=== PATIENT | female | born 1935 | race Hispanic/Latino ===

== ENCOUNTER 2017-02-12 13:43 | Inpatient (IN) | payer MEDICARE, BC ==
--- NOTE | 2017-02-12 14:12 | ED PDOC ---
HPI: SOB/CHF/COPD Time Seen by Provider: 02/12/17 13:49 Chief Complaint (Nursing): Shortness Of Breath Chief Complaint (Provider): Shortness Of Breath History Per: Patient History/Exam Limitations: no limitations Onset/Duration Of Symptoms: Days (x5 days) Current Symptoms Are (Timing): Still Present Additional Complaint(s): 81 y/o female with a past medical history of hypertension, atrial fibrillation, and congestive heart failure who presents to the emergency department with a complaint of worsening shortness of breath, palpitations, chest heaviness, and a non-productive cough x5 days. Denies fever. PMD: Dr. Marco A Gillespie MD Past Medical History Reviewed: Historical Data, Nursing Documentation, Vital Signs Vital Signs: Last Vital Signs Temp 98.6 F 02/12/17 13:46 Pulse 132 H 02/12/17 13:46 Resp 20 02/12/17 13:46 BP 140/97 H 02/12/17 13:46 Pulse Ox 100 02/12/17 14:15 - Medical History PMH: Atrial Fibrillation, CAD (with stent), Cardia Arrhythmia, CHF, COPD, Gastritis, HTN, Hypercholesterolemia, Pneumonia Denies: HIV, Chronic Kidney Disease - Surgical History Surgical History: Appendectomy, Cholecystectomy, Pacemaker, Tonsillectomy - Family History Family History: States: Unknown Family Hx - Home Medications Home Medications: Ambulatory Orders Medication Instructions Recorded Clopidogrel [Plavix] 75 mg PO DAILY 11/03/14 Simvastatin 20 mg PO HS 11/03/14 Amiodarone [Cordarone] 200 mg PO DAILY #0 tab 08/05/15 Digoxin [Lanoxin] 0.25 mg PO DAILY #0 tab 08/05/15 Furosemide [Lasix] 20 mg PO DAILY #30 tab 08/05/15 Metoprolol Tartrate [Lopressor] 50 mg PO Q12 #0 tab 08/05/15 Aspirin [Ecotrin] 81 mg PO DAILY #0 tabec 08/07/15 Nitroglycerin [Nitrostat SL Tab] 0.3 mg SL PRN PRN #1 tab.subl 08/07/15 - Allergies Allergies/Adverse Reactions: Allergies Allergy/AdvReac Type Severity Reaction Status Date / Time Penicillins Allergy RASH Verified 02/12/17 13:46 Review of Systems ROS Statement: Except As Marked, All Systems Reviewed And Found Negative Constitutional: Negative for: Fever Cardiovascular: Positive for: Palpitations, Other (Chest heaviness) Respiratory: Positive for: Cough (Non-productive), Shortness of Breath Physical Exam - Reviewed Nursing Documentation Reviewed: Yes Vital Signs Reviewed: Yes - Physical Exam Appears: Positive for: Non-toxic, No Acute Distress Head Exam: Positive for: ATRAUMATIC, NORMAL INSPECTION, NORMOCEPHALIC Skin: Positive for: Normal Color, Warm, Dry Cardiovascular/Chest: Positive for: Tachycardia, Irregularly Irregular. Negative for: Regular Rate, Rhythm, Murmur Respiratory: Positive for: Rales (1/3 up), Respiratory Distress (Mild). Negative for: Normal Breath Sounds, Accessory Muscle Use Gastrointestinal/Abdominal: Positive for: Normal Exam, Soft. Negative for: Tenderness Extremity: Positive for: Normal ROM. Negative for: Calf Tenderness, Swelling Neurologic/Psych: Positive for: Alert, Oriented (x3) - Laboratory Results Result Diagrams: 02/12/17 14:24 - ECG O2 Sat by Pulse Oximetry: 100 (RA) Pulse Ox Interpretation: Normal - Critical Care Total Time (In Min): 30 Medical Decision Making Medical Decision Making: Time:14:05 Initial impression: Shortness of breath Initial plan: --EKG --B-Type Natriuretic --CMP --Troponin I --Urine DIP --CBC w/ diff --Chest x-ray --Sodium Chloride --Cardizem 25 mg IVP --Lasix 60 mg IVP --Reevaluation Scribe Attestation: Documented by Winnie Farrell, acting as a scribe for Lukas Velasquez MD. Provider Scribe Attestation: All medical record entries made by the Scribe were at my direction and personally dictated by me. I have reviewed the chart and agree that the record accurately reflects my personal performance of the history, physical exam, medical decision making, and the department course for this patient. I have also personally directed, reviewed, and agree with the discharge instructions and disposition. Disposition - Clinical Impression Clinical Impression: Atrial fibrillation with rapid ventricular response - Patient ED Disposition Is Patient to be Admitted: Yes - Disposition Disposition Time: 14:34 Condition: FAIR Forms: [facility] (Romansh) - Pt Status Changed To: Hospital Disposition Of: Inpatient - Admit Certification Admit to Inpatient:: After my assessment, the patient will require hospitalization for at least two midnights. This is because of the severity of symptoms shown, intensity of services needed, and/or the medical risk in this patient being treated as an outpatient. - POA Present On Arrival: None
[2017-02-12 14:28] LABS: BASO % 0.2 % (0.0-2.0); EOS % 0.2 % (0.0-4.0); HEMOGLOBIN 14.8 g/dL (12.0-16.0); LYMPH # 0.3 K/uL (1.0-4.3); LYMPH % 3.1 % (20.0-40.0); MEAN CELL VOLUME 91.6 fl (81.0-99.0); MEAN CORPUSCULAR HEMOGLOBIN 29.6 pg (27.0-31.0); MEAN CORPUSCULAR HGB CONC 32.3 g/dL (33.0-37.0); MEAN PLATELET VOLUME 10.9 fl (7.2-11.7); MONO # 0.7 K/uL (0.0-0.8); MONO % 7.4 % (0.0-10.0); NEUT # 8.6 K/uL (1.8-7.0); NEUT % 89.1 % (50.0-75.0); NRBC % 0.2 % (0.0-0.0); PLATELET COUNT 146 K/uL (130-400); RBC 4.99 Mil/uL (3.80-5.20); RED CELL DISTRIBUTION WIDTH 15.9 % (11.5-14.5); WHITE BLOOD COUNT 9.7 K/uL (4.8-10.8)
[2017-02-12 14:38] LABS: ALB/GLOB RATIO 1.2 (1.0-2.1); ALBUMIN 3.9 g/dL (3.5-5.0); CALCIUM 9.8 mg/dL (8.4-10.2)
[2017-02-12] MEDS ORDERED: Digoxin 500 mcg/2ml (0.5 mg/2ml) Inj IVP STA (14:46)
[2017-02-12 14:50] LABS: TROPONIN I 0.021 ng/mL (0.00-0.120)
[2017-02-12] MEDS ORDERED: Levalbuterol 0.63 MG/3 ML Inhal Soln UD INH ONE (14:51)
[2017-02-12 15:10] LABS: ANISOCYTOSIS SLIGHT; LYMPHOCYTE 6 % (20-50); MONOCYTE 9 % (0-10); NEUTROPHIL 85 % (42-75); PLATELET ESTIMATE NORMAL (NORMAL); TOTAL CELLS COUNTED 100
[2017-02-12] MEDS ORDERED: Digoxin 500 mcg/2ml (0.5 mg/2ml) Inj ONE (15:20)
[2017-02-12] MEDS ORDERED: Levalbuterol 0.63 MG/3 ML Inhal Soln UD ONE (15:21)
--- NOTE | 2017-02-12 15:52 | CP.PCM.HP ---
History of Present Illness - History of Present Illness History of Present Illness: CC: shortness of breath HPI This is a 81 year old female PMH CAD with 1 PCI, AFIB, CHF, Asthma, Sick Sinus Syndrome with pacemaker placement, presented to ER with a 5 day history of URI symptoms, cough with thick yellow phlegm, with worsening moderate shortness of breath both at rest and on exertion, with wheeze. In ER patient had rales, wheezes, and had accessory muscle use, speaking in full sentences. Pt started on Cardizem drip and Digoxin in ER. Rate controlled at present, AFIB on EKG. CXR with vascular congestion, possible pneumonia. HD stable now, no acute distress. ROS: per HPI, 12 systems reviewed and negative PMD: Dr. Gillespie [employer]: Dr. Kapadia PMH: CAD with 1 PCI, AFIB, CHF, Asthma, Sick Sinus Syndrome with pacemaker placement PSH: stent placement, remote knee FH: CAD, mother of massive NH SH: denies tobacco, ETOH, IVDU Meds: as below Allergies: NKDA Vitals: reviewed and currently stable Exam: GEN: WDWN, alert, cooperative HEENT: NCAT, PERRL, EOMI NECK: supple, no JVD, no lymphadenopathy CARDIAC: +S1S2 RRR LUNG: RALES, WHEEZES, MILD RESPIRATORY DISTRESS, ACCESSORY MUSCLE USE ABD: SOFT NT ND BSX4 NO MASSES NO HSM EXT: +pedal pulses, equal strength.no appreciable edema. NEURO: AAOx3 SKIN warm, dry PSYCH normal mood, normal affect Labs: 02/12/17 14:24 02/12/17 14:24 Rads: CXR with vascular congestion, possible pneumonia. Active Medications: Allergies Penicillins Allergy (Verified 02/12/17 13:46) RASH Height & Weight Height 5 ft 2 in Weight 170 lb Start Date/Time Active Medications 02/12/17 14:09 Sodium Chloride 0.9% 100 ml diltiaZEM [Cardizem] 125 mg IV 5 mg/hr 02/12/17 18:31 Azithromycin [Zithromax] 500 mg Sodium Chloride 0.9% [Sodium Chloride 0.9% ADDVANTAGE] 250 ml IVPB DAILY 02/12/17 20:00 Levalbuterol [Xopenex] 1.25 mg INH RQ4 02/12/17 21:00 Furosemide [Lasix] 40 mg IVP Q12 Metoprolol Tartrate [Lopressor] 50 mg PO Q12 02/13/17 09:00 Aspirin [Ecotrin] 81 mg PO DAILY Clopidogrel [Plavix] 75 mg PO DAILY Digoxin [Lanoxin] 0.125 mg PO DAILY Enoxaparin [Lovenox] 30 mg SC DAILY cefTRIAXone [Rocephin] 1,000 mg Ped IV Syringe 1 syr IVPB DAILY Assessment and Plan: This is a 81 year old female PMH CAD with 1 PCI, AFIB, CHF, Asthma, Sick Sinus Syndrome with pacemaker placement, presented to ER with a 5 day history of URI symptoms, cough with thick yellow phlegm, with worsening moderate shortness of breath both at rest and on exertion, with wheeze. In ER patient had rales, wheezes, and had accessory muscle use, speaking in full sentences. Pt started on Cardizem drip and Digoxin in ER. Rate controlled at present, AFIB on EKG. CXR with vascular congestion, possible pneumonia. HD stable now, no acute distress. Acute on Chronic CHF, likely diastolic failure Worsening dypsnea at rest and on exertion, likely secondary exacerbation due to URI/Pneumonia and AFIB Repeat ECHO elevated BMP Lasix 40 mg IVP q12 monito BMP AFIB, uncontrolled on admission AFIB on EKG rate 90-120 On Cardizem drip, titrate to PO tomorrow Restart Dig, was on Amio and Dig in past, but was d/c because pt did not tolerate per past records Possible Pneumonia URI symptoms for 5 days afebrile, no WBC empirically treat with Azithromycin and Ceftriaxone Xopenex around the clock DAR BUN/Cr 67/1.5, last time pt base was 1.3 will monitor with diuresis CAD stable first troponin neg cont asa, plavix, bb Present on Admission - Present on Admission Any Indicators Present on Admission: No Past Patient History - Infectious Disease Hx of Infectious Diseases: None - Past Medical History & Family History Past Medical History?: Yes - Past Social History Smoking Status: Never Smoked - CARDIAC Hx Atrial Fibrillation: Yes Hx Cardia Arrhythmia: Yes Hx Congestive Heart Failure: Yes Hx Hypercholesterolemia: Yes Hx Hypertension: Yes Hx Pacemaker: Yes - PULMONARY Hx Chronic Obstructive Pulmonary Disease (COPD): Yes Hx Pneumonia: Yes - NEUROLOGICAL Hx Neurological Disorder: No - HEENT Hx HEENT Problems: Yes Other/Comment: wears glasses - RENAL Hx Chronic Kidney Disease: No - ENDOCRINE/METABOLIC Hx Endocrine Disorders: No - HEMATOLOGICAL/ONCOLOGICAL Hx Human Immunodeficiency Virus (HIV): No - INTEGUMENTARY Hx Dermatological Problems: No - MUSCULOSKELETAL/RHEUMATOLOGICAL Hx Back Pain: Yes Hx Falls: No Hx Spinal Stenosis: Yes - GASTROINTESTINAL Hx Gastritis: Yes - GENITOURINARY/GYNECOLOGICAL Hx Genitourinary Disorders: No - PSYCHIATRIC Hx Psychophysiologic Disorder: No Hx Substance Use: No - SURGICAL HISTORY Hx Appendectomy: Yes Hx Cholecystectomy: Yes Hx Tonsillectomy: Yes - ANESTHESIA Hx Anesthesia: Yes Hx Anesthesia Reactions: No Hx Malignant Hyperthermia: No Meds Allergies/Adverse Reactions: Allergies Allergy/AdvReac Type Severity Reaction Status Date / Time Penicillins Allergy RASH Verified 02/12/17 13:46 Results - Vital Signs Recent Vital Signs: Last Vital Signs Temp 98.6 F 02/12/17 13:46 Pulse 132 H 02/12/17 13:46 Resp 20 02/12/17 13:46 BP 104/74 02/12/17 14:41 Pulse Ox 100 02/12/17 14:34 - Labs Result Diagrams: 02/12/17 14:24 02/12/17 14:24
[2017-02-12 18:30] LABS: ABG ALLEN TEST YES; ARTERIAL BLOOD GAS O2 CAPACITY 20.7 mL/dL (16-24); ARTERIAL BLOOD GAS O2 CONTENT 20.5 ML/dL (15-23); ARTERIAL BLOOD GAS O2 SAT 99.2 % (95-98); ARTERIAL BLOOD GAS PCO2 70 mm/Hg (35-45); ARTERIAL BLOOD GAS PH 7.33 (7.35-7.45); ARTERIAL BLOOD GAS PO2 153 mm/Hg (80-100)
[2017-02-12] MEDS: methylPREDNISolone 30 MG in Sodium Chloride 0.9% 50 ML IVPB SCH (21:09)
[2017-02-12] MEDS: Azithromycin 500 MG in Sodium Chloride 0.9% 250 ML IVPB SCH (21:10)
[2017-02-13] MEDS: Levalbuterol 1.25 MG/3 ML Inhal Soln UD INH SCH ×5 (00:02→19:41)
[2017-02-13] MEDS ORDERED: Levalbuterol 1.25 MG/3 ML Inhal Soln UD INH STA (02:01)
--- NOTE | 2017-02-13 02:05 | CP.PCM.PCO ---
Physician Communication Note - Physician Communication Note Physician Communication Note: Called to evaluate patient with SOB.
[2017-02-13] MEDS ORDERED: methylPREDNISolone 60 MG in Sodium Chloride 0.9% 50 ML IVPB SCH (02:15)
[2017-02-13 03:54] LABS: BASO % 0.2 % (0.0-2.0); EOS % 0.1 % (0.0-4.0); HEMOGLOBIN 14.2 g/dL (12.0-16.0); LYMPH # 0.3 K/uL (1.0-4.3); LYMPH % 2.9 % (20.0-40.0); MEAN CELL VOLUME 91.6 fl (81.0-99.0); MEAN CORPUSCULAR HEMOGLOBIN 29.4 pg (27.0-31.0); MEAN CORPUSCULAR HGB CONC 32.1 g/dL (33.0-37.0); MEAN PLATELET VOLUME 10.3 fl (7.2-11.7); MONO # 0.3 K/uL (0.0-0.8); MONO % 3.7 % (0.0-10.0); NEUT # 8.7 K/uL (1.8-7.0); NEUT % 93.1 % (50.0-75.0); NRBC % 0.1 % (0.0-0.0); PLATELET COUNT 140 K/uL (130-400); RBC 4.81 Mil/uL (3.80-5.20); RED CELL DISTRIBUTION WIDTH 15.9 % (11.5-14.5); WHITE BLOOD COUNT 9.3 K/uL (4.8-10.8)
[2017-02-13 04:56] LABS: TROPONIN I 0.034 ng/mL (0.00-0.120)
[2017-02-13 07:14] LABS: BANDS 5 % (0-2); LYMPHOCYTE 6 % (20-50); MONOCYTE 5 % (0-10); NEUTROPHIL 82 % (42-75); PLATELET ESTIMATE NORMAL (NORMAL); REACTIVE LYMPHOCYTES 2 % (0-0); TOTAL CELLS COUNTED 100
[2017-02-13 07:15] LABS: LARGE PLATELETS PRESENT
[2017-02-13 07:17] LABS: ANISOCYTOSIS SLIGHT
--- NOTE | 2017-02-13 07:22 | RAD ---
HISTORY: cough COMPARISON: No prior. FINDINGS: LUNGS: No active pulmonary disease. PLEURA: No significant pleural effusion identified, no pneumothorax apparent. CARDIOVASCULAR: Normal. Pacemaker leads are in place. Mild cardiomegaly. Atherosclerotic aorta. OSSEOUS STRUCTURES: No significant abnormalities. VISUALIZED UPPER ABDOMEN: Normal. OTHER FINDINGS: None. IMPRESSION: No active disease.
[2017-02-13] MEDS: methylPREDNISolone 30 MG in Sodium Chloride 0.9% 50 ML IVPB SCH ×3 (07:33→16:24)
[2017-02-13] MEDS: Enoxaparin 30 mg Syringe SC SCH (08:30)
[2017-02-13] MEDS: Digoxin 125 mcg (0.125 mg) Tab PO SCH (08:31)
[2017-02-13] MEDS: Azithromycin 500 MG in Sodium Chloride 0.9% 250 ML IVPB SCH (09:26)
[2017-02-13 09:52] LABS: CALCIUM 9.6 mg/dL (8.4-10.2)
[2017-02-13] MEDS ORDERED: Levalbuterol 1.25 MG/3 ML Inhal Soln UD INH PRN (09:54)
--- NOTE | 2017-02-13 09:59 | CP.PCM.PN ---
Subjective - Date & Time of Evaluation Date of Evaluation: 02/13/17 Time of Evaluation: 09:00 - Subjective Subjective: Pt seen sitted at the edge of her bed states she feels very much better still with some SOB , cough and wheezing but states this is very much improved + cough with yellowish phlegm denies CP no abd pain minimal edema Objective - Vital Signs/Intake and Output Vital Signs (last 24 hours): Temp Pulse Resp BP Pulse Ox 97.1 F L 98 H 20 103/66 96 02/13/17 08:19 02/13/17 08:19 02/13/17 08:19 02/13/17 08:32 02/13/17 08:19 - Medications Medications: Current Medications Allopurinol (Zyloprim) 100 mg PO DAILY [facility] Aspirin (Ecotrin) 81 mg PO DAILY [facility] Last Admin: 02/13/17 08:32 Dose: 81 mg Clopidogrel Bisulfate (Plavix) 75 mg PO DAILY [facility] Last Admin: 02/13/17 08:32 Dose: 75 mg Digoxin (Lanoxin) 0.125 mg PO DAILY [facility] Last Admin: 02/13/17 08:31 Dose: 0.125 mg Enoxaparin Sodium (Lovenox) 30 mg SC DAILY RAMIREZ PRN Reason: Protocol Last Admin: 02/13/17 08:30 Dose: 30 mg Furosemide (Lasix) 40 mg IVP Q12 [facility] Last Admin: 02/13/17 08:32 Dose: 40 mg Diltiazem HCl 125 mg/ Sodium (Chloride) 125 mls @ 5 mls/hr IV .Q24H ONE; 5 MG/ HR PRN Reason: Protocol Stop: 02/13/17 14:08 Last Admin: 02/12/17 14:58 Dose: 5 mls/hr Azithromycin 500 mg/ Sodium (Chloride) 250 mls @ 250 mls/hr IVPB DAILY [facility] Last Admin: 02/13/17 09:26 Dose: 250 mls/hr Ceftriaxone Sodium 1 gm/ (Sodium Chloride) 100 mls @ 100 mls/hr IVPB DAILY [facility] Last Admin: 02/13/17 08:25 Dose: 100 mls/hr Methylprednisolone 60 mg/ (Sodium Chloride) 50 mls @ 100 mls/hr IVPB Stat [facility] Last Admin: 02/13/17 02:22 Dose: 100 mls/hr Methylprednisolone 30 mg/ (Sodium Chloride) 50 mls @ 100 mls/hr IVPB Q8 [facility] Levalbuterol HCl (Xopenex) 1.25 mg INH Q6H [facility] Levalbuterol HCl (Xopenex) 1.25 mg INH RQ4 PRN PRN Reason: Wheezing Metoprolol Tartrate (Lopressor) 50 mg PO Q12 [facility] Last Admin: 02/12/17 21:08 Dose: 50 mg Pantoprazole Sodium (Protonix Ec Tab) 40 mg PO DAILY [facility] - Labs Labs: 02/13/17 03:46 02/13/17 08:45 - Constitutional Appears: No Acute Distress - Head Exam Head Exam: NORMAL INSPECTION, NORMOCEPHALIC - Eye Exam Eye Exam: EOMI, Normal appearance Pupil Exam: NORMAL ACCOMODATION - ENT Exam ENT Exam: Mucous Membranes Moist, Normal External Ear Exam - Neck Exam Neck Exam: Full ROM. absent: Meningismus - Respiratory Exam Respiratory Exam: Rales, Rhonchi, Wheezes - Cardiovascular Exam Cardiovascular Exam: Irregular Rhythm, +S1, +S2. absent: JVD - GI/Abdominal Exam GI & Abdominal Exam: Soft, Normal Bowel Sounds. absent: Tenderness - Extremities Exam Extremities Exam: Full ROM, Normal Capillary Refill. absent: Calf Tenderness, Pedal Edema - Back Exam Back Exam: Full ROM. absent: CVA tenderness (L), CVA tenderness (R) - Neurological Exam Neurological Exam: Alert, Awake, CN II-XII Intact, Normal Gait, Oriented x3 Neuro motor strength exam: Left Upper Extremity: 5, Right Upper Extremity: 5, Left Lower Extremity: 5, Right Lower Extremity: 5 - Psychiatric Exam Psychiatric exam: Normal Affect, Normal Mood - Skin Skin Exam: Dry, Normal Color, Warm Assessment and Plan (1) Pneumonia Status: Suspected (2) Asthma with acute exacerbation Status: Acute (3) Atrial fibrillation with rapid ventricular response Status: Acute (4) Acute on chronic combined systolic and diastolic CHF (congestive heart failure) Status: Acute (5) CAD (coronary artery disease) Status: Chronic (6) HTN (hypertension) Status: Chronic (7) H/O sick sinus syndrome Status: Chronic - Assessment and Plan (Free Text) Assessment: 81 y/o lady with hx of Asthma, HTN, CAD s/p Stent, SSS s/p Pacemeaker, hx of A Fib, came in because of cough , SOB. (1) Pneumonia Status: Suspected CXR : read as negative pt has cough, SOB, rales and rhonchi , wheezing on exam empirically started on IV Ceftriaxone and Azithro Sputum c/s rpt CXR (2) Asthma with acute exacerbation Status: Acute Pt has wheezing, SOB cont IV Solumedrol, Albuteol Neb treatments Pulmonary : Dr Gillespie consulted (3) Atrial fibrillation with rapid ventricular response Status: Acute Pt came with RVR not on anticoag at home - refused to be on anticoag cont ASA, Plavix on Cardizem drip Cardio consult - Dr Kapadia (4) Acute on chronic combined systolic and diastolic CHF (congestive heart failure) Status: Acute ProBNP elevated Lasix given no BB for now bec of Asthma exacerb ECHO Cardio consult hold off on ARB/ONEIDA for now as BP low (5) CAD (coronary artery disease) Status: Chronic kx of Stent placement cont Plavix (6) HTN (hypertension) Status: Chronic BP low normal Pt is on Cardizem drip (7) H/O sick sinus syndrome s/p Pacemaker. Status: Chronic DVT proph - Lovenox
[2017-02-13 10:03] LABS: TROPONIN I 0.029 ng/mL (0.00-0.120)
--- NOTE | 2017-02-13 10:09 | CP.PCM.CON ---
History of Present Illness - History of Present Illness History of Present Illness: This 81 year old female with a prior history of Asthma, cardiac arrhythmia with PPM, melanoma of the lip, hypertension and hyperlipidemia was in her usual state of health until the last few days [employer] when she began having productive cough, 'feeling hot' and worsening shortness of breath. She had returned from a trip to [place] and began to develop these symptoms a few days afterwards. She stayed home hoping these symptoms would subside, but came to the ER after a few days of feeling worse. She denied chest pain and hemoptysis as well as worsening pedal edema. In the ER she was afebrile, in a fib with a rapid ventricular response, tachypneic with audible wheezing. A chest x-ray showed poor inspiratory effort, cardiomegaly, hazy densities in the lower lobes with possible right CP angle blunting. She had allegedly been compliant with her prescribed medication schedule. Review of Systems - Review of Systems All systems: reviewed and no additional remarkable complaints except - Cardiovascular Cardiovascular: Dyspnea, Palpitations, Rapid Heart Rate - Respiratory Respiratory: Cough, Wheezing, Chest Congestion Past Patient History - Infectious Disease Hx of Infectious Diseases: None - Past Medical History & Family History Past Medical History?: Yes Past Family History: Reviewed and not pertinent - Past Social History Smoking Status: Never Smoked Chewing Tobacco Use: No Cigar Use: No Alcohol: Social Drugs: Denies Home Situation {Lives}: With Family Domestic Violence: Negative - CARDIAC Hx Atrial Fibrillation: Yes Hx Cardia Arrhythmia: Yes Hx Congestive Heart Failure: Yes Hx Heart Attack: Yes Hx Hypercholesterolemia: Yes Hx Hypertension: Yes Hx Pacemaker: Yes - PULMONARY Hx Chronic Obstructive Pulmonary Disease (COPD): Yes Hx Pneumonia: Yes - NEUROLOGICAL Hx Neurological Disorder: No - HEENT Hx HEENT Problems: Yes Other/Comment: wears glasses - RENAL Hx Chronic Kidney Disease: No - ENDOCRINE/METABOLIC Hx Endocrine Disorders: No - HEMATOLOGICAL/ONCOLOGICAL Hx Human Immunodeficiency Virus (HIV): No 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 - INTEGUMENTARY Hx Melanoma: Yes - MUSCULOSKELETAL/RHEUMATOLOGICAL Hx Back Pain: Yes Hx Falls: No Hx Spinal Stenosis: Yes - GASTROINTESTINAL Hx Gastritis: Yes - GENITOURINARY/GYNECOLOGICAL Hx Genitourinary Disorders: No - PSYCHIATRIC Hx Psychophysiologic Disorder: No Hx Substance Use: No - SURGICAL HISTORY Hx Appendectomy: Yes Hx Cholecystectomy: Yes Hx Tonsillectomy: Yes - ANESTHESIA Hx Anesthesia: Yes Hx Anesthesia Reactions: No Hx Malignant Hyperthermia: No Meds Allergies/Adverse Reactions: Allergies Allergy/AdvReac Type Severity Reaction Status Date / Time Penicillins Allergy RASH Verified 02/12/17 13:46 - Medications Medications: Current Medications Allopurinol (Zyloprim) 100 mg PO [facility]ILY [facility] Aspirin (Ecotrin) 81 mg PO DAILY [facility] Last Admin: 02/13/17 08:32 Dose: 81 mg Clopidogrel Bisulfate (Plavix) 75 mg PO DAILY [facility] Last Admin: 02/13/17 08:32 Dose: 75 mg Digoxin (Lanoxin) 0.125 mg PO DAILY [facility] Last Admin: 02/13/17 08:31 Dose: 0.125 mg Enoxaparin Sodium (Lovenox) 30 mg SC DAILY [facility] PRN Reason: Protocol Last Admin: 02/13/17 08:30 Dose: 30 mg Furosemide (Lasix) 40 mg IVP Q12 [facility] Last Admin: 02/13/17 08:32 Dose: 40 mg Diltiazem HCl 125 mg/ Sodium (Chloride) 125 mls @ 5 mls/hr IV .Q24H ONE; 5 MG/ HR PRN Reason: Protocol Stop: 02/13/17 14:08 Last Admin: 02/12/17 14:58 Dose: 5 mls/hr Azithromycin 500 mg/ Sodium (Chloride) 250 mls @ 250 mls/hr IVPB DAILY [facility] Last Admin: 02/13/17 09:26 Dose: 250 mls/hr Ceftriaxone Sodium 1 gm/ (Sodium Chloride) 100 mls @ 100 mls/hr IVPB DAILY [facility] Last Admin: 02/13/17 08:25 Dose: 100 mls/hr Methylprednisolone 60 mg/ (Sodium Chloride) 50 mls @ 100 mls/hr IVPB Stat [facility] Last Admin: 02/13/17 02:22 Dose: 100 mls/hr Methylprednisolone 30 mg/ (Sodium Chloride) 50 mls @ 100 mls/hr IVPB Q8 [facility] Insulin Human Regular (Humulin R) 0 units SC ACCU-CHECK RAMIREZ PRN Reason: Protocol Levalbuterol HCl (Xopenex) 1.25 mg INH Q6H [facility] Levalbuterol HCl (Xopenex) 1.25 mg INH RQ4 PRN PRN Reason: Wheezing Metoprolol Tartrate (Lopressor) 50 mg PO Q12 [facility] Last Admin: 02/12/17 21:08 Dose: 50 mg Pantoprazole Sodium (Protonix Ec Tab) 40 mg PO DAILY [facility] Physical Exam - Additional Findings Additional findings: Overweight female seated on the edge of the bed. Trace dependant edema of both ankles. No cyanosis. No calf tenderness or palpable venous cords. No palpable lymphadenopathy. Pharynx pink and moist. Neck supple and trachea midline. No visible JVD, no carotid bruit. No dullness on chest percussion. AP diameter increased. Breath sounds are slightly diminished bilaterally. Few basal medium rales posteriorly, no bronchial breath sounds. Few scattered faint E wheezes bilaterally. E phase prolonged. Heart sounds are slightly distant, rhythm irregular. Faint systolic ejection murmur at the base. Abdomen is fleshy and non-tender with good bowel sounds. Results - Vital Signs Recent Vital Signs: Last Vital Signs Temp 97.1 F L 02/13/17 08:19 Pulse 98 H 02/13/17 08:19 Resp 20 02/13/17 08:19 BP 103/66 02/13/17 08:32 Pulse Ox 96 02/13/17 08:19 - Labs Result Diagrams: 02/13/17 03:46 02/13/17 08:45 Labs: Laboratory Results - last 24 hr 02/12/17 02/12/17 02/13/17 18:27 18:47 03:46 WBC 9.3 RBC 4.81 Hgb 14.2 Hct 44.1 MCV 91.6 MCH 29.4 MCHC 32.1 L RDW 15.9 H Plt Count 140 MPV 10.3 Neut % (Auto) 93.1 H Lymph % (Auto) 2.9 L [place] % (Auto) 3.7 Eos % (Auto) 0.1 Baso % (Auto) 0.2 Neut # 8.7 H Lymph # 0.3 L [place] # 0.3 Eos # 0.0 Baso # 0.0 Neutrophils % (Manual) 82 H Band Neutrophils % 5 H Lymphocytes % (Manual) 6 L Reactive Lymphs % 2 H Monocytes % (Manual) 5 Platelet Estimate Normal Large Platelets Present Anisocytosis (manual) Slight Macrocytosis (manual) Slight pCO2 70 H pO2 153 H HCO3 31.0 H ABG pH 7.33 L ABG Total CO2 39.0 H ABG O2 Saturation 99.2 H ABG O2 Content 20.5 ABG Base Excess 7.9 H ABG Hemoglobin 15.0 ABG Carboxyhemoglobin 1.9 H POC ABG HHb (Measured) 0.8 ABG Methemoglobin 1.4 ABG O2 Capacity 20.7 [place] Test Yes A-a O2 Difference 473.0 Hgb O2 Saturation 95.9 Vent Mode Nrm FiO2 100.0 Sodium Potassium Chloride Carbon Dioxide Anion Gap BUN Creatinine Est GFR ( Amer) Est GFR (Non-Af Amer) Random Glucose Calcium Troponin I 0.0380 TSH 3rd Generation 02/13/17 02/13/17 03:46 08:45 WBC RBC Hgb Hct MCV MCH MCHC RDW Plt Count MPV Neut % (Auto) Lymph % (Auto) [place] % (Auto) Eos % (Auto) Baso % (Auto) Neut # Lymph # [place] # Eos # Baso # Neutrophils % (Manual) Band Neutrophils % Lymphocytes % (Manual) Reactive Lymphs % Monocytes % (Manual) Platelet Estimate Large Platelets Anisocytosis (manual) Macrocytosis (manual) pCO2 pO2 HCO3 ABG pH ABG Total CO2 ABG O2 Saturation ABG O2 Content ABG Base Excess ABG Hemoglobin ABG Carboxyhemoglobin POC ABG HHb (Measured) ABG Methemoglobin ABG O2 Capacity [place] Test A-a O2 Difference Hgb O2 Saturation Vent Mode FiO2 Sodium 142 Potassium 3.7 Chloride 95 L Carbon Dioxide 35 H Anion Gap 16 BUN 67 H Creatinine 1.5 H Est GFR ( Amer) 41 Est GFR (Non-Af Amer) 33 Random Glucose 280 H Calcium 9.6 Troponin I 0.0340 TSH 3rd Generation 0.67 Assessment & Plan (1) CHF (congestive heart failure) Status: Acute Priority: High Comment: Decompensated, likely secondary to acute respiratory illness. (2) Acute bronchitis Status: Acute Priority: High Comment: Repeat CXR in AM to evaluate for increasing infiltrate. (3) Atrial fibrillation with rapid ventricular response Status: Acute Priority: High (4) CAD (coronary artery disease) Status: Chronic Priority: High (5) Asthma with acute exacerbation Status: Acute Comment: Likely secondary to infectious process. - Date & Time Date: 02/13/17 Time: 10:07
[2017-02-13] MEDS: Pantoprazole 40 mg EC Tab PO SCH (11:19)
--- NOTE | 2017-02-13 11:38 | CP.PCM.CON ---
History of Present Illness - History of Present Illness History of Present Illness: THE PATIENT IS A 81 YEAR OLD FEMALE WITH A HISTORY OF COPD, CAD WITH HISTORY OF ANGINA PECTORIS AND CORONARY STENTS, SSS WITH A PERMANENT PACEMAKER, CHRONIC ATRIAL FIBRILLATION, HYPERTENSION, HYPERLIPIDEMIA AND SHE IS OVERWEIGHT. SHE STATES THAT SHE WAS DOING WELL AND WENT TO [place] LAST TUESDAY. ON TUESDAY SHE STARTED GETTING SOB WITH COUGHING WITH PRODUCTIVE YELLOW PHLEGM. SHE STAYED HOME THINKING THAT IT WOULD GO AWAY BUT SHE WAS GETTING WORSE EVERY DAY SO SHE DECIDED TO GO TO THE ER. SHE WAS FOUND TO BE IN RESPIRATORY DISTRESS AND WHEEZING AND ALSO BELIEVED TO BE IN CHF AND WAS TREATED AND ADMITTED. CARDIOLOGY AND PULMONARY WERE CALLED TO SEE HER. SHE DENIES CHEST PAIN BUT FELT HER HEART BEATING RAPIDLY. SHE DENIES FEVERS AND CHILLS BUT FELT VERY WARM AND WOULD SIT IN FRONT OF THE AIR CONDITIONER TO COOL OFF BUT ALSO TO TRY TO BREATHE BETTER. SHE FEELS MUCH BETTER TODAY FOLLOWING TREATMENT WITH O2 , ANTIBIOTICS, IV CARDIZEM AND DIURETICS. Past Patient History - Infectious Disease Hx of Infectious Diseases: None - Past Medical History & Family History Past Medical History?: Yes - Past Social History Smoking Status: Never Smoked - CARDIAC Hx Atrial Fibrillation: Yes Hx Cardia Arrhythmia: Yes Hx Congestive Heart Failure: Yes Hx Hypercholesterolemia: Yes Hx Hypertension: Yes Hx Pacemaker: Yes - PULMONARY Hx Chronic Obstructive Pulmonary Disease (COPD): Yes Hx Pneumonia: Yes - NEUROLOGICAL Hx Neurological Disorder: No - HEENT Hx HEENT Problems: Yes Other/Comment: wears glasses - RENAL Hx Chronic Kidney Disease: No - ENDOCRINE/METABOLIC Hx Endocrine Disorders: No - HEMATOLOGICAL/ONCOLOGICAL Hx Human Immunodeficiency Virus (HIV): No - INTEGUMENTARY Hx Dermatological Problems: No - MUSCULOSKELETAL/RHEUMATOLOGICAL Hx Back Pain: Yes Hx Falls: No Hx Spinal Stenosis: Yes - GASTROINTESTINAL Hx Gastritis: Yes - GENITOURINARY/GYNECOLOGICAL Hx Genitourinary Disorders: No - PSYCHIATRIC Hx Psychophysiologic Disorder: No Hx Substance Use: No - SURGICAL HISTORY Hx Appendectomy: Yes Hx Cholecystectomy: Yes Hx Tonsillectomy: Yes - ANESTHESIA Hx Anesthesia: Yes Hx Anesthesia Reactions: No Hx Malignant Hyperthermia: No Meds Allergies/Adverse Reactions: Allergies Allergy/AdvReac Type Severity Reaction Status Date / Time Penicillins Allergy RASH Verified 02/12/17 13:46 - Medications Medications: Current Medications Allopurinol (Zyloprim) 100 mg PO DAILY [facility] Last Admin: 02/13/17 11:19 Dose: 100 mg Aspirin (Ecotrin) 81 mg PO DAILY [facility] Last Admin: 02/13/17 08:32 Dose: 81 mg Clopidogrel Bisulfate (Plavix) 75 mg PO DAILY [facility] Last Admin: 02/13/17 08:32 Dose: 75 mg Digoxin (Lanoxin) 0.125 mg PO DAILY [facility] Last Admin: 02/13/17 08:31 Dose: 0.125 mg Enoxaparin Sodium (Lovenox) 30 mg SC DAILY [facility] PRN Reason: Protocol Last Admin: 02/13/17 08:30 Dose: 30 mg Furosemide (Lasix) 40 mg IVP Q12 [facility] Last Admin: 02/13/17 08:32 Dose: 40 mg Diltiazem HCl 125 mg/ Sodium (Chloride) 125 mls @ 5 mls/hr IV .Q24H ONE; 5 MG/ HR PRN Reason: Protocol Stop: 02/13/17 14:08 Last Admin: 02/12/17 14:58 Dose: 5 mls/hr Azithromycin 500 mg/ Sodium (Chloride) 250 mls @ 250 mls/hr IVPB DAILY [facility] Last Admin: 02/13/17 09:26 Dose: 250 mls/hr Ceftriaxone Sodium 1 gm/ (Sodium Chloride) 100 mls @ 100 mls/hr IVPB DAILY [facility] Last Admin: 02/13/17 08:25 Dose: 100 mls/hr Methylprednisolone 60 mg/ (Sodium Chloride) 50 mls @ 100 mls/hr IVPB Stat [facility] Last Admin: 02/13/17 02:22 Dose: 100 mls/hr Methylprednisolone 30 mg/ (Sodium Chloride) 50 mls @ 100 mls/hr IVPB Q8 [facility] Insulin Human Regular (Humulin R) 0 units SC ACCU-CHECK [facility] PRN Reason: Protocol Levalbuterol HCl (Xopenex) 1.25 mg INH Q6H [facility] Levalbuterol HCl (Xopenex) 1.25 mg INH RQ4 PRN PRN Reason: Wheezing Metoprolol Tartrate (Lopressor) 50 mg PO Q12 [facility] Last Admin: 02/13/17 11:10 Dose: Not Given Pantoprazole Sodium (Protonix Ec Tab) 40 mg PO DAILY [facility] Last Admin: 02/13/17 11:19 Dose: 40 mg Physical Exam - Respiratory Exam Respiratory Exam: Prolonged Expiratory Phase, Rales, Rhonchi, Wheezes - Cardiovascular Exam Cardiovascular Exam: Irregular Rhythm, +S1, +S2 - Extremities Exam Additional comments: NO SIGNIFICANT EDEMA - Additional Findings Additional findings: EKG IN ER SHOW RAPID ATRIAL FIBRILLATION, R 147 C S S REPRESENTATIVE THIS AM SHOWED ATRIAL FIBRILLATION WITH RATE OF 95 BPM CXR WITHOUT INFILTRATES, PACEMAKER IN PLACE TROPONIN NEGATIVE X 2 PBNP ELEVATED BUN/CR 67/1.5 BUN JUL 2015 WAS 31 PULMONARY NOTE REVIEWED AND PATIENT DISCUSSED WITH DR JOYCE RECENT OUT PATIENT ECHO, CONCENTRIC LVH, LVEF ~ 50%, DIASTOLIC DYSFUNCTION Results - Vital Signs Recent Vital Signs: Last Vital Signs Temp 97.1 F L 02/13/17 08:19 Pulse 100 H 02/13/17 11:10 Resp 20 02/13/17 08:19 BP 103/60 02/13/17 11:10 Pulse Ox 96 02/13/17 08:19 - Labs Result Diagrams: 02/13/17 03:46 02/13/17 08:45 Labs: Laboratory Results - last 24 hr 02/12/17 02/12/17 02/13/17 18:27 18:47 03:46 WBC 9.3 RBC 4.81 Hgb 14.2 Hct 44.1 MCV 91.6 MCH 29.4 MCHC 32.1 L RDW 15.9 H Plt Count 140 MPV 10.3 Neut % (Auto) 93.1 H Lymph % (Auto) 2.9 L Harding % (Auto) 3.7 Eos % (Auto) 0.1 Baso % (Auto) 0.2 Neut # 8.7 H Lymph # 0.3 L Harding # 0.3 Eos # 0.0 Baso # 0.0 Neutrophils % (Manual) 82 H Band Neutrophils % 5 H Lymphocytes % (Manual) 6 L Reactive Lymphs % 2 H Monocytes % (Manual) 5 Platelet Estimate Normal Large Platelets Present Anisocytosis (manual) Slight Macrocytosis (manual) Slight pCO2 70 H pO2 153 H HCO3 31.0 H ABG pH 7.33 L ABG Total CO2 39.0 H ABG O2 Saturation 99.2 H ABG O2 Content 20.5 ABG Base Excess 7.9 H ABG Hemoglobin 15.0 ABG Carboxyhemoglobin 1.9 H POC ABG HHb (Measured) 0.8 ABG Methemoglobin 1.4 ABG O2 Capacity 20.7 Clayton Test Yes A-a O2 Difference 473.0 Hgb O2 Saturation 95.9 Vent Mode Nrm FiO2 100.0 Sodium Potassium Chloride Carbon Dioxide Anion Gap BUN Creatinine Est GFR ( Amer) Est GFR (Non-Af Amer) Random Glucose Calcium Troponin I 0.0380 TSH 3rd Generation 02/13/17 02/13/17 03:46 08:45 WBC RBC Hgb Hct MCV MCH MCHC RDW Plt Count MPV Neut % (Auto) Lymph % (Auto) Harding % (Auto) Eos % (Auto) Baso % (Auto) Neut # Lymph # Harding # Eos # Baso # Neutrophils % (Manual) Band Neutrophils % Lymphocytes % (Manual) Reactive Lymphs % Monocytes % (Manual) Platelet Estimate Large Platelets Anisocytosis (manual) Macrocytosis (manual) pCO2 pO2 HCO3 ABG pH ABG Total CO2 ABG O2 Saturation ABG O2 Content ABG Base Excess ABG Hemoglobin ABG Carboxyhemoglobin POC ABG HHb (Measured) ABG Methemoglobin ABG O2 Capacity Clayton Test A-a O2 Difference Hgb O2 Saturation Vent Mode FiO2 Sodium 142 Potassium 3.7 Chloride 95 L Carbon Dioxide 35 H Anion Gap 16 BUN 67 H Creatinine 1.5 H Est GFR ( Amer) 41 Est GFR (Non-Af Amer) 33 Random Glucose 280 H Calcium 9.6 Troponin I 0.0340 0.0290 TSH 3rd Generation 0.67 Assessment & Plan - Assessment and Plan (Free Text) Assessment: ACUTE EXACERBATION OF COPD WITH BRONCHITIS-IMPROVING WITH TREATMENT CAD-STABLE CHRONIC ATRIAL FIBRILLATION, RAPID RATE YESTERDAY THAT IS BETTER TODAY MILD ACUTE DIASTOLIC CHF FROM LV DIASTOLIC DYSFUNCTION WELL RAPID ATRIAL FIBRILLATION- IMPROVING CLINICALLY WITH HEART RATE CONTROL SSS WITH PACEMAKER HYPERTENSION HYPERLIPIDEMIA Plan: THE PATIENT WAS ADMITTED TO 4N ON TELEMETRY O2, ANTIBIOTICS, STEROIDS, BRONCHODILATORS, IV CARDIZEM, ASPIRIN, PLAVIX, NITROPASTE, DIGOXIN WILL HOLD METOPROLOL AT THE PRESENT TIME DUE TO THE WHEEZING IV FUROSEMIDE WAS GIVEN BUT WILL BE HELD THE PATIENT IS PRERENAL AND IS NOT IN PULMONARY EDEMA-THE SLOWING OF HER HEART RATE WITH IV CARDIZEM SHOULD IMPROVE HER CLINICALLY. HER HEART RATE WILL BE MONITORED. SERIAL EKGS AND TROPONINS WERE ALREADY ORDERED PATIENT ALREADY HAD RECENT OUT PATIENT ECHOCARDIOGRAM
[2017-02-13] MEDS: Insulin Regular 100 units/ml SC SCH ×3 (11:44→23:53)
[2017-02-13] MEDS: Nitroglycerin 2% Ointment Foilpak UD TOP SCH ×3 (12:31→22:03)
--- NOTE | 2017-02-13 12:50 | CARD ---
APPROVED REPORT EKG Measurement Heart [id number] <Conclusion> Atrial fibrillation with one paced beat and one premature ventricular or aberrantly conducted complex Left axis deviation Pulmonary disease pattern ST & T wave abnormality, consider lateral ischemia Abnormal ECG
--- NOTE | 2017-02-13 13:01 | CARD ---
APPROVED REPORT EKG Measurement Heart [id number] <Conclusion> Undetermined rhythm Right axis deviation Pulmonary disease pattern Abnormal ECG
[2017-02-13 14:59] VITALS: BMI 31.1
[2017-02-14] MEDS: methylPREDNISolone 30 MG in Sodium Chloride 0.9% 50 ML IVPB SCH ×4 (00:04→16:50)
[2017-02-14] MEDS: Levalbuterol 1.25 MG/3 ML Inhal Soln UD INH SCH ×4 (01:03→19:23)
[2017-02-14] MEDS: Nitroglycerin 2% Ointment Foilpak UD TOP SCH ×4 (05:18→21:06)
[2017-02-14 06:27] LABS: CALCIUM 9.9 mg/dL (8.4-10.2)
[2017-02-14 06:31] LABS: BASO % 0.4 % (0.0-2.0); HEMOGLOBIN 12.7 g/dL (12.0-16.0); LYMPH # 0.3 K/uL (1.0-4.3); LYMPH % 2.6 % (20.0-40.0); MEAN CELL VOLUME 92.7 fl (81.0-99.0); MEAN CORPUSCULAR HEMOGLOBIN 29.1 pg (27.0-31.0); MEAN CORPUSCULAR HGB CONC 31.4 g/dL (33.0-37.0); MEAN PLATELET VOLUME 10.1 fl (7.2-11.7); MONO # 0.3 K/uL (0.0-0.8); MONO % 2.8 % (0.0-10.0); NEUT # 9.7 K/uL (1.8-7.0); NEUT % 94.2 % (50.0-75.0); NRBC % 0.2 % (0.0-0.0); PLATELET COUNT 153 K/uL (130-400); RBC 4.37 Mil/uL (3.80-5.20); RED CELL DISTRIBUTION WIDTH 15.8 % (11.5-14.5); WHITE BLOOD COUNT 10.3 K/uL (4.8-10.8)
[2017-02-14 08:40] LABS: BANDS 8 % (0-2); LYMPHOCYTE 5 % (20-50); MONOCYTE 3 % (0-10); NEUTROPHIL 84 % (42-75); TOTAL CELLS COUNTED 100
[2017-02-14 08:42] LABS: ANISOCYTOSIS SLIGHT; LARGE PLATELETS PRESENT; PLATELET ESTIMATE NORMAL (NORMAL)
[2017-02-14 08:43] LABS: OVALOCYTES SLIGHT; POIKILOCYTOSIS SLIGHT
[2017-02-14] MEDS: Enoxaparin 30 mg Syringe SC SCH (09:07)
[2017-02-14] MEDS: Pantoprazole 40 mg EC Tab PO SCH (09:07)
[2017-02-14] MEDS: Insulin Regular 100 units/ml SC SCH ×4 (09:08→22:43)
[2017-02-14] MEDS: Digoxin 125 mcg (0.125 mg) Tab PO SCH (09:08)
[2017-02-14] MEDS: Azithromycin 500 MG in Sodium Chloride 0.9% 250 ML IVPB SCH (09:11)
--- NOTE | 2017-02-14 10:02 | CP.PCM.PN ---
Subjective - Date & Time of Evaluation Date of Evaluation: 02/14/17 Time of Evaluation: 10:00 - Subjective Subjective: CXR done this morning PA/Lateral: patchy RLL density seen as well as a small density in the LLL. Will continue to treat with Dx of CAP added. Legionella U Ag, mycoplasma Ab and Strep U Ag requested. Cough suppressant/mucolytic added to regimen. Objective - Vital Signs/Intake and Output Vital Signs (last 24 hours): Temp Pulse Resp BP Pulse Ox 97.9 F 90 18 116/60 98 02/14/17 08:00 02/14/17 08:00 02/14/17 08:00 02/14/17 08:00 02/14/17 08:00 - Medications Medications: Current Medications Allopurinol (Zyloprim) 100 mg PO DAILY [facility] Last Admin: 02/14/17 09:07 Dose: 100 mg Aspirin (Ecotrin) 81 mg PO DAILY [facility] Last Admin: 02/14/17 09:08 Dose: 81 mg Clopidogrel Bisulfate (Plavix) 75 mg PO DAILY [facility] Last Admin: 02/14/17 09:07 Dose: 75 mg Digoxin (Lanoxin) 0.125 mg PO DAILY [facility] Last Admin: 02/14/17 09:08 Dose: 0.125 mg Enoxaparin Sodium (Lovenox) 30 mg SC DAILY [facility] PRN Reason: Protocol Last Admin: 02/14/17 09:07 Dose: 30 mg Azithromycin 500 mg/ Sodium (Chloride) 250 mls @ 250 mls/hr IVPB DAILY [facility] Last Admin: 02/14/17 09:11 Dose: 250 mls/hr Ceftriaxone Sodium 1 gm/ (Sodium Chloride) 100 mls @ 100 mls/hr IVPB DAILY [facility] Last Admin: 02/14/17 09:10 Dose: 100 mls/hr Methylprednisolone 30 mg/ (Sodium Chloride) 50 mls @ 100 mls/hr IVPB Q8 [facility] Last Admin: 02/14/17 09:11 Dose: 100 mls/hr Diltiazem HCl 125 mg/ Sodium (Chloride) 125 mls @ 5 mls/hr IV .Q24H ONE; 5 MG/ HR PRN Reason: Protocol Stop: 02/14/17 14:04 Last Admin: 02/13/17 14:21 Dose: 5 mg/hr, 5 mls/hr Insulin Human Regular (Humulin R) 0 units SC ACCU-CHECK [facility] PRN Reason: Protocol Last Admin: 02/14/17 09:08 Dose: 2 u Levalbuterol HCl (Xopenex) 1.25 mg INH RQ4 PRN PRN Reason: Wheezing Last Admin: 02/14/17 00:42 Dose: 1.25 mg Levalbuterol HCl (Xopenex) 1.25 mg INH RQ6 [facility] Last Admin: 02/14/17 07:51 Dose: 1.25 mg Nitroglycerin (Nitro-Bid 2% Oint) 0.5 ea TOP Q6 [facility] Last Admin: 02/14/17 05:18 Dose: 0.5 ea Pantoprazole Sodium (Protonix Ec Tab) 40 mg PO DAILY [facility] Last Admin: 02/14/17 09:07 Dose: 40 mg - Labs Labs: 02/14/17 06:03 02/14/17 06:03 Assessment and Plan (1) CHF (congestive heart failure) Status: Acute (2) Acute bronchitis Status: Acute (3) Atrial fibrillation with rapid ventricular response Status: Acute (4) CAD (coronary artery disease) Status: Chronic (5) Asthma with acute exacerbation Status: Acute
--- NOTE | 2017-02-14 11:53 | RAD ---
HISTORY: Cough. COMPARISON: 02/12/2017 TECHNIQUE: Chest PA and lateral FINDINGS: LUNGS: No active pulmonary disease. PLEURA: No significant pleural effusion identified. No pneumothorax apparent. CARDIOVASCULAR: Cardiomegaly, pulmonary vascular plethora. Position/ configuration of pacemaker OSSEOUS STRUCTURES: No significant abnormalities. VISUALIZED UPPER ABDOMEN: Normal. OTHER FINDINGS: None. IMPRESSION: No active disease. No significant interval change compared to the prior examination(s).
--- NOTE | 2017-02-14 12:10 | CP.PCM.PN ---
Subjective - Date & Time of Evaluation Date of Evaluation: 02/14/17 Time of Evaluation: 08:30 - Subjective Subjective: STILL SOB, ONLY MINOR IMPROVEMENT NO CHEST PAIN Objective - Vital Signs/Intake and Output Vital Signs (last 24 hours): Temp Pulse Resp BP Pulse Ox 97.9 F 90 18 116/60 98 02/14/17 08:00 02/14/17 08:00 02/14/17 08:00 02/14/17 08:00 02/14/17 08:00 - Medications Medications: Current Medications Allopurinol (Zyloprim) 100 mg PO DAILY [facility] Last Admin: 02/14/17 09:07 Dose: 100 mg Aspirin (Ecotrin) 81 mg PO DAILY [facility] Last Admin: 02/14/17 09:08 Dose: 81 mg Clopidogrel Bisulfate (Plavix) 75 mg PO DAILY [facility] Last Admin: 02/14/17 09:07 Dose: 75 mg Digoxin (Lanoxin) 0.125 mg PO DAILY [facility] Last Admin: 02/14/17 09:08 Dose: 0.125 mg Enoxaparin Sodium (Lovenox) 30 mg SC DAILY [facility] PRN Reason: Protocol Last Admin: 02/14/17 09:07 Dose: 30 mg Guaifenesin/Dextromethorphan (Mucinex-Dm 600-30 Mg) 2 tab PO Q12 [facility] Azithromycin 500 mg/ Sodium (Chloride) 250 mls @ 250 mls/hr IVPB DAILY [facility] Last Admin: 02/14/17 09:11 Dose: 250 mls/hr Ceftriaxone Sodium 1 gm/ (Sodium Chloride) 100 mls @ 100 mls/hr IVPB DAILY [facility] Last Admin: 02/14/17 09:10 Dose: 100 mls/hr Methylprednisolone 30 mg/ (Sodium Chloride) 50 mls @ 100 mls/hr IVPB Q8 [facility] Last Admin: 02/14/17 09:11 Dose: 100 mls/hr Diltiazem HCl 125 mg/ Sodium (Chloride) 125 mls @ 5 mls/hr IV .Q24H ONE; 5 MG/ HR PRN Reason: Protocol Stop: 02/14/17 14:04 Last Admin: 02/13/17 14:21 Dose: 5 mg/hr, 5 mls/hr Insulin Human Regular (Humulin R) 0 units SC ACCU-CHECK [facility] PRN Reason: Protocol Last Admin: 02/14/17 09:08 Dose: 2 u Levalbuterol HCl (Xopenex) 1.25 mg INH RQ4 PRN PRN Reason: Wheezing Last Admin: 02/14/17 00:42 Dose: 1.25 mg Levalbuterol HCl (Xopenex) 1.25 mg INH RQ6 [facility] Last Admin: 02/14/17 07:51 Dose: 1.25 mg Nitroglycerin (Nitro-Bid 2% Oint) 0.5 ea TOP Q6 [facility] Last Admin: 02/14/17 05:18 Dose: 0.5 ea Pantoprazole Sodium (Protonix Ec Tab) 40 mg PO DAILY [facility] Last Admin: 02/14/17 09:07 Dose: 40 mg - Labs Labs: 02/14/17 06:03 02/14/17 06:03 - Respiratory Exam Respiratory Exam: Rales, Rhonchi, Wheezes - Cardiovascular Exam Cardiovascular Exam: Irregular Rhythm, +S1, +S2 - Extremities Exam Extremities Exam: Normal Inspection - Additional Findings Additional findings: 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
[2017-02-14] MEDS: guaiFENesin-DM 600-30 mg ER Tab PO SCH ×2 (12:20→21:09)
--- NOTE | 2017-02-14 18:26 | CP.PCM.PN ---
Subjective - Date & Time of Evaluation Date of Evaluation: 02/14/17 Time of Evaluation: 09:00 - Subjective Subjective: Patient is seen and examined bedside. Still with chest congestion, coughing , wheezing and dyspnea. Unable to expectorate today. HR better controlled on cardizem drip saturating 92 % on 3 L O2 via NC , afebrile CXR showed increased interstitial markings to RLL and LLL Objective - Vital Signs/Intake and Output Vital Signs (last 24 hours): Temp Pulse Resp BP Pulse Ox 97.5 F L 98 H 20 110/64 96 02/14/17 15:35 02/14/17 16:51 02/14/17 15:35 02/14/17 16:51 02/14/17 15:35 - Medications Medications: Current Medications Allopurinol (Zyloprim) 100 mg PO DAILY [facility] Last Admin: 02/14/17 09:07 Dose: 100 mg Aspirin (Ecotrin) 81 mg PO DAILY [facility] Last Admin: 02/14/17 09:08 Dose: 81 mg Clopidogrel Bisulfate (Plavix) 75 mg PO DAILY [facility] Last Admin: 02/14/17 09:07 Dose: 75 mg Digoxin (Lanoxin) 0.125 mg PO DAILY [facility] Last Admin: 02/14/17 09:08 Dose: 0.125 mg Enoxaparin Sodium (Lovenox) 30 mg SC DAILY [facility] PRN Reason: Protocol Last Admin: 02/14/17 09:07 Dose: 30 mg Guaifenesin/Dextromethorphan (Mucinex-Dm 600-30 Mg) 2 tab PO Q12 [facility] Last Admin: 02/14/17 12:20 Dose: 2 tab Azithromycin 500 mg/ Sodium (Chloride) 250 mls @ 250 mls/hr IVPB DAILY [facility] Last Admin: 02/14/17 09:11 Dose: 250 mls/hr Ceftriaxone Sodium 1 gm/ (Sodium Chloride) 100 mls @ 100 mls/hr IVPB DAILY [facility] Last Admin: 02/14/17 09:10 Dose: 100 mls/hr Methylprednisolone 30 mg/ (Sodium Chloride) 50 mls @ 100 mls/hr IVPB Q8 [facility] Last Admin: 02/14/17 16:50 Dose: 100 mls/hr Insulin Human Regular (Humulin R) 0 units SC ACCU-CHECK [facility] PRN Reason: Protocol Last Admin: 02/14/17 16:49 Dose: 2 u Levalbuterol HCl (Xopenex) 1.25 mg INH RQ4 PRN PRN Reason: Wheezing Last Admin: 02/14/17 00:42 Dose: 1.25 mg Levalbuterol HCl (Xopenex) 1.25 mg INH RQ6 [facility] Last Admin: 02/14/17 13:34 Dose: 1.25 mg Nitroglycerin (Nitro-Bid 2% Oint) 0.5 ea TOP Q6 [facility] Last Admin: 02/14/17 16:51 Dose: 0.5 ea Pantoprazole Sodium (Protonix Ec Tab) 40 mg PO DAILY [facility] Last Admin: 02/14/17 09:07 Dose: 40 mg - Labs Labs: 02/14/17 06:03 02/14/17 06:03 - Constitutional Appears: Non-toxic, In Acute Distress (in respiratoruy doistress ) - Head Exam Head Exam: ATRAUMATIC, NORMAL INSPECTION, NORMOCEPHALIC - Eye Exam Eye Exam: EOMI, Normal appearance, PERRL Pupil Exam: NORMAL ACCOMODATION - ENT Exam ENT Exam: Mucous Membranes Moist, Normal Exam - Neck Exam Neck Exam: Full ROM, Normal Inspection - Respiratory Exam Respiratory Exam: Accessory Muscle Use, Prolonged Expiratory Phase, Rhonchi, Wheezes (diffuse bilaterally), Respiratory Distress - Cardiovascular Exam Cardiovascular Exam: Irregular Rhythm. absent: JVD - GI/Abdominal Exam GI & Abdominal Exam: Soft, Normal Bowel Sounds. absent: Distended, Guarding, Tenderness, Rebound - Rectal Exam Rectal Exam: Deferred - Extremities Exam Extremities Exam: Normal Capillary Refill, Normal Inspection. absent: Calf Tenderness, Pedal Edema - Back Exam Back Exam: NORMAL INSPECTION - Neurological Exam Neurological Exam: Alert, Awake, CN II-XII Intact, Oriented x3 - Psychiatric Exam Psychiatric exam: Normal Affect, Normal Mood - Skin Skin Exam: Dry, Intact, Normal Color, Warm Assessment and Plan - Assessment and Plan (Free Text) Assessment: This 81 year old female with PMH of Asthma, cardiac arrhythmia with PPM, melanoma of the lip, hypertension, hyperlipidemia, afib CAD s/p stent presented woth chest congestion , dyspnea, productive cough with yellowish sputum for few days She just returned from a trip to [place] She stayed home hoping these symptoms would subside, but came to the ER after a few days of feeling worse. She denied chest pain and hemoptysis as well as worsening pedal edema. In the ER she was afebrile, in a fib with a rapid ventricular response, tachypneic with audible wheezing. CXR showed showed poor inspiratory effort, with increased haziness to lower lobes . She is admitted and acute asthma exacerbation, pneumo ni a and Afib with RVR. At present HR better controlled on cardizem drip , but still with chest congestion , dyspnea and wheezing 1.Atrial fibrillation with rapid ventricular response Acute better controlled on cardizem drip todayu. Will d/c cardizemn drip and continue digoxin PO [facility] cosnult appreciated She is not on anticoagulation at home because she refused continue ASA, Plavix 2. Asthma with acute exacerbation Acute Pt has wheezing, SOB cont IV Solumedrol, Albuteol Neb treatments Pulmonary : Dr Gillespie consulted Started mucinex on 3 L O2 via NC 3. Pneumonia Suspected CXR : read as negative but lower lobes show increased interstitial markings pt has cough, SOB, rales and rhonchi , wheezing on exam Continue IV Ceftriaxone and Azithro follow up Sputum c/s 4 Acute on chronic combined systolic and diastolic CHF (congestive heart failure ) Acute ProBNP elevated Lasix given no BB for now because of Asthma exacerbation Cardio consult appreciated hold off on ARB/ONEIDA for now as BP low 5. CAD (coronary artery disease) Chronic kx of Stent placement cont Plavix 6. HTN (hypertension) Chronic BP low normal hold off BP meds 7. H/O sick sinus syndrome s/p Pacemaker. Chronic 8. CKD stage III stable 9. Hyperglycemia Most likely steroid induced Continue Accucjhecks and insulin coverage 10.DVT proph Lovenox
[2017-02-15] MEDS: Levalbuterol 1.25 MG/3 ML Inhal Soln UD INH SCH ×4 (00:48→19:05)
[2017-02-15] MEDS: methylPREDNISolone 30 MG in Sodium Chloride 0.9% 50 ML IVPB SCH ×3 (02:05→21:14)
[2017-02-15 06:02] LABS: HEMOGLOBIN 13.5 g/dL (12.0-16.0); MEAN CELL VOLUME 94.4 fl (81.0-99.0); MEAN CORPUSCULAR HEMOGLOBIN 29.5 pg (27.0-31.0); MEAN CORPUSCULAR HGB CONC 31.2 g/dL (33.0-37.0); RBC 4.57 Mil/uL (3.80-5.20); RED CELL DISTRIBUTION WIDTH 15.9 % (11.5-14.5); WHITE BLOOD COUNT 10.2 K/uL (4.8-10.8)
[2017-02-15 06:17] LABS: CALCIUM 9.9 mg/dL (8.4-10.2)
[2017-02-15] MEDS: Nitroglycerin 2% Ointment Foilpak UD TOP SCH ×4 (06:29→21:18)
[2017-02-15] MEDS: Azithromycin 500 MG in Sodium Chloride 0.9% 250 ML IVPB SCH (08:24)
[2017-02-15] MEDS: Pantoprazole 40 mg EC Tab PO SCH (08:25)
[2017-02-15] MEDS: Digoxin 125 mcg (0.125 mg) Tab PO SCH (08:25)
[2017-02-15] MEDS: Enoxaparin 30 mg Syringe SC SCH (08:26)
[2017-02-15] MEDS: guaiFENesin-DM 600-30 mg ER Tab PO SCH (08:26)
[2017-02-15] MEDS: Insulin Regular 100 units/ml SC SCH ×4 (08:27→22:05)
--- NOTE | 2017-02-15 10:52 | CP.PCM.PN ---
Subjective - Date & Time of Evaluation Date of Evaluation: 02/15/17 Time of Evaluation: 10:50 - Subjective Subjective: Coughing, unable to expectorate. Reports visual hallucinations last night (?dextromethorphan?). CXR official report states 'vascular plethora', no infiltrates. Has remained afebrile, adequate SpO2 on nasal canula. Initial ABG with PaO2 153 on 100% oxygen; a-A gradient >470. On admission patient had signs of significant hypoxia and hypercapnea. Coughing during exam today, congested but non-productive. Scattered rhonchi and medium rales in lower lobes, R>L. Few scattered expiratory wheezes as well. Sputum shows many polys with gm positive cocci on gram stain. Will stop Mucinex and begin benzonatate. CT chest w/o contrast requested. Steroid dosage reduced to 30MG Q12H. Continue current antibiotic regimen. Objective - Vital Signs/Intake and Output Vital Signs (last 24 hours): Temp Pulse Resp BP Pulse Ox 97.9 F 91 H 20 116/75 99 02/15/17 08:00 02/15/17 08:00 02/15/17 08:00 02/15/17 08:00 02/15/17 08:00 Intake and Output: 02/14/17 02/15/17 23:59 11:59 Intake Total 630 Balance 630 - Medications Medications: Current Medications Allopurinol (Zyloprim) 100 mg PO DAILY [facility] Last Admin: 02/15/17 08:25 Dose: 100 mg Aspirin (Ecotrin) 81 mg PO DAILY [facility] Last Admin: 02/15/17 08:25 Dose: 81 mg Benzonatate (Tessalon Perles) 200 mg PO TID PRN PRN Reason: Cough Clopidogrel Bisulfate (Plavix) 75 mg PO DAILY [facility] Last Admin: 02/15/17 08:25 Dose: 75 mg Digoxin (Lanoxin) 0.125 mg PO DAILY [facility] Last Admin: 02/15/17 08:25 Dose: 0.125 mg Enoxaparin Sodium (Lovenox) 30 mg SC DAILY [facility] PRN Reason: Protocol Last Admin: 02/15/17 08:26 Dose: 30 mg Azithromycin 500 mg/ Sodium (Chloride) 250 mls @ 250 mls/hr IVPB DAILY [facility] Last Admin: 02/15/17 08:24 Dose: 250 mls/hr Ceftriaxone Sodium 1 gm/ (Sodium Chloride) 100 mls @ 100 mls/hr IVPB DAILY [facility] Last Admin: 02/15/17 08:24 Dose: 100 mls/hr Methylprednisolone 30 mg/ (Sodium Chloride) 50 mls @ 100 mls/hr IVPB Q12 [facility] Insulin Human Regular (Humulin R) 0 units SC ACCU-CHECK [facility] PRN Reason: Protocol Last Admin: 02/15/17 08:27 Dose: 2 u Levalbuterol HCl (Xopenex) 1.25 mg INH RQ4 PRN PRN Reason: Wheezing Last Admin: 02/14/17 00:42 Dose: 1.25 mg Levalbuterol HCl (Xopenex) 1.25 mg INH RQ6 [facility] Last Admin: 02/15/17 07:43 Dose: 1.25 mg Nitroglycerin (Nitro-Bid 2% Oint) 0.5 ea TOP Q6 [facility] Last Admin: 02/15/17 06:29 Dose: Not Given Pantoprazole Sodium (Protonix Ec Tab) 40 mg PO DAILY [facility] Last Admin: 02/15/17 08:25 Dose: 40 mg - Labs Labs: 02/15/17 05:20 02/15/17 05:20 Assessment and Plan (1) CHF (congestive heart failure) Status: Acute (2) Acute bronchitis Status: Acute (3) Atrial fibrillation with rapid ventricular response Status: Acute (4) CAD (coronary artery disease) Status: Chronic (5) Asthma with acute exacerbation Status: Acute
--- NOTE | 2017-02-15 11:23 | CP.PCM.PN ---
Subjective - Date & Time of Evaluation Date of Evaluation: 02/15/17 Time of Evaluation: 10:30 - Subjective Subjective: STILL VERY SOB, COUGHING AND CAN'T EXPECTORATE NO CHEST PAIN HAD SOME VISUAL HALLUCINATIONS LAST NIGHT Objective - Vital Signs/Intake and Output Vital Signs (last 24 hours): Temp Pulse Resp BP Pulse Ox 97.9 F 91 H 20 116/75 99 02/15/17 08:00 02/15/17 08:00 02/15/17 08:00 02/15/17 08:00 02/15/17 08:00 Intake and Output: 02/15/17 02/15/17 06:59 18:59 Intake Total 630 Balance 630 - Medications Medications: Current Medications Allopurinol (Zyloprim) 100 mg PO DAILY [facility] Last Admin: 02/15/17 08:25 Dose: 100 mg Aspirin (Ecotrin) 81 mg PO DAILY [facility] Last Admin: 02/15/17 08:25 Dose: 81 mg Benzonatate (Tessalon Perles) 200 mg PO TID PRN PRN Reason: Cough Clopidogrel Bisulfate (Plavix) 75 mg PO DAILY [facility] Last Admin: 02/15/17 08:25 Dose: 75 mg Digoxin (Lanoxin) 0.125 mg PO DAILY [facility] Last Admin: 02/15/17 08:25 Dose: 0.125 mg Enoxaparin Sodium (Lovenox) 30 mg SC DAILY [facility] PRN Reason: Protocol Last Admin: 02/15/17 08:26 Dose: 30 mg Azithromycin 500 mg/ Sodium (Chloride) 250 mls @ 250 mls/hr IVPB DAILY [facility] Last Admin: 02/15/17 08:24 Dose: 250 mls/hr Ceftriaxone Sodium 1 gm/ (Sodium Chloride) 100 mls @ 100 mls/hr IVPB DAILY [facility] Last Admin: 02/15/17 08:24 Dose: 100 mls/hr Methylprednisolone 30 mg/ (Sodium Chloride) 50 mls @ 100 mls/hr IVPB Q12 [facility] Insulin Human Regular (Humulin R) 0 units SC ACCU-CHECK [facility] PRN Reason: Protocol Last Admin: 02/15/17 08:27 Dose: 2 u Levalbuterol HCl (Xopenex) 1.25 mg INH RQ4 PRN PRN Reason: Wheezing Last Admin: 02/14/17 00:42 Dose: 1.25 mg Levalbuterol HCl (Xopenex) 1.25 mg INH RQ6 [facility] Last Admin: 02/15/17 07:43 Dose: 1.25 mg Nitroglycerin (Nitro-Bid 2% Oint) 0.5 ea TOP Q6 [facility] Last Admin: 02/15/17 06:29 Dose: Not Given Pantoprazole Sodium (Protonix Ec Tab) 40 mg PO DAILY [facility] Last Admin: 02/15/17 08:25 Dose: 40 mg - Labs Labs: 02/15/17 05:20 02/15/17 05:20 - Respiratory Exam Respiratory Exam: Rales, Rhonchi, Wheezes - Cardiovascular Exam Cardiovascular Exam: Irregular Rhythm, +S1, +S2 - Extremities Exam Additional comments: NO SIGNIFICANT LE EDEMA - Additional Findings Additional findings: EKG ATRIAL FIBRILLATION WITH MVR CXR NOTED Assessment and Plan - Assessment and Plan (Free Text) Assessment: COPD WITH ACUTE BRONCHITIS/PNEUMONIA ATRIAL FIBRILLATION CAD-STABLE HYPERTENSION Plan: CONTINUE O2, ANTIBIOTICS, BRONCHODILATORS, STEROIDS DOSE DECREASED, ASPIRIN, NITROPASTE WILL STILL HOLD BETA BLOCKERS DUE TO RESPIRATORY DISTRESS CT SCAN TO BETTER ASSESS FOR PNEUMONIA MUCINEX DISCONTINUED PATIENT DISCUSSED WITH DR JOYCE AND HOSPITALIST
--- NOTE | 2017-02-15 13:09 | CT ---
PROCEDURE: CT Chest without contrast HISTORY: cough COMPARISON: Chest radiograph 02/14/2017. TECHNIQUE: Contiguous axial images were obtained through the chest without intravenous contrast enhancement. Sagittal and coronal reconstructions were performed. Radiation dose (DLP): 703 mGy-cm. This CT exam was performed using one or more of the following dose reduction techniques: Automated exposure control, adjustment of the mA and/or kV according to patient size, and/or use of iterative reconstruction technique. FINDINGS: LUNGS: There are infrequent 3-4 mm calcified granuloma identified in the right pulmonary apex. Scattered ground-glass opacities identified in all lobes bilaterally with a borderline basilar predominance. Reticulonodular changes are associated. Consider infectious or inflammatory interstitial process. No definite alveolar component identified. A neoplastic process is not favored was not completely excluded. Bilateral basilar linear atelectasis over or fibrosis identified at the left greater than right. MEDIASTINUM: There is cardiomegaly with pericardial thickening or trace pericardial effusion identified. Pulmonary artery appears prominent, greater in caliber than the ascending aorta measuring 3.5 cm raising question pulmonary artery hypertension. Clinically correlate further. The thoracic aorta is atherosclerotic but not aneurysmal. Mild mediastinal lymphadenopathies and identified including a 1.8 x 1.0 inferior pretracheal lymph node and a subcarinal lymph node measuring 1.8 x 1.2 cm. Lack images contrast limits advised for evaluation of the hilar regions. No gross hilar mass or adenopathy is appreciated. An apparent bipolar permanent cardiac pacemaker device identified is placed with leads terminating in the right atrium and right lateral ventricle via left subclavian approach with the generator overlying the left pectoralis major muscle. PLEURA: Trace pericardial thickening or fluid. No pleural effusion bilaterally. BONES: No fracture. No destructive lesion. Multilevel thoracic spondylosis identified. UPPER ABDOMEN: Prior cholecystectomy. Thickened left adrenal gland may indicate adrenal hyperplasia, borderline at the right. OTHER FINDINGS: None. IMPRESSION: 1. A reticulonodular interstitial pulmonary pattern identified diffusely, bilaterally a mild in overall severity. Consider possible infectious or inflammatory causes. Neoplasm not excluded but is not favored. No alveolar component apparent. 2. Mild lymphadenopathy in the mediastinum. 3. A few right apical calcified granulomata are identified. 4. Cardiomegaly with minimal pericardial thickening or trace effusion. 5. Prior cholecystectomy. Incidental thickening of the left adrenal gland may indicate adrenal hyperplasia, borderline at the right.
--- NOTE | 2017-02-15 17:11 | CP.PCM.PN ---
Subjective - Date & Time of Evaluation Date of Evaluation: 02/15/17 Time of Evaluation: 09:30 - Subjective Subjective: Patient was seen and examined bedside.Still with significant chest congestion , dyspnea at rest while on 3 L O2 via NC, coughing spells, unable to expectorate. Saturating 92-96 % on 3 L O2 via NC, afib on monitor with HR ranging 91-110 With some visual hallucinations last night (colorful cloths, blankets ) BP 116/65 Objective - Vital Signs/Intake and Output Vital Signs (last 24 hours): Temp Pulse Resp BP Pulse Ox 98.3 F 110 H 22 132/88 98 02/15/17 16:13 02/15/17 16:38 02/15/17 16:13 02/15/17 16:38 02/15/17 16:13 Intake and Output: 02/15/17 02/15/17 06:59 18:59 Intake Total 630 Balance 630 - Medications Medications: Current Medications Allopurinol (Zyloprim) 100 mg PO DAILY [facility] Last Admin: 02/15/17 08:25 Dose: 100 mg Aspirin (Ecotrin) 81 mg PO DAILY [facility] Last Admin: 02/15/17 08:25 Dose: 81 mg Benzonatate (Tessalon Perles) 200 mg PO TID PRN PRN Reason: Cough Last Admin: 02/15/17 16:38 Dose: 200 mg Clopidogrel Bisulfate (Plavix) 75 mg PO DAILY [facility] Last Admin: 02/15/17 08:25 Dose: 75 mg Digoxin (Lanoxin) 0.125 mg PO DAILY [facility] Last Admin: 02/15/17 08:25 Dose: 0.125 mg Enoxaparin Sodium (Lovenox) 30 mg SC DAILY [facility] PRN Reason: Protocol Last Admin: 02/15/17 08:26 Dose: 30 mg Azithromycin 500 mg/ Sodium (Chloride) 250 mls @ 250 mls/hr IVPB DAILY [facility] Last Admin: 02/15/17 08:24 Dose: 250 mls/hr Ceftriaxone Sodium 1 gm/ (Sodium Chloride) 100 mls @ 100 mls/hr IVPB DAILY [facility] Last Admin: 02/15/17 08:24 Dose: 100 mls/hr Methylprednisolone 30 mg/ (Sodium Chloride) 50 mls @ 100 mls/hr IVPB Q12 [facility] Insulin Human Regular (Humulin R) 0 units SC ACCU-CHECK [facility] PRN Reason: Protocol Last Admin: 02/15/17 16:38 Dose: 2 u Levalbuterol HCl (Xopenex) 1.25 mg INH RQ4 PRN PRN Reason: Wheezing Last Admin: 02/14/17 00:42 Dose: 1.25 mg Levalbuterol HCl (Xopenex) 1.25 mg INH RQ6 [facility] Last Admin: 02/15/17 13:07 Dose: 1.25 mg Nitroglycerin (Nitro-Bid 2% Oint) 0.5 ea TOP Q6 [facility] Last Admin: 02/15/17 16:38 Dose: 0.5 ea Pantoprazole Sodium (Protonix Ec Tab) 40 mg PO DAILY [facility] Last Admin: 02/15/17 08:25 Dose: 40 mg - Labs Labs: 02/15/17 05:20 02/15/17 05:20 - Constitutional Appears: Other (in moderate distresss with dyspnea , chest congestion , coughing spells unable to expectorate) - Head Exam Head Exam: ATRAUMATIC, NORMAL INSPECTION, NORMOCEPHALIC - Eye Exam Eye Exam: EOMI, Normal appearance, PERRL Pupil Exam: NORMAL ACCOMODATION - ENT Exam ENT Exam: Mucous Membranes Moist, Normal Exam - Neck Exam Neck Exam: Normal Inspection - Respiratory Exam Respiratory Exam: Accessory Muscle Use, Prolonged Expiratory Phase, Rhonchi ( diffuse bilaterally ), Wheezes (scattered bilaterally ), Respiratory Distress - Cardiovascular Exam Cardiovascular Exam: Irregular Rhythm. absent: JVD - GI/Abdominal Exam GI & Abdominal Exam: Soft, Normal Bowel Sounds. absent: Distended, Guarding, Tenderness, Rebound - Rectal Exam Rectal Exam: Deferred - Extremities Exam Extremities Exam: Full ROM, Normal Capillary Refill, Normal Inspection. absent : Calf Tenderness, Pedal Edema - Back Exam Back Exam: NORMAL INSPECTION - Neurological Exam Neurological Exam: Alert, Awake, CN II-XII Intact, Oriented x3 - Psychiatric Exam Psychiatric exam: Normal Affect - Skin Skin Exam: Dry, Warm Assessment and Plan - Assessment and Plan (Free Text) Assessment: This 81 year old female with PMH of Asthma, cardiac arrhythmia with PPM, melanoma of the lip, hypertension, hyperlipidemia, afib CAD s/p stent presented with chest congestion , dyspnea, productive cough with yellowish sputum for few days She just returned from a trip to [place] She stayed home hoping these symptoms would subside, but came to the ER after a few days , feeling worse. She denied chest pain and hemoptysis as well as worsening pedal edema. In the ER she was afebrile, in a fib with a rapid ventricular response, tachypneic with audible wheezing. CXR showed showed poor inspiratory effort, with increased haziness to lower lobes . She is admitted and acute asthma exacerbation, pneumonia and Afib with RVR. At present HR better controlled off cardizem drip , but still with significant with chest congestion , dyspnea , wheezing unable to expectorate with accessory muscle use 1.Atrial fibrillation with rapid ventricular response Acute better controlled off cardizem drip and continue digoxin PO cardiology consult appreciated She is not on anticoagulation at home because she refused continue ASA, Plavix 2. Asthma with acute exacerbation Acute Pt has wheezing, SOB, accessory muscle use cont IV Solumedrol, Albuteol Neb treatments Pulmonary : Dr Gillespie consulted d/c dextrometorphan since patient had visual hallucinations overnight chelo Solumedrol to 30 mg IV q12 on 3 L O2 via NC 3. Pneumonia Suspected CXR : read as negative but lower lobes show increased interstitial markings pt has cough, SOB, rales and rhonchi , wheezing on exam Continue IV Ceftriaxone and Azithro follow up Sputum c/s CT chest today showed A reticulonodular mild interstitial pulmonary pattern diffusely, bilaterally Continue IV antibiotics, Duonebs, O2 via NC \ Started Tessalon pearls 4 Acute on chronic combined systolic and diastolic CHF (congestive heart failure ) Acute ProBNP was elevated Lasix given no BB for now because of Asthma exacerbation Cardio consult appreciated hold off on ARB/ONEIDA for now as BP low 5. CAD (coronary artery disease) Chronic hx of Stent placement cont Plavix 6. HTN (hypertension) Chronic BP low normal hold off BP meds 7. H/O sick sinus syndrome s/p Pacemaker. Chronic 8. CKD stage III stable 9. Hyperglycemia Most likely steroid induced Continue Accuchecks and insulin coverage 10.DVT proph Lovenox
[2017-02-16] MEDS: Levalbuterol 1.25 MG/3 ML Inhal Soln UD INH SCH ×4 (01:03→19:36)
[2017-02-16] MEDS: Nitroglycerin 2% Ointment Foilpak UD TOP SCH ×4 (05:20→21:30)
[2017-02-16 05:28] LABS: HEMOGLOBIN 13.5 g/dL (12.0-16.0); MEAN CELL VOLUME 94.2 fl (81.0-99.0); MEAN CORPUSCULAR HEMOGLOBIN 29.6 pg (27.0-31.0); MEAN CORPUSCULAR HGB CONC 31.5 g/dL (33.0-37.0); RBC 4.56 Mil/uL (3.80-5.20); RED CELL DISTRIBUTION WIDTH 15.9 % (11.5-14.5); WHITE BLOOD COUNT 9.9 K/uL (4.8-10.8)
[2017-02-16 05:32] LABS: CALCIUM 10.1 mg/dL (8.4-10.2)
[2017-02-16] MEDS: methylPREDNISolone 30 MG in Sodium Chloride 0.9% 50 ML IVPB SCH (08:35)
[2017-02-16] MEDS: Insulin Regular 100 units/ml SC SCH ×4 (08:36→22:16)
[2017-02-16] MEDS ORDERED: Sod Polystyrene Sulf 15 gm/60 ml Oral Susp PO ONE (08:40)
[2017-02-16] MEDS: Enoxaparin 30 mg Syringe SC SCH (08:55)
[2017-02-16] MEDS: Digoxin 125 mcg (0.125 mg) Tab PO SCH (08:55)
[2017-02-16] MEDS: Pantoprazole 40 mg EC Tab PO SCH ×2 (08:56→09:02)
[2017-02-16] MEDS: Azithromycin 500 MG in Sodium Chloride 0.9% 250 ML IVPB SCH (08:56)
--- NOTE | 2017-02-16 09:36 | CARD ---
APPROVED REPORT EKG Measurement Heart [id number] <Conclusion> Atrial fibrillation with rapid ventricular response Low voltage QRS Nonspecific ST and T wave abnormality Abnormal ECG
--- NOTE | 2017-02-16 09:49 | CP.PCM.PN ---
Subjective - Date & Time of Evaluation Date of Evaluation: 02/16/17 Time of Evaluation: 09:46 - Subjective Subjective: Seen on morning rounds. Coughing, congested, able to expectorate a small amount of greenish, purulent sputum. SpO2 99% while on nasal canula, still in a fib with RVR. CT chest shower areas of subsegmental atelectasis, some degree of ILD infiltrates and mosaicism suggesting air trapping. Labs remain stable, she continues to be afebrile, normotensive and mildly tachycardic. Dependant edema (trace), no cyanosis. Neck is supple and trachea midline. No dullness on chest percussion, no subcut emphysema. Vigorous, strong coughing during exam. Breath sounds are present bilaterally, mildly diminished. No audible wheezing this morning, scattered dry rales in upper lobes. Heart sounds are distant and rhythm is irregular. Atypical pneumonia, scattered areas of subsegmental atelectasis (probably mucous plugging) and air trapping. D/C ceftriaxone, switch to PO azithromycin. Reduce solumedrol to 20MG Q12H, but continue as IVPB for one more day. Continue present cough suppressant and aerosol therapy. Improving respiratory status on current regimen. Objective - Vital Signs/Intake and Output Vital Signs (last 24 hours): Temp Pulse Resp BP Pulse Ox 98.1 F 78 20 134/83 97 02/16/17 08:00 02/16/17 09:01 02/16/17 08:00 02/16/17 09:01 02/16/17 08:00 Intake and Output: 02/15/17 02/16/17 23:59 11:59 Intake Total 310 Balance 310 - Medications Medications: Current Medications Allopurinol (Zyloprim) 100 mg PO DAILY [facility] Last Admin: 02/16/17 08:56 Dose: 100 mg Aspirin (Ecotrin) 81 mg PO DAILY [facility] Last Admin: 02/16/17 08:54 Dose: 81 mg Azithromycin (Zithromax) 500 mg PO DAILY [facility] Benzonatate (Tessalon Perles) 200 mg PO TID PRN PRN Reason: Cough Last Admin: 02/16/17 09:16 Dose: 200 mg Clopidogrel Bisulfate (Plavix) 75 mg PO DAILY [facility] Last Admin: 02/16/17 08:56 Dose: 75 mg Digoxin (Lanoxin) 0.125 mg PO DAILY [facility] Last Admin: 02/16/17 08:55 Dose: 0.125 mg Enoxaparin Sodium (Lovenox) 30 mg SC DAILY [facility] PRN Reason: Protocol Last Admin: 02/16/17 08:55 Dose: 30 mg Methylprednisolone 20 mg/ (Sodium Chloride) 50 mls @ 100 mls/hr IVPB Q12 [facility] Insulin Human Regular (Humulin R) 0 units SC ACCU-CHECK [facility] PRN Reason: Protocol Last Admin: 02/16/17 08:36 Dose: Not Given Levalbuterol HCl (Xopenex) 1.25 mg INH RQ4 PRN PRN Reason: Wheezing Last Admin: 02/14/17 00:42 Dose: 1.25 mg Levalbuterol HCl (Xopenex) 1.25 mg INH RQ6 [facility] Last Admin: 02/16/17 07:41 Dose: 1.25 mg Nitroglycerin (Nitro-Bid 2% Oint) 0.5 ea TOP Q6 [facility] Last Admin: 02/16/17 09:01 Dose: 0.5 ea Pantoprazole Sodium (Protonix Ec Tab) 40 mg PO DAILY [facility] Last Admin: 02/16/17 09:02 Dose: Not Given - Labs Labs: 02/16/17 04:45 02/16/17 04:45 Assessment and Plan (1) CHF (congestive heart failure) Status: Acute (2) Acute bronchitis Status: Acute (3) Atrial fibrillation with rapid ventricular response Status: Acute (4) CAD (coronary artery disease) Status: Chronic (5) Asthma with acute exacerbation Status: Acute
--- NOTE | 2017-02-16 10:24 | CP.PCM.PN ---
Subjective - Date & Time of Evaluation Date of Evaluation: 02/16/17 Time of Evaluation: 10:00 - Subjective Subjective: Pt states she feels better still with cough no fever no CP + wheezing Noted that HR on Tele monitor is in the 100-120s K=5.8, EKG done - no change Objective - Vital Signs/Intake and Output Vital Signs (last 24 hours): Temp Pulse Resp BP Pulse Ox 98.1 F 78 20 134/83 97 02/16/17 08:00 02/16/17 09:01 02/16/17 08:00 02/16/17 09:01 02/16/17 08:00 - Medications Medications: Current Medications Allopurinol (Zyloprim) 100 mg PO DAILY [facility] Last Admin: 02/16/17 08:56 Dose: 100 mg Aspirin (Ecotrin) 81 mg PO DAILY [facility] Last Admin: 02/16/17 08:54 Dose: 81 mg Azithromycin (Zithromax) 500 mg PO DAILY [facility] Benzonatate (Tessalon Perles) 200 mg PO TID PRN PRN Reason: Cough Last Admin: 02/16/17 09:16 Dose: 200 mg Clopidogrel Bisulfate (Plavix) 75 mg PO DAILY [facility] Last Admin: 02/16/17 08:56 Dose: 75 mg Digoxin (Lanoxin) 0.125 mg PO DAILY [facility] Last Admin: 02/16/17 08:55 Dose: 0.125 mg Diltiazem HCl (Cardizem) 30 mg PO TID [facility] Enoxaparin Sodium (Lovenox) 30 mg SC DAILY [facility] PRN Reason: Protocol Last Admin: 02/16/17 08:55 Dose: 30 mg Methylprednisolone 20 mg/ (Sodium Chloride) 50 mls @ 100 mls/hr IVPB Q12 [facility] Insulin Human Regular (Humulin R) 0 units SC ACCU-CHECK [facility] PRN Reason: Protocol Last Admin: 02/16/17 08:36 Dose: Not Given Levalbuterol HCl (Xopenex) 1.25 mg INH RQ4 PRN PRN Reason: Wheezing Last Admin: 02/14/17 00:42 Dose: 1.25 mg Levalbuterol HCl (Xopenex) 1.25 mg INH RQ6 [facility] Last Admin: 02/16/17 07:41 Dose: 1.25 mg Nitroglycerin (Nitro-Bid 2% Oint) 0.5 ea TOP Q6 [facility] Last Admin: 02/16/17 09:01 Dose: 0.5 ea Pantoprazole Sodium (Protonix Ec Tab) 40 mg PO DAILY [facility] Last Admin: 02/16/17 09:02 Dose: Not Given - Labs Labs: 02/16/17 04:45 02/16/17 04:45 - Constitutional Appears: No Acute Distress - Head Exam Head Exam: NORMAL INSPECTION, NORMOCEPHALIC - Eye Exam Eye Exam: EOMI, Normal appearance Pupil Exam: NORMAL ACCOMODATION - ENT Exam ENT Exam: Mucous Membranes Moist, Normal External Ear Exam - Neck Exam Neck Exam: Full ROM. absent: Meningismus - Respiratory Exam Respiratory Exam: Rales, Rhonchi, Wheezes - Cardiovascular Exam Cardiovascular Exam: Irregular Rhythm, +S1, +S2. absent: JVD - GI/Abdominal Exam GI & Abdominal Exam: Soft, Normal Bowel Sounds. absent: Tenderness - Extremities Exam Extremities Exam: Full ROM, Normal Capillary Refill. absent: Calf Tenderness, Pedal Edema - Back Exam Back Exam: Full ROM. absent: CVA tenderness (L), CVA tenderness (R) - Neurological Exam Neurological Exam: Alert, Awake, CN II-XII Intact, Normal Gait, Oriented x3 Neuro motor strength exam: Left Upper Extremity: 5, Right Upper Extremity: 5, Left Lower Extremity: 5, Right Lower Extremity: 5 - Psychiatric Exam Psychiatric exam: Normal Affect, Normal Mood - Skin Skin Exam: Dry, Normal Color, Warm Assessment and Plan (1) Pneumonia Status: Suspected (2) Asthma with acute exacerbation Status: Acute (3) Atrial fibrillation with rapid ventricular response Status: Acute (4) Acute on chronic combined systolic and diastolic CHF (congestive heart failure) Status: Acute (5) CAD (coronary artery disease) Status: Chronic (6) HTN (hypertension) Status: Chronic (7) H/O sick sinus syndrome Status: Chronic (8) Interstitial lung disease Status: Chronic - Assessment and Plan (Free Text) Assessment: This 81 year old female with PMH of Asthma, cardiac arrhythmia with PPM, melanoma of the lip, hypertension, hyperlipidemia, afib CAD s/p stent presented with chest congestion , dyspnea, productive cough with yellowish sputum for few days. . She denied chest pain and hemoptysis as well as worsening pedal edema. In the ER she was afebrile, in A fib with a rapid ventricular response, tachypneic with audible wheezing. CXR showed showed poor inspiratory effort, with increased haziness to lower lobes . She is admitted and acute asthma exacerbation, pneumonia and Afib with RVR. At present HR better controlled off cardizem drip , but still with significant with chest congestion , dyspnea , wheezing unable to expectorate with accessory muscle use 1.Atrial fibrillation with rapid ventricular response Acute HR on Tele monitor 110-120 off cardizem drip and continue digoxin PO start PO Cardizem cardiology consulted- discussed case with Dr Kapadia She is not on anticoagulation at home because she refused continue ASA, Plavix 2. Asthma with acute exacerbation Acute Pt has wheezing, SOB, accessory muscle use cont IV Solumedrol, Albuteol Neb treatments Pulmonary : Dr Gillespie consulted d/c dextrometorphan since patient had visual hallucinations overnight taper Solumedrol to 20 mg IV q12 on 3 L O2 via NC 3. Pneumonia CXR : read as negative but lower lobes show increased interstitial markings pt has cough, SOB, rales and rhonchi , wheezing on exam On IV Ceftriaxone and Azithro- Dr Gillespie d/c the IV ceftriaxone follow up Sputum c/s CT chest showed reticulonodular mild interstitial pulmonary pattern diffusely , bilaterally Continue antibiotics, Duonebs, O2 via NC \ Started Tessalon pearls 4 Acute on chronic combined systolic and diastolic CHF (congestive heart failure ) Acute ProBNP was elevated Lasix given no BB for now because of Asthma exacerbation Cardio consult appreciated hold off on ARB/ONEIDA for now bec of hyperkalemia 5. CAD (coronary artery disease) Chronic hx of Stent placement cont Plavix 6. HTN (hypertension) Chronic BP low normal hold off BP meds 7. H/O sick sinus syndrome s/p Pacemaker. Chronic 8. CKD stage III stable 9. Hyperglycemia Most likely steroid induced Continue Accuchecks and insulin coverage 10. Interstitial Lung Disease 11.DVT proph Lovenox
--- NOTE | 2017-02-16 12:20 | CP.PCM.PN ---
Subjective - Date & Time of Evaluation Date of Evaluation: 02/16/17 Time of Evaluation: 10:30 - Subjective Subjective: BREATHING A LITTLE BETTER TODAY NO CHEST PAIN Objective - Vital Signs/Intake and Output Vital Signs (last 24 hours): Temp Pulse Resp BP Pulse Ox 98.1 F 91 H 18 134/83 98 02/16/17 08:00 02/16/17 12:13 02/16/17 12:13 02/16/17 12:13 02/16/17 12:13 - Medications Medications: Current Medications Allopurinol (Zyloprim) 100 mg PO DAILY [facility] Last Admin: 02/16/17 08:56 Dose: 100 mg Aspirin (Ecotrin) 81 mg PO DAILY [facility] Last Admin: 02/16/17 08:54 Dose: 81 mg Azithromycin (Zithromax) 500 mg PO DAILY [facility] Benzonatate (Tessalon Perles) 200 mg PO TID PRN PRN Reason: Cough Last Admin: 02/16/17 09:16 Dose: 200 mg Clopidogrel Bisulfate (Plavix) 75 mg PO DAILY [facility] Last Admin: 02/16/17 08:56 Dose: 75 mg Digoxin (Lanoxin) 0.125 mg PO DAILY [facility] Last Admin: 02/16/17 08:55 Dose: 0.125 mg Diltiazem HCl (Cardizem) 30 mg PO TID [facility] Last Admin: 02/16/17 12:13 Dose: Not Given Enoxaparin Sodium (Lovenox) 30 mg SC DAILY [facility] PRN Reason: Protocol Last Admin: 02/16/17 08:55 Dose: 30 mg Methylprednisolone 20 mg/ (Sodium Chloride) 50 mls @ 100 mls/hr IVPB Q12 [facility] Insulin Human Regular (Humulin R) 0 units SC ACCU-CHECK [facility] PRN Reason: Protocol Last Admin: 02/16/17 08:36 Dose: Not Given Levalbuterol HCl (Xopenex) 1.25 mg INH RQ4 PRN PRN Reason: Wheezing Last Admin: 02/14/17 00:42 Dose: 1.25 mg Levalbuterol HCl (Xopenex) 1.25 mg INH RQ6 [facility] Last Admin: 02/16/17 07:41 Dose: 1.25 mg Nitroglycerin (Nitro-Bid 2% Oint) 0.5 ea TOP Q6 [facility] Last Admin: 02/16/17 09:01 Dose: 0.5 ea Pantoprazole Sodium (Protonix Ec Tab) 40 mg PO DAILY [facility] Last Admin: 02/16/17 09:02 Dose: Not Given - Labs Labs: 02/16/17 04:45 02/16/17 04:45 - Respiratory Exam Respiratory Exam: Rales, Rhonchi, Wheezes - Cardiovascular Exam Cardiovascular Exam: Tachycardia, Irregular Rhythm, +S1, +S2 - Extremities Exam Additional comments: NO SIGNIFICANT LE EDEMA - Additional Findings 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
[2017-02-16 19:20] LABS: CALCIUM 9.7 mg/dL (8.4-10.2)
[2017-02-16] MEDS: methylPREDNISolone 20 MG in Sodium Chloride 0.9% 50 ML IVPB SCH (20:27)
[2017-02-17] MEDS: Levalbuterol 1.25 MG/3 ML Inhal Soln UD INH SCH ×2 (01:02→07:50)
[2017-02-17] MEDS: Nitroglycerin 2% Ointment Foilpak UD TOP SCH ×4 (05:49→21:55)
[2017-02-17 06:43] LABS: BLOOD UREA NITROGEN 46 mg/dl (7-17); CALCIUM 9.6 mg/dL (8.4-10.2); GFR AFRICAN-AMERICAN > 60; GFR NON-AFRICAN AMERICAN 53
[2017-02-17] MEDS: Insulin Regular 100 units/ml SC SCH ×4 (06:46→23:11)
[2017-02-17] MEDS: Enoxaparin 30 mg Syringe SC SCH (08:52)
[2017-02-17] MEDS: Digoxin 125 mcg (0.125 mg) Tab PO SCH (08:52)
[2017-02-17] MEDS: Pantoprazole 40 mg EC Tab PO SCH (08:52)
[2017-02-17] MEDS: methylPREDNISolone 20 MG in Sodium Chloride 0.9% 50 ML IVPB SCH ×2 (08:53→20:28)
[2017-02-17] MEDS ORDERED: Albuterol 0.083% Inhal Sol (2.5 mg/3 mL) UD INH PRN (09:39)
--- NOTE | 2017-02-17 09:41 | CP.PCM.PN ---
Subjective - Date & Time of Evaluation Date of Evaluation: 02/17/17 Time of Evaluation: 09:41 - Subjective Subjective: Feeling slight improvement. Still congested coughing with small quantities of sputum expectorated. Labs are negative for Mycoplasma and Legionella. Serum potassium remains elevated. Scattered sibilant rhonchi with expiratory wheezes. Few scattered dry rales in upper lung zones. No bronchial breath sounds or egophony. Trace dependant edema w/o cyanosis or calf tenderness. Azithromycin changed to oral. Continue parenteral solumedrol. Activity as tolerated. Cough suppression. Objective - Vital Signs/Intake and Output Vital Signs (last 24 hours): Temp Pulse Resp BP Pulse Ox 98.5 F 85 20 129/74 98 02/17/17 08:00 02/17/17 08:50 02/17/17 08:00 02/17/17 08:50 02/17/17 08:00 Intake and Output: 02/16/17 02/17/17 23:59 11:59 Intake Total 1230 Balance 1230 - Medications Medications: Current Medications Albuterol Sulfate (Albuterol 0.083% Inhal Mary (2.5 Mg/3 Ml) Ud) 2.5 mg INH RQ4 PRN PRN Reason: Shortness of Breath Albuterol/Ipratropium (Duoneb 3 Mg/0.5 Mg (3 Ml) Ud) 3 ml INH RQID [facility] Allopurinol (Zyloprim) 100 mg PO DAILY [facility] Last Admin: 02/16/17 08:56 Dose: 100 mg Aspirin (Ecotrin) 81 mg PO DAILY [facility] Last Admin: 02/17/17 08:56 Dose: 81 mg Azithromycin (Zithromax) 500 mg PO DAILY [facility] Last Admin: 02/17/17 08:53 Dose: 500 mg Benzonatate (Tessalon Perles) 200 mg PO TID PRN PRN Reason: Cough Last Admin: 02/17/17 08:57 Dose: 200 mg Clopidogrel Bisulfate (Plavix) 75 mg PO DAILY [facility] Last Admin: 02/17/17 08:52 Dose: 75 mg Digoxin (Lanoxin) 0.125 mg PO DAILY [facility] Last Admin: 02/17/17 08:52 Dose: 0.125 mg Diltiazem HCl (Cardizem) 30 mg PO TID [facility] Last Admin: 02/17/17 08:50 Dose: 30 mg Enoxaparin Sodium (Lovenox) 30 mg SC DAILY [facility] PRN Reason: Protocol Last Admin: 02/17/17 08:52 Dose: 30 mg Methylprednisolone 20 mg/ (Sodium Chloride) 50 mls @ 100 mls/hr IVPB Q12 [facility] Last Admin: 02/17/17 08:53 Dose: 100 mls/hr Insulin Human Regular (Humulin R) 0 units SC ACCU-CHECK [facility] PRN Reason: Protocol Last Admin: 02/17/17 06:46 Dose: Not Given Nitroglycerin (Nitro-Bid 2% Oint) 0.5 ea TOP Q6 [facility] Last Admin: 02/17/17 05:49 Dose: 0.5 ea Pantoprazole Sodium (Protonix Ec Tab) 40 mg PO DAILY [facility] Last Admin: 02/17/17 08:52 Dose: 40 mg - Labs Labs: 02/16/17 04:45 02/17/17 06:00 Assessment and Plan (1) CHF (congestive heart failure) Status: Acute (2) Acute bronchitis Status: Acute (3) Atrial fibrillation with rapid ventricular response Status: Acute (4) CAD (coronary artery disease) Status: Chronic (5) Asthma with acute exacerbation Status: Acute
--- NOTE | 2017-02-17 11:09 | CP.PCM.PN ---
Subjective - Date & Time of Evaluation Date of Evaluation: 02/17/17 Time of Evaluation: 10:30 - Subjective Subjective: No fever still with cough but better still with some wheezing HR on Tele monitor better , still tachy low 100s no CP no abd pain Objective - Vital Signs/Intake and Output Vital Signs (last 24 hours): Temp Pulse Resp BP Pulse Ox 98.5 F 85 20 129/74 98 02/17/17 08:00 02/17/17 08:50 02/17/17 08:00 02/17/17 08:50 02/17/17 08:00 - Medications Medications: Current Medications Albuterol Sulfate (Albuterol 0.083% Inhal Mary (2.5 Mg/3 Ml) Ud) 2.5 mg INH RQ4 PRN PRN Reason: Shortness of Breath Albuterol/Ipratropium (Duoneb 3 Mg/0.5 Mg (3 Ml) Ud) 3 ml INH RQID [facility] Allopurinol (Zyloprim) 100 mg PO DAILY [facility] Last Admin: 02/16/17 08:56 Dose: 100 mg Aspirin (Ecotrin) 81 mg PO DAILY [facility] Last Admin: 02/17/17 08:56 Dose: 81 mg Azithromycin (Zithromax) 500 mg PO DAILY [facility] Last Admin: 02/17/17 08:53 Dose: 500 mg Benzonatate (Tessalon Perles) 200 mg PO TID PRN PRN Reason: Cough Last Admin: 02/17/17 08:57 Dose: 200 mg Clopidogrel Bisulfate (Plavix) 75 mg PO DAILY [facility] Last Admin: 02/17/17 08:52 Dose: 75 mg Digoxin (Lanoxin) 0.125 mg PO DAILY [facility] Last Admin: 02/17/17 08:52 Dose: 0.125 mg Diltiazem HCl (Cardizem) 30 mg PO TID [facility] Last Admin: 02/17/17 08:50 Dose: 30 mg Enoxaparin Sodium (Lovenox) 30 mg SC DAILY [facility] PRN Reason: Protocol Last Admin: 02/17/17 08:52 Dose: 30 mg Methylprednisolone 20 mg/ (Sodium Chloride) 50 mls @ 100 mls/hr IVPB Q12 [facility] Last Admin: 02/17/17 08:53 Dose: 100 mls/hr Insulin Human Regular (Humulin R) 0 units SC ACCU-CHECK [facility] PRN Reason: Protocol Last Admin: 02/17/17 06:46 Dose: Not Given Nitroglycerin (Nitro-Bid 2% Oint) 0.5 ea TOP Q6 [facility] Last Admin: 02/17/17 05:49 Dose: 0.5 ea Pantoprazole Sodium (Protonix Ec Tab) 40 mg PO DAILY [facility] Last Admin: 02/17/17 08:52 Dose: 40 mg - Labs Labs: 02/16/17 04:45 02/17/17 06:00 - Constitutional Appears: No Acute Distress - Head Exam Head Exam: NORMAL INSPECTION, NORMOCEPHALIC - Eye Exam Eye Exam: EOMI, Normal appearance Pupil Exam: NORMAL ACCOMODATION - ENT Exam ENT Exam: Mucous Membranes Moist, Normal External Ear Exam - Neck Exam Neck Exam: Full ROM. absent: Meningismus - Respiratory Exam Respiratory Exam: Rales, Rhonchi, Wheezes - Cardiovascular Exam Cardiovascular Exam: Irregular Rhythm, +S1, +S2. absent: JVD - GI/Abdominal Exam GI & Abdominal Exam: Soft, Normal Bowel Sounds. absent: Tenderness - Extremities Exam Extremities Exam: Full ROM, Normal Capillary Refill. absent: Calf Tenderness, Pedal Edema - Back Exam Back Exam: Full ROM. absent: CVA tenderness (L), CVA tenderness (R) - Neurological Exam Neurological Exam: Alert, Awake, CN II-XII Intact, Normal Gait, Oriented x3 Neuro motor strength exam: Left Upper Extremity: 5, Right Upper Extremity: 5, Left Lower Extremity: 5, Right Lower Extremity: 5 - Psychiatric Exam Psychiatric exam: Normal Affect, Normal Mood - Skin Skin Exam: Dry, Normal Color, Warm Assessment and Plan (1) Pneumonia Status: Suspected (2) Asthma with acute exacerbation Status: Acute (3) Atrial fibrillation with rapid ventricular response Status: Acute (4) Acute on chronic combined systolic and diastolic CHF (congestive heart failure) Status: Acute (5) CAD (coronary artery disease) Status: Chronic (6) HTN (hypertension) Status: Chronic (7) H/O sick sinus syndrome Status: Chronic (8) Interstitial lung disease Status: Chronic (9) Hyperkalemia Status: Acute (10) Hyperglycemia, drug-induced Status: Acute - Assessment and Plan (Free Text) Assessment: This 81 year old female with PMH of Asthma, cardiac arrhythmia with PPM, melanoma of the lip, hypertension, hyperlipidemia, afib CAD s/p stent presented with chest congestion , dyspnea, productive cough with yellowish sputum for few days. . She denied chest pain and hemoptysis as well as worsening pedal edema. In the ER she was afebrile, in A fib with a rapid ventricular response, tachypneic with audible wheezing. CXR showed showed poor inspiratory effort, with increased haziness to lower lobes . She is admitted and acute asthma exacerbation, pneumonia and Afib with RVR. At present HR better controlled off cardizem drip , but still with significant with chest congestion , dyspnea , wheezing . 1.Atrial fibrillation with rapid ventricular response Acute HR on Tele monitor 100s off cardizem drip continue digoxin PO start PO Cardizem- will increase to 30mg q 6 cardiology consulted- discussed case with Dr Kapadia She is not on anticoagulation at home because she refused continue ASA, Plavix 2. Asthma with acute exacerbation Acute Pt has wheezing, SOB, accessory muscle use cont IV Solumedrol, Albuterol Neb treatments Pulmonary : Dr Gillespie consulted d/c dextrometorphan since patient had visual hallucinations overnight tapered Solumedrol to 20 mg IV q12 on 3 L O2 via NC 3. Pneumonia CXR : read as negative but lower lobes show increased interstitial markings pt has cough, SOB, rales and rhonchi , wheezing on exam Received IV Ceftriaxone and Azithro- Dr Gillespie d/c the IV ceftriaxone and changed Azithro to PO Sputum c/s: few Gram + cocci in chains and clusters CT chest showed reticulonodular mild interstitial pulmonary pattern diffusely , bilaterally Continue antibiotics, Duonebs, O2 via NC Tessalon perles 4 Acute on chronic combined systolic and diastolic CHF (congestive heart failure ) Acute ProBNP was elevated Lasix given no BB for now because of Asthma exacerbation Cardio consult appreciated hold off on ARB/ONEIDA for now bec of hyperkalemia 5. CAD (coronary artery disease) Chronic hx of Stent placement cont Plavix 6. HTN (hypertension) Chronic BP low normal hold off BP meds 7. H/O sick sinus syndrome s/p Pacemaker. Chronic 8. CKD stage III stable 9. Hyperglycemia Most likely steroid induced Continue Accuchecks and insulin coverage 10. Hx Interstitial Lung Disease cont Duonebs, steroids 11.DVT proph Lovenox
--- NOTE | 2017-02-17 11:52 | CP.PCM.PN ---
Subjective - Date & Time of Evaluation Date of Evaluation: 02/17/17 Time of Evaluation: 09:30 - Subjective Subjective: SLIGHTLY BETTER BREATHING TODAY NO CHEST PAIN Objective - Vital Signs/Intake and Output Vital Signs (last 24 hours): Temp Pulse Resp BP Pulse Ox 98.5 F 118 H 20 129/74 98 02/17/17 08:00 02/17/17 11:26 02/17/17 08:00 02/17/17 11:26 02/17/17 08:00 - Medications Medications: Current Medications Albuterol Sulfate (Albuterol 0.083% Inhal Mary (2.5 Mg/3 Ml) Ud) 2.5 mg INH RQ4 PRN PRN Reason: Shortness of Breath Albuterol/Ipratropium (Duoneb 3 Mg/0.5 Mg (3 Ml) Ud) 3 ml INH RQID [facility] Allopurinol (Zyloprim) 100 mg PO DAILY [facility] Last Admin: 02/17/17 11:23 Dose: 100 mg Aspirin (Ecotrin) 81 mg PO DAILY [facility] Last Admin: 02/17/17 08:56 Dose: 81 mg Azithromycin (Zithromax) 500 mg PO DAILY [facility] Last Admin: 02/17/17 08:53 Dose: 500 mg Benzonatate (Tessalon Perles) 200 mg PO TID PRN PRN Reason: Cough Last Admin: 02/17/17 08:57 Dose: 200 mg Clopidogrel Bisulfate (Plavix) 75 mg PO DAILY [facility] Last Admin: 02/17/17 08:52 Dose: 75 mg Digoxin (Lanoxin) 0.125 mg PO DAILY [facility] Last Admin: 02/17/17 08:52 Dose: 0.125 mg Diltiazem HCl (Cardizem) 30 mg PO Q6 [facility] Enoxaparin Sodium (Lovenox) 30 mg SC DAILY [facility] PRN Reason: Protocol Last Admin: 02/17/17 08:52 Dose: 30 mg Methylprednisolone 20 mg/ (Sodium Chloride) 50 mls @ 100 mls/hr IVPB Q12 [facility] Last Admin: 02/17/17 08:53 Dose: 100 mls/hr Insulin Human Regular (Humulin R) 0 units SC ACCU-CHECK [facility] PRN Reason: Protocol Last Admin: 02/17/17 06:46 Dose: Not Given Nitroglycerin (Nitro-Bid 2% Oint) 0.5 ea TOP Q6 [facility] Last Admin: 02/17/17 11:26 Dose: 0.5 ea Pantoprazole Sodium (Protonix Ec Tab) 40 mg PO DAILY [facility] Last Admin: 02/17/17 08:52 Dose: 40 mg - Labs Labs: 02/16/17 04:45 02/17/17 06:00 - Respiratory Exam Respiratory Exam: Rales, Rhonchi, Wheezes - Cardiovascular Exam Cardiovascular Exam: Irregular Rhythm, +S1, +S2 - Additional Findings 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
[2017-02-17] MEDS: Albuterol-Ipratrop 3 mg / 0.5 (3 ml) UD INH SCH ×2 (15:43→19:37)
[2017-02-18] MEDS: Nitroglycerin 2% Ointment Foilpak UD TOP SCH ×3 (04:45→17:28)
[2017-02-18 06:36] LABS: BLOOD UREA NITROGEN 38 mg/dl (7-17); CALCIUM 9.8 mg/dL (8.4-10.2); GFR AFRICAN-AMERICAN > 60; GFR NON-AFRICAN AMERICAN > 60
[2017-02-18] MEDS ORDERED: Dextrose 50% SYRINGE Inj (50 ml) IVP ONE ×2 (07:28→14:04)
[2017-02-18] MEDS ORDERED: Insulin Lispro (humaLOG) 100 Units/ml Inj SC STA (07:28)
[2017-02-18] MEDS ORDERED: Calcium Chloride 1000 mg/10 ml Syringe IV STA (07:30)
[2017-02-18] MEDS: Albuterol-Ipratrop 3 mg / 0.5 (3 ml) UD INH SCH ×4 (07:38→19:04)
[2017-02-18] MEDS: Insulin Regular 100 units/ml SC SCH ×3 (09:01→17:29)
[2017-02-18] MEDS: Sod Polystyrene Sulf 15 gm/60 ml Oral Susp PO STA ×2 (09:01→13:27)
[2017-02-18] MEDS: Pantoprazole 40 mg EC Tab PO SCH (09:02)
[2017-02-18] MEDS: Digoxin 125 mcg (0.125 mg) Tab PO SCH (09:04)
[2017-02-18] MEDS: Enoxaparin 30 mg Syringe SC SCH (09:04)
[2017-02-18] MEDS: methylPREDNISolone 20 MG in Sodium Chloride 0.9% 50 ML IVPB SCH (09:05)
[2017-02-18 09:06] VITALS: PULSE 88
--- NOTE | 2017-02-18 09:20 | CP.PCM.PN ---
Objective - Vital Signs/Intake and Output Vital Signs (last 24 hours): Temp Pulse Resp BP Pulse Ox 97.5 F L 88 20 129/73 100 02/18/17 08:41 02/18/17 09:03 02/18/17 08:41 02/18/17 09:03 02/18/17 08:41 - Medications Medications: Current Medications Albuterol Sulfate (Albuterol 0.083% Inhal Mary (2.5 Mg/3 Ml) Ud) 2.5 mg INH RQ4 PRN PRN Reason: Shortness of Breath Albuterol/Ipratropium (Duoneb 3 Mg/0.5 Mg (3 Ml) Ud) 3 ml INH RQID [facility] Last Admin: 02/18/17 07:38 Dose: 3 ml Allopurinol (Zyloprim) 100 mg PO DAILY [facility] Last Admin: 02/18/17 09:04 Dose: 100 mg Aspirin (Ecotrin) 81 mg PO DAILY [facility] Last Admin: 02/18/17 09:04 Dose: 81 mg Azithromycin (Zithromax) 500 mg PO DAILY [facility] Last Admin: 02/18/17 09:04 Dose: 500 mg Benzonatate (Tessalon Perles) 200 mg PO TID PRN PRN Reason: Cough Last Admin: 02/18/17 09:15 Dose: 200 mg Clopidogrel Bisulfate (Plavix) 75 mg PO DAILY [facility] Last Admin: 02/18/17 09:04 Dose: 75 mg Digoxin (Lanoxin) 0.125 mg PO DAILY [facility] Last Admin: 02/18/17 09:04 Dose: 0.125 mg Diltiazem HCl (Cardizem) 30 mg PO Q6 [facility] Last Admin: 02/18/17 09:02 Dose: 30 mg Enoxaparin Sodium (Lovenox) 30 mg SC DAILY [facility] PRN Reason: Protocol Last Admin: 02/18/17 09:04 Dose: 30 mg Methylprednisolone 20 mg/ (Sodium Chloride) 50 mls @ 100 mls/hr IVPB Q12 [facility] Last Admin: 02/18/17 09:05 Dose: 100 mls/hr Insulin Human Regular (Humulin R) 0 units SC ACCU-CHECK [facility] PRN Reason: Protocol Last Admin: 02/18/17 09:01 Dose: Not Given Nitroglycerin (Nitro-Bid 2% Oint) 0.5 ea TOP Q6 [facility] Last Admin: 02/18/17 09:03 Dose: 0.5 ea Pantoprazole Sodium (Protonix Ec Tab) 40 mg PO DAILY [facility] Last Admin: 02/18/17 09:02 Dose: 40 mg - Labs Labs: 02/16/17 04:45 02/18/17 06:10 Assessment and Plan (1) Pneumonia Status: Suspected (2) Asthma with acute exacerbation Status: Acute (3) Atrial fibrillation with rapid ventricular response Status: Acute (4) Acute on chronic combined systolic and diastolic CHF (congestive heart failure) Status: Acute (5) CAD (coronary artery disease) Status: Chronic (6) HTN (hypertension) Status: Chronic (7) H/O sick sinus syndrome Status: Chronic (8) Interstitial lung disease Status: Chronic (9) Hyperkalemia Status: Acute (10) Hyperglycemia, drug-induced Status: Acute
--- NOTE | 2017-02-18 11:25 | CP.PCM.PN ---
Subjective - Date & Time of Evaluation Date of Evaluation: 02/18/17 Time of Evaluation: 10:00 - Subjective Subjective: NO CHEST PAIN OR PALPITATIONS BREATHING A LITTLE BETTER TODAY Objective - Vital Signs/Intake and Output Vital Signs (last 24 hours): Temp Pulse Resp BP Pulse Ox 97.5 F L 88 20 129/73 100 02/18/17 08:41 02/18/17 09:03 02/18/17 08:41 02/18/17 09:03 02/18/17 08:41 - Medications Medications: Current Medications Albuterol Sulfate (Albuterol 0.083% Inhal Mary (2.5 Mg/3 Ml) Ud) 2.5 mg INH RQ4 PRN PRN Reason: Shortness of Breath Albuterol/Ipratropium (Duoneb 3 Mg/0.5 Mg (3 Ml) Ud) 3 ml INH RQID [facility] Last Admin: 02/18/17 07:38 Dose: 3 ml Allopurinol (Zyloprim) 100 mg PO DAILY [facility] Last Admin: 02/18/17 09:04 Dose: 100 mg Aspirin (Ecotrin) 81 mg PO DAILY [facility] Last Admin: 02/18/17 09:04 Dose: 81 mg Azithromycin (Zithromax) 500 mg PO DAILY [facility] Last Admin: 02/18/17 09:04 Dose: 500 mg Benzonatate (Tessalon Perles) 200 mg PO TID PRN PRN Reason: Cough Last Admin: 02/18/17 09:15 Dose: 200 mg Clopidogrel Bisulfate (Plavix) 75 mg PO DAILY [facility] Last Admin: 02/18/17 09:04 Dose: 75 mg Digoxin (Lanoxin) 0.125 mg PO DAILY [facility] Last Admin: 02/18/17 09:04 Dose: 0.125 mg Diltiazem HCl (Cardizem) 30 mg PO Q6 [facility] Last Admin: 02/18/17 09:02 Dose: 30 mg Enoxaparin Sodium (Lovenox) 30 mg SC DAILY [facility] PRN Reason: Protocol Last Admin: 02/18/17 09:04 Dose: 30 mg Methylprednisolone 20 mg/ (Sodium Chloride) 50 mls @ 100 mls/hr IVPB Q12 [facility] Last Admin: 02/18/17 09:05 Dose: 100 mls/hr Insulin Human Regular (Humulin R) 0 units SC ACCU-CHECK [facility] PRN Reason: Protocol Last Admin: 02/18/17 09:01 Dose: Not Given Nitroglycerin (Nitro-Bid 2% Oint) 0.5 ea TOP Q6 [facility] Last Admin: 02/18/17 09:03 Dose: 0.5 ea Pantoprazole Sodium (Protonix Ec Tab) 40 mg PO DAILY [facility] Last Admin: 02/18/17 09:02 Dose: 40 mg - Labs Labs: 02/16/17 04:45 02/18/17 08:15 - Respiratory Exam Respiratory Exam: Rales, Wheezes - Cardiovascular Exam Cardiovascular Exam: Irregular Rhythm, +S1, +S2 - Extremities Exam Additional comments: MILD LE EDEMA - Additional Findings 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
--- NOTE | 2017-02-18 12:18 | CP.PCM.CON ---
History of Present Illness - History of Present Illness History of Present Illness: 81 yo F w/ pmh of CAD s/p stent, afib, CHF w/ mild systolic dysfunction, sick sinus syndrome s/p pacemaker placement and COPD, presented to ED 6 days ago with cough and shortness of breath, admitted for acute bronchitis/asthma exacerbation w/ possible pneumonia and afib w/ RVR; nephrology service now being consulted for hyperkalemia; Patient reports feeling much better since initial admission; cough and shortness of breath are improved; able to ambulate to bathroom; however, she reports decreased frequency of urination lately; denies any difficulty passing urine or feeling of incomplete bladder evacuation; attributes decreased urination to not being on her home dose of lasix (40 mg daily); also reports increased leg swelling lately which she says was well controlled with the lasix; Patient has been on high doses of IV steroids during current admission, lately being tapered down; was on ceftriaxone (discontinued 2 days ago) and remains on azithromycin; For Afib, patient was on cardizem drip, currently on PO form; patient was started on digoxin 0.25 mg loading dose followed by 0.125 mg daily which she remains on currently; previously was only on digoxin as outpatient for a brief period but was discontinued due to reported nausea; Review of Systems - Constitutional Additional comments: Appetite ok; - EENT Eyes: absent: Change in Vision Nose/Mouth/Throat: absent: Dysphagia - Cardiovascular Cardiovascular: As Per HPI - Respiratory Respiratory: As Per HPI - Gastrointestinal Gastrointestinal: absent: Change in Bowel Habits, Nausea, Vomiting - Genitourinary Genitourinary: As Per HPI - Musculoskeletal Additional comments: R knee pain; - Integumentary Additional comments: Easily bruises due to plavix; - Neurological Neurological: absent: Dizziness, Sensory Deficit - Psychiatric Psychiatric: absent: Depression Past Patient History - Infectious Disease Hx of Infectious Diseases: None - Past Medical History & Family History Past Medical History?: Yes Past Family History: Reviewed and not pertinent - Past Social History Smoking Status: Never Smoked Chewing Tobacco Use: No Cigar Use: No Alcohol: Social Drugs: Denies Home Situation {Lives}: With Family Domestic Violence: Negative - CARDIAC Hx Cardiac Disorders: Yes Hx Hypercholesterolemia: Yes Hx Hypertension: Yes - PULMONARY Hx Chronic Obstructive Pulmonary Disease (COPD): Yes Hx Pneumonia: Yes - NEUROLOGICAL Hx Neurological Disorder: No - HEENT Hx HEENT Problems: Yes Other/Comment: wears glasses - RENAL Hx Chronic Kidney Disease: No - ENDOCRINE/METABOLIC Hx Endocrine Disorders: No - HEMATOLOGICAL/ONCOLOGICAL Hx Human Immunodeficiency Virus (HIV): No 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 - INTEGUMENTARY Hx Melanoma: Yes - MUSCULOSKELETAL/RHEUMATOLOGICAL Hx Back Pain: Yes Hx Falls: No Hx Spinal Stenosis: Yes - GASTROINTESTINAL Hx Gastritis: Yes - GENITOURINARY/GYNECOLOGICAL Hx Genitourinary Disorders: No - PSYCHIATRIC Hx Psychophysiologic Disorder: No Hx Substance Use: No - SURGICAL HISTORY Hx Appendectomy: Yes Hx Cholecystectomy: Yes Hx Tonsillectomy: Yes - ANESTHESIA Hx Anesthesia: Yes Hx Anesthesia Reactions: No Hx Malignant Hyperthermia: No Meds Allergies/Adverse Reactions: Allergies Allergy/AdvReac Type Severity Reaction Status Date / Time Penicillins Allergy RASH Verified 02/12/17 13:46 - Medications Medications: Current Medications Albuterol Sulfate (Albuterol 0.083% Inhal Mary (2.5 Mg/3 Ml) Ud) 2.5 mg INH RQ4 PRN PRN Reason: Shortness of Breath Albuterol/Ipratropium (Duoneb 3 Mg/0.5 Mg (3 Ml) Ud) 3 ml INH RQID [facility] Last Admin: 02/18/17 11:22 Dose: 3 ml Allopurinol (Zyloprim) 100 mg PO DAILY [facility] Last Admin: 02/18/17 09:04 Dose: 100 mg Aspirin (Ecotrin) 81 mg PO DAILY [facility] Last Admin: 02/18/17 09:04 Dose: 81 mg Azithromycin (Zithromax) 500 mg PO DAILY [facility] Last Admin: 02/18/17 09:04 Dose: 500 mg Benzonatate (Tessalon Perles) 200 mg PO TID PRN PRN Reason: Cough Last Admin: 02/18/17 09:15 Dose: 200 mg Clopidogrel Bisulfate (Plavix) 75 mg PO DAILY [facility] Last Admin: 02/18/17 09:04 Dose: 75 mg Digoxin (Lanoxin) 0.125 mg PO DAILY [facility] Last Admin: 02/18/17 09:04 Dose: 0.125 mg Diltiazem HCl (Cardizem) 30 mg PO Q6 [facility] Last Admin: 02/18/17 09:02 Dose: 30 mg Enoxaparin Sodium (Lovenox) 30 mg SC DAILY [facility] PRN Reason: Protocol Last Admin: 02/18/17 09:04 Dose: 30 mg Methylprednisolone 20 mg/ (Sodium Chloride) 50 mls @ 100 mls/hr IVPB Q12 [facility] Last Admin: 02/18/17 09:05 Dose: 100 mls/hr Insulin Human Regular (Humulin R) 0 units SC ACCU-CHECK RAMIREZ PRN Reason: Protocol Last Admin: 02/18/17 09:01 Dose: Not Given Nitroglycerin (Nitro-Bid 2% Oint) 0.5 ea TOP Q6 [facility] Last Admin: 02/18/17 09:03 Dose: 0.5 ea Pantoprazole Sodium (Protonix Ec Tab) 40 mg PO DAILY [facility] Last Admin: 02/18/17 09:02 Dose: 40 mg Physical Exam - Constitutional Appears: Non-toxic, No Acute Distress - Head Exam Head Exam: NORMAL INSPECTION - Eye Exam Eye Exam: Normal appearance. absent: Scleral icterus - ENT Exam ENT Exam: Mucous Membranes Moist - Neck Exam Neck exam: Negative for: Lymphadenopathy - Respiratory Exam Respiratory Exam: Prolonged Expiratory Phase Additional comments: Mild exp wheezes; - Cardiovascular Exam Cardiovascular Exam: Irregular Rhythm. absent: Gallop - GI/Abdominal Exam GI & Abdominal Exam: Soft. absent: Distended, Tenderness - Exam Exam: absent: Bladder Distension - Extremities Exam Additional comments: 2+ DP pulse on L, decreased but palpable on R; Mild b/l lower leg edema; - Neurological Exam Neurological exam: Alert - Psychiatric Exam Psychiatric exam: Normal Affect, Normal Mood - Skin Skin Exam: Normal Color, Warm Results - Vital Signs Recent Vital Signs: Last Vital Signs Temp 97.5 F L 02/18/17 08:41 Pulse 88 02/18/17 09:03 Resp 20 02/18/17 08:41 BP 129/73 02/18/17 09:03 Pulse Ox 100 02/18/17 08:41 - Labs Result Diagrams: 02/16/17 04:45 02/18/17 08:15 Labs: Laboratory Results - last 24 hr 02/17/17 02/17/17 02/17/17 11:26 17:11 21:34 Sodium Potassium Chloride Carbon Dioxide Anion Gap BUN Creatinine Est GFR ( Amer) Est GFR (Non-Af Amer) POC Glucose (mg/dL) 192 H 185 H 204 H Random Glucose Calcium 02/18/17 02/18/17 02/18/17 05:55 06:10 08:15 Sodium 142 Potassium 6.0 H 5.6 H Chloride 100 Carbon Dioxide 38 H Anion Gap 10 BUN 38 H Creatinine 0.9 Est GFR ( Amer) > 60 Est GFR (Non-Af Amer) > 60 POC Glucose (mg/dL) 184 H Random Glucose 172 H Calcium 9.8 02/18/17 02/18/17 10:10 11:25 Sodium Potassium Chloride Carbon Dioxide Anion Gap BUN Creatinine Est GFR ( Amer) Est GFR (Non-Af Amer) POC Glucose (mg/dL) 207 H 211 H Random Glucose Calcium Assessment & Plan (1) Hyperkalemia Assessment and Plan: New compared with previous labs results; digoxin toxicity unlikely as levels from add-on labs today are normal; appears euvolemic by exam and renal function actually improving thus making pre-renal etiology unlikely; Patient may have distal tubular dysfunction which is not allowing for adequate K excretion; -checking urine lytes, osm -will start lasix 20 mg daily Status: Acute (2) Metabolic alkalosis Assessment and Plan: Serum bicarb further increased from admission; initial ABG showing respiratory acidosis and hence metabolic alkalosis is compensatory; will repeat blood gas to see if respiratory acidosis is worsening; otherwise, increased metabolic alkalosis may represent superimposed contraction alkalosis; Status: Acute (3) Acute bronchitis Assessment and Plan: On IV steroids and azithromycin; f/u with pulm; Status: Acute Priority: High (4) Atrial fibrillation with rapid ventricular response Assessment and Plan: Rate currently controlled on cardizem and digoxin; continue to monitor digoxin levels periodically; Status: Acute Priority: High (5) CHF (congestive heart failure) Assessment and Plan: Mild systolic dysfunction per previous echo; has mild edema on exam; otherwise relatively euvolemic; will start small dose of lasix which will help with hyperkalemia also; Status: Acute Priority: High
--- NOTE | 2017-02-18 12:42 | CP.PCM.PN ---
Subjective - Date & Time of Evaluation Date of Evaluation: 02/18/17 Time of Evaluation: 12:37 - Subjective Subjective: Claims to continue feeling better. Still occasional coughing noted. Scant sputum being expectorated. Vital signs remain stable. Switched to PO azithromycin w/o incident. Potassium remains elevated, Renal has been consulted. Trace dependant edema w/o cyanosis still see. Neck is supple and trachea is midline. No visible JVD. No dullness on chest percussion. Breath sounds are diminished bilaterally with scattered dry rales. Occasional Expiratory wheezes are still present. No bronchial breath sounds, no egophony. Will consider also changing steroids to PO as well. Continue aerosol therapy. Patient is stable for DC to [facility]. Objective - Vital Signs/Intake and Output Vital Signs (last 24 hours): Temp Pulse Resp BP Pulse Ox 98.2 F 74 18 109/70 98 02/18/17 12:30 02/18/17 12:30 02/18/17 12:30 02/18/17 12:30 02/18/17 12:30 - Medications Medications: Current Medications Albuterol Sulfate (Albuterol 0.083% Inhal Mary (2.5 Mg/3 Ml) Ud) 2.5 mg INH RQ4 PRN PRN Reason: Shortness of Breath Albuterol/Ipratropium (Duoneb 3 Mg/0.5 Mg (3 Ml) Ud) 3 ml INH RQID [facility] Last Admin: 02/18/17 11:22 Dose: 3 ml Allopurinol (Zyloprim) 100 mg PO DAILY [facility] Last Admin: 02/18/17 09:04 Dose: 100 mg Aspirin (Ecotrin) 81 mg PO DAILY [facility] Last Admin: 02/18/17 09:04 Dose: 81 mg Azithromycin (Zithromax) 500 mg PO DAILY [facility] Last Admin: 02/18/17 09:04 Dose: 500 mg Benzonatate (Tessalon Perles) 200 mg PO TID PRN PRN Reason: Cough Last Admin: 02/18/17 09:15 Dose: 200 mg Clopidogrel Bisulfate (Plavix) 75 mg PO DAILY [facility] Last Admin: 02/18/17 09:04 Dose: 75 mg Digoxin (Lanoxin) 0.125 mg PO DAILY [facility] Last Admin: 02/18/17 09:04 Dose: 0.125 mg Diltiazem HCl (Cardizem) 30 mg PO Q6 [facility] Last Admin: 02/18/17 09:02 Dose: 30 mg Enoxaparin Sodium (Lovenox) 30 mg SC DAILY [facility] PRN Reason: Protocol Last Admin: 02/18/17 09:04 Dose: 30 mg Methylprednisolone 20 mg/ (Sodium Chloride) 50 mls @ 100 mls/hr IVPB Q12 [facility] Last Admin: 02/18/17 09:05 Dose: 100 mls/hr Insulin Human Regular (Humulin R) 0 units SC ACCU-CHECK RAMIREZ PRN Reason: Protocol Last Admin: 02/18/17 09:01 Dose: Not Given Nitroglycerin (Nitro-Bid 2% Oint) 0.5 ea TOP Q6 [facility] Last Admin: 02/18/17 09:03 Dose: 0.5 ea Pantoprazole Sodium (Protonix Ec Tab) 40 mg PO DAILY [facility] Last Admin: 02/18/17 09:02 Dose: 40 mg - Labs Labs: 02/16/17 04:45 02/18/17 08:15 Assessment and Plan (1) CHF (congestive heart failure) Status: Acute (2) Acute bronchitis Status: Acute (3) Atrial fibrillation with rapid ventricular response Status: Acute (4) CAD (coronary artery disease) Status: Chronic (5) Asthma with acute exacerbation Status: Acute
--- NOTE | 2017-02-18 13:20 | CARD ---
APPROVED REPORT EKG Measurement Heart [id number] <Conclusion> Atrial fibrillation with occasional ventricular-paced complexes Low voltage QRS Abnormal ECG
[2017-02-18] MEDS ORDERED: Insulin Regular 100 units/ml IV STA (14:02)
--- NOTE | 2017-02-18 15:38 | CP.PCM.DIS ---
Provider - Provider Date of Admission: 02/12/17 14:32 Attending physician: Tosha Davalos DO Primary care physician: Marco A Gillespie MD Consults: Pulm : Dr Gillespie Cardio : Dr Kapadia Nephrology: Dr Singh Time Spent in preparation of Discharge (in minutes): 35 Diagnosis - Discharge Diagnosis (1) Pneumonia Status: Suspected (2) Asthma with acute exacerbation Status: Acute (3) Atrial fibrillation with rapid ventricular response Status: Acute Priority: High (4) Acute on chronic combined systolic and diastolic CHF (congestive heart failure) Status: Acute (5) CAD (coronary artery disease) Status: Chronic Priority: High (6) HTN (hypertension) Status: Chronic Priority: Medium (7) H/O sick sinus syndrome Status: Chronic (8) Interstitial lung disease Status: Chronic (9) Hyperkalemia Status: Acute (10) Hyperglycemia, drug-induced Status: Acute Hospital Course - Lab Results Lab Results: Micro Results 02/13/17 18:00 Sputum Gram Stain - Final 02/13/17 18:00 Sputum Sputum Culture - Final NORMAL ORAL CIARRA Most Recent Lab Values WBC 9.9 K/uL (4.8-10.8) 02/16/17 04:45 RBC 4.56 Mil/uL (3.80-5.20) 02/16/17 04:45 Hgb 13.5 g/dL (12.0-16.0) 02/16/17 04:45 Hct 43.0 % (34.0-47.0) 02/16/17 04:45 MCV 94.2 fl (81.0-99.0) 02/16/17 04:45 MCH 29.6 pg (27.0-31.0) 02/16/17 04:45 MCHC 31.5 g/dL (33.0-37.0) L 02/16/17 04:45 RDW 15.9 % (11.5-14.5) H 02/16/17 04:45 Plt Count 158 K/uL (130-400) 02/16/17 04:45 MPV 10.1 fl (7.2-11.7) 02/14/17 06:03 Neut % (Auto) 94.2 % (50.0-75.0) H 02/14/17 06:03 Lymph % (Auto) 2.6 % (20.0-40.0) L 02/14/17 06:03 [place] % (Auto) 2.8 % (0.0-10.0) 02/14/17 06:03 Eos % (Auto) 0.0 % (0.0-4.0) 02/14/17 06:03 Baso % (Auto) 0.4 % (0.0-2.0) 02/14/17 06:03 Neut # 9.7 K/uL (1.8-7.0) H 02/14/17 06:03 Lymph # 0.3 K/uL (1.0-4.3) L 02/14/17 06:03 [place] # 0.3 K/uL (0.0-0.8) 02/14/17 06:03 Eos # 0.0 K/uL (0.0-0.7) 02/14/17 06:03 Baso # 0.0 K/uL (0.0-0.2) 02/14/17 06:03 Neutrophils % (Manual) 84 % (42-75) H 02/14/17 06:03 Band Neutrophils % 8 % (0-2) H 02/14/17 06:03 Lymphocytes % (Manual) 5 % (20-50) L 02/14/17 06:03 Reactive Lymphs % 2 % (0-0) H 02/13/17 03:46 Monocytes % (Manual) 3 % (0-10) 02/14/17 06:03 Platelet Estimate Normal (NORMAL) 02/14/17 06:03 Large Platelets Present 02/14/17 06:03 Poikilocytosis (manual Slight 02/14/17 06:03 Anisocytosis (manual) Slight 02/14/17 06:03 Macrocytosis (manual) Slight 02/13/17 03:46 Ovalocytes Slight 02/14/17 06:03 pCO2 70 mm/Hg (35-45) H 02/12/17 18:27 pO2 153 mm/Hg (80-100) H 02/12/17 18:27 HCO3 31.0 mmol/L (21-28) H 02/12/17 18:27 ABG pH 7.33 (7.35-7.45) L 02/12/17 18:27 ABG Total CO2 39.0 mmol/L (22-28) H 02/12/17 18:27 ABG O2 Saturation 99.2 % (95-98) H 02/12/17 18:27 ABG O2 Content 20.5 ML/dL (15-23) 02/12/17 18:27 ABG Base Excess 7.9 mmol/L (-2.0-3.0) H 02/12/17 18:27 ABG Hemoglobin 15.0 g/dL (11.7-17.4) 02/12/17 18:27 ABG Carboxyhemoglobin 1.9 % (0.5-1.5) H 02/12/17 18:27 POC ABG HHb (Measured) 0.8 % (0.0-5.0) 02/12/17 18: ABG Methemoglobin 1.4 % (0.0-3.0) 02/12/17 18:27 ABG O2 Capacity 20.7 mL/dL (16-24) 02/12/17 18:27 [place] Test Yes 02/12/17 18:27 A-a O2 Difference 473.0 mm/Hg 02/12/17 18:27 Hgb O2 Saturation 95.9 % (95.0-98.0) 02/12/17 18:27 Vent Mode Nrm 02/12/17 18:27 FiO2 100.0 % 02/12/17 18:27 Sodium 142 mmol/l (132-148) 02/18/17 06:10 Potassium 5.6 MMOL/L (3.6-5.0) H 02/18/17 08:15 Chloride 100 mmol/L (98-107) 02/18/17 06:10 Carbon Dioxide 38 mmol/L (22-30) H 02/18/17 06:10 Anion Gap 10 (10-20) 02/18/17 06:10 BUN 38 mg/dl (7-17) H 02/18/17 06:10 Creatinine 0.9 mg/dL (0.7-1.2) 02/18/17 06:10 Est GFR ( Amer) > 60 02/18/17 06:10 Est GFR (Non-Af Amer) > 60 02/18/17 06:10 POC Glucose (mg/dL) 211 mg/dL (65-110) H 02/18/17 11:25 Random Glucose 172 mg/dL (65-105) H 02/18/17 06:10 Uric Acid 12.0 mg/Dl (2.2-7.5) H 02/14/17 06:03 Calcium 9.8 mg/dL (8.4-10.2) 02/18/17 06:10 Total Bilirubin 1.0 mg/dl (0.2-1.3) 02/12/17 14:24 AST 35 U/L (14-36) 02/12/17 14:24 ALT 48 U/L (9-52) 02/12/17 14:24 Alkaline Phosphatase 125 U/L (38-126) 02/12/17 14:24 Troponin I 0.0290 ng/mL (0.00-0.120) 02/13/17 08:45 NT-Pro-B Natriuret Pep 90145 pg/ml (0-900) H 02/12/17 14:24 Total Protein 7.3 G/DL (6.3-8.2) 02/12/17 14:24 Albumin 3.9 g/dL (3.5-5.0) 02/12/17 14:24 Globulin 3.4 gm/dL (2.2-3.9) 02/12/17 14:24 Albumin/Globulin Ratio 1.2 (1.0-2.1) 02/12/17 14:24 TSH 3rd Generation 0.67 mIU/ML (0.46-4.68) 02/13/17 03:46 Urine Osmolality 467 mosm/kg (300-1000) 02/18/17 14:06 Ur Random Sodium 8 meq/L 02/18/17 14:06 Ur Random Potassium 11.4 mmol/L 02/18/17 14:06 Digoxin 1.0 ng/mL (0.8-2.0) 02/18/17 08:15 Urine Legionella Ag Not detected (Not Detected) 02/14/17 16:58 Mycoplasma pneumon IgG <=0.90 (<=0.90) 02/14/17 06:00 Mycoplasma pneumon IgM 52 U/mL (<770) 02/14/17 06:00 - Hospital Course Hospital Course: This 81 year old female with PMH of Asthma, cardiac arrhythmia with PPM, melanoma of the lip, hypertension, hyperlipidemia, afib CAD s/p stent presented with chest congestion , dyspnea, productive cough with yellowish sputum for few days. . She denied chest pain and hemoptysis as well as worsening pedal edema. In the ER she was afebrile, in A fib with a rapid ventricular response, tachypneic with audible wheezing. CXR showed showed poor inspiratory effort, with increased haziness to lower lobes . She was admitted acute asthma exacerbation, pneumonia and Afib with RVR. At present HR better controlled off cardizem drip , SOB , wheezing and cough improved. Noted to be hyper kalemic - Nephrology consulted. 1.Atrial fibrillation with rapid ventricular response Acute HR on Tele now better controlled off cardizem drip continue digoxin PO cont PO Cardizem 30mg q 6 Cardiology consulted- Dr Kapadia She is not on anticoagulation because she refused continue ASA, Plavix 2. Asthma with acute exacerbation, improving Acute Pt came with wheezing, SOB, w/ accessory muscle use cont IV Solumedrol, Albuterol Neb treatments Pulmonary : Dr Gillespie consulted d/c dextrometorphan since patient had visual hallucinations overnight tapered Solumedrol to 20 mg IV q12 on 3 L O2 via NC 3. Pneumonia CXR : read as negative but lower lobes show increased interstitial markings pt had cough, SOB, rales and rhonchi , wheezing on exam Received IV Ceftriaxone and Azithro- d/c the IV ceftriaxone and changed Azithro to PO Sputum c/s: few Gram + cocci in chains and clusters CT chest showed reticulonodular mild interstitial pulmonary pattern diffusely , bilaterally Continue antibiotics, Duonebs, O2 via NC Tessalon perles 4 Acute on chronic combined systolic and diastolic CHF (congestive heart failure ) Acute ProBNP was elevated Lasix given no BB for now because of Asthma exacerbation Cardio consult appreciated hold off on ARB/ONEIDA for now bec of hyperkalemia 5. CAD (coronary artery disease) Chronic hx of Stent placement cont Plavix 6. HTN (hypertension) Chronic BP low normal hold off BP meds 7. H/O sick sinus syndrome s/p Pacemaker. Chronic 8. CKD stage III stable 9. Hyperglycemia Most likely steroid induced Continue Accuchecks and insulin coverage 10. Hx Interstitial Lung Disease cont Duonebs, steroids 11. Hyperkalemia - noted that K has been elevated for the past few days despite daily use of Kayexalate - Received IV Insulin and D50 - Nephrology consulted - rec daily Lasix 12. Deconditioning - PT consulted- rec TCU for Physical therapy 13..DVT proph Lovenox Discharge Exam - Head Exam Head Exam: NORMAL INSPECTION, NORMOCEPHALIC - Eye Exam Eye Exam: EOMI, Normal appearance Pupil Exam: NORMAL ACCOMODATION - ENT Exam ENT Exam: Mucous Membranes Moist, Normal External Ear Exam - Neck Exam Neck exam: Full Rom - Respiratory Exam Respiratory Exam: Rales, Rhonchi, NORMAL BREATHING PATTERN. absent: Respiratory Distress - Cardiovascular Exam Cardiovascular Exam: Irregular Rhythm, +S1, +S2 - GI/Abdominal Exam GI & Abdominal Exam: Normal Bowel Sounds, Soft. absent: Tenderness - Extremities Exam Extremities exam: full ROM, normal capillary refill, pedal pulses present - Back Exam Back exam: FULL ROM. absent: CVA tenderness (L), CVA tenderness (R) - Neurological Exam Neurological exam: Alert, CN II-XII Intact, Oriented x3, Reflexes Normal - Psychiatric Exam Psychiatric exam: Normal Affect, Normal Mood - Skin Skin Exam: Dry, Normal Color Discharge Plan - Discharge Medications Prescriptions: Montelukast Sodium [Singulair] 10 mg PO DAILY #1 tablet Prednisone [Deltasone] 40 mg PO DAILY #1 tablet - Follow Up Plan Condition: GOOD Disposition: TRANSF TO SNF Additional Instructions: d/c pt to TCU Referrals: Marco A Gillespie MD [Primary Care Provider] -
[2017-02-18 15:55] VITALS: RESP 20; O2SAT 96
[2017-02-18 19:37] VITALS: BP 125/59; PULSE 98; TEMP 98.4
[2017-02-18 20:46] LABS: SQUAMOUS EPITHIAL 1 /hpf (0-5); URINE BILIRUBIN NEGATIVE (NEGATIVE); URINE BLOOD NEGATIVE (NEGATIVE); URINE CLARITY CLEAR (Clear); URINE COLOR YELLOW (YELLOW); URINE GLUCOSE (UA) 50 mg/dL (Normal); URINE LEUKOCYTE ESTERASE NEG Leu/uL (Negative); URINE NITRATE NEGATIVE (NEGATIVE); URINE PROTEIN NEGATIVE (NEGATIVE); URINE UROBILINOGEN 0.2-1.0 mg/dL (0.2-1.0)
== END 2017-02-18 20:50 | DRG 291 ==
LOC: H.ER 13:43 → H.ERHOLD 14:32 → H.TEL 16:24
PROVIDERS: ADMIT Student in an Organized Health Care Education/Training Program; ATTEND Student in an Organized Health Care Education/Training Program
DX: I13.0 Hypertensive heart and chronic kidney disease with heart failure and stage 1 through stage 4 chronic kidney disease, or unspecified chronic kidney disease (principal); I50.43 Acute on chronic combined systolic (congestive) and diastolic (congestive) heart failure; J18.9 Pneumonia, unspecified organism; N17.9 Acute kidney failure, unspecified; E87.4 Mixed disorder of acid-base balance; I49.5 Sick sinus syndrome; J44.0 Chronic obstructive pulmonary disease with (acute) lower respiratory infection; J45.901 Unspecified asthma with (acute) exacerbation; E87.5 Hyperkalemia; N18.3 Chronic kidney disease, stage 3 (moderate); J44.1 Chronic obstructive pulmonary disease with (acute) exacerbation; I48.2 Chronic atrial fibrillation; J20.9 Acute bronchitis, unspecified; I25.10 Atherosclerotic heart disease of native coronary artery without angina pectoris; T50.905A Adverse effect of unspecified drugs, medicaments and biological substances, initial encounter; R73.9 Hyperglycemia, unspecified; E78.5 Hyperlipidemia, unspecified; I49.9 Cardiac arrhythmia, unspecified; E66.3 Overweight; R44.1 Visual hallucinations; Z95.0 Presence of cardiac pacemaker; Z85.820 Personal history of malignant melanoma of skin

== ENCOUNTER 2017-02-18 17:07 | Inpatient (IN) | payer OTHER, BC ==
[2017-02-18 21:13] VITALS: BMI 35.3
[2017-02-18] MEDS: Nitroglycerin 2% Ointment Foilpak UD TOP SCH (21:59)
[2017-02-18 22:04] VITALS: RESP 20
[2017-02-18] MEDS: Insulin Regular 100 units/ml SC SCH (22:05)
[2017-02-18] MEDS: Albuterol 0.083% Inhal Sol (2.5 mg/3 mL) UD INH SCH (23:18)
[2017-02-19] MEDS: Nitroglycerin 2% Ointment Foilpak UD TOP SCH (04:00)
[2017-02-19] MEDS: Albuterol 0.083% Inhal Sol (2.5 mg/3 mL) UD INH SCH ×6 (04:45→23:40)
[2017-02-19] MEDS ORDERED: MethylPREDNISolone 40 mg Vial IV SCH (09:00)
[2017-02-19] MEDS: Enoxaparin 30 mg Syringe SC SCH (09:12)
[2017-02-19] MEDS: Pantoprazole 40 mg EC Tab PO SCH (09:13)
[2017-02-19] MEDS: Digoxin 125 mcg (0.125 mg) Tab PO SCH (09:16)
[2017-02-19] MEDS: Insulin Regular 100 units/ml SC SCH ×4 (09:17→22:12)
[2017-02-19] MEDS: methylPREDNISolone 20 MG in Sodium Chloride 0.9% 50 ML IVPB SCH ×2 (09:19→20:22)
--- NOTE | 2017-02-19 10:30 | CP.PCM.HP ---
History of Present Illness - History of Present Illness History of Present Illness: Chief Complaint : transferred to TCU for Physical therapy for Deconditioning and to continue IV sterod treatment for Asthma exacerbation HPI: This 81 year old female with PMH of Asthma, SSS s/p PPM, melanoma of the lip, hypertension, hyperlipidemia, Chronic A Fib, CAD s/p stent initially presented to the ED on 02/12 with cough, SOB, wheezing. She was admitted to Telemetry for Asthma exacerbation, Pneumonia and A fib with RVR. She received IV antibiotics , IV Solumedrol and Nebulizer treatments - Pulmonary was consulted. She was also placed on Cardizem drip then changed to PO. Her condition improved and she was transferred to TCU to continue her treatment and for physical therapy due to physical deconditioning. . Present on Admission - Present on Admission Any Indicators Present on Admission: No Review of Systems - Review of Systems All systems: reviewed and no additional remarkable complaints except - Constitutional Constitutional: Fatigue, Weakness. absent: Chills, Fever - EENT Eyes: absent: Blurred Vision, Change in Vision Ears: absent: Ear Discharge, Ear Pain Nose/Mouth/Throat: absent: Nasal Congestion, Sore Throat - Cardiovascular Cardiovascular: Dyspnea on Exertion. absent: Chest Pain, Chest Pain at Rest, Edema - Respiratory Respiratory: Cough, Dyspnea on Exertion. absent: Dyspnea, Hemoptysis - Gastrointestinal Gastrointestinal: absent: Abdominal Pain, Melena, Nausea, Vomiting - Genitourinary Genitourinary: absent: Dysuria - Neurological Neurological: absent: Confusion, Focal Weakness - Psychiatric Psychiatric: absent: Anxiety, Confusion, Depression - Endocrine Endocrine: absent: Polydipsia, Polyphagia, Polyuria - Hematologic/Lymphatic Hematologic: absent: Easy Bleeding, Easy Bruising Past Patient History - Infectious Disease Hx of Infectious Diseases: None - Tetanus Immunizations Tetanus Immunization: Unknown - Past Medical History & Family History Past Medical History?: Yes Past Family History: Reviewed and not pertinent - Past Social History Smoking Status: Never Smoked Chewing Tobacco Use: No Cigar Use: No Alcohol: None Drugs: Denies Home Situation {Lives}: With Family - CARDIAC Hx Cardiac Disorders: Yes Hx Hypercholesterolemia: Yes Hx Hypertension: Yes - PULMONARY Hx Chronic Obstructive Pulmonary Disease (COPD): Yes Hx Pneumonia: Yes - NEUROLOGICAL Hx Neurological Disorder: No - HEENT Hx HEENT Problems: Yes Other/Comment: wears glasses - RENAL Hx Chronic Kidney Disease: No - ENDOCRINE/METABOLIC Hx Endocrine Disorders: No - HEMATOLOGICAL/ONCOLOGICAL Hx Human Immunodeficiency Virus (HIV): No 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 - INTEGUMENTARY Hx Melanoma: Yes - MUSCULOSKELETAL/RHEUMATOLOGICAL Hx Falls: No - GASTROINTESTINAL Hx Gastritis: Yes - GENITOURINARY/GYNECOLOGICAL Hx Genitourinary Disorders: No - PSYCHIATRIC Hx Substance Use: No - SURGICAL HISTORY Hx Appendectomy: Yes Hx Cholecystectomy: Yes Hx Tonsillectomy: Yes - ANESTHESIA Hx Anesthesia: Yes Hx Anesthesia Reactions: No Hx Malignant Hyperthermia: No Meds Allergies/Adverse Reactions: Allergies Allergy/AdvReac Type Severity Reaction Status Date / Time Penicillins Allergy RASH Verified 02/12/17 13:46 Physical Exam - Constitutional Appears: No Acute Distress, Chronically Ill - Head Exam Head Exam: NORMAL INSPECTION, NORMOCEPHALIC - Eye Exam Eye Exam: EOMI, Normal appearance Pupil Exam: NORMAL ACCOMODATION - ENT Exam ENT Exam: Mucous Membranes Moist, Normal External Ear Exam - Neck Exam Neck exam: Positive for: Full Rom. Negative for: Meningismus - Respiratory Exam Respiratory Exam: Decreased Breath Sounds, Rales, Rhonchi, Wheezes - Cardiovascular Exam Cardiovascular Exam: Irregular Rhythm, +S1, +S2 - GI/Abdominal Exam GI & Abdominal Exam: Normal Bowel Sounds, Soft. absent: Tenderness - Extremities Exam Extremities exam: Positive for: full ROM, normal capillary refill, pedal pulses present. Negative for: calf tenderness, pedal edema - Back Exam Back exam: FULL ROM, NORMAL INSPECTION. absent: CVA tenderness (L), CVA tenderness (R) - Neurological Exam Neurological exam: Alert, CN II-XII Intact, Oriented x3, Reflexes Normal - Psychiatric Exam Psychiatric exam: Flat Affect, Normal Mood - Skin Skin Exam: Dry, Normal Color Results - Vital Signs Recent Vital Signs: Last Vital Signs Temp 98.1 F 02/19/17 08:09 Pulse 68 02/19/17 09:13 Resp 20 02/19/17 08:09 BP 125/61 02/19/17 09:16 Pulse Ox 98 02/19/17 08:09 - Labs Result Diagrams: 02/19/17 09:00 Labs: Laboratory Results - last 24 hr 02/18/17 02/19/17 22:05 06:14 POC Glucose (mg/dL) 247 H 155 H Assessment & Plan - Assessment and Plan (Free Text) Assessment: This 81 year old female with PMH of Asthma, cardiac arrhythmia with PPM, melanoma of the lip, hypertension, hyperlipidemia, afib CAD s/p stent presented with cough, SOB, wheezing. She was admitted to Telemetry for Asthma exacerbation, Pneumonia and A fib with RVR. She received IV antibiotics , IV Solumedrol and Nebulizer treatments - Pulmonary was consulted. She was also placed on Cardizem drip then changed to PO. Her condition improved and she was transferred to TCU to continue her treatment and for physical therapy. 1.Atrial fibrillation , now rate controlled continue digoxin PO cont PO Cardizem 30mg q 6 Cardiology consult- Dr Kapadia continue ASA, Plavix Pt refused therapeutic anticoagulation 2. Asthma with acute exacerbation, improving cont IV Solumedrol, Albuterol Neb treatments Pulmonary Consult : Dr Gillespie tapered Solumedrol to 20 mg IV q12 on 3 L O2 via NC 3. Pneumonia Received IV Ceftriaxone and Azithro- d/c the IV ceftriaxone and changed Azithro to PO Sputum c/s: few Gram + cocci in chains and clusters Tessalon perles 4. chronic systolic and diastolic CHF (congestive heart failure) no BB for now because of Asthma exacerbation Cardio consult hold off on ARB/ONEIDA for now bec of hyperkalemia cont Lasix 5. CAD (coronary artery disease) Chronic hx of Stent placement cont Plavix 6. HTN (hypertension) Chronic cont cardizem and Lasix 7. H/O sick sinus syndrome s/p Pacemaker. Chronic 8. CKD stage III stable 9. Hyperglycemia Most likely steroid induced Continue Accuchecks and insulin coverage 10. Hx Interstitial Lung Disease cont Duonebs, steroids 11. Hyperkalemia - K has been elevated for the past few days despite daily use of Kayexalate - Nephrology consult - cont daily Lasix as rec by Nephro, - Lovenox may alos contribute to the hyperK 12. Deconditioning - Physical therapy 13..DVT proph Lovenox Decision To Admit - Pt Status Changed To: Hospital Disposition Of: Inpatient - Admit Certification Admit to Inpatient:: After my assessment, the patient will require hospitalization for at least two midnights. This is because of the severity of symptoms shown, intensity of services needed, and/or the medical risk in this patient being treated as an outpatient. - . Bed Request Type: Transitional Care Unit Admitting Physician: Corina Orr
[2017-02-19 10:39] LABS: BLOOD UREA NITROGEN 35 mg/dl (7-17); CALCIUM 9.4 mg/dL (8.4-10.2); GFR AFRICAN-AMERICAN > 60; GFR NON-AFRICAN AMERICAN 53
[2017-02-19] MEDS ORDERED: Nitroglycerin 2% Ointment Foilpak UD TOP SCH (12:00)
--- NOTE | 2017-02-19 12:40 | CP.PCM.CON ---
History of Present Illness - History of Present Illness History of Present Illness: THE PATIENT IS A 81 YEAR OLD FEMALE WHO WAS DISCHARGED TO TCU YESTERDAY FOLLOWING A 7 DAY [facility] ADMISSION FOR COPD EXACERBATION WITH BRONCHITIS/ PNEUMONIA TO COMPLETE STEROID REGIMEN AND FOR SUBACUTE REHAB. SHE ALSO HAS A HISTORY OF CAD WITH PRIOR CORONARY STENT INSERTIONS, SSS WITH CHRONIC ATRIAL FIBRILLATION AND A PERMANENT PACEMAKER, HYPERTENSION AND SHE IS OVERWEIGHT. SHE WAS EXTREMLY SOB AND HAD COUGHING AND WHEEZING LAST WEEK AND IS NOW BREATHING BETTER AND MORE COMFORTABLY. SHE NEVER HAD CHEST PAIN WITH THIS PULMONARY EPISODE. SHE ALSO HAD PRERENAL DAR WITH HYPERKALEMIA AND THE NEED FOR KAYEXALATE BUT THE RENAL FUNCTION HAS IMPROVED AND THE POTASSIUM IS NOW NORMAL OFF DIURETICS. Past Patient History - Infectious Disease Hx of Infectious Diseases: None - Past Medical History & Family History Past Medical History?: Yes - Past Social History Smoking Status: Never Smoked - CARDIAC Hx Cardiac Disorders: Yes Hx Hypercholesterolemia: Yes Hx Hypertension: Yes - PULMONARY Hx Chronic Obstructive Pulmonary Disease (COPD): Yes Hx Pneumonia: Yes - NEUROLOGICAL Hx Neurological Disorder: No - HEENT Hx HEENT Problems: Yes Other/Comment: wears glasses - RENAL Hx Chronic Kidney Disease: No - ENDOCRINE/METABOLIC Hx Endocrine Disorders: No - HEMATOLOGICAL/ONCOLOGICAL Hx Human Immunodeficiency Virus (HIV): No 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 - INTEGUMENTARY Hx Melanoma: Yes - MUSCULOSKELETAL/RHEUMATOLOGICAL Hx Falls: No - GASTROINTESTINAL Hx Gastritis: Yes - GENITOURINARY/GYNECOLOGICAL Hx Genitourinary Disorders: No - PSYCHIATRIC Hx Substance Use: No - SURGICAL HISTORY Hx Appendectomy: Yes Hx Cholecystectomy: Yes Hx Tonsillectomy: Yes - ANESTHESIA Hx Anesthesia: Yes Hx Anesthesia Reactions: No Hx Malignant Hyperthermia: No Meds Allergies/Adverse Reactions: Allergies Allergy/AdvReac Type Severity Reaction Status Date / Time Penicillins Allergy RASH Verified 02/12/17 13:46 - Medications Medications: Current Medications Albuterol Sulfate (Albuterol 0.083% Inhal Mary (2.5 Mg/3 Ml) Ud) 2.5 mg INH RQ4 [facility] Last Admin: 02/19/17 11:24 Dose: 2.5 mg Allopurinol (Zyloprim) 100 mg PO DAILY [facility] Last Admin: 02/19/17 09:14 Dose: 100 mg Aspirin (Ecotrin) 81 mg PO DAILY [facility] Last Admin: 02/19/17 09:14 Dose: 81 mg Azithromycin (Zithromax) 500 mg PO DAILY [facility] Last Admin: 02/19/17 09:14 Dose: 500 mg Benzonatate (Tessalon Perles) 200 mg PO TID PRN PRN Reason: Cough Last Admin: 02/19/17 09:14 Dose: 200 mg Clopidogrel Bisulfate (Plavix) 75 mg PO DAILY [facility] Last Admin: 02/19/17 09:14 Dose: 75 mg Digoxin (Lanoxin) 0.125 mg PO DAILY [facility] Last Admin: 02/19/17 09:16 Dose: 0.125 mg Diltiazem HCl (Cardizem) 30 mg PO Q6 [facility] Last Admin: 02/19/17 09:13 Dose: 30 mg Enoxaparin Sodium (Lovenox) 30 mg SC DAILY [facility] PRN Reason: Protocol Last Admin: 02/19/17 09:12 Dose: 30 mg Methylprednisolone 20 mg/ (Sodium Chloride) 50.32 mls @ 100.64 mls/hr IVPB Q12H [facility] Last Admin: 02/19/17 09:19 Dose: 100.64 mls/hr Insulin Human Regular (Humulin R) 0 units SC ACHS [facility] PRN Reason: Protocol Last Admin: 02/19/17 11:45 Dose: Not Given Montelukast Sodium (Singulair) 10 mg PO DAILY [facility] Last Admin: 02/19/17 09:15 Dose: 10 mg Pantoprazole Sodium (Protonix Ec Tab) 40 mg PO DAILY [facility] Last Admin: 02/19/17 09:13 Dose: 40 mg Physical Exam - Respiratory Exam Respiratory Exam: Rales - Cardiovascular Exam Cardiovascular Exam: Irregular Rhythm, +S1, +S2 - Extremities Exam Additional comments: MILD LE EDEMA - Additional Findings Additional findings: BUN/CR THIS AM 35/1.0 K+ 4.4 Results - Vital Signs Recent Vital Signs: Last Vital Signs Temp 98.1 F 02/19/17 08:09 Pulse 68 02/19/17 09:13 Resp 20 02/19/17 08:09 BP 118/61 02/19/17 12:29 Pulse Ox 98 02/19/17 08:09 - Labs Result Diagrams: 02/19/17 09:00 Labs: Laboratory Results - last 24 hr 02/18/17 02/19/17 02/19/17 22:05 06:14 09:00 Sodium 139 Potassium 4.4 Chloride 98 Carbon Dioxide 38 H Anion Gap 7 L BUN 35 H Creatinine 1.0 Est GFR ( Amer) > 60 Est GFR (Non-Af Amer) 53 POC Glucose (mg/dL) 247 H 155 H Random Glucose 143 H Calcium 9.4 02/19/17 10:50 Sodium Potassium Chloride Carbon Dioxide Anion Gap BUN Creatinine Est GFR ( Amer) Est GFR (Non-Af Amer) POC Glucose (mg/dL) 149 H Random Glucose Calcium Assessment & Plan - Assessment and Plan (Free Text) Assessment: COPD EXACERBATION WITH BRONCHITIS/PNEUMONIA CAD-STABLE HYPERTENSION HYPERLIPIDEMAI Plan: CONTINUE BRONCHODILATORS, STEROIDS, CARDIZEM, DIGOXIN, ASPIRIN, CLOPIDOGREL, LOVENOX CONTINUE SUBACUTE REHAB
--- NOTE | 2017-02-19 16:00 | CP.PCM.CON ---
History of Present Illness - History of Present Illness History of Present Illness: 81 yo F w/ pmh of CAD s/p stent, afib, CHF w/ mild systolic dysfunction, sick sinus syndrome s/p pacemaker placement and COPD, initially presented to ED with cough and shortness of breath, admitted for acute bronchitis/asthma exacerbation w/ possible pneumonia and afib w/ RVR; transferred to TCU yesterday ; nephrology service being consulted again for f/u regarding hyperkalemia; Patient reports feeling much better since initial admission; cough and shortness of breath are improved; able to ambulate to bathroom; however, she reports decreased frequency of urination lately; denies any difficulty passing urine or feeling of incomplete bladder evacuation; attributes decreased urination to not being on her home dose of lasix (40 mg daily); also reports increased leg swelling lately which she says was well controlled with the lasix; Patient has been on high doses of IV steroids during current admission, lately being tapered down; was on ceftriaxone (discontinued 2 days ago) and remains on azithromycin; For Afib, patient was on cardizem drip, currently on PO form; patient was started on digoxin 0.25 mg loading dose followed by 0.125 mg daily which she remains on currently; previously was only on digoxin as outpatient for a brief period but was discontinued due to reported nausea; Review of Systems - Constitutional Additional comments: Good appetite - EENT Eyes: Change in Vision Nose/Mouth/Throat: Dysphagia - Cardiovascular Cardiovascular: As Per HPI - Respiratory Respiratory: As Per HPI - Gastrointestinal Gastrointestinal: absent: Nausea, Vomiting - Genitourinary Genitourinary: As Per HPI - Musculoskeletal Additional comments: R knee pain (chronic, doesn't take any pain meds) - Integumentary Additional comments: Easliy bruises due to being on plavix - Neurological Neurological: absent: Dizziness, Numbness - Psychiatric Psychiatric: absent: Depression Past Patient History - Infectious Disease Hx of Infectious Diseases: None - Tetanus Immunizations Tetanus Immunization: Unknown - Past Medical History & Family History Past Medical History?: Yes Past Family History: Reviewed and not pertinent - Past Social History Smoking Status: Never Smoked Chewing Tobacco Use: No Cigar Use: No Alcohol: None Drugs: Denies Home Situation {Lives}: With Family - CARDIAC Hx Cardiac Disorders: Yes Hx Hypercholesterolemia: Yes Hx Hypertension: Yes - PULMONARY Hx Chronic Obstructive Pulmonary Disease (COPD): Yes Hx Pneumonia: Yes - NEUROLOGICAL Hx Neurological Disorder: No - HEENT Hx HEENT Problems: Yes Other/Comment: wears glasses - RENAL Hx Chronic Kidney Disease: No - ENDOCRINE/METABOLIC Hx Endocrine Disorders: No - HEMATOLOGICAL/ONCOLOGICAL Hx Human Immunodeficiency Virus (HIV): No 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 - INTEGUMENTARY Hx Melanoma: Yes - MUSCULOSKELETAL/RHEUMATOLOGICAL Hx Falls: No - GASTROINTESTINAL Hx Gastritis: Yes - GENITOURINARY/GYNECOLOGICAL Hx Genitourinary Disorders: No - PSYCHIATRIC Hx Substance Use: No - SURGICAL HISTORY Hx Appendectomy: Yes Hx Cholecystectomy: Yes Hx Tonsillectomy: Yes - ANESTHESIA Hx Anesthesia: Yes Hx Anesthesia Reactions: No Hx Malignant Hyperthermia: No Meds Allergies/Adverse Reactions: Allergies Allergy/AdvReac Type Severity Reaction Status Date / Time Penicillins Allergy RASH Verified 02/12/17 13:46 - Medications Medications: Current Medications Albuterol Sulfate (Albuterol 0.083% Inhal Mary (2.5 Mg/3 Ml) Ud) 2.5 mg INH RQ4 [facility] Last Admin: 02/19/17 15:29 Dose: 2.5 mg Allopurinol (Zyloprim) 100 mg PO DAILY [facility] Last Admin: 02/19/17 09:14 Dose: 100 mg Aspirin (Ecotrin) 81 mg PO DAILY [facility] Last Admin: 02/19/17 09:14 Dose: 81 mg Azithromycin (Zithromax) 500 mg PO DAILY [facility] Last Admin: 02/19/17 09:14 Dose: 500 mg Benzonatate (Tessalon Perles) 200 mg PO TID PRN PRN Reason: Cough Last Admin: 02/19/17 09:14 Dose: 200 mg Clopidogrel Bisulfate (Plavix) 75 mg PO DAILY [facility] Last Admin: 02/19/17 09:14 Dose: 75 mg Digoxin (Lanoxin) 0.125 mg PO DAILY [facility] Last Admin: 02/19/17 09:16 Dose: 0.125 mg Diltiazem HCl (Cardizem) 30 mg PO Q6 [facility] Last Admin: 02/19/17 09:13 Dose: 30 mg Enoxaparin Sodium (Lovenox) 30 mg SC DAILY [facility] PRN Reason: Protocol Last Admin: 02/19/17 09:12 Dose: 30 mg Methylprednisolone 20 mg/ (Sodium Chloride) 50.32 mls @ 100.64 mls/hr IVPB Q12H [facility] Last Admin: 02/19/17 09:19 Dose: 100.64 mls/hr Insulin Human Regular (Humulin R) 0 units SC ACHS [facility] PRN Reason: Protocol Last Admin: 02/19/17 11:45 Dose: Not Given Montelukast Sodium (Singulair) 10 mg PO DAILY [facility] Last Admin: 02/19/17 09:15 Dose: 10 mg Pantoprazole Sodium (Protonix Ec Tab) 40 mg PO DAILY [facility] Last Admin: 02/19/17 09:13 Dose: 40 mg Physical Exam - Constitutional Appears: Well, Non-toxic, No Acute Distress - Head Exam Head Exam: NORMAL INSPECTION - Eye Exam Eye Exam: Normal appearance. absent: Scleral icterus - ENT Exam ENT Exam: Mucous Membranes Moist - Neck Exam Neck exam: Positive for: Normal Inspection - Respiratory Exam Respiratory Exam: Prolonged Expiratory Phase, Wheezes - Cardiovascular Exam Cardiovascular Exam: Irregular Rhythm. absent: Tachycardia, Gallop - GI/Abdominal Exam GI & Abdominal Exam: Soft. absent: Distended, Tenderness - Extremities Exam Additional comments: Mild/moderate bilateral lower leg edema; - Neurological Exam Neurological exam: Alert, Oriented x3 - Psychiatric Exam Psychiatric exam: Normal Affect, Normal Mood - Skin Skin Exam: Normal Color, Warm Results - Vital Signs Recent Vital Signs: Last Vital Signs Temp 98.1 F 02/19/17 08:09 Pulse 67 02/19/17 14:18 Resp 20 02/19/17 08:09 BP 118/61 02/19/17 12:29 Pulse Ox 93 L 02/19/17 14:18 - Labs Result Diagrams: 02/19/17 09:00 Labs: Laboratory Results - last 24 hr 02/18/17 02/19/17 02/19/17 22:05 06:14 09:00 Sodium 139 Potassium 4.4 Chloride 98 Carbon Dioxide 38 H Anion Gap 7 L BUN 35 H Creatinine 1.0 Est GFR ( Amer) > 60 Est GFR (Non-Af Amer) 53 POC Glucose (mg/dL) 247 H 155 H Random Glucose 143 H Calcium 9.4 02/19/17 10:50 Sodium Potassium Chloride Carbon Dioxide Anion Gap BUN Creatinine Est GFR ( Amer) Est GFR (Non-Af Amer) POC Glucose (mg/dL) 149 H Random Glucose Calcium Assessment & Plan (1) Hyperkalemia Assessment and Plan: Resolved with medical management including dose of kayexalate; appears due to inadequate renal excretion despite relatively preserved GFR; some degree of volume contraction being sensed by kidneys is indicated by urine lytes despite appearing euvolemic (even with evidence of volume excess with increased b/l leg edema - reason small dose of lasix was given today); lovenox administration also likely contributory; -continue to monitor for now -low K diet -agree with stopping lasix Status: Resolved (2) Acute bronchitis Assessment and Plan: On azithromycin; hypercapnea seen on initial blood gas, should repeat to look for improvement; Status: Acute Priority: High (3) CHF (congestive heart failure) Assessment and Plan: Mild systolic dysfunction from previous echo; was previously on lasix 40 mg daily at home; leg edema currently increased, likely due to effect of steroids; -consider repeat echo to look for right sided dysfunction if edema continues to increase Status: Chronic Priority: High (4) Metabolic alkalosis Assessment and Plan: Mostly compensation from hypercapnea but urine lytes also indicating volume contraction; recommend repeat blood gas; Status: Acute (5) Atrial fibrillation Assessment and Plan: On PO cardizam and digoxin; monitor digoxin level periodically; Status: Chronic Priority: High
[2017-02-20] MEDS: Albuterol 0.083% Inhal Sol (2.5 mg/3 mL) UD INH SCH ×6 (05:00→23:30)
[2017-02-20] MEDS: Insulin Regular 100 units/ml SC SCH ×4 (07:01→21:57)
[2017-02-20] MEDS: methylPREDNISolone 20 MG in Sodium Chloride 0.9% 50 ML IVPB SCH ×2 (09:07→21:30)
[2017-02-20] MEDS: Pantoprazole 40 mg EC Tab PO SCH (09:08)
[2017-02-20] MEDS: Enoxaparin 30 mg Syringe SC SCH (09:08)
[2017-02-20] MEDS: Digoxin 125 mcg (0.125 mg) Tab PO SCH (09:14)
[2017-02-20 10:03] LABS: BLOOD UREA NITROGEN 35 mg/dl (7-17); CALCIUM 9.3 mg/dL (8.4-10.2); GFR AFRICAN-AMERICAN > 60; GFR NON-AFRICAN AMERICAN 53
--- NOTE | 2017-02-20 14:01 | CP.PCM.PN ---
Subjective - Date & Time of Evaluation Date of Evaluation: 02/20/17 Time of Evaluation: 13:00 - Subjective Subjective: Reports breathing improved; not using oxygen as much; Objective - Vital Signs/Intake and Output Vital Signs (last 24 hours): Temp Pulse Resp BP Pulse Ox 97.9 F 84 20 120/72 94 L 02/20/17 08:12 02/20/17 09:15 02/20/17 09:15 02/20/17 09:15 02/20/17 09:15 - Medications Medications: Current Medications Albuterol Sulfate (Albuterol 0.083% Inhal Mary (2.5 Mg/3 Ml) Ud) 2.5 mg INH RQ4 [facility] Last Admin: 02/20/17 11:32 Dose: 2.5 mg Allopurinol (Zyloprim) 100 mg PO DAILY [facility] Last Admin: 02/20/17 09:08 Dose: 100 mg Aspirin (Ecotrin) 81 mg PO DAILY [facility] Last Admin: 02/20/17 09:08 Dose: 81 mg Azithromycin (Zithromax) 500 mg PO DAILY [facility] Last Admin: 02/20/17 09:08 Dose: 500 mg Benzonatate (Tessalon Perles) 200 mg PO TID PRN PRN Reason: Cough Last Admin: 02/20/17 09:11 Dose: 200 mg Clopidogrel Bisulfate (Plavix) 75 mg PO DAILY [facility] Last Admin: 02/20/17 09:11 Dose: 75 mg Digoxin (Lanoxin) 0.125 mg PO DAILY [facility] Last Admin: 02/20/17 09:14 Dose: 0.125 mg Diltiazem HCl (Cardizem) 30 mg PO Q6 [facility] Last Admin: 02/20/17 09:15 Dose: 30 mg Enoxaparin Sodium (Lovenox) 30 mg SC DAILY [facility] PRN Reason: Protocol Last Admin: 02/20/17 09:08 Dose: 30 mg Methylprednisolone 20 mg/ (Sodium Chloride) 50.32 mls @ 100.64 mls/hr IVPB Q12H [facility] Last Admin: 02/20/17 09:07 Dose: 100.64 mls/hr Insulin Human Regular (Humulin R) 0 units SC ACHS [facility] PRN Reason: Protocol Last Admin: 02/20/17 12:22 Dose: 3 units Montelukast Sodium (Singulair) 10 mg PO DAILY [facility] Last Admin: 02/20/17 13:48 Dose: Not Given Pantoprazole Sodium (Protonix Ec Tab) 40 mg PO DAILY [facility] Last Admin: 02/20/17 09:08 Dose: 40 mg - Labs Labs: 02/20/17 08:30 - Constitutional Appears: Well, No Acute Distress - Eye Exam Eye Exam: Normal appearance - ENT Exam ENT Exam: Mucous Membranes Moist - Respiratory Exam Respiratory Exam: Wheezes. absent: Rales, Rhonchi, Respiratory Distress - Cardiovascular Exam Cardiovascular Exam: Irregular Rhythm, +S1, +S2. absent: Gallop - Extremities Exam Additional comments: Moderate b/l lower leg edema; - Neurological Exam Neurological Exam: Alert, Awake - Skin Skin Exam: Normal Color, Warm. absent: Cyanosis Assessment and Plan (1) Hyperkalemia Assessment & Plan: Resolved; some degree of volume contraction may have been contributory; monitor periodically; Status: Resolved (2) Acute bronchitis Assessment & Plan: On solumedrol and azithromycin; awaiting repeat blood gas to look for improvement in hypercapnea; Status: Acute (3) CHF (congestive heart failure) Assessment & Plan: Mild systolic dysfunction; currently off any diuretic; labs indicative of volume contraction despite increased edema; continue to hold lasix; Status: Chronic (4) Metabolic alkalosis Assessment & Plan: Awaiting repeat blood gas to see if this is all compensatory from hypercapnea or there is a component of primary metabolic alkalosis; Status: Acute (5) Atrial fibrillation Status: Chronic
[2017-02-20 21:21] LABS: VENOUS BLOOD GAS PCO2 57 mmHg (40-60); VENOUS BLOOD GAS PO2 42 mm/Hg (30-55); VENOUS BLOOD PH 7.46 (7.32-7.43)
[2017-02-21] MEDS: Albuterol 0.083% Inhal Sol (2.5 mg/3 mL) UD INH SCH ×6 (04:03→23:23)
[2017-02-21] MEDS: Insulin Regular 100 units/ml SC SCH ×4 (06:57→21:52)
[2017-02-21] MEDS: Enoxaparin 30 mg Syringe SC SCH (08:03)
[2017-02-21] MEDS: Digoxin 125 mcg (0.125 mg) Tab PO SCH (08:03)
[2017-02-21] MEDS: Pantoprazole 40 mg EC Tab PO SCH (08:04)
[2017-02-21] MEDS: methylPREDNISolone 20 MG in Sodium Chloride 0.9% 50 ML IVPB SCH ×2 (08:10→20:27)
--- NOTE | 2017-02-21 11:25 | CP.PCM.PN ---
Subjective - Date & Time of Evaluation Date of Evaluation: 02/21/17 Time of Evaluation: 09:00 - Subjective Subjective: FEELS MUCH BETTER BREATHING MUCH IMPROVED Objective - Vital Signs/Intake and Output Vital Signs (last 24 hours): Temp Pulse Resp BP Pulse Ox 97.7 F 73 20 134/71 96 02/21/17 08:18 02/21/17 10:53 02/21/17 08:18 02/21/17 10:52 02/21/17 10:53 - Medications Medications: Current Medications Albuterol Sulfate (Albuterol 0.083% Inhal Mary (2.5 Mg/3 Ml) Ud) 2.5 mg INH RQ4 [facility] Last Admin: 02/21/17 07:29 Dose: 2.5 mg Allopurinol (Zyloprim) 100 mg PO DAILY [facility] Last Admin: 02/21/17 08:04 Dose: 100 mg Aspirin (Ecotrin) 81 mg PO DAILY [facility] Last Admin: 02/21/17 08:03 Dose: 81 mg Azithromycin (Zithromax) 500 mg PO DAILY [facility] Last Admin: 02/21/17 08:03 Dose: 500 mg Benzonatate (Tessalon Perles) 200 mg PO TID PRN PRN Reason: Cough Last Admin: 02/21/17 08:03 Dose: 200 mg Clopidogrel Bisulfate (Plavix) 75 mg PO DAILY [facility] Last Admin: 02/21/17 08:04 Dose: 75 mg Digoxin (Lanoxin) 0.125 mg PO DAILY [facility] Last Admin: 02/21/17 08:03 Dose: 0.125 mg Diltiazem HCl (Cardizem) 30 mg PO Q6 [facility] Last Admin: 02/21/17 10:52 Dose: 30 mg Enoxaparin Sodium (Lovenox) 30 mg SC DAILY [facility] PRN Reason: Protocol Last Admin: 02/21/17 08:03 Dose: 30 mg Methylprednisolone 20 mg/ (Sodium Chloride) 50.32 mls @ 100.64 mls/hr IVPB Q12H [facility] Last Admin: 02/21/17 08:10 Dose: 100.64 mls/hr Insulin Human Regular (Humulin R) 0 units SC ACHS [facility] PRN Reason: Protocol Last Admin: 02/21/17 06:57 Dose: 2 units Montelukast Sodium (Singulair) 10 mg PO HS [facility] Last Admin: 02/20/17 21:59 Dose: 10 mg Pantoprazole Sodium (Protonix Ec Tab) 40 mg PO DAILY [facility] Last Admin: 02/21/17 08:04 Dose: 40 mg - Labs Labs: 02/20/17 08:30 - Respiratory Exam Respiratory Exam: Rales Additional comments: MUCH CLEARED MINIMAL RALES - Cardiovascular Exam Cardiovascular Exam: REGULAR RHYTHM, +S1, +S2 Assessment and Plan - Assessment and Plan (Free Text) Assessment: COPD WITH BRONCHITIS/PNEUMONIA CAD HYPERTENSION Plan: CONTINUE ANTIBIOTICS, DILTIAZEM, ASPIRIN, CLOPIDOGREL, LOVENOX, DIGOXIN CONTINUE SHARITA
--- NOTE | 2017-02-21 20:39 | CP.PCM.PN ---
Objective - Vital Signs/Intake and Output Vital Signs (last 24 hours): Temp Pulse Resp BP Pulse Ox 98.2 F 77 20 124/99 H 92 L 02/21/17 20:17 02/21/17 20:17 02/21/17 20:17 02/21/17 20:17 02/21/17 20:17 - Medications Medications: Current Medications Albuterol Sulfate (Albuterol 0.083% Inhal Mary (2.5 Mg/3 Ml) Ud) 2.5 mg INH RQ4 [facility] Last Admin: 02/21/17 19:46 Dose: 2.5 mg Allopurinol (Zyloprim) 100 mg PO DAILY [facility] Last Admin: 02/21/17 08:04 Dose: 100 mg Aspirin (Ecotrin) 81 mg PO DAILY [facility] Last Admin: 02/21/17 08:03 Dose: 81 mg Azithromycin (Zithromax) 500 mg PO DAILY [facility] Last Admin: 02/21/17 08:03 Dose: 500 mg Benzonatate (Tessalon Perles) 200 mg PO TID PRN PRN Reason: Cough Last Admin: 02/21/17 08:03 Dose: 200 mg Clopidogrel Bisulfate (Plavix) 75 mg PO DAILY [facility] Last Admin: 02/21/17 08:04 Dose: 75 mg Digoxin (Lanoxin) 0.125 mg PO DAILY [facility] Last Admin: 02/21/17 08:03 Dose: 0.125 mg Diltiazem HCl (Cardizem) 30 mg PO Q6 [facility] Last Admin: 02/21/17 16:55 Dose: 30 mg Enoxaparin Sodium (Lovenox) 30 mg SC DAILY [facility] PRN Reason: Protocol Last Admin: 02/21/17 08:03 Dose: 30 mg Furosemide (Lasix) 20 mg PO DAILY [facility] Last Admin: 02/21/17 16:55 Dose: 20 mg Methylprednisolone 20 mg/ (Sodium Chloride) 50.32 mls @ 100.64 mls/hr IVPB Q12H [facility] Last Admin: 02/21/17 20:27 Dose: 100.64 mls/hr Insulin Human Regular (Humulin R) 0 units SC ACHS [facility] PRN Reason: Protocol Last Admin: 02/21/17 16:56 Dose: 1 units Montelukast Sodium (Singulair) 10 mg PO HS [facility] Last Admin: 02/20/17 21:59 Dose: 10 mg Pantoprazole Sodium (Protonix Ec Tab) 40 mg PO DAILY [facility] Last Admin: 02/21/17 08:04 Dose: 40 mg - Labs Labs: 02/20/17 08:30 Assessment and Plan (1) Hyperkalemia Status: Resolved (2) Acute bronchitis Status: Acute (3) CHF (congestive heart failure) Status: Chronic (4) Metabolic alkalosis Status: Acute (5) Atrial fibrillation Status: Chronic
[2017-02-22] MEDS: Albuterol 0.083% Inhal Sol (2.5 mg/3 mL) UD INH SCH ×6 (05:00→23:49)
[2017-02-22] MEDS: Insulin Regular 100 units/ml SC SCH ×4 (07:00→21:30)
[2017-02-22] MEDS: methylPREDNISolone 20 MG in Sodium Chloride 0.9% 50 ML IVPB SCH (08:14)
[2017-02-22] MEDS: Enoxaparin 30 mg Syringe SC SCH (08:15)
[2017-02-22] MEDS: Digoxin 125 mcg (0.125 mg) Tab PO SCH (08:16)
[2017-02-22] MEDS: Pantoprazole 40 mg EC Tab PO SCH (08:16)
--- NOTE | 2017-02-22 10:56 | CP.PCM.PN ---
Subjective - Date & Time of Evaluation Date of Evaluation: 02/22/17 Time of Evaluation: 09:30 - Subjective Subjective: BREATHING BETTER STILL COUGHING NO CHEST PAIN LEGS BEGAN TO SWELL AGAIN AND SHE WAS GIVEN LASIX Objective - Vital Signs/Intake and Output Vital Signs (last 24 hours): Temp Pulse Resp BP Pulse Ox 97.9 F 88 20 142/76 95 02/22/17 08:09 02/22/17 10:21 02/22/17 08:09 02/22/17 10:21 02/22/17 10:21 - Medications Medications: Current Medications Albuterol Sulfate (Albuterol 0.083% Inhal Mary (2.5 Mg/3 Ml) Ud) 2.5 mg INH RQ4 [facility] Last Admin: 02/22/17 07:56 Dose: 2.5 mg Allopurinol (Zyloprim) 100 mg PO DAILY [facility] Last Admin: 02/22/17 08:15 Dose: 100 mg Aspirin (Ecotrin) 81 mg PO DAILY [facility] Last Admin: 02/22/17 08:15 Dose: 81 mg Azithromycin (Zithromax) 500 mg PO DAILY [facility] Last Admin: 02/22/17 08:15 Dose: 500 mg Benzonatate (Tessalon Perles) 200 mg PO TID PRN PRN Reason: Cough Last Admin: 02/22/17 06:29 Dose: 200 mg Clopidogrel Bisulfate (Plavix) 75 mg PO DAILY [facility] Last Admin: 02/22/17 08:15 Dose: 75 mg Digoxin (Lanoxin) 0.125 mg PO DAILY [facility] Last Admin: 02/22/17 08:16 Dose: 0.125 mg Diltiazem HCl (Cardizem) 30 mg PO Q6 [facility] Last Admin: 02/22/17 04:16 Dose: 30 mg Enoxaparin Sodium (Lovenox) 30 mg SC DAILY [facility] PRN Reason: Protocol Last Admin: 02/22/17 08:15 Dose: 30 mg Furosemide (Lasix) 20 mg PO DAILY [facility] Last Admin: 02/22/17 08:17 Dose: 20 mg Insulin Human Regular (Humulin R) 0 units SC ACHS [facility] PRN Reason: Protocol Last Admin: 02/22/17 07:00 Dose: 1 units Montelukast Sodium (Singulair) 10 mg PO HS [facility] Last Admin: 02/21/17 21:53 Dose: Not Given Pantoprazole Sodium (Protonix Ec Tab) 40 mg PO DAILY [facility] Last Admin: 02/22/17 08:16 Dose: 40 mg Prednisone (Prednisone Tab) 10 mg PO DAILY [facility] - Labs Labs: 02/20/17 08:30 - Respiratory Exam Respiratory Exam: Clear to Ausculation Bilateral - Cardiovascular Exam Cardiovascular Exam: REGULAR RHYTHM, +S1, +S2 Assessment and Plan - Assessment and Plan (Free Text) Assessment: BRONCHITIS/PNEUMONIA CAD ATRIAL FIBRILLATION HYPERTENSION Plan: CONTINUE ANTIBIOTICS, BRONCHODILATORS, CARDIZEM, ASPIRIN, CLOPIDOGREL, LOVENOX, DIGOXIN AND LOW DOSE FUROSEMIDE PULMONARY TO SEE
--- NOTE | 2017-02-22 11:16 | CP.PCM.CON ---
Past Patient History - Infectious Disease Hx of Infectious Diseases: None - Tetanus Immunizations Tetanus Immunization: Unknown - Past Medical History & Family History Past Medical History?: Yes Past Family History: Reviewed and not pertinent - Past Social History Smoking Status: Never Smoked Chewing Tobacco Use: No Cigar Use: No Alcohol: None Drugs: Denies Home Situation {Lives}: With Family - CARDIAC Hx Cardiac Disorders: Yes Hx Hypercholesterolemia: Yes Hx Hypertension: Yes - PULMONARY Hx Chronic Obstructive Pulmonary Disease (COPD): Yes Hx Pneumonia: Yes - NEUROLOGICAL Hx Neurological Disorder: No - HEENT Hx HEENT Problems: Yes Other/Comment: wears glasses - RENAL Hx Chronic Kidney Disease: No - ENDOCRINE/METABOLIC Hx Endocrine Disorders: No - HEMATOLOGICAL/ONCOLOGICAL Hx Human Immunodeficiency Virus (HIV): No 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 - INTEGUMENTARY Hx Melanoma: Yes - MUSCULOSKELETAL/RHEUMATOLOGICAL Hx Falls: No - GASTROINTESTINAL Hx Gastritis: Yes - GENITOURINARY/GYNECOLOGICAL Hx Genitourinary Disorders: No - PSYCHIATRIC Hx Substance Use: No - SURGICAL HISTORY Hx Appendectomy: Yes Hx Cholecystectomy: Yes Hx Tonsillectomy: Yes - ANESTHESIA Hx Anesthesia: Yes Hx Anesthesia Reactions: No Hx Malignant Hyperthermia: No Meds Allergies/Adverse Reactions: Allergies Allergy/AdvReac Type Severity Reaction Status Date / Time Penicillins Allergy RASH Verified 02/12/17 13:46 - Medications Medications: Current Medications Albuterol Sulfate (Albuterol 0.083% Inhal Mary (2.5 Mg/3 Ml) Ud) 2.5 mg INH RQ4 [facility] Last Admin: 02/22/17 07:56 Dose: 2.5 mg Allopurinol (Zyloprim) 100 mg PO DAILY [facility] Last Admin: 02/22/17 08:15 Dose: 100 mg Aspirin (Ecotrin) 81 mg PO DAILY [facility] Last Admin: 02/22/17 08:15 Dose: 81 mg Benzonatate (Tessalon Perles) 200 mg PO TID PRN PRN Reason: Cough Last Admin: 02/22/17 06:29 Dose: 200 mg Clopidogrel Bisulfate (Plavix) 75 mg PO DAILY [facility] Last Admin: 02/22/17 08:15 Dose: 75 mg Digoxin (Lanoxin) 0.125 mg PO DAILY [facility] Last Admin: 02/22/17 08:16 Dose: 0.125 mg Diltiazem HCl (Cardizem) 30 mg PO Q6 [facility] Last Admin: 02/22/17 04:16 Dose: 30 mg Enoxaparin Sodium (Lovenox) 30 mg SC DAILY [facility] PRN Reason: Protocol Last Admin: 02/22/17 08:15 Dose: 30 mg Furosemide (Lasix) 20 mg PO DAILY [facility] Last Admin: 02/22/17 08:17 Dose: 20 mg Insulin Human Regular (Humulin R) 0 units SC ACHS [facility] PRN Reason: Protocol Last Admin: 02/22/17 07:00 Dose: 1 units Pantoprazole Sodium (Protonix Ec Tab) 40 mg PO DAILY [facility] Last Admin: 02/22/17 08:16 Dose: 40 mg Prednisone (Prednisone Tab) 10 mg PO DAILY [facility] Results - Vital Signs Recent Vital Signs: Last Vital Signs Temp 97.9 F 02/22/17 08:09 Pulse 88 02/22/17 10:21 Resp 20 02/22/17 08:09 BP 142/76 02/22/17 10:21 Pulse Ox 95 02/22/17 10:21 - Labs Result Diagrams: 02/20/17 08:30 Labs: Laboratory Results - last 24 hr 02/21/17 02/21/17 02/22/17 15:59 20:44 05:35 POC Glucose (mg/dL) 178 H 159 H 190 H 02/22/17 10:38 POC Glucose (mg/dL) 232 H Assessment & Plan (1) Acute bronchitis Status: Acute Priority: High (2) Asthma with acute exacerbation Status: Chronic Priority: High - Assessment and Plan (Free Text) Plan: Can discharge to home when cleared by cardiology. Would change antibiotic to PO doxycycline (still has yellow sputum after using azithromycin). Solumedrol discontinued, prednisone 10MG daily X 5 followed by 5MG daily for 5 days more. Beta adrenergic rescue inhaler using Xopenex HFA 2 puffs as needed every 4 hours. Montelukast can be discontinued. Continue cardiac medications as per cardiology. Follow up with myself next week in office. - Date & Time Date: 02/22/17 Time: 11:16
[2017-02-22 13:03] LABS: CALCIUM 9.7 mg/dL (8.4-10.2)
--- NOTE | 2017-02-22 16:49 | CP.PCM.PN ---
Subjective - Date & Time of Evaluation Date of Evaluation: 02/22/17 Time of Evaluation: 16:30 - Subjective Subjective: Hospitalist Progress Note (Patient was seen and examined at 4:30 PM 02/22/17) Very pleasant 81 year old female (PMH of Asthma, Atrial Fibrillation with PPM, Melanoma of the lip, Hypertension, Hyperlipidemia, CAD s/p stent) presented with cough, SOB, and wheezing. She was admitted to Telemetry for Asthma Exacerbation, Pneumonia and A fib with RVR. She received IV antibiotics , IV Solumedrol and Nebulizer treatments. Pulmonary was consulted. She was also placed on Cardizem drip which was then changed to PO. Her condition improved and she was transferred to TCU to continue her treatment and for physical therapy. ROS: Cough that is still present Swelling of the feet and lower legs ("they had taken away my lasix") NO other complaints upon FULL ROS Exam: HEENT: EOMI, PERRLS, NCA, NO cervical/supraclavicular/submandibular lymphadenopathy, NO pharyngeal erythema/exudate, NO thyromegaly Cardio: NS1 and NS2, NO M/R/G Resp: Right Lower Lung Base inspiratory crackles GI: BSx4, Soft, ND, NO HSM, NT, NO guarding/rebound tenderness Ext: Pulses are strong and equal, Capillary Refill is 2 seconds, NO edema, Nonpitting edema of the feet to lower 1/2 of legs Neuro: CN II through XII are grossly intact 1.Atrial fibrillation , now rate controlled Digoxin 0.125 mg PO 1x/day Cardizem 30 mg PO Q6H was discontineud by Cardiology Dr. Kapadia on 02/22/17 Aspirin 81 mg PO 1x/day Patientt refused therapeutic anticoagulation 2. Asthma with acute exacerbation, improving Pulmonary Consult Dr Verna Gillespie discontinued Solumedrol on 02/22/17 Prednisone 10 mg PO 1x/day from 02/22/17 through 02/26/17 Prednisone 5 mg PO 1x/day from 02/27/17 through 03/03/17 Xopenox HFA 2 puffs PRN Q4H Singulair [address] Gillespie would like patient to follow up with him on 03/01/17 as an outpatient 3. Pneumonia Received IV Ceftriaxone and Azithro. The IV Ceftriaxone was discontinued and the Azithromycin 500 mg was changed to PO 1x/day which should be continued through 02/24/17 Sputum c/s: few Gram + cocci in chains and clusters Tessalon perles 4. Chronic Systolic and Diastolic CHF (congestive heart failure) No BB for now because of Asthma exacerbation Cardio consult Hold off on ARB/ONEIDA for now because of the hyperkalemia Lasix 20 mg PO 1x/day was restarted on 02/21/17 5. CAD (coronary artery disease) Chronic Hx of Stent placement Plavix 75 mg PO 1x/day ASA 81 mg PO 1x/day 6. HTN (hypertension) Lasix 20 mg PO 1x/day Cardiology discontinued the Cardizem 7. Hx Sick Sinus Syndrome S/P Pacemaker. Chronic 8. CKD stage III Stable 9. Hyperglycemia Most likely steroid induced Continue Accuchecks and insulin coverage 10. Hx Interstitial Lung Disease See Assessment and Plan #2 11. Hyperkalemia Resolved after Keyaxelate and Lasix Nephrology Dr. Singh 12. Deconditioning Physical therapy 13. Gout Allopurinol 100 mg PO 1x/day 14. DVT proph Lovenox 30 mg SC 1x/day Protonix 40 mg PO 1x/day Pulmonology Dr. Gillespie has cleared patient for discharge She will need clearance from PT/OT and Cardiology Tejas Larkin D.O. Objective - Vital Signs/Intake and Output Vital Signs (last 24 hours): Temp Pulse Resp BP Pulse Ox 98.1 F 83 20 143/77 97 02/22/17 15:49 02/22/17 15:49 02/22/17 15:49 02/22/17 15:49 02/22/17 15:49 - Medications Medications: Current Medications Albuterol Sulfate (Albuterol 0.083% Inhal Mary (2.5 Mg/3 Ml) Ud) 2.5 mg INH RQ4 [facility] Last Admin: 02/22/17 15:49 Dose: 2.5 mg Allopurinol (Zyloprim) 100 mg PO DAILY [facility] Last Admin: 02/22/17 08:15 Dose: 100 mg Aspirin (Ecotrin) 81 mg PO DAILY [facility] Last Admin: 02/22/17 08:15 Dose: 81 mg Benzonatate (Tessalon Perles) 200 mg PO TID PRN PRN Reason: Cough Last Admin: 02/22/17 06:29 Dose: 200 mg Clopidogrel Bisulfate (Plavix) 75 mg PO DAILY [facility] Last Admin: 02/22/17 08:15 Dose: 75 mg Digoxin (Lanoxin) 0.125 mg PO DAILY [facility] Last Admin: 02/22/17 08:16 Dose: 0.125 mg Doxycycline Hyclate (Doryx) 100 mg PO DAILY [facility] Enoxaparin Sodium (Lovenox) 30 mg SC DAILY [facility] PRN Reason: Protocol Last Admin: 02/22/17 08:15 Dose: 30 mg Furosemide (Lasix) 20 mg PO DAILY [facility] Last Admin: 02/22/17 08:17 Dose: 20 mg Insulin Human Regular (Humulin R) 0 units SC ACHS [facility] PRN Reason: Protocol Last Admin: 02/22/17 16:32 Dose: 1 units Pantoprazole Sodium (Protonix Ec Tab) 40 mg PO DAILY [facility] Last Admin: 02/22/17 08:16 Dose: 40 mg Prednisone (Prednisone Tab) 10 mg PO DAILY [facility] - Labs Labs: 02/22/17 12:35
[2017-02-22] MEDS ORDERED: Sodium Chloride 0.9% 500 ML IV SCH (19:45)
[2017-02-22 20:32] VITALS: TEMP 97.9
--- NOTE | 2017-02-22 23:55 | CP.PCM.PN ---
Subjective - Date & Time of Evaluation Date of Evaluation: 02/22/17 Time of Evaluation: 20:00 - Subjective Subjective: Patient reports leg swelling somewhat improved with lasix after having been much worse yesterday; Objective - Vital Signs/Intake and Output Vital Signs (last 24 hours): Temp Pulse Resp BP Pulse Ox 97.9 F 90 20 110/66 95 02/22/17 20:31 02/22/17 20:31 02/22/17 20:31 02/22/17 20:31 02/22/17 20:31 - Medications Medications: Current Medications Albuterol Sulfate (Albuterol 0.083% Inhal Mary (2.5 Mg/3 Ml) Ud) 2.5 mg INH RQ4 [facility] Last Admin: 02/22/17 23:49 Dose: 2.5 mg Allopurinol (Zyloprim) 100 mg PO DAILY [facility] Last Admin: 02/22/17 08:15 Dose: 100 mg Aspirin (Ecotrin) 81 mg PO DAILY [facility] Last Admin: 02/22/17 08:15 Dose: 81 mg Benzonatate (Tessalon Perles) 200 mg PO TID PRN PRN Reason: Cough Last Admin: 02/22/17 20:39 Dose: 200 mg Clopidogrel Bisulfate (Plavix) 75 mg PO DAILY [facility] Last Admin: 02/22/17 08:15 Dose: 75 mg Digoxin (Lanoxin) 0.125 mg PO DAILY [facility] Last Admin: 02/22/17 08:16 Dose: 0.125 mg Doxycycline Hyclate (Doryx) 100 mg PO DAILY [facility] Enoxaparin Sodium (Lovenox) 30 mg SC DAILY [facility] PRN Reason: Protocol Last Admin: 02/22/17 08:15 Dose: 30 mg Furosemide (Lasix) 20 mg PO DAILY [facility] Last Admin: 02/22/17 08:17 Dose: 20 mg Insulin Human Regular (Humulin R) 0 units SC ACHS [facility] PRN Reason: Protocol Last Admin: 02/22/17 21:30 Dose: Not Given Pantoprazole Sodium (Protonix Ec Tab) 40 mg PO DAILY [facility] Last Admin: 02/22/17 08:16 Dose: 40 mg Prednisone (Prednisone Tab) 10 mg PO DAILY [facility] - Labs Labs: 02/22/17 12:35 - Constitutional Appears: Non-toxic, No Acute Distress - Head Exam Head Exam: NORMOCEPHALIC - Eye Exam Eye Exam: Normal appearance - ENT Exam ENT Exam: Mucous Membranes Moist - Respiratory Exam Respiratory Exam: absent: Rales, Rhonchi Additional comments: mild scattered wheezes; - Cardiovascular Exam Cardiovascular Exam: Irregular Rhythm, +S1, +S2 - GI/Abdominal Exam GI & Abdominal Exam: Soft. absent: Distended, Tenderness - Extremities Exam Additional comments: Mild/moderate lower leg edema b/l - Neurological Exam Neurological Exam: Alert, Awake - Psychiatric Exam Psychiatric exam: Normal Affect, Normal Mood - Skin Skin Exam: Normal Color, Warm. absent: Cyanosis Assessment and Plan (1) Hyperkalemia Assessment & Plan: K at higher end of normal; likely due to intravascular volume contraction; needs to be on low K diet for now; Status: Resolved (2) Acute bronchitis Assessment & Plan: Resolving; hypercapnea also improved; f/u with pulm; Status: Acute (3) CHF (congestive heart failure) Assessment & Plan: Likely due to Afib; gets leg edema off lasix but lungs relatively clear and patient is intravascularly volume contracted per labs; question of possibly elevated R heart pressures but not mentioned on echo report from last year; patient not wanting heplock to give trial of IVF and very insistent on needing lasix; -use lasix 20 mg every other day prn for worsening leg edema -advised to get sleep study (had been recommended by pulm previously) Status: Chronic (4) Metabolic alkalosis Assessment & Plan: Due to volume contraction on top of some degree of compensation for hypercapnea ; see above; Status: Acute (5) Atrial fibrillation Assessment & Plan: On digoxin and cardizem; continue per cardio recs; monitor digoxin levels periodically; Status: Chronic
[2017-02-23] MEDS: Albuterol 0.083% Inhal Sol (2.5 mg/3 mL) UD INH SCH ×3 (04:33→10:59)
[2017-02-23] MEDS: Insulin Regular 100 units/ml SC SCH ×2 (06:37→11:03)
[2017-02-23 08:17] VITALS: BP 118/64; PULSE 82; O2SAT 92
[2017-02-23] MEDS: Enoxaparin 30 mg Syringe SC SCH ×2 (08:25→08:29)
[2017-02-23] MEDS: Pantoprazole 40 mg EC Tab PO SCH (08:26)
[2017-02-23] MEDS: Digoxin 125 mcg (0.125 mg) Tab PO SCH (08:26)
[2017-02-23 08:27] VITALS: PULSE 82
--- NOTE | 2017-02-23 10:17 | CP.PCM.DIS ---
Provider - Provider Date of Admission: 02/18/17 21:29 Attending physician: Tosha Davalos DO Primary care physician: Marco A Gillespie MD Time Spent in preparation of Discharge (in minutes): 30 Hospital Course - Lab Results Lab Results: Most Recent Lab Values pO2 42 mm/Hg (30-55) 02/20/17 21:15 VBG pH 7.46 (7.32-7.43) H 02/20/17 21:15 VBG pCO2 57 mmHg (40-60) 02/20/17 21:15 VBG HCO3 35.4 mmol/L 02/20/17 21:15 VBG O2 Sat (Calc) 85.3 % (40-65) H 02/20/17 21:15 VBG Base Excess 14.0 mmol/L (0.0-2.0) H 02/20/17 21:15 Sodium 139 mmol/l (132-148) 02/22/17 12:35 Potassium 5.0 MMOL/L (3.6-5.0) 02/22/17 12:35 Chloride 98 mmol/L (98-107) 02/22/17 12:35 Carbon Dioxide 36 mmol/L (22-30) H 02/22/17 12:35 Anion Gap 10 (10-20) 02/22/17 12:35 BUN 38 mg/dl (7-17) H 02/22/17 12:35 Creatinine 1.1 mg/dL (0.7-1.2) 02/22/17 12:35 Est GFR ( Amer) 58 02/22/17 12:35 Est GFR (Non-Af Amer) 48 02/22/17 12:35 POC Glucose (mg/dL) 142 mg/dL (65-110) H 02/23/17 06:00 Random Glucose 168 mg/dL (65-105) H 02/22/17 12:35 Calcium 9.7 mg/dL (8.4-10.2) 02/22/17 12:35 - Hospital Course Hospital Course: Very pleasant 81 year old female (PMH of Asthma, Atrial Fibrillation with PPM, Melanoma of the lip, Hypertension, Hyperlipidemia, CAD s/p stent) presented with cough, SOB, and wheezing. She was admitted to Telemetry for Asthma Exacerbation, Pneumonia and A fib with RVR. She received IV antibiotics , IV Solumedrol and Nebulizer treatments. Pulmonary was consulted. She was also placed on Cardizem drip which was then changed to PO. Her condition improved and she was transferred to TCU to continue her treatment and for physical therapy. Pt did well with PT and OT. Completed treatments. Stable for discharge home with supportive . 1.Atrial fibrillation , now rate controlled Digoxin 0.125 mg PO 1x/day Cardizem 30 mg PO Q6H was discontineud by Cardiology Dr. Kapadia on 02/22/17 Aspirin 81 mg PO 1x/day Patientt refused therapeutic anticoagulation 2. Asthma with acute exacerbation, improving Pulmonary Consult Dr Verna Gillespie discontinued Solumedrol on 02/22/17 Prednisone 10 mg PO 1x/day from 02/22/17 through 02/26/17 Prednisone 5 mg PO 1x/day from 02/27/17 through 03/03/17 Xopenox HFA 2 puffs PRN Q4H Singulair [address] Gillespie would like patient to follow up with him on 03/01/17 as an outpatient 3. Pneumonia Received IV Ceftriaxone and Azithro. The IV Ceftriaxone was discontinued and the Azithromycin 500 mg was changed to PO 1x/day which should be continued through 02/24/17 Sputum c/s: few Gram + cocci in chains and clusters Tessalon [place] 4. Chronic Systolic and Diastolic CHF (congestive heart failure) No BB for now because of Asthma exacerbation Cardio consult Hold off on ARB/ONEIDA for now because of the hyperkalemia Lasix 20 mg PO 1x/day was restarted on 02/21/17 5. CAD (coronary artery disease) Chronic Hx of Stent placement Plavix 75 mg PO 1x/day ASA 81 mg PO 1x/day 6. HTN (hypertension) Lasix 20 mg PO 1x/day Cardiology discontinued the Cardizem 7. Hx Sick Sinus Syndrome S/P Pacemaker. Chronic 8. CKD stage III Stable 9. Hyperglycemia Most likely steroid induced Continue Accuchecks and insulin coverage 10. Hx Interstitial Lung Disease See Assessment and Plan #2 11. Hyperkalemia Resolved after Keyaxelate and Lasix Nephrology Dr. Singh 12. Deconditioning Physical therapy 13. Gout Allopurinol 100 mg PO 1x/day 14. DVT proph Lovenox 30 mg SC 1x/day Protonix 40 mg PO 1x/day Pulmonology Dr. Gillespie has cleared patient for discharge Discharge Exam - Head Exam Head Exam: ATRAUMATIC, NORMOCEPHALIC - Eye Exam Eye Exam: EOMI, Normal appearance, PERRL Pupil Exam: NORMAL ACCOMODATION - ENT Exam ENT Exam: Mucous Membranes Moist, Normal Oropharynx - Respiratory Exam Respiratory Exam: Decreased Breath Sounds, Clear to PA & Lateral, NORMAL BREATHING PATTERN - Cardiovascular Exam Cardiovascular Exam: REGULAR RHYTHM, +S1, +S2. absent: Systolic Murmur - GI/Abdominal Exam GI & Abdominal Exam: Normal Bowel Sounds, Soft. absent: Tenderness - Extremities Exam Extremities exam: normal capillary refill, pedal pulses present - Back Exam Back exam: absent: CVA tenderness (L), CVA tenderness (R) - Neurological Exam Neurological exam: Alert, Oriented x3 - Psychiatric Exam Psychiatric exam: Normal Affect, Normal Mood - Skin Skin Exam: Dry, Normal Color, Warm Discharge Plan - Discharge Medications Prescriptions: Allopurinol [Zyloprim] 100 mg PO DAILY #30 tab Aspirin [Ecotrin] 81 mg PO DAILY #30 tabec Benzonatate [Tessalon Perles] 200 mg PO TID PRN #30 sgl PRN Reason: Cough Clopidogrel [Plavix] 75 mg PO DAILY #30 tab Digoxin [Lanoxin] 0.125 mg PO DAILY #30 tab - Follow Up Plan Condition: GOOD Disposition: HOME/ ROUTINE Referrals: Marco A Gillespie MD [Primary Care Provider] -
--- NOTE | 2017-02-23 10:30 | CP.PCM.PN ---
Subjective - Date & Time of Evaluation Date of Evaluation: 02/23/17 Time of Evaluation: 10:13 - Subjective Subjective: Seated in bedside chair. Appears comfortable at rest. Still has a congested cough with small volume sputum expectorated (dark yellow). Vital signs have been stable, Labs stable also. + ankle edema bilaterally, no cyanosis. No dullness to chest percussion. Few dry to medium basal rales, no wheeze. No bronchial breath sounds or egophony. Will be discharged today. Maintain diet with low potassium. Prednisone 10MG OD X 5 the 5MG OD X 5. Doxycycline 100MG OD X 7. Xopenex HFA 2 puffs Q4H as needed. Follow up with me next week. CBC, BMP work this Tuesday. Objective - Vital Signs/Intake and Output Vital Signs (last 24 hours): Temp Pulse Resp BP Pulse Ox 97.9 F 82 20 118/64 92 L 02/23/17 08:16 02/23/17 08:16 02/23/17 08:16 02/23/17 08:16 02/23/17 08:16 - Medications Medications: Current Medications Albuterol Sulfate (Albuterol 0.083% Inhal Mary (2.5 Mg/3 Ml) Ud) 2.5 mg INH RQ4 [facility] Last Admin: 02/23/17 07:32 Dose: 2.5 mg Allopurinol (Zyloprim) 100 mg PO DAILY [facility] Last Admin: 02/23/17 08:25 Dose: 100 mg Aspirin (Ecotrin) 81 mg PO DAILY [facility] Last Admin: 02/23/17 08:26 Dose: 81 mg Benzonatate (Tessalon Perles) 200 mg PO TID PRN PRN Reason: Cough Last Admin: 02/23/17 05:11 Dose: 200 mg Clopidogrel Bisulfate (Plavix) 75 mg PO DAILY [facility] Last Admin: 02/23/17 08:26 Dose: 75 mg Digoxin (Lanoxin) 0.125 mg PO DAILY [facility] Last Admin: 02/23/17 08:26 Dose: 0.125 mg Doxycycline Hyclate (Doryx) 100 mg PO DAILY [facility] Last Admin: 02/23/17 08:26 Dose: 100 mg Enoxaparin Sodium (Lovenox) 30 mg SC DAILY [facility] PRN Reason: Protocol Last Admin: 02/23/17 08:29 Dose: Not Given Furosemide (Lasix) 20 mg PO DAILY [facility] Last Admin: 02/22/17 08:17 Dose: 20 mg Insulin Human Regular (Humulin R) 0 units SC ACHS [facility] PRN Reason: Protocol Last Admin: 02/23/17 06:37 Dose: Not Given Pantoprazole Sodium (Protonix Ec Tab) 40 mg PO DAILY [facility] Last Admin: 02/23/17 08:26 Dose: 40 mg Prednisone (Prednisone Tab) 10 mg PO DAILY [facility] Last Admin: 02/23/17 08:26 Dose: 10 mg - Labs Labs: 02/22/17 12:35 Assessment and Plan (1) Acute bronchitis Status: Acute (2) Asthma with acute exacerbation Status: Chronic
--- NOTE | 2017-02-23 12:19 | CP.PCM.PN ---
Subjective - Date & Time of Evaluation Date of Evaluation: 02/23/17 Time of Evaluation: 08:30 - Subjective Subjective: NO CHEST PAIN BREATHING BETTER Objective - Vital Signs/Intake and Output Vital Signs (last 24 hours): Temp Pulse Resp BP Pulse Ox 97.9 F 82 20 118/64 92 L 02/23/17 10:00 02/23/17 10:00 02/23/17 10:00 02/23/17 10:00 02/23/17 10:00 - Labs Labs: 02/22/17 12:35 - Respiratory Exam Respiratory Exam: Clear to Ausculation Bilateral - Cardiovascular Exam Cardiovascular Exam: Irregular Rhythm, +S1, +S2 - Extremities Exam Extremities Exam: Pedal Edema Assessment and Plan - Assessment and Plan (Free Text) Assessment: COPD WITH BRONCHITIS/PNEUMONIA CAD-STABLE CHRONIC ATRIAL FIBRILLATION HYPERTENSION Plan: CONTINUE ASPIRIN, CLOPIDOGREL, DIGOXIN, DOXYCYCLINE, PREDNISONE FOR DISCHARGE TODAY WILL SEE IN THE OFFICE IN ABOUT ONE WEEK AND RESUME METOPROLOL IF BREATHING IS BACK TO NORMAL
--- NOTE | 2017-02-23 18:47 | CP.PCM.PN ---
Objective - Vital Signs/Intake and Output Vital Signs (last 24 hours): Temp Pulse Resp BP Pulse Ox 97.9 F 82 20 118/64 92 L 02/23/17 10:00 02/23/17 10:00 02/23/17 10:00 02/23/17 10:00 02/23/17 10:00 - Labs Labs: 02/22/17 12:35 Assessment and Plan (1) Hyperkalemia Status: Resolved (2) Acute bronchitis Status: Acute (3) CHF (congestive heart failure) Status: Chronic (4) Metabolic alkalosis Status: Acute (5) Atrial fibrillation Status: Chronic
== END 2017-02-23 11:35 | disposition home or self-care (01) | DRG 202 ==
LOC: H.TCU 21:29
PROVIDERS: ADMIT Student in an Organized Health Care Education/Training Program; ATTEND Student in an Organized Health Care Education/Training Program
DX: J45.901 Unspecified asthma with (acute) exacerbation (principal); J18.9 Pneumonia, unspecified organism; E87.3 Alkalosis; I13.0 Hypertensive heart and chronic kidney disease with heart failure and stage 1 through stage 4 chronic kidney disease, or unspecified chronic kidney disease; I49.5 Sick sinus syndrome; I50.42 Chronic combined systolic (congestive) and diastolic (congestive) heart failure; J44.1 Chronic obstructive pulmonary disease with (acute) exacerbation; J44.0 Chronic obstructive pulmonary disease with (acute) lower respiratory infection; E87.5 Hyperkalemia; I48.2 Chronic atrial fibrillation; N18.3 Chronic kidney disease, stage 3 (moderate); J20.9 Acute bronchitis, unspecified; I25.10 Atherosclerotic heart disease of native coronary artery without angina pectoris; E78.5 Hyperlipidemia, unspecified; I49.9 Cardiac arrhythmia, unspecified; M10.9 Gout, unspecified; Z95.0 Presence of cardiac pacemaker; Z79.82 Long term (current) use of aspirin; Z95.5 Presence of coronary angioplasty implant and graft

== ENCOUNTER 2017-09-03 19:55 | Inpatient (IN) | payer MEDICARE, BC ==
[2017-09-03 19:55] VITALS: PULSE 82; BMI 26.6
[2017-09-03] MEDS ORDERED: Albuterol-Ipratrop 3 mg / 0.5 (3 ml) UD INH STA (20:14)
[2017-09-03] MEDS ORDERED: Albuterol-Ipratrop 3 mg / 0.5 (3 ml) UD IH STA ×2 (20:14→20:15)
[2017-09-03] MEDS ORDERED: Sodium Chloride 0.9% 500 ML IV STA (20:14)
--- NOTE | 2017-09-03 20:26 | ED PDOC ---
HPI: SOB/CHF/COPD Time Seen by Provider: 09/03/17 20:08 Chief Complaint (Nursing): Respiratory Distress Chief Complaint (Provider): Shortness of breath History Per: Patient History/Exam Limitations: no limitations Onset/Duration Of Symptoms: Days Current Symptoms Are (Timing): Still Present Severity: None Associated Symptoms: denies: Fever, Chills, Chest Pain, Light-headedness Additional Complaint(s): 81 year old female with a past medical history of atrial fibrillation, cardiac arrhythmia, pacemaker, stent and congestive heart failure presents to the ED complaining of worsening shortness of breath that she has been experiencing for the past few days. the patient states that she was seen by Dr. Gillespie who prescribed her augmentin and flonase which she states have offered no relief of symptoms. Patient also notes an associated cough with yellow sputum, congestion.Denies leg pain, chest pain, shortness of breath, palpitations, body aches. PMD: Marco A Berman - Risk Factors PE Risk Factors: Pos: CHF Past Medical History Reviewed: Historical Data, Nursing Documentation, Vital Signs Vital Signs: Last Vital Signs Temp 98.4 F 09/03/17 20:00 Pulse 146 H 09/03/17 20:00 Resp 21 09/03/17 20:00 BP 127/65 09/03/17 20:00 Pulse Ox 100 09/03/17 20:37 - Medical History PMH: Arthritis, Asthma, Atrial Fibrillation, Cardia Arrhythmia, CHF, COPD, Gastritis, Gall Bladder Disease, HTN, Hypercholesterolemia, Pneumonia, Pulmonary Embolism Denies: Alzheimer's Disease, Anxiety, Bipolar Disorder, Bronchitis, CAD, Crohn's Disease, Dementia, Depression, Diverticulitis, Emphysema, Fractures, HIV , Hyperthyroidism, Hypothyroidism, Kidney Stones, Migraine, Mitral Valve Prolapse, Multiple Sclerosis, Osteoporosis, Pancreatitis, Paranoia, Parkinson's Disease, Peripheral Edema, Post Traumatic Stress Disorder, Chronic Kidney Disease, Rheumatoid Arthritis, Schizophrenia, Seizures, Sexually Transmitted Disease, Sleep Apnea, TIA - Surgical History Surgical History: Appendectomy, CABG, Cholecystectomy, Coronary Stent, Pacemaker , Tonsillectomy Denies: Carotid Endarterectomy - Family History Family History: States: Unknown Family Hx - Home Medications Home Medications: Ambulatory Orders Medication Instructions Recorded Albuterol 0.083% [Albuterol 0.083% 2.5 mg INH RQ4 PRN 02/18/17 Inhal Mary (2.5 mg/3 ml) UD] Furosemide [Lasix] 20 mg PO DAILY tab 02/18/17 Montelukast Sodium [Singulair] 10 mg PO DAILY #1 tablet 02/18/17 Allopurinol [Zyloprim] 100 mg PO DAILY #30 tab 02/23/17 Aspirin [Ecotrin] 81 mg PO DAILY #30 tabec 02/23/17 Benzonatate [Tessalon Perles] 200 mg PO TID PRN #30 sgl 02/23/17 Clopidogrel [Plavix] 75 mg PO DAILY #30 tab 02/23/17 Digoxin 0.125 mg PO DAILY #30 tab 02/23/17 Doxycycline Hyclate [Doryx] 100 mg PO DAILY cap 02/23/17 Furosemide [Lasix] 20 mg PO DAILY #0 tab 02/23/17 - Allergies Allergies/Adverse Reactions: Allergies Allergy/AdvReac Type Severity Reaction Status Date / Time Penicillins Allergy RASH Verified 09/03/17 20:00 Review of Systems ENT: Positive for: Nose Discharge (rhinnorhea), Nose Congestion Cardiovascular: Negative for: Chest Pain, Palpitations Respiratory: Positive for: Cough (productive of yellow sputum), Shortness of Breath. Negative for: Hemoptysis Physical Exam - Reviewed Nursing Documentation Reviewed: Yes Vital Signs Reviewed: Yes - Physical Exam Appears: Positive for: Uncomfortable Head Exam: Positive for: ATRAUMATIC, NORMAL INSPECTION, NORMOCEPHALIC Skin: Positive for: Normal Color, Warm, Dry. Negative for: Rash Eye Exam: Positive for: Normal appearance, EOMI, PERRL. Negative for: Nystagmus ENT: Positive for: Normal ENT Inspection. Negative for: Sinus Pain/Drainage, Nasal Congestion, Tonsillar Exudate, Tonsillar Swelling Neck: Positive for: Normal, Painless ROM, Supple Cardiovascular/Chest: Positive for: Regular Rate, Rhythm, Chest Non Tender. Negative for: Gallop, Murmur, Tachycardia Respiratory: Positive for: Accessory Muscle Use, Wheezing (diffuse). Negative for: Rales, Rhonchi, Stridor, Respiratory Distress Gastrointestinal/Abdominal: Positive for: Normal Exam, Bowel Sounds, Soft. Negative for: Tenderness, Mass, Guarding, Rebound Back: Positive for: Normal Inspection. Negative for: L CVA Tenderness, R CVA Tenderness Extremity: Positive for: Normal ROM. Negative for: Tenderness, Calf Tenderness , Deformity, Swelling (no leg swelling) Neurologic/Psych: Positive for: Alert, Oriented. Negative for: Motor/Sensory Deficits - Laboratory Results Result Diagrams: 09/03/17 20:50 09/03/17 20:50 Interpretation Of Abn Labs: 16,800 probnp, bun 44/1.5 cr. 72 PCO2 - ECG ECG: Positive for: Interpreted By Me, Viewed By Me Interpretation Of Abn EKG: afib O2 Sat by Pulse Oximetry: 100 (RA) Pulse Ox Interpretation: Normal - Radiology X-Ray: Interpreted by Me, Viewed By Me X-Ray Interpretation: Infiltrates (RLL and chf) - Progress ED Course And Treament: 2124: Pt. with chf and pneumonia. Will admit ICU. Bipap. Medical Decision Making Medical Decision Makin Initial Impression 81 y/o female presenting with shortness of breath Initial Plan: * ABG * EKG * B-type natriuretic * CMP * Magnesium * Phosphorous * Troponin * CBC * Prothrombin Time * Partial Thromboplastin Time * CXR * Albuterol 3ml INH * NS 500mL IV 100 mls/hr * Solumedrol 125mg IVP * Blood Culture * Vital Signs Q15m * Peak Flow pre/post * Influenza A B * Reevaluation Documented by Diane Strickland acting as a scribe for Christoph Jane MD. All medical record entries made by the Scribe were at my direction and personally dictated by me. I have reviewed the chart and agree that the record accurately reflects my personal performance of the history, physical exam, medical decision making, and the department course for this patient. I have also personally directed, reviewed, and agree with the discharge instructions and disposition. Disposition - Clinical Impression Clinical Impression: Acute on chronic combined systolic and diastolic CHF (congestive heart failure) , Sepsis, Pneumonia - Patient ED Disposition Is Patient to be Admitted: Yes - Disposition Disposition Time: 21:41 Condition: SERIOUS - Pt Status Changed To: Hospital Disposition Of: Inpatient - Admit Certification Admit to Inpatient:: After my assessment, the patient will require hospitalization for at least two midnights. This is because of the severity of symptoms shown, intensity of services needed, and/or the medical risk in this patient being treated as an outpatient. - POA Present On Arrival: None Core Measure Indicators: Pneumonia
[2017-09-03] MEDS ORDERED: Albuterol-Ipratrop 3 mg / 0.5 (3 ml) UD ONE (20:29)
[2017-09-03 20:54] LABS: BASO % 0.3 % (0.0-2.0); HEMOGLOBIN 14.8 g/dL (12.0-16.0); LYMPH # 0.4 K/uL (1.0-4.3); LYMPH % 5.3 % (20.0-40.0); MEAN CELL VOLUME 91.3 fl (81.0-99.0); MEAN CORPUSCULAR HEMOGLOBIN 29.2 pg (27.0-31.0); MEAN CORPUSCULAR HGB CONC 31.9 g/dL (33.0-37.0); MEAN PLATELET VOLUME 11.1 fl (7.2-11.7); MONO # 0.6 K/uL (0.0-0.8); MONO % 7.6 % (0.0-10.0); NEUT # 6.9 K/uL (1.8-7.0); NEUT % 86.8 % (50.0-75.0); NRBC % 0.1 % (0.0-0.0); PLATELET COUNT 140 K/uL (130-400); RBC 5.07 Mil/uL (3.80-5.20); RED CELL DISTRIBUTION WIDTH 16.8 % (11.5-14.5); WHITE BLOOD COUNT 7.9 K/uL (4.8-10.8)
[2017-09-03 21:09] LABS: ALB/GLOB RATIO 1.3 (1.0-2.1); CALCIUM 9.8 mg/dL (8.4-10.2); MAGNESIUM 1.9 MG/DL (1.6-2.3)
[2017-09-03 21:19] LABS: ABG ALLEN TEST YES; ARTERIAL BLOOD GAS HCO3 28.3 mmol/L (21-28); ARTERIAL BLOOD GAS O2 SAT 100.6 % (95-98); ARTERIAL BLOOD GAS PCO2 72 mm/Hg (35-45); ARTERIAL BLOOD GAS PH 7.28 (7.35-7.45); ARTERIAL BLOOD GAS PO2 160 mm/Hg (80-100)
[2017-09-03 21:21] LABS: PARTIAL THROMBOPLASTIN TIME 31.8 Seconds (25.6-37.1); PROTHROMBIN TIME 11.5 Seconds (9.8-13.1); TROPONIN I 0.048 ng/mL (0.00-0.120)
[2017-09-03] MEDS ORDERED: levoFLOXacin 750 mg in D5W 150 ML BAG IVPB STA (21:28)
[2017-09-03 21:31] LABS: BANDS 1 % (0-2); LYMPHOCYTE 7 % (20-50); MONOCYTE 5 % (0-10); NEUTROPHIL 85 % (42-75); PLATELET ESTIMATE NORMAL (NORMAL); REACTIVE LYMPHOCYTES 2 % (0-0); TOTAL CELLS COUNTED 100
[2017-09-03 21:32] LABS: ANISOCYTOSIS SLIGHT
[2017-09-03] MEDS ORDERED: Albuterol-Ipratrop 3 mg / 0.5 (3 ml) UD INH PRN (21:44)
[2017-09-03] MEDS ORDERED: levoFLOXacin 750 mg in D5W 750 MG/150 ML BAG IVPB ONE (21:53)
--- NOTE | 2017-09-03 21:55 | CP.PCM.HP ---
History of Present Illness - History of Present Illness History of Present Illness: CC: SOB, cough HPI: This is a 81 year old female with MHx significant for known CAD (PCI x 1), A fib/SSS (with PPM), CHF, and asthma who comes in with several days of worsening SOB and productive cough with yellow sputum. No CP. No f/c/n/v/d. Patient cannot provide much history as she is on BiPAP. Patient states she does have some anorexia and fatigue. She was here for a similar admission in February of 2017. PMD: Dr. Gillespie Telephonic Case Manager: Dr. Kapadia ROS: 14 systems reviewed, negative other than HPI MHx: Asthma, CAD, CHF, A fib/SSS SHx: Stent x 1, PPM, knee surgery distant past Allergies: PCN Family Hx: Mother- [place] Social Hx: Lives , no tobacco or EtOH Surrogate: Present on Admission - Present on Admission Any Indicators Present on Admission: No Past Patient History - Infectious Disease Hx of Infectious Diseases: None - Tetanus Immunizations Tetanus Immunization: Unknown - Past Medical History & Family History Past Medical History?: Yes - Past Social History Smoking Status: Never Smoked Chewing Tobacco Use: No - CARDIAC Hx Atrial Fibrillation: Yes Hx Cardia Arrhythmia: Yes Hx Congestive Heart Failure: Yes Hx Hypercholesterolemia: Yes Hx Hypertension: Yes Hx Mitral Valve Prolapse: No Hx Pacemaker: Yes Hx Peripheral Edema: No - PULMONARY Hx Asthma: Yes Hx Bronchitis: No Hx Chronic Obstructive Pulmonary Disease (COPD): Yes Hx Emphysema: No Hx Pneumonia: Yes Hx Pulmonary Embolism: Yes Hx Sleep Apnea: No - NEUROLOGICAL Hx Alzheimer's Disease: No Hx Dementia: No Hx Migraine: No Hx Multiple Sclerosis: No Hx Parkinson's Disease: No Hx Seizures: No Hx Transient Ischemic Attacks (TIA): No - HEENT Other/Comment: wears glasses - RENAL Hx Chronic Kidney Disease: No Hx Kidney Stones: No - ENDOCRINE/METABOLIC Hx Hyperthyroidism: No Hx Hypothyroidism: No - HEMATOLOGICAL/ONCOLOGICAL Hx Human Immunodeficiency Virus (HIV): No - INTEGUMENTARY Hx Melanoma: Yes - MUSCULOSKELETAL/RHEUMATOLOGICAL Hx Arthritis: Yes Hx Fractures: No Hx Osteoporosis: No Hx Rheumatoid Arthritis: No - GASTROINTESTINAL Hx Crohn's Disease: No Hx Diverticulitis: No Hx Gall Bladder Disease: Yes Hx Gastritis: Yes Hx Pancreatitis: No - GENITOURINARY/GYNECOLOGICAL Hx Sexually Transmitted Disorders: No - PSYCHIATRIC Hx Anxiety: No Hx Bipolar Disorder: No Hx Depression: No Hx Paranoia: No Hx Post Traumatic Stress Disorder: No Hx Schizophrenia: No - SURGICAL HISTORY Hx Appendectomy: Yes Hx Carotid Endarterectomy: No Hx Cholecystectomy: Yes Hx Coronary Artery Bypass Graft: Yes Hx Coronary Stent: Yes Hx Tonsillectomy: Yes - ANESTHESIA Hx Anesthesia: Yes Hx Anesthesia Reactions: No Hx Malignant Hyperthermia: No Meds Allergies/Adverse Reactions: Allergies Allergy/AdvReac Type Severity Reaction Status Date / Time Penicillins Allergy RASH Verified 09/03/17 20:00 Physical Exam - Constitutional Appears: No Acute Distress - Head Exam Head Exam: ATRAUMATIC, NORMOCEPHALIC - Eye Exam Eye Exam: EOMI, PERRL - ENT Exam ENT Exam: Mucous Membranes Moist - Neck Exam Neck exam: Positive for: Full Rom - Respiratory Exam Respiratory Exam: Rales, Rhonchi, Wheezes - Cardiovascular Exam Cardiovascular Exam: +S1, +S2 - GI/Abdominal Exam GI & Abdominal Exam: Normal Bowel Sounds, Soft - Extremities Exam Extremities exam: Positive for: full ROM, pedal edema - Neurological Exam Neurological exam: Alert, CN II-XII Intact, Oriented x3 - Psychiatric Exam Psychiatric exam: Normal Affect, Normal Mood Results - Vital Signs Recent Vital Signs: Last Vital Signs Temp 98.4 F 09/03/17 20:29 Pulse 114 H 09/03/17 21:29 Resp 24 09/03/17 21:29 BP 139/68 09/03/17 21:29 Pulse Ox 100 09/03/17 21:41 - Labs Result Diagrams: 09/03/17 20:50 09/03/17 20:50 Labs: Laboratory Results - last 24 hr 09/03/17 09/03/17 09/03/17 20:27 20:50 20:50 WBC 7.9 RBC 5.07 Hgb 14.8 Hct 46.3 MCV 91.3 D MCH 29.2 MCHC 31.9 L RDW 16.8 H Plt Count 140 MPV 11.1 Neut % (Auto) 86.8 H Lymph % (Auto) 5.3 L Dickey % (Auto) 7.6 Eos % (Auto) 0.0 Baso % (Auto) 0.3 Neut # (Auto) 6.9 Lymph # (Auto) 0.4 L Dickey # (Auto) 0.6 Eos # (Auto) 0.0 Baso # (Auto) 0.0 Neutrophils % (Manual) 85 H Band Neutrophils % 1 Lymphocytes % (Manual) 7 L Reactive Lymphs % 2 H Monocytes % (Manual) 5 Platelet Estimate Normal Anisocytosis (manual) Slight PT INR APTT pCO2 72 H* pO2 160 H HCO3 28.3 H ABG pH 7.28 L ABG Total CO2 36.0 H ABG O2 Saturation 100.6 H ABG Base Excess 4.4 H Clayton Test Yes ABG Potassium 3.8 A-a O2 Difference 463.0 Sodium 135.0 140 Chloride 100.0 94 L Glucose 177 H Lactate 1.5 Vent Mode Aerosol mask FiO2 100.0 Blood Gas Comments 100% Crit Value Called To Emma staley r.n. Crit Value Called By Michela Crit Value Read Back Y Blood Gas Notified Time 2117 Potassium 4.2 Carbon Dioxide 29 Anion Gap 21 H BUN 44 H Creatinine 1.5 H Est GFR ( Amer) 41 Est GFR (Non-Af Amer) 33 Random Glucose 211 H Calcium 9.8 Phosphorus 5.1 H Magnesium 1.9 Total Bilirubin 0.8 AST 31 ALT 29 Alkaline Phosphatase 100 Troponin I 0.0480 NT-Pro-B Natriuret Pep 72608 H Total Protein 7.1 Albumin 4.0 Globulin 3.1 Albumin/Globulin Ratio 1.3 Arterial Blood Potassium 3.8 Influenza Typ A,B (EIA) 09/03/17 09/03/17 20:50 20:50 WBC RBC Hgb Hct MCV MCH MCHC RDW Plt Count MPV Neut % (Auto) Lymph % (Auto) Dickey % (Auto) Eos % (Auto) Baso % (Auto) Neut # (Auto) Lymph # (Auto) Dickey # (Auto) Eos # (Auto) Baso # (Auto) Neutrophils % (Manual) Band Neutrophils % Lymphocytes % (Manual) Reactive Lymphs % Monocytes % (Manual) Platelet Estimate Anisocytosis (manual) PT 11.5 INR 1.0 APTT 31.8 pCO2 pO2 HCO3 ABG pH ABG Total CO2 ABG O2 Saturation ABG Base Excess Clayton Test ABG Potassium A-a O2 Difference Sodium Chloride Glucose Lactate Vent Mode FiO2 Blood Gas Comments Crit Value Called To Crit Value Called By Crit Value Read Back Blood Gas Notified Time Potassium Carbon Dioxide Anion Gap BUN Creatinine Est GFR ( Amer) Est GFR (Non-Af Amer) Random Glucose Calcium Phosphorus Magnesium Total Bilirubin AST ALT Alkaline Phosphatase Troponin I NT-Pro-B Natriuret Pep Total Protein Albumin Globulin Albumin/Globulin Ratio Arterial Blood Potassium Influenza Typ A,B (EIA) Negative for flu a/b - Imaging and Cardiology Chest x-ray Status: Image reviewed by me (RLL infiltrate, some vol overload, cardiomegaly) Assessment & Plan (1) CAP (community acquired pneumonia) Assessment and Plan: 81 y/o female with multiple medical conditions p/w hypercarbic resp failure in setting of CAP and CHF exac. 1) CAP/Asthma -Admit ICU -Cont renally dosed LVQ -Cont duonebs -Cont bipap -f/u cultures -Consult Dr. Gillespie for AM 2) CHF -Serial trops -EKG Pending -Lasix 40 BID IV 3) A fib -On digoxin only it appears, continue -Previously on diltiazem; Can continue digoxin vs. metoprolol if needed to control HR 4) ARF -- likely 2/2 vol o/l -Diurese -dose medications renally -check BMP in AM 5) DVT PPx -- SQ Heparin Status: Acute (2) Acute on chronic combined systolic and diastolic CHF (congestive heart failure) Status: Acute (3) Asthma Status: Acute (4) Atrial fibrillation Status: Chronic Priority: High (5) CAD (coronary artery disease) Status: Chronic Priority: High (6) DVT prophylaxis Status: Acute
[2017-09-03] MEDS ORDERED: Insulin Lispro (humaLOG) 100 Units/ml Inj SC SCH (22:00)
[2017-09-04 04:55] LABS: ABG ALLEN TEST YES; ARTERIAL BLOOD GAS HCO3 28.2 mmol/L (21-28); ARTERIAL BLOOD GAS HEMOGLOBIN 14.5 g/dL (11.7-17.4); ARTERIAL BLOOD GAS O2 CAPACITY 20.1 mL/dL (16-24); ARTERIAL BLOOD GAS O2 SAT 99.6 % (95-98); ARTERIAL BLOOD GAS PCO2 59 mm/Hg (35-45); ARTERIAL BLOOD GAS PH 7.34 (7.35-7.45); ARTERIAL BLOOD GAS PO2 187 mm/Hg (80-100); ARTERIAL BLOOD GAS TCO2 33.6 mmol/L (22-28)
[2017-09-04 06:17] LABS: HEMOGLOBIN 13.8 g/dL (12.0-16.0); LYMPH # 0.3 K/uL (1.0-4.3); LYMPH % 4.9 % (20.0-40.0); MEAN CELL VOLUME 91.3 fl (81.0-99.0); MEAN CORPUSCULAR HEMOGLOBIN 28.9 pg (27.0-31.0); MEAN CORPUSCULAR HGB CONC 31.7 g/dL (33.0-37.0); MEAN PLATELET VOLUME 10.6 fl (7.2-11.7); MONO # 0.1 K/uL (0.0-0.8); MONO % 2.5 % (0.0-10.0); NEUT % 92.6 % (50.0-75.0); NRBC % 0.1 % (0.0-0.0); PLATELET COUNT 120 K/uL (130-400); RBC 4.77 Mil/uL (3.80-5.20); RED CELL DISTRIBUTION WIDTH 16.7 % (11.5-14.5); WHITE BLOOD COUNT 5.4 K/uL (4.8-10.8)
[2017-09-04 06:45] LABS: CALCIUM 9.6 mg/dL (8.4-10.2)
[2017-09-04 06:54] LABS: TROPONIN I 0.042 ng/mL (0.00-0.120)
[2017-09-04 06:56] LABS: LYMPHOCYTE 9 % (20-50); MONOCYTE 5 % (0-10); NEUTROPHIL 86 % (42-75); TOTAL CELLS COUNTED 100
[2017-09-04 06:57] LABS: PLATELET ESTIMATE DECREASED (NORMAL)
[2017-09-04 06:58] LABS: OVALOCYTES SLIGHT
[2017-09-04 06:59] LABS: POLYCHROMIC SLIGHT
--- NOTE | 2017-09-04 07:40 | CP.CCUPN ---
CCU Subjective - Physician Review Events Since Last Encounter (Free Text): Patient awake, on BIPAP with O2 supplement, no pressors, no fever, no chest pain , follow commands events reviewed CCU Objective - Vital Signs / Intake & Output Vital Signs (Last 4 hours): Vital Signs Temp Pulse Resp BP Pulse Ox 09/04/17 05:00 97.5 F L 110 H 25 H 120/72 99 09/04/17 04:54 122 H Intake and Output (Last 8hrs): Intake & Output 09/03/17 09/04/17 09/04/17 22:59 06:59 14:59 Intake Total 50 Balance 50 Weight 170 lb Intake: Oral 50 Other: # Voids Urine, Voided 1 - Physical Exam Head: Positive for: Atraumatic, Normocephalic Pupils: Positive for: PERRL Extroacular Muscles: Positive for: EOMI Conjunctiva: Positive for: Normal Mouth: Positive for: Moist Mucous Membranes Nose (External): Positive for: Atraumatic Neck: Positive for: Normal Range of Motion Respiratory/Chest: Positive for: Rales Cardiovascular: Positive for: Regular Rate and Rhythm Abdomen: Positive for: Normal Bowel Sounds Upper Extremity: Positive for: Normal Inspection Lower Extremity: Positive for: Normal Inspection Neurological: Positive for: Speech Normal Skin: Positive for: Warm, Dry Psychiatric: Positive for: Alert, Oriented x 3 - Medications Active Medications: Active Medications Generic Name Dose Route Start Last Admin Trade Name Freq PRN Reason Stop Dose Admin Albuterol/Ipratropium 3 ml 09/03/17 21:44 Duoneb 3 Mg/0.5 Mg (3 Ml) Ud INH RQ6 PRN Shortness of Breath Albuterol/Ipratropium 3 ml 09/04/17 08:00 Duoneb 3 Mg/0.5 Mg (3 Ml) Ud INH RQID RAMIREZ Allopurinol 100 mg 09/04/17 09:00 Zyloprim PO DAILY RAMIREZ Aspirin 81 mg 09/04/17 09:00 Ecotrin PO DAILY RAMIREZ Benzonatate 200 mg 09/03/17 21:38 Tessalon Perles PO TID PRN Cough Clopidogrel Bisulfate 75 mg 09/04/17 09:00 Plavix PO DAILY RAMIREZ Furosemide 40 mg 09/04/17 09:00 Lasix IVP BID RAMIREZ Levofloxacin/Dextrose 750 mg in 150 mls @ 100 mls/hr 09/05/17 09:00 Levaquin 750mg IVPB Q48H RAMIREZ Metoprolol Succinate 50 mg 09/04/17 09:00 Toprol Xl PO DAILY RAMIREZ Montelukast Sodium 10 mg 09/04/17 09:00 Singulair PO DAILY RAMIREZ Pantoprazole Sodium 40 mg 09/04/17 09:00 Protonix Ec Tab PO DAILY RAMIREZ - Patient Studies Lab Studies: Lab Studies 09/04/17 09/04/17 09/04/17 Range/Units 05:30 05:30 04:37 WBC 5.4 (4.8-10.8) K/uL RBC 4.77 (3.80-5.20) Mil/uL Hgb 13.8 (12.0-16.0) g/dL Hct 43.5 (34.0-47.0) % MCV 91.3 (81.0-99.0) fl MCH 28.9 (27.0-31.0) pg MCHC 31.7 L (33.0-37.0) g/dL RDW 16.7 H (11.5-14.5) % Plt Count 120 L D (130-400) K/uL MPV 10.6 (7.2-11.7) fl Neut % (Auto) 92.6 H (50.0-75.0) % Lymph % (Auto) 4.9 L (20.0-40.0) % [place] % (Auto) 2.5 (0.0-10.0) % Eos % (Auto) 0.0 (0.0-4.0) % Baso % (Auto) 0.0 (0.0-2.0) % Neut # (Auto) 5.0 (1.8-7.0) K/uL Lymph # (Auto) 0.3 L (1.0-4.3) K/uL [place] # (Auto) 0.1 (0.0-0.8) K/uL Eos # (Auto) 0.0 (0.0-0.7) K/uL Baso # (Auto) 0.0 (0.0-0.2) K/uL Neutrophils % (Manual) 86 H (42-75) % Band Neutrophils % (0-2) % Lymphocytes % (Manual) 9 L (20-50) % Reactive Lymphs % (0-0) % Monocytes % (Manual) 5 (0-10) % Platelet Estimate Decreased L (NORMAL) Polychromasia Slight Anisocytosis (manual) Ovalocytes Slight PT (9.8-13.1) Seconds INR (0.9-1.2) APTT (25.6-37.1) Seconds pCO2 59 H (35-45) mm/Hg pO2 187 H (80-100) mm/Hg HCO3 28.2 H (21-28) mmol/L ABG pH 7.34 L (7.35-7.45) ABG Total CO2 33.6 H (22-28) mmol/L ABG O2 Saturation 99.6 H (95-98) % ABG O2 Content 20.0 (15-23) ML/dL ABG Base Excess 4.2 H (-2.0-3.0) mmol/L ABG Hemoglobin 14.5 (11.7-17.4) g/dL ABG Carboxyhemoglobin 1.8 H (0.5-1.5) % POC ABG HHb (Measured) 0.4 (0.0-5.0) % ABG Methemoglobin 1.3 (0.0-3.0) % ABG O2 Capacity 20.1 (16-24) mL/dL Clayton Test Yes ABG Potassium (3.6-5.2) mmol/L A-a O2 Difference 96.0 mm/Hg Hgb O2 Saturation 96.5 (95.0-98.0) % Sodium 140 (132-148) mmol/L Chloride 94 L (98-107) mmol/L Glucose (65-105) mg/dL Lactate (0.7-2.1) mmol/L Vent Mode Bipap FiO2 50.0 % Inspiratory BiPAP 12 Expiratory BiPAP 6 Blood Gas Comments Crit Value Called To Crit Value Called By Crit Value Read Back Blood Gas Notified Time Potassium 4.0 (3.6-5.0) MMOL/L Carbon Dioxide 31 H (22-30) mmol/L Anion Gap 19 (10-20) BUN 47 H (7-17) mg/dl Creatinine 1.5 H (0.7-1.2) mg/dl Est GFR ( Amer) 41 Est GFR (Non-Af Amer) 33 Random Glucose 198 H (65-105) mg/dL Calcium 9.6 (8.4-10.2) mg/dL Phosphorus (2.5-4.5) mg/dl Magnesium (1.6-2.3) MG/DL Total Bilirubin (0.2-1.3) mg/dl AST (14-36) U/L ALT (9-52) U/L Alkaline Phosphatase (38-126) U/L Troponin I 0.0420 (0.00-0.120) ng/mL NT-Pro-B Natriuret Pep (0-900) pg/ml Total Protein (6.3-8.2) G/DL Albumin (3.5-5.0) g/dL Globulin (2.2-3.9) gm/dL Albumin/Globulin Ratio (1.0-2.1) Arterial Blood Potassium (3.6-5.2) mmol/L Influenza Typ A,B (EIA) (NEGATIVE) 09/03/17 09/03/17 09/03/17 Range/Units 20:50 20:50 20:50 WBC (4.8-10.8) K/uL RBC (3.80-5.20) Mil/uL Hgb (12.0-16.0) g/dL Hct (34.0-47.0) % MCV (81.0-99.0) fl MCH (27.0-31.0) pg MCHC (33.0-37.0) g/dL RDW (11.5-14.5) % Plt Count (130-400) K/uL MPV (7.2-11.7) fl Neut % (Auto) (50.0-75.0) % Lymph % (Auto) (20.0-40.0) % [place] % (Auto) (0.0-10.0) % Eos % (Auto) (0.0-4.0) % Baso % (Auto) (0.0-2.0) % Neut # (Auto) (1.8-7.0) K/uL Lymph # (Auto) (1.0-4.3) K/uL [place] # (Auto) (0.0-0.8) K/uL Eos # (Auto) (0.0-0.7) K/uL Baso # (Auto) (0.0-0.2) K/uL Neutrophils % (Manual) (42-75) % Band Neutrophils % (0-2) % Lymphocytes % (Manual) (20-50) % Reactive Lymphs % (0-0) % Monocytes % (Manual) (0-10) % Platelet Estimate (NORMAL) Polychromasia Anisocytosis (manual) Ovalocytes PT 11.5 (9.8-13.1) Seconds INR 1.0 (0.9-1.2) APTT 31.8 (25.6-37.1) Seconds pCO2 (35-45) mm/Hg pO2 (80-100) mm/Hg HCO3 (21-28) mmol/L ABG pH (7.35-7.45) ABG Total CO2 (22-28) mmol/L ABG O2 Saturation (95-98) % ABG O2 Content (15-23) ML/dL ABG Base Excess (-2.0-3.0) mmol/L ABG Hemoglobin (11.7-17.4) g/dL ABG Carboxyhemoglobin (0.5-1.5) % POC ABG HHb (Measured) (0.0-5.0) % ABG Methemoglobin (0.0-3.0) % ABG O2 Capacity (16-24) mL/dL Clayton Test ABG Potassium (3.6-5.2) mmol/L A-a O2 Difference mm/Hg Hgb O2 Saturation (95.0-98.0) % Sodium 140 (132-148) mmol/L Chloride 94 L (98-107) mmol/L Glucose (65-105) mg/dL Lactate (0.7-2.1) mmol/L Vent Mode FiO2 % Inspiratory BiPAP Expiratory BiPAP Blood Gas Comments Crit Value Called To Crit Value Called By Crit Value Read Back Blood Gas Notified Time Potassium 4.2 (3.6-5.0) MMOL/L Carbon Dioxide 29 (22-30) mmol/L Anion Gap 21 H (10-20) BUN 44 H (7-17) mg/dl Creatinine 1.5 H (0.7-1.2) mg/dl Est GFR ( Amer) 41 Est GFR (Non-Af Amer) 33 Random Glucose 211 H (65-105) mg/dL Calcium 9.8 (8.4-10.2) mg/dL Phosphorus 5.1 H (2.5-4.5) mg/dl Magnesium 1.9 (1.6-2.3) MG/DL Total Bilirubin 0.8 (0.2-1.3) mg/dl AST 31 (14-36) U/L ALT 29 (9-52) U/L Alkaline Phosphatase 100 (38-126) U/L Troponin I 0.0480 (0.00-0.120) ng/mL NT-Pro-B Natriuret Pep 25815 H (0-900) pg/ml Total Protein 7.1 (6.3-8.2) G/DL Albumin 4.0 (3.5-5.0) g/dL Globulin 3.1 (2.2-3.9) gm/dL Albumin/Globulin Ratio 1.3 (1.0-2.1) Arterial Blood Potassium (3.6-5.2) mmol/L Influenza Typ A,B (EIA) Negative for flu a/b (NEGATIVE) 09/03/17 09/03/17 Range/Units 20:50 20:27 WBC 7.9 (4.8-10.8) K/uL RBC 5.07 (3.80-5.20) Mil/uL Hgb 14.8 (12.0-16.0) g/dL Hct 46.3 (34.0-47.0) % MCV 91.3 D (81.0-99.0) fl MCH 29.2 (27.0-31.0) pg MCHC 31.9 L (33.0-37.0) g/dL RDW 16.8 H (11.5-14.5) % Plt Count 140 (130-400) K/uL MPV 11.1 (7.2-11.7) fl Neut % (Auto) 86.8 H (50.0-75.0) % Lymph % (Auto) 5.3 L (20.0-40.0) % [place] % (Auto) 7.6 (0.0-10.0) % Eos % (Auto) 0.0 (0.0-4.0) % Baso % (Auto) 0.3 (0.0-2.0) % Neut # (Auto) 6.9 (1.8-7.0) K/uL Lymph # (Auto) 0.4 L (1.0-4.3) K/uL [place] # (Auto) 0.6 (0.0-0.8) K/uL Eos # (Auto) 0.0 (0.0-0.7) K/uL Baso # (Auto) 0.0 (0.0-0.2) K/uL Neutrophils % (Manual) 85 H (42-75) % Band Neutrophils % 1 (0-2) % Lymphocytes % (Manual) 7 L (20-50) % Reactive Lymphs % 2 H (0-0) % Monocytes % (Manual) 5 (0-10) % Platelet Estimate Normal (NORMAL) Polychromasia Anisocytosis (manual) Slight Ovalocytes PT (9.8-13.1) Seconds INR (0.9-1.2) APTT (25.6-37.1) Seconds pCO2 72 H* (35-45) mm/Hg pO2 160 H (80-100) mm/Hg HCO3 28.3 H (21-28) mmol/L ABG pH 7.28 L (7.35-7.45) ABG Total CO2 36.0 H (22-28) mmol/L ABG O2 Saturation 100.6 H (95-98) % ABG O2 Content (15-23) ML/dL ABG Base Excess 4.4 H (-2.0-3.0) mmol/L ABG Hemoglobin (11.7-17.4) g/dL ABG Carboxyhemoglobin (0.5-1.5) % POC ABG HHb (Measured) (0.0-5.0) % ABG Methemoglobin (0.0-3.0) % ABG O2 Capacity (16-24) mL/dL Clayton Test Yes ABG Potassium 3.8 (3.6-5.2) mmol/L A-a O2 Difference 463.0 mm/Hg Hgb O2 Saturation (95.0-98.0) % Sodium 135.0 (132-148) mmol/L Chloride 100.0 (98-107) mmol/L Glucose 177 H (65-105) mg/dL Lactate 1.5 (0.7-2.1) mmol/L Vent Mode Aerosol mask FiO2 100.0 % Inspiratory BiPAP Expiratory BiPAP Blood Gas Comments 100% Crit Value Called To Emma staley r.n. Crit Value Called By Michela Crit Value Read Back Y Blood Gas Notified Time 2117 Potassium (3.6-5.0) MMOL/L Carbon Dioxide (22-30) mmol/L Anion Gap (10-20) BUN (7-17) mg/dl Creatinine (0.7-1.2) mg/dl Est GFR ( Amer) Est GFR (Non-Af Amer) Random Glucose (65-105) mg/dL Calcium (8.4-10.2) mg/dL Phosphorus (2.5-4.5) mg/dl Magnesium (1.6-2.3) MG/DL Total Bilirubin (0.2-1.3) mg/dl AST (14-36) U/L ALT (9-52) U/L Alkaline Phosphatase (38-126) U/L Troponin I (0.00-0.120) ng/mL NT-Pro-B Natriuret Pep (0-900) pg/ml Total Protein (6.3-8.2) G/DL Albumin (3.5-5.0) g/dL Globulin (2.2-3.9) gm/dL Albumin/Globulin Ratio (1.0-2.1) Arterial Blood Potassium 3.8 (3.6-5.2) mmol/L Influenza Typ A,B (EIA) (NEGATIVE) Laboratory Results - last 24 hr 09/03/17 09/03/17 09/03/17 20:27 20:50 20:50 WBC 7.9 RBC 5.07 Hgb 14.8 Hct 46.3 MCV 91.3 D MCH 29.2 MCHC 31.9 L RDW 16.8 H Plt Count 140 MPV 11.1 Neut % (Auto) 86.8 H Lymph % (Auto) 5.3 L [place] % (Auto) 7.6 Eos % (Auto) 0.0 Baso % (Auto) 0.3 Neut # (Auto) 6.9 Lymph # (Auto) 0.4 L [place] # (Auto) 0.6 Eos # (Auto) 0.0 Baso # (Auto) 0.0 Neutrophils % (Manual) 85 H Band Neutrophils % 1 Lymphocytes % (Manual) 7 L Reactive Lymphs % 2 H Monocytes % (Manual) 5 Platelet Estimate Normal Polychromasia Anisocytosis (manual) Slight Ovalocytes PT INR APTT pCO2 72 H* pO2 160 H HCO3 28.3 H ABG pH 7.28 L ABG Total CO2 36.0 H ABG O2 Saturation 100.6 H ABG O2 Content ABG Base Excess 4.4 H ABG Hemoglobin ABG Carboxyhemoglobin POC ABG HHb (Measured) ABG Methemoglobin ABG O2 Capacity L[place]ay[place] Test Yes ABG Potassium 3.8 A-a O2 Difference 463.0 Hgb O2 Saturation Sodium 135.0 140 Chloride 100.0 94 L Glucose 177 H Lactate 1.5 Vent Mode Aerosol mask FiO2 100.0 Inspiratory BiPAP Expiratory BiPAP Blood Gas Comments 100% Crit Value Called To Emma staley r.n. Crit Value Called By Michela Reyes Value Read Back Y Blood Gas Notified Time 2117 Potassium 4.2 Carbon Dioxide 29 Anion Gap 21 H BUN 44 H Creatinine 1.5 H Est GFR ( Amer) 41 Est GFR (Non-Af Amer) 33 Random Glucose 211 H Calcium 9.8 Phosphorus 5.1 H Magnesium 1.9 Total Bilirubin 0.8 AST 31 ALT 29 Alkaline Phosphatase 100 Troponin I 0.0480 NT-Pro-B Natriuret Pep 90626 H Total Protein 7.1 Albumin 4.0 Globulin 3.1 Albumin/Globulin Ratio 1.3 Arterial Blood Potassium 3.8 Influenza Typ A,B (EIA) 09/03/17 09/03/17 09/04/17 20:50 20:50 04:37 WBC RBC Hgb Hct MCV MCH MCHC RDW Plt Count MPV Neut % (Auto) Lymph % (Auto) Canyon % (Auto) Eos % (Auto) Baso % (Auto) Neut # (Auto) Lymph # (Auto) [place] # (Auto) Eos # (Auto) Baso # (Auto) Neutrophils % (Manual) Band Neutrophils % Lymphocytes % (Manual) Reactive Lymphs % Monocytes % (Manual) Platelet Estimate Polychromasia Anisocytosis (manual) Ovalocytes PT 11.5 INR 1.0 APTT 31.8 pCO2 59 H pO2 187 H HCO3 28.2 H ABG pH 7.34 L ABG Total CO2 33.6 H ABG O2 Saturation 99.6 H ABG O2 Content 20.0 ABG Base Excess 4.2 H ABG Hemoglobin 14.5 ABG Carboxyhemoglobin 1.8 H POC ABG HHb (Measured) 0.4 ABG Methemoglobin 1.3 ABG O2 Capacity 20.1 Clayton Test Yes ABG Potassium A-a O2 Difference 96.0 Hgb O2 Saturation 96.5 Sodium Chloride Glucose Lactate Vent Mode Bipap FiO2 50.0 Inspiratory BiPAP 12 Expiratory BiPAP 6 Blood Gas Comments Crit Value Called To Crit Value Called By Crit Value Read Back Blood Gas Notified Time Potassium Carbon Dioxide Anion Gap BUN Creatinine Est GFR ( Amer) Est GFR (Non-Af Amer) Random Glucose Calcium Phosphorus Magnesium Total Bilirubin AST ALT Alkaline Phosphatase Troponin I NT-Pro-B Natriuret Pep Total Protein Albumin Globulin Albumin/Globulin Ratio Arterial Blood Potassium Influenza Typ A,B (EIA) Negative for flu a/b 09/04/17 09/04/17 05:30 05:30 WBC 5.4 RBC 4.77 Hgb 13.8 Hct 43.5 MCV 91.3 MCH 28.9 MCHC 31.7 L RDW 16.7 H Plt Count 120 L D MPV 10.6 Neut % (Auto) 92.6 H Lymph % (Auto) 4.9 L [place] % (Auto) 2.5 Eos % (Auto) 0.0 Baso % (Auto) 0.0 Neut # (Auto) 5.0 Lymph # (Auto) 0.3 L [place] # (Auto) 0.1 Eos # (Auto) 0.0 Baso # (Auto) 0.0 Neutrophils % (Manual) 86 H Band Neutrophils % Lymphocytes % (Manual) 9 L Reactive Lymphs % Monocytes % (Manual) 5 Platelet Estimate Decreased L Polychromasia Slight Anisocytosis (manual) Ovalocytes Slight PT INR APTT pCO2 pO2 HCO3 ABG pH ABG Total CO2 ABG O2 Saturation ABG O2 Content ABG Base Excess ABG Hemoglobin ABG Carboxyhemoglobin POC ABG HHb (Measured) ABG Methemoglobin ABG O2 Capacity Clayton Test ABG Potassium A-a O2 Difference Hgb O2 Saturation Sodium 140 Chloride 94 L Glucose Lactate Vent Mode FiO2 Inspiratory BiPAP Expiratory BiPAP Blood Gas Comments Crit Value Called To Crit Value Called By Crit Value Read Back Blood Gas Notified Time Potassium 4.0 Carbon Dioxide 31 H Anion Gap 19 BUN 47 H Creatinine 1.5 H Est GFR ( Amer) 41 Est GFR (Non-Af Amer) 33 Random Glucose 198 H Calcium 9.6 Phosphorus Magnesium Total Bilirubin AST ALT Alkaline Phosphatase Troponin I 0.0420 NT-Pro-B Natriuret Pep Total Protein Albumin Globulin Albumin/Globulin Ratio Arterial Blood Potassium Influenza Typ A,B (EIA) EKG/Cardiology Studies: Cardiology / EKG Studies 09/03/17 20:14 ELECTROCARDIOGRAM Stat Comment: Mode Of Transportation: Reason For Exam: Sepsis Patient Critical Care Progress Note - Nutrition Nutrition: Nutrition Category Date Time Status NPO Diet [DIET] Diets 09/03/17 Breakfast Active Assessment/Plan - Assessment and Plan (Free Text) Assessment: A/P Respiratory failure, pneumonia, asthma, CHF, CAD, A Fib s/p pacemaker, ARF, R/O [place] - BIPAP as needed - Continue meds - Pulmonary toilets - DVT prophylaxis - Follow up labs Critical care 35 min
[2017-09-04] MEDS: Albuterol-Ipratrop 3 mg / 0.5 (3 ml) UD INH SCH ×4 (07:43→20:05)
[2017-09-04] MEDS: Pantoprazole 40 mg EC Tab PO SCH (08:20)
[2017-09-04] MEDS: Metoprolol Succinate 50 mg XL Tab PO SCH (08:21)
--- NOTE | 2017-09-04 08:43 | RAD ---
HISTORY: Sepsis Patient COMPARISON: Chest radiographs 02/14/2017. FINDINGS: LUNGS: Limited fibrotic changes again seen the mid to inferior left lung and potentially the right base medially. No acute infiltrate bilaterally. PLEURA: No significant pleural effusion identified, no pneumothorax apparent. CARDIOVASCULAR: Stable cardiomegaly with pacemaker reiterated. Borderline pulmonary venous congestion. OSSEOUS STRUCTURES: No significant abnormalities. VISUALIZED UPPER ABDOMEN: Normal. OTHER FINDINGS: None. IMPRESSION: Stable cardiomegaly however there is borderline pulmonary venous congestion. No acute infiltrate or pleural effusion evident.
[2017-09-04] MEDS ORDERED: Digoxin 125 mcg (0.125 mg) Tab PO SCH (09:00)
[2017-09-04 09:39] LABS: ABG ALLEN TEST YES; ARTERIAL BLOOD GAS HCO3 30.6 mmol/L (21-28); ARTERIAL BLOOD GAS HEMOGLOBIN 14.3 g/dL (11.7-17.4); ARTERIAL BLOOD GAS O2 CAPACITY 19.6 mL/dL (16-24); ARTERIAL BLOOD GAS O2 CONTENT 19.4 ML/dL (15-23); ARTERIAL BLOOD GAS O2 SAT 99.1 % (95-98); ARTERIAL BLOOD GAS PCO2 66 mm/Hg (35-45); ARTERIAL BLOOD GAS PH 7.34 (7.35-7.45); ARTERIAL BLOOD GAS PO2 109 mm/Hg (80-100); ARTERIAL BLOOD GAS TCO2 37.6 mmol/L (22-28)
[2017-09-04] MEDS ORDERED: methylPREDNISolone 40 MG in Sodium Chloride 0.9% 50 ML IVPB SCH (11:30)
--- NOTE | 2017-09-04 11:33 | CP.PCM.PN ---
Subjective - Date & Time of Evaluation Date of Evaluation: 09/04/17 Time of Evaluation: 11:00 - Subjective Subjective: Pt seen in ICU now off Bipap Saturating well on 5 liters NC = 96% denies SOB still with cough no fever denies CP still tachycardic however better now down to low 100s denies abd pain Full Code Surrogate decision maker - [place] Objective - Vital Signs/Intake and Output Vital Signs (last 24 hours): Temp Pulse Resp BP Pulse Ox 98.2 F 126 H 25 H 114/70 99 09/04/17 08:24 09/04/17 08:24 09/04/17 08:24 09/04/17 08:24 09/04/17 08:24 Intake and Output: 09/04/17 09/04/17 06:59 18:59 Intake Total 50 Balance 50 - Medications Medications: Current Medications Albuterol/Ipratropium (Duoneb 3 Mg/0.5 Mg (3 Ml) Ud) 3 ml INH RQ6 PRN PRN Reason: Shortness of Breath Albuterol/Ipratropium (Duoneb 3 Mg/0.5 Mg (3 Ml) Ud) 3 ml INH RQID [facility] Last Admin: 09/04/17 11:27 Dose: 3 ml Allopurinol (Zyloprim) 100 mg PO DAILY [facility] Last Admin: 09/04/17 08:22 Dose: 100 mg Aspirin (Ecotrin) 81 mg PO DAILY [facility] Benzonatate (Tessalon Perles) 200 mg PO TID PRN PRN Reason: Cough Clopidogrel Bisulfate (Plavix) 75 mg PO DAILY [facility] Last Admin: 09/04/17 08:20 Dose: 75 mg Furosemide (Lasix) 40 mg IVP BID [facility] Last Admin: 09/04/17 08:20 Dose: 40 mg Levofloxacin/Dextrose (Levaquin 750mg) 750 mg in 150 mls @ 100 mls/hr IVPB Q48H [facility] Methylprednisolone 40 mg/ (Sodium Chloride) 50 mls @ 100 mls/hr IVPB Q8 [facility] Metoprolol Succinate (Toprol Xl) 50 mg PO DAILY [facility] Last Admin: 09/04/17 08:21 Dose: 50 mg Montelukast Sodium (Singulair) 10 mg PO DAILY [facility] Last Admin: 09/04/17 08:21 Dose: 10 mg Pantoprazole Sodium (Protonix Ec Tab) 40 mg PO DAILY [facility]IREZ Last Admin: 09/04/17 08:20 Dose: 40 mg - Labs Labs: 09/04/17 05:30 09/04/17 05:30 PT 11.5 Seconds (9.8-13.1) 09/03/17 20:50 INR 1.0 (0.9-1.2) 09/03/17 20:50 APTT 31.8 Seconds (25.6-37.1) 09/03/17 20:50 - Constitutional Appears: No Acute Distress, Chronically Ill - Head Exam Head Exam: NORMAL INSPECTION, NORMOCEPHALIC - Eye Exam Eye Exam: EOMI, Normal appearance Pupil Exam: NORMAL ACCOMODATION - ENT Exam ENT Exam: Mucous Membranes Moist, Normal External Ear Exam - Neck Exam Neck Exam: Full ROM. absent: Meningismus - Respiratory Exam Respiratory Exam: Rales, Rhonchi, Wheezes. absent: Respiratory Distress - Cardiovascular Exam Cardiovascular Exam: Tachycardia, Irregular Rhythm, +S1, +S2 - GI/Abdominal Exam GI & Abdominal Exam: Soft, Normal Bowel Sounds. absent: Tenderness - Extremities Exam Extremities Exam: Full ROM, Normal Capillary Refill. absent: Calf Tenderness - Back Exam Back Exam: absent: CVA tenderness (L), CVA tenderness (R) - Neurological Exam Neurological Exam: Alert, Awake, CN II-XII Intact, Oriented x3 Neuro motor strength exam: Left Upper Extremity: 5, Right Upper Extremity: 5, Left Lower Extremity: 5, Right Lower Extremity: 5 - Psychiatric Exam Psychiatric exam: Normal Affect, Normal Mood - Skin Skin Exam: Dry, Normal Color, Warm Assessment and Plan (1) Acute hypercapnic respiratory failure Status: Acute (2) Pneumonia Status: Acute (3) Acute on chronic diastolic CHF (congestive heart failure) Status: Acute (4) Asthma with acute exacerbation Status: Acute (5) Atrial fibrillation with rapid ventricular response Status: Acute (6) H/O sick sinus syndrome Status: Chronic (7) Acute kidney injury superimposed on CKD Status: Acute (8) CAD (coronary artery disease) Status: Chronic - Assessment and Plan (Free Text) Assessment: 81 y/o lady with hx of CAD, CHF, A Fib, SS s/p Pacemaker, HTN, Asthma, came in bec of cough and SOB. Pt had elevated prop BNP and CXR : Pulm Vasc Congestion and ? Infiltrates. (1) Acute hypercapnic respiratory failure Status: Acute admitted to ICU for close monitoring Pt came in dyspneic PCO2= 72, started on Bipap Duoneb tx RTC and prn Pulm consult (2) Pneumonia Status: Acute CXR : ? infiltrates , + cough, dyspnea cont IV Levaquin ( allergic to PCN) rpt CXR in am (3) Acute on chronic diastolic CHF (congestive heart failure) Status: Acute started on IV Lasix 40 bid elevated propBNP previous ECHO showed diastolic dysfunction , EF 50 % (EF 65% on Myocardial scan) cont Toprol XL 50mg daily (4) Asthma with acute exacerbation Status: Acute pt has + wheezing start IV Solumedrol 40 mg q 8 received 125mg in ED cont Duoneb tx (5) Atrial fibrillation with rapid ventricular response Status: Acute cont Toprol unable to tolerate Digoxin Pt known even from previous admission to refuse therapeutic anticoagulation (6) H/O sick sinus syndrome s/p Pacemaker Status: Chronic (7) Acute kidney injury superimposed on CKD Status: Acute hx of CKD stage II-III, Crea now up to 1.5 will monitor (8) CAD (coronary artery disease) Status: Chronic Myocardial Perfusion scan done 06/26 : Apical Ischemia cont ASA, Plavix, statin, BB Cardio consult : Dr Kapadia 9. DVT Proph: Lovenox
[2017-09-04] MEDS ORDERED: methylPREDNISolone 40 MG in Sodium Chloride 0.9% 50 ML IVPB STA (11:56)
[2017-09-04] MEDS ORDERED: MethylPREDNISolone 40 mg Vial IVP ONE (12:30)
--- NOTE | 2017-09-04 13:10 | CP.PCM.CON ---
History of Present Illness - History of Present Illness History of Present Illness: THE PATIENT IS A 81 YEAR OLD FEMALE WHO HAS A HISTORY OF CAD WITH A PRIOR CORONARY STENT INSERTION, SSS WITH A HISTORY OF ATRIAL FIBRILLATION AND A VVI PACEMAKER, COPD, PNEUMONIA, HYPERTENSION AND HYPERLIPIDEMIA. STATES SHE HAD A SORE THROAT SIX DAYS AGO AND THEN SHE HAD SLIGHT YELLOW PHLEGM. THE NEXT DAY SHE STARTED GETTING SHORT OF BREATH AND IT GOT WORSE EVERY DAY. SHE STATES SHE FELT TOO WEAK TO GO SEE DR JOYCE OR ME AND SHE CALLED DR JOYCE TWO DAYS AGO AND HE ORDERED AUGMENTIN AND FLONASE THAT SHE TOOK TUESDAY AND TUESDAY MORNING BUT SHE WAS SO SOB THAT HE WENT TO THE ER AND WAS FOUND TO BE IN RESPIRATORY FAILURE WITH HYPERCAPNEA AND WAS GIVEN BRONCHODILATORS, ANTIBIOTICS, ASPIRIN, FUROSEMIDE AND BIPAP WAS STARTED. SHE WAS ADMITTED TO THE ICU AND FEELS MUCH BETTER AND LESS SOB TODAY. SHE DENIES CHEST PAIN. SHE HAD A RECENT CARDIAC CATH THAT SHOWED THAT HER STENT WAS PATENT. Past Patient History - Infectious Disease Hx of Infectious Diseases: None - Tetanus Immunizations Tetanus Immunization: Unknown - Past Medical History & Family History Past Medical History?: Yes - Past Social History Smoking Status: Never Smoked - CARDIAC Hx Cardiac Disorders: Yes Hx Atrial Fibrillation: Yes Hx Cardia Arrhythmia: Yes Hx Congestive Heart Failure: Yes Hx Hypercholesterolemia: Yes Hx Hypertension: Yes Hx Mitral Valve Prolapse: No Hx Pacemaker: Yes Hx Peripheral Edema: No - PULMONARY Hx Respiratory Disorders: Yes Hx Asthma: No Hx Bronchitis: No Hx Chronic Obstructive Pulmonary Disease (COPD): Yes Hx Emphysema: No Hx Pneumonia: Yes Hx Pulmonary Embolism: No Hx Sleep Apnea: No - NEUROLOGICAL Hx Neurological Disorder: No Hx Alzheimer's Disease: No Hx Dementia: No Hx Migraine: No Hx Multiple Sclerosis: No Hx Parkinson's Disease: No Hx Seizures: No Hx Transient Ischemic Attacks (TIA): No - HEENT Hx HEENT Problems: Yes Hx Cataracts: Yes (sx lens placed) Other/Comment: wears glasses - RENAL Hx Chronic Kidney Disease: No Hx Kidney Stones: No - ENDOCRINE/METABOLIC Hx Endocrine Disorders: No Hx Hyperthyroidism: No Hx Hypothyroidism: No - HEMATOLOGICAL/ONCOLOGICAL Hx Blood Disorders: No Hx AIDS: No Hx Human Immunodeficiency Virus (HIV): No - INTEGUMENTARY Hx Dermatological Problems: Yes Hx Melanoma: Yes - MUSCULOSKELETAL/RHEUMATOLOGICAL Hx Musculoskeletal Disorders: Yes Hx Arthritis: Yes Hx Falls: Yes Hx Fractures: No Hx Osteoporosis: No Hx Rheumatoid Arthritis: No - GASTROINTESTINAL Hx Crohn's Disease: No Hx Diverticulitis: No Hx Gall Bladder Disease: Yes (removed years ago) Hx Gastritis: Yes Hx Pancreatitis: No - GENITOURINARY/GYNECOLOGICAL Hx Genitourinary Disorders: No Hx Sexually Transmitted Disorders: No - PSYCHIATRIC Hx Psychophysiologic Disorder: No Hx Anxiety: No Hx Bipolar Disorder: No Hx Depression: No Hx Paranoia: No Hx Post Traumatic Stress Disorder: No Hx Schizophrenia: No Hx Substance Use: No - SURGICAL HISTORY Hx Appendectomy: Yes Hx Cataract Extraction: Yes Hx Carotid Endarterectomy: No Hx Cholecystectomy: Yes Hx Coronary Artery Bypass Graft: Yes Hx Coronary Stent: Yes Hx Joint Replacement: Yes (left knee replacement) Hx Tonsillectomy: Yes - ANESTHESIA Hx Anesthesia: Yes Hx Anesthesia Reactions: No Hx Malignant Hyperthermia: No Meds Allergies/Adverse Reactions: Allergies Allergy/AdvReac Type Severity Reaction Status Date / Time Penicillins Allergy RASH Verified 09/03/17 20:00 - Medications Medications: Current Medications Albuterol/Ipratropium (Duoneb 3 Mg/0.5 Mg (3 Ml) Ud) 3 ml INH RQ6 PRN PRN Reason: Shortness of Breath Albuterol/Ipratropium (Duoneb 3 Mg/0.5 Mg (3 Ml) Ud) 3 ml INH RQID [facility] Last Admin: 09/04/17 11:27 Dose: 3 ml Allopurinol (Zyloprim) 100 mg PO DAILY [facility] Last Admin: 09/04/17 08:22 Dose: 100 mg Aspirin (Ecotrin) 81 mg PO DAILY [facility] Last Admin: 09/04/17 12:08 Dose: 81 mg Benzonatate (Tessalon Perles) 200 mg PO TID PRN PRN Reason: Cough Clopidogrel Bisulfate (Plavix) 75 mg PO DAILY [facility] Last Admin: 09/04/17 08:20 Dose: 75 mg Furosemide (Lasix) 40 mg IVP BID [facility] Last Admin: 09/04/17 08:20 Dose: 40 mg Levofloxacin/Dextrose (Levaquin 750mg) 750 mg in 150 mls @ 100 mls/hr IVPB Q48H [facility] Methylprednisolone (Solu-Medrol) 40 mg IVP Q8 [facility] Metoprolol Succinate (Toprol Xl) 50 mg PO DAILY [facility] Last Admin: 09/04/17 08:21 Dose: 50 mg Montelukast Sodium (Singulair) 10 mg PO DAILY [facility] Last Admin: 09/04/17 08:21 Dose: 10 mg Pantoprazole Sodium (Protonix Ec Tab) 40 mg PO DAILY [facility] Last Admin: 09/04/17 08:20 Dose: 40 mg Physical Exam - Respiratory Exam Respiratory Exam: Wheezes - Cardiovascular Exam Cardiovascular Exam: Tachycardia, Irregular Rhythm, +S1, +S2 - Extremities Exam Additional comments: NO SIGNIFICANT LE EDEMA - Additional Findings Additional findings: EKG ATRIAL FIBRILLATION WITH RVR TROPONIN NORMAL X 3 CXR CARDIOMEGALY, CHRONIC CHANGES, READ MILD PULONARY VENOUS CONGESTION, NO INFILTRATE TROPONIN 16,800 WBC 7.9 ABGS LAST NIGHT ON VMASK AT 100% FIO2 WITH CO2 0F 72 AND O2 0F 160 ABGS THIS AM ON BIPAP WITH CO2 59 AND O2 OF 187 ECHO WITHIN LAST YEAR WITH [facility] LVH, LVEF ~ 40% Results - Vital Signs Recent Vital Signs: Last Vital Signs Temp 98.2 F 09/04/17 08:24 Pulse 126 H 09/04/17 08:24 Resp 25 H 09/04/17 08:24 BP 114/70 09/04/17 08:24 Pulse Ox 99 09/04/17 08:24 - Labs Result Diagrams: 09/04/17 05:30 09/04/17 05:30 Labs: Laboratory Results - last 24 hr 09/03/17 09/03/17 09/03/17 20:27 20:50 20:50 WBC 7.9 RBC 5.07 Hgb 14.8 Hct 46.3 MCV 91.3 D MCH 29.2 MCHC 31.9 L RDW 16.8 H Plt Count 140 MPV 11.1 Neut % (Auto) 86.8 H Lymph % (Auto) 5.3 L [place] % (Auto) 7.6 Eos % (Auto) 0.0 Baso % (Auto) 0.3 Neut # (Auto) 6.9 Lymph # (Auto) 0.4 L [place] # (Auto) 0.6 Eos # (Auto) 0.0 Baso # (Auto) 0.0 Neutrophils % (Manual) 85 H Band Neutrophils % 1 Lymphocytes % (Manual) 7 L Reactive Lymphs % 2 H Monocytes % (Manual) 5 Platelet Estimate Normal Polychromasia Anisocytosis (manual) Slight Ovalocytes PT INR APTT pCO2 72 H* pO2 160 H HCO3 28.3 H ABG pH 7.28 L ABG Total CO2 36.0 H ABG O2 Saturation 100.6 H ABG O2 Content ABG Base Excess 4.4 H ABG Hemoglobin ABG Carboxyhemoglobin POC ABG HHb (Measured) ABG Methemoglobin ABG O2 Capacity Clayton Test Yes ABG Potassium 3.8 A-a O2 Difference 463.0 Hgb O2 Saturation Sodium 135.0 140 Chloride 100.0 94 L Glucose 177 H Lactate 1.5 Vent Mode Aerosol mask FiO2 100.0 Inspiratory BiPAP Expiratory BiPAP Blood Gas Comments 100% Crit Value Called To Emma staley r.n. Crit Value Called By Michela Crijessica Value Read Back Y Blood Gas Notified Time 2117 Potassium 4.2 Carbon Dioxide 29 Anion Gap 21 H BUN 44 H Creatinine 1.5 H Est GFR ( Amer) 41 Est GFR (Non-Af Amer) 33 Random Glucose 211 H Calcium 9.8 Phosphorus 5.1 H Magnesium 1.9 Total Bilirubin 0.8 AST 31 ALT 29 Alkaline Phosphatase 100 Troponin I 0.0480 NT-Pro-B Natriuret Pep 03491 H Total Protein 7.1 Albumin 4.0 Globulin 3.1 Albumin/Globulin Ratio 1.3 Arterial Blood Potassium 3.8 Influenza Typ A,B (EIA) 09/03/17 09/03/17 09/04/17 20:50 20:50 04:37 WBC RBC Hgb Hct MCV MCH MCHC RDW Plt Count MPV Neut % (Auto) Lymph % (Auto) [place] % (Auto) Eos % (Auto) Baso % (Auto) Neut # (Auto) Lymph # (Auto) [place] # (Auto) Eos # (Auto) Baso # (Auto) Neutrophils % (Manual) Band Neutrophils % Lymphocytes % (Manual) Reactive Lymphs % Monocytes % (Manual) Platelet Estimate Polychromasia Anisocytosis (manual) Ovalocytes PT 11.5 INR 1.0 APTT 31.8 pCO2 59 H pO2 187 H HCO3 28.2 H ABG pH 7.34 L ABG Total CO2 33.6 H ABG O2 Saturation 99.6 H ABG O2 Content 20.0 ABG Base Excess 4.2 H ABG Hemoglobin 14.5 ABG Carboxyhemoglobin 1.8 H POC ABG HHb (Measured) 0.4 ABG Methemoglobin 1.3 ABG O2 Capacity 20.1 Clayton Test Yes ABG Potassium A-a O2 Difference 96.0 Hgb O2 Saturation 96.5 Sodium Chloride Glucose Lactate Vent Mode Bipap FiO2 50.0 Inspiratory BiPAP 12 Expiratory BiPAP 6 Blood Gas Comments Crit Value Called To Crit Value Called By Crit Value Read Back Blood Gas Notified Time Potassium Carbon Dioxide Anion Gap BUN Creatinine Est GFR ( Amer) Est GFR (Non-Af Amer) Random Glucose Calcium Phosphorus Magnesium Total Bilirubin AST ALT Alkaline Phosphatase Troponin I NT-Pro-B Natriuret Pep Total Protein Albumin Globulin Albumin/Globulin Ratio Arterial Blood Potassium Influenza Typ A,B (EIA) Negative for flu a/b 09/04/17 09/04/17 09/04/17 05:30 05:30 09:15 WBC 5.4 RBC 4.77 Hgb 13.8 Hct 43.5 MCV 91.3 MCH 28.9 MCHC 31.7 L RDW 16.7 H Plt Count 120 L D MPV 10.6 Neut % (Auto) 92.6 H Lymph % (Auto) 4.9 L [place] % (Auto) 2.5 Eos % (Auto) 0.0 Baso % (Auto) 0.0 Neut # (Auto) 5.0 Lymph # (Auto) 0.3 L [place] # (Auto) 0.1 Eos # (Auto) 0.0 Baso # (Auto) 0.0 Neutrophils % (Manual) 86 H Band Neutrophils % Lymphocytes % (Manual) 9 L Reactive Lymphs % Monocytes % (Manual) 5 Platelet Estimate Decreased L Polychromasia Slight Anisocytosis (manual) Ovalocytes Slight PT INR APTT pCO2 66 H pO2 109 H HCO3 30.6 H ABG pH 7.34 L ABG Total CO2 37.6 H ABG O2 Saturation 99.1 H ABG O2 Content 19.4 ABG Base Excess 7.3 H ABG Hemoglobin 14.3 ABG Carboxyhemoglobin 1.9 H POC ABG HHb (Measured) 0.9 ABG Methemoglobin 1.1 ABG O2 Capacity 19.6 Clayton Test Yes ABG Potassium A-a O2 Difference 94.0 Hgb O2 Saturation 96.1 Sodium 140 Chloride 94 L Glucose Lactate Vent Mode FiO2 40.0 Inspiratory BiPAP Expiratory BiPAP Blood Gas Comments Crit Value Called To Crit Value Called By Crit Value Read Back Blood Gas Notified Time Potassium 4.0 Carbon Dioxide 31 H Anion Gap 19 BUN 47 H Creatinine 1.5 H Est GFR ( Amer) 41 Est GFR (Non-Af Amer) 33 Random Glucose 198 H Calcium 9.6 Phosphorus Magnesium Total Bilirubin AST ALT Alkaline Phosphatase Troponin I 0.0420 NT-Pro-B Natriuret Pep Total Protein Albumin Globulin Albumin/Globulin Ratio Arterial Blood Potassium Influenza Typ A,B (EIA) 09/04/17 12:00 WBC RBC Hgb Hct MCV MCH MCHC RDW Plt Count MPV Neut % (Auto) Lymph % (Auto) [place] % (Auto) Eos % (Auto) Baso % (Auto) Neut # (Auto) Lymph # (Auto) [place] # (Auto) Eos # (Auto) Baso # (Auto) Neutrophils % (Manual) Band Neutrophils % Lymphocytes % (Manual) Reactive Lymphs % Monocytes % (Manual) Platelet Estimate Polychromasia Anisocytosis (manual) Ovalocytes PT INR APTT pCO2 pO2 HCO3 ABG pH ABG Total CO2 ABG O2 Saturation ABG O2 Content ABG Base Excess ABG Hemoglobin ABG Carboxyhemoglobin POC ABG HHb (Measured) ABG Methemoglobin ABG O2 Capacity Clayton Test ABG Potassium A-a O2 Difference Hgb O2 Saturation Sodium Chloride Glucose Lactate Vent Mode FiO2 Inspiratory BiPAP Expiratory BiPAP Blood Gas Comments Crit Value Called To Crit Value Called By Crit Value Read Back Blood Gas Notified Time Potassium Carbon Dioxide Anion Gap BUN Creatinine Est GFR ( Amer) Est GFR (Non-Af Amer) Random Glucose Calcium Phosphorus Magnesium Total Bilirubin AST ALT Alkaline Phosphatase Troponin I 0.0320 NT-Pro-B Natriuret Pep Total Protein Albumin Globulin Albumin/Globulin Ratio Arterial Blood Potassium Influenza Typ A,B (EIA) Assessment & Plan - Assessment and Plan (Free Text) Assessment: ACUTE EXACERBATION OF COPD POSSIBLE DIASTOLIC CHF COMPONENT CAD-STABLE WITH PATENT STENT ON RECENT CARDIAC CATH ATRIAL FIBRILLATION WITH RAPID RATE HYPERTENSION HYPERLIPIDEMIA Plan: CONTINUE O2, ANTIBIOTICS, BRONCHODILATORS, METOPROLOL, SIMVASTATIN, FUROSEMIDE, ASPIRIN, CLOPIDOGREL AND STEROIDS NOTE: DIGOXIN NOT USED IT CAUSED NAUSEA BEFORE-WE WILL OBSERVE HEART RATE ON METOPROLOL AND THE RATE SHOULD DECREASE HER PULMONARY AND CARDIAC STATUS IMPROVE
--- NOTE | 2017-09-04 14:51 | CARD ---
APPROVED REPORT EKG Measurement Heart [id number] <Conclusion> Atrial fibrillation with rapid ventricular response Rightward axis Septal infarct, age undetermined Abnormal ECG
[2017-09-04] MEDS: MethylPREDNISolone 40 mg Vial IVP SCH (16:58)
[2017-09-05] MEDS: MethylPREDNISolone 40 mg Vial IVP SCH ×3 (00:01→22:32)
[2017-09-05 05:28] LABS: HEMOGLOBIN 13.5 g/dL (12.0-16.0); MEAN CORPUSCULAR HEMOGLOBIN 28.6 pg (27.0-31.0); MEAN CORPUSCULAR HGB CONC 31.1 g/dL (33.0-37.0); RBC 4.71 Mil/uL (3.80-5.20); WHITE BLOOD COUNT 8.4 K/uL (4.8-10.8)
[2017-09-05 05:39] LABS: CALCIUM 9.7 mg/dL (8.4-10.2)
[2017-09-05] MEDS ORDERED: Sodium Chloride 3% for Inhalation 4 ML VIAL.NEB IH PRN (07:23)
--- NOTE | 2017-09-05 07:39 | RAD ---
PROCEDURE: CHEST RADIOGRAPH, 1 VIEW HISTORY: ? PNA COMPARISON: Portable chest 09/03/2017. FINDINGS: LUNGS: No definite acute infiltrate bilaterally. PLEURA: No pneumothorax or pleural fluid seen. CARDIOVASCULAR: Cardiomegaly is again appreciated and appears stable with pacemaker again in position. Pulmonary vascular markings appear diminished suggesting improved or possibly resolved CHF pattern. OSSEOUS STRUCTURES: No significant abnormalities. VISUALIZED UPPER ABDOMEN: Surgical clips are seen in the right upper quadrant abdomen. OTHER FINDINGS: None. IMPRESSION: Diminished, potentially resolved CHF pattern radiographically. No acute infiltrate or pleural effusion identified bilaterally.
--- NOTE | 2017-09-05 07:44 | CP.CCUPN ---
CCU Subjective - Physician Review Events Since Last Encounter (Free Text): 09/05/17 10:36 The patient was Seen/interviewed and examined by me at the bedside during ICU round, Medical records reviewed and Management issues were discussed and formulated with the house staff. Events reviewed This morning she feels better and is hemodynamically stable No Vasopressors Pt comfortable, NAD Awak, Alert, O x3. follows commands Saturating low 90s% on 5L nasal cannula Denies any chest pain, SOB or Palpitations Only complaint is productive cough with yellow sputum, improving Afebrile, A-Fib on the monitor with HR 100-120s This morning labs revealed No Leucocytosis , worsening renal function BUN/Cr up to 66/1.5, planning to decrease steroids dose, decrease Lasix to once daily Blood C/s and indfluenza A/B negative CCU Objective - Vital Signs / Intake & Output Vital Signs (Last 4 hours): Vital Signs Pulse Resp BP Pulse Ox 09/05/17 05:00 108 H 19 117/73 96 Intake and Output (Last 8hrs): Intake & Output 09/04/17 09/05/17 09/05/17 22:59 06:59 14:59 Intake Total 120 460 Balance 120 460 Intake: Oral 120 460 Other: # Voids Urine, Voided 1 - Physical Exam Head: Positive for: Atraumatic, Normocephalic Pupils: Positive for: PERRL Extroacular Muscles: Positive for: EOMI Conjunctiva: Positive for: Normal Mouth: Positive for: Moist Mucous Membranes Nose (External): Positive for: Atraumatic Neck: Positive for: Normal Range of Motion Respiratory/Chest: Positive for: Rales Cardiovascular: Positive for: Regular Rate and Rhythm Abdomen: Positive for: Normal Bowel Sounds Upper Extremity: Positive for: Normal Inspection Lower Extremity: Positive for: Normal Inspection Neurological: Positive for: Speech Normal Skin: Positive for: Warm, Dry Psychiatric: Positive for: Alert, Oriented x 3 - Medications Active Medications: Active Medications Generic Name Dose Route Start Last Admin Trade Name Freq PRN Reason Stop Dose Admin Albuterol/Ipratropium 3 ml 09/03/17 21:44 Duoneb 3 Mg/0.5 Mg (3 Ml) Ud INH RQ6 PRN Shortness of Breath Albuterol/Ipratropium 3 ml 09/04/17 08:00 09/04/17 20:05 Duoneb 3 Mg/0.5 Mg (3 Ml) Ud INH 3 ml RQID [facility] Administration Allopurinol 100 mg 09/04/17 09:00 09/04/17 08:22 Zyloprim PO 100 mg DAILY [facility] Administration Aspirin 81 mg 09/04/17 09:00 09/04/17 12:08 Ecotrin PO 81 mg DAILY [facility] Administration Atorvastatin Calcium 10 mg 09/05/17 09:00 Lipitor PO DAILY [facility] Benzonatate 200 mg 09/03/17 21:38 09/04/17 18:28 Tessalon Perles PO 200 mg TID PRN Administration Cough Clopidogrel Bisulfate 75 mg 09/04/17 09:00 09/04/17 08:20 Plavix PO 75 mg DAILY [facility] Administration Enoxaparin Sodium 30 mg 09/05/17 09:00 Lovenox SC DAILY [facility] Protocol Furosemide 40 mg 09/04/17 09:00 09/04/17 16:56 Lasix IVP 40 mg BID [facility] Administration Levofloxacin/Dextrose 750 mg in 150 mls @ 100 mls/hr 09/05/17 09:00 Levaquin 750mg IVPB Q48H [facility] Methylprednisolone 40 mg 09/04/17 17:00 09/05/17 00:01 Solu-Medrol IVP 40 mg Q8 [facility] Administration Metoprolol Succinate 50 mg 09/04/17 09:00 09/04/17 08:21 Toprol Xl PO 50 mg DAILY [facility] Administration Montelukast Sodium 10 mg 09/04/17 09:00 09/04/17 08:21 Singulair PO 10 mg DAILY [facility] Administration Pantoprazole Sodium 40 mg 09/04/17 09:00 09/04/17 08:20 Protonix Ec Tab PO 40 mg DAILY [facility] Administration - Patient Studies Lab Studies: Microbiology Studies 09/03/17 20:30 Blood Culture - Preliminary Blood-Venous NO GROWTH AFTER 24 HOURS 09/03/17 20:15 Blood Culture - Preliminary Blood-Venous NO GROWTH AFTER 24 HOURS Lab Studies 09/05/17 09/05/17 09/04/17 Range/Units 04:15 04:15 12:00 WBC 8.4 D (4.8-10.8) K/uL RBC 4.71 (3.80-5.20) Mil/uL Hgb 13.5 (12.0-16.0) g/dL Hct 43.3 (34.0-47.0) % MCV 92.0 (81.0-99.0) fl MCH 28.6 (27.0-31.0) pg MCHC 31.1 L (33.0-37.0) g/dL RDW 17.0 H (11.5-14.5) % Plt Count 140 (130-400) K/uL pCO2 (35-45) mm/Hg pO2 (80-100) mm/Hg HCO3 (21-28) mmol/L ABG pH (7.35-7.45) ABG Total CO2 (22-28) mmol/L ABG O2 Saturation (95-98) % ABG O2 Content (15-23) ML/dL ABG Base Excess (-2.0-3.0) mmol/L ABG Hemoglobin (11.7-17.4) g/dL ABG Carboxyhemoglobin (0.5-1.5) % POC ABG HHb (Measured) (0.0-5.0) % ABG Methemoglobin (0.0-3.0) % ABG O2 Capacity (16-24) mL/dL Clayton Test A-a O2 Difference mm/Hg Hgb O2 Saturation (95.0-98.0) % FiO2 % Sodium 140 (132-148) mmol/l Potassium 4.6 (3.6-5.0) MMOL/L Chloride 93 L (98-107) mmol/L Carbon Dioxide 32 H (22-30) mmol/L Anion Gap 20 (10-20) BUN 66 H (7-17) mg/dl Creatinine 1.5 H (0.7-1.2) mg/dl Est GFR ( Amer) 41 Est GFR (Non-Af Amer) 33 Random Glucose 188 H (65-105) mg/dL Calcium 9.7 (8.4-10.2) mg/dL Troponin I 0.0320 (0.00-0.120) ng/mL NT-Pro-B Natriuret Pep 8420 H (0-900) pg/ml 09/04/17 Range/Units 09:15 WBC (4.8-10.8) K/uL RBC (3.80-5.20) Mil/uL Hgb (12.0-16.0) g/dL Hct (34.0-47.0) % MCV (81.0-99.0) fl MCH (27.0-31.0) pg MCHC (33.0-37.0) g/dL RDW (11.5-14.5) % Plt Count (130-400) K/uL pCO2 66 H (35-45) mm/Hg pO2 109 H (80-100) mm/Hg HCO3 30.6 H (21-28) mmol/L ABG pH 7.34 L (7.35-7.45) ABG Total CO2 37.6 H (22-28) mmol/L ABG O2 Saturation 99.1 H (95-98) % ABG O2 Content 19.4 (15-23) ML/dL ABG Base Excess 7.3 H (-2.0-3.0) mmol/L ABG Hemoglobin 14.3 (11.7-17.4) g/dL ABG Carboxyhemoglobin 1.9 H (0.5-1.5) % POC ABG HHb (Measured) 0.9 (0.0-5.0) % ABG Methemoglobin 1.1 (0.0-3.0) % ABG O2 Capacity 19.6 (16-24) mL/dL Clayton Test Yes A-a O2 Difference 94.0 mm/Hg Hgb O2 Saturation 96.1 (95.0-98.0) % FiO2 40.0 % Sodium (132-148) mmol/l Potassium (3.6-5.0) MMOL/L Chloride (98-107) mmol/L Carbon Dioxide (22-30) mmol/L Anion Gap (10-20) BUN (7-17) mg/dl Creatinine (0.7-1.2) mg/dl Est GFR ( Amer) Est GFR (Non-Af Amer) Random Glucose (65-105) mg/dL Calcium (8.4-10.2) mg/dL Troponin I (0.00-0.120) ng/mL NT-Pro-B Natriuret Pep (0-900) pg/ml Laboratory Results - last 24 hr 09/04/17 09/04/17 09/05/17 09:15 12:00 04:15 WBC 8.4 D RBC 4.71 Hgb 13.5 Hct 43.3 MCV 92.0 MCH 28.6 MCHC 31.1 L RDW 17.0 H Plt Count 140 pCO2 66 H pO2 109 H HCO3 30.6 H ABG pH 7.34 L ABG Total CO2 37.6 H ABG O2 Saturation 99.1 H ABG O2 Content 19.4 ABG Base Excess 7.3 H ABG Hemoglobin 14.3 ABG Carboxyhemoglobin 1.9 H POC ABG HHb (Measured) 0.9 ABG Methemoglobin 1.1 ABG O2 Capacity 19.6 Clayton Test Yes A-a O2 Difference 94.0 Hgb O2 Saturation 96.1 FiO2 40.0 Sodium Potassium Chloride Carbon Dioxide Anion Gap BUN Creatinine Est GFR ( Amer) Est GFR (Non-Af Amer) Random Glucose Calcium Troponin I 0.0320 NT-Pro-B Natriuret Pep 09/05/17 04:15 WBC RBC Hgb Hct MCV MCH MCHC RDW Plt Count pCO2 pO2 HCO3 ABG pH ABG Total CO2 ABG O2 Saturation ABG O2 Content ABG Base Excess ABG Hemoglobin ABG Carboxyhemoglobin POC ABG HHb (Measured) ABG Methemoglobin ABG O2 Capacity [place] Test A-a O2 Difference Hgb O2 Saturation FiO2 Sodium 140 Potassium 4.6 Chloride 93 L Carbon Dioxide 32 H Anion Gap 20 BUN 66 H Creatinine 1.5 H Est GFR ( Amer) 41 Est GFR (Non-Af Amer) 33 Random Glucose 188 H Calcium 9.7 Troponin I NT-Pro-B Natriuret Pep 8420 H Review of Systems - Cardiovascular Cardiovascular: absent: Chest Pain, Chest Pain at Rest, Chest Pain with Activity , Claudication, Diaphoresis - Respiratory Respiratory: Cough, Dyspnea, Dyspnea on Exertion, Excessive Mucous Production, Change in Mucous Color. absent: Hemoptysis, Wheezing, Snoring, Stridor - Gastrointestinal Gastrointestinal: absent: Abdominal Pain, Nausea, Vomiting Critical Care Progress Note - Extremities/Vascular Does the Patient have a Central Venous Catheter?: No Does the Patient need a Central Venous Catheter?: No Does the Patient have a Hurst Catheter?: No Does the Patient need a Hurst Catheter?: No - Nutrition Nutrition: Nutrition Category Date Time Status Heart Healthy Diet [DIET] Diets 09/04/17 Lunch Active Assessment/Plan (1) Acute hypercapnic respiratory failure Current Visit: Yes Status: Acute Priority: High Comment: Improved resp status Wean off BIPAP Continue renally dosed LVQ Continue duonebs Decrease steroids dose Singulair (2) Acute kidney injury superimposed on CKD Current Visit: Yes Status: Acute Comment: Decrease steroids dose, decrease Lasix to once daily (may need to discontinue for now) Trending BUN/creatinine, urinary output. Repeat Labs, lactic acid, CPK, phosphate The patient is not on any nephrotoxic medications Renally dosed medications (3) Acute on chronic combined systolic and diastolic CHF (congestive heart failure) Current Visit: Yes Status: Acute Comment: No signes of volume overlead, decreasing Lasix dose Continue ASA, Plavix, BB, Atorvastatin (4) CAP (community acquired pneumonia) Current Visit: Yes Status: Acute (5) DVT prophylaxis Current Visit: Yes Status: Acute (6) Pneumonia Current Visit: Yes Status: Acute (7) Sepsis Current Visit: Yes Status: Acute (8) Atrial fibrillation with rapid ventricular response Current Visit: No Status: Acute Priority: High - Assessment and Plan (Free Text) Assessment: # Stress Ulcer prophylaxis with Protonix 40 mg IVP QD # DVT prophylaxis with SCD, Lovenox # Code Status: Full code Total critical care time 38 minutes
[2017-09-05] MEDS: Enoxaparin 30 mg Syringe SC SCH (08:41)
[2017-09-05] MEDS: Pantoprazole 40 mg EC Tab PO SCH (08:41)
[2017-09-05] MEDS: Metoprolol Succinate 50 mg XL Tab PO SCH (08:42)
--- NOTE | 2017-09-05 08:46 | CP.PCM.CON ---
History of Present Illness - History of Present Illness History of Present Illness: Asked to see this 81 year old female, a never smoker with a history of bronchial asthma. She had been in her usual state of health until recently when she developed a productive cough with yellow sputum. She was unaware of fever and chills, and denied chest pains. She called the office last week requesting an antibiotic for bronchitis, but after two days her breathing had become more labored and she came to the emergency room for evaluation. She was found to be in rapid atrial fibrillation with decompensated CHF, but no clinical or radiographic evidence of pneumonia. She has been treated with aerosol therapy, antibiotics and corticosteroids with general improvement, but has had persistent episodes of A Fib with RVR. She has declined using lanoxin because of severe reaction with nausea in the past. She also declines anticoagulation after an episode of rectal bleeding while taking rivaroxaban. 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.) Past Patient History - Infectious Disease Hx of Infectious Diseases: None - Tetanus Immunizations Tetanus Immunization: Unknown - Past Medical History & Family History Past Medical History?: Yes Pertinent Family History: CAD - Past Social History Smoking Status: Never Smoked Chewing Tobacco Use: No Cigar Use: No Drugs: Denies Home Situation {Lives}: With Family Domestic Violence: Negative - CARDIAC Hx Atrial Fibrillation: Yes Hx Cardia Arrhythmia: Yes Hx Congestive Heart Failure: Yes Hx Heart Attack: Yes Hx Hypercholesterolemia: Yes Hx Hypertension: Yes Hx Pacemaker: Yes - PULMONARY Hx Asthma: Yes Hx Bronchitis: Yes Hx Chronic Obstructive Pulmonary Disease (COPD): Yes Hx Pneumonia: Yes - NEUROLOGICAL Hx Neurological Disorder: No - HEENT Hx Cataracts: Yes Other/Comment: wears glasses - RENAL Hx Chronic Kidney Disease: No Hx Kidney Stones: No - ENDOCRINE/METABOLIC Hx Endocrine Disorders: No - HEMATOLOGICAL/ONCOLOGICAL Hx Blood Disorders: No Hx Human Immunodeficiency Virus (HIV): No - INTEGUMENTARY Hx Melanoma: Yes (lip) Hx Squamous Cell: Yes (anterior chest wall) - MUSCULOSKELETAL/RHEUMATOLOGICAL Hx Arthritis: Yes Hx Falls: Yes - GASTROINTESTINAL Hx Gall Bladder Disease: Yes (removed years ago) Hx Gastritis: Yes Hx Pancreatitis: No - GENITOURINARY/GYNECOLOGICAL Hx Genitourinary Disorders: No Hx Sexually Transmitted Disorders: No - PSYCHIATRIC Hx Psychophysiologic Disorder: No - SURGICAL HISTORY Hx Appendectomy: Yes Hx Cataract Extraction: Yes Hx Cholecystectomy: Yes Hx Coronary Artery Bypass Graft: Yes Hx Coronary Stent: Yes Hx Joint Replacement: Yes (left knee replacement) Hx Tonsillectomy: Yes - ANESTHESIA Hx Anesthesia: Yes Hx Anesthesia Reactions: No Hx Malignant Hyperthermia: No Meds Allergies/Adverse Reactions: Allergies Allergy/AdvReac Type Severity Reaction Status Date / Time Penicillins Allergy RASH Verified 09/03/17 20:00 - Medications Medications: Current Medications Allopurinol (Zyloprim) 100 mg PO DAILY [facility] Last Admin: 09/05/17 08:42 Dose: 100 mg Aspirin (Ecotrin) 81 mg PO DAILY [facility] Last Admin: 09/05/17 08:39 Dose: 81 mg Atorvastatin Calcium (Lipitor) 10 mg PO DAILY [facility] Last Admin: 09/05/17 08:41 Dose: 10 mg Benzonatate (Tessalon Perles) 200 mg PO TID PRN PRN Reason: Cough Last Admin: 09/04/17 18:28 Dose: 200 mg Clopidogrel Bisulfate (Plavix) 75 mg PO DAILY [facility] Last Admin: 09/05/17 08:41 Dose: 75 mg Enoxaparin Sodium (Lovenox) 30 mg SC DAILY [facility] PRN Reason: Protocol Last Admin: 09/05/17 08:41 Dose: 30 mg Furosemide (Lasix) 40 mg IVP BID [facility] Last Admin: 09/05/17 08:39 Dose: 40 mg Levofloxacin/Dextrose (Levaquin 750mg) 750 mg in 150 mls @ 100 mls/hr IVPB Q48H [facility] Last Admin: 09/05/17 08:40 Dose: 100 mls/hr Methylprednisolone 30 mg/ (Sodium Chloride) 50 mls @ 100 mls/hr IV Q12 [facility] Methylprednisolone (Solu-Medrol) 40 mg IVP Q8 [facility] Stop: 09/05/17 10:00 Last Admin: 09/05/17 08:42 Dose: 40 mg Metoprolol Succinate (Toprol Xl) 50 mg PO DAILY [facility] Last Admin: 09/05/17 08:42 Dose: 50 mg Montelukast Sodium (Singulair) 10 mg PO DAILY [facility] Last Admin: 09/05/17 08:41 Dose: 10 mg Pantoprazole Sodium (Protonix Ec Tab) 40 mg PO DAILY [facility] Last Admin: 09/05/17 08:41 Dose: 40 mg Physical Exam - Additional Findings Additional findings: Overweight female seated on the edge of the bed. Trace dependant edema of both ankles. No cyanosis. Mild varicose veins of both LEs. No calf tenderness or palpable venous cords. No palpable lymphadenopathy. Pharynx mildly injected and moist. No exudate. Neck supple and trachea midline. No visible JVD, no carotid bruit. No dullness on chest percussion. AP diameter increased. Healing surgical site over the anterior chest wall with sutures intact, clean and dry. Breath sounds are slightly diminished bilaterally. Few basal medium rales posteriorly, no bronchial breath sounds. No audible wheezing or bronchial breathing. Few sonorous rhonchi. Heart sounds are slightly distant, rhythm irregular, tachy at ~120BPM. Faint systolic ejection murmur at the base. Abdomen is fleshy and non-tender with good bowel sounds. Results - Vital Signs Recent Vital Signs: Last Vital Signs Temp 98.6 F 09/05/17 01:00 Pulse 122 H 09/05/17 08:42 Resp 19 09/05/17 05:00 BP 111/93 H 09/05/17 08:42 Pulse Ox 96 09/05/17 05:00 - Labs Result Diagrams: 09/05/17 04:15 09/05/17 04:15 Labs: Laboratory Results - last 24 hr 09/04/17 09/04/17 09/05/17 09:15 12:00 04:15 WBC 8.4 D RBC 4.71 Hgb 13.5 Hct 43.3 MCV 92.0 MCH 28.6 MCHC 31.1 L RDW 17.0 H Plt Count 140 pCO2 66 H pO2 109 H HCO3 30.6 H ABG pH 7.34 L ABG Total CO2 37.6 H ABG O2 Saturation 99.1 H ABG O2 Content 19.4 ABG Base Excess 7.3 H ABG Hemoglobin 14.3 ABG Carboxyhemoglobin 1.9 H POC ABG HHb (Measured) 0.9 ABG Methemoglobin 1.1 ABG O2 Capacity 19.6 [place] Test Yes A-a O2 Difference 94.0 Hgb O2 Saturation 96.1 FiO2 40.0 Sodium Potassium Chloride Carbon Dioxide Anion Gap BUN Creatinine Est GFR ( Amer) Est GFR (Non-Af Amer) Random Glucose Calcium Troponin I 0.0320 NT-Pro-B Natriuret Pep 09/05/17 04:15 WBC RBC Hgb Hct MCV MCH MCHC RDW Plt Count pCO2 pO2 HCO3 ABG pH ABG Total CO2 ABG O2 Saturation ABG O2 Content ABG Base Excess ABG Hemoglobin ABG Carboxyhemoglobin POC ABG HHb (Measured) ABG Methemoglobin ABG O2 Capacity [place] Test A-a O2 Difference Hgb O2 Saturation FiO2 Sodium 140 Potassium 4.6 Chloride 93 L Carbon Dioxide 32 H Anion Gap 20 BUN 66 H Creatinine 1.5 H Est GFR ( Amer) 41 Est GFR (Non-Af Amer) 33 Random Glucose 188 H Calcium 9.7 Troponin I NT-Pro-B Natriuret Pep 8420 H Assessment & Plan (1) Acute hypercapnic respiratory failure Status: Acute Priority: High (2) Acute bronchitis Status: Acute Priority: High (3) Asthma with acute exacerbation Status: Acute Priority: High (4) Atrial fibrillation with rapid ventricular response Status: Acute Priority: High - Assessment and Plan (Free Text) Plan: Reduce steroid dosing as tolerated. Change aerosol therapy to ipratropium QID and levalbuterol PRN. Cough suppression as needed. Consider increased dose of metoprolol or addition of calcium channel anita for rate control if still needed. - Date & Time Date: 09/05/17 Time: 08:46
[2017-09-05] MEDS ORDERED: levoFLOXacin 750 mg in D5W 150 ML BAG IVPB SCH (09:00)
[2017-09-05] MEDS ORDERED: levoFLOXacin 750 mg in D5W 750 MG/150 ML BAG IVPB SCH (09:00)
--- NOTE | 2017-09-05 09:43 | CP.PCM.PN ---
Subjective - Date & Time of Evaluation Date of Evaluation: 09/05/17 Time of Evaluation: 09:30 - Subjective Subjective: Pt is afebrile her breathing is better, off Bipap Saturating well on NC denies CP Tachycardic up to 120's A Flutter on the monitor denies abd pain Objective - Vital Signs/Intake and Output Vital Signs (last 24 hours): Temp Pulse Resp BP Pulse Ox 98.6 F 122 H 19 111/93 H 96 09/05/17 01:00 09/05/17 08:42 09/05/17 05:00 09/05/17 08:42 09/05/17 05:00 Intake and Output: 09/05/17 09/05/17 06:59 18:59 Intake Total 460 Balance 460 - Medications Medications: Current Medications Allopurinol (Zyloprim) 100 mg PO DAILY [facility] Last Admin: 09/05/17 08:42 Dose: 100 mg Aspirin (Ecotrin) 81 mg PO DAILY [facility] Last Admin: 09/05/17 08:39 Dose: 81 mg Atorvastatin Calcium (Lipitor) 10 mg PO DAILY [facility] Last Admin: 09/05/17 08:41 Dose: 10 mg Benzonatate (Tessalon Perles) 200 mg PO TID PRN PRN Reason: Cough Last Admin: 09/04/17 18:28 Dose: 200 mg Clopidogrel Bisulfate (Plavix) 75 mg PO DAILY [facility] Last Admin: 09/05/17 08:41 Dose: 75 mg Enoxaparin Sodium (Lovenox) 30 mg SC DAILY [facility] PRN Reason: Protocol Last Admin: 09/05/17 08:41 Dose: 30 mg Furosemide (Lasix) 40 mg IVP BID [facility] Last Admin: 09/05/17 08:39 Dose: 40 mg Levofloxacin/Dextrose (Levaquin 750mg) 750 mg in 150 mls @ 100 mls/hr IVPB Q48H [facility] Last Admin: 09/05/17 08:40 Dose: 100 mls/hr Ipratropium [place] (Atrovent) 0.5 mg IH RQID [facility] Levalbuterol HCl (Xopenex) 0.63 mg INH RQ4 PRN PRN Reason: Shortness of Breath Methylprednisolone (Solu-Medrol) 40 mg IVP Q8 [facility] Stop: 09/05/17 10:00 Last Admin: 09/05/17 08:42 Dose: 40 mg Methylprednisolone (Solu-Medrol) 30 mg IVP Q12 [facility] Metoprolol Succinate (Toprol Xl) 50 mg PO DAILY [facility] Last Admin: 09/05/17 08:42 Dose: 50 mg Montelukast Sodium (Singulair) 10 mg PO DAILY [facility] Last Admin: 09/05/17 08:41 Dose: 10 mg Pantoprazole Sodium (Protonix Ec Tab) 40 mg PO DAILY [facility] Last Admin: 09/05/17 08:41 Dose: 40 mg - Labs Labs: 09/05/17 04:15 09/05/17 04:15 PT 11.5 Seconds (9.8-13.1) 09/03/17 20:50 INR 1.0 (0.9-1.2) 09/03/17 20:50 APTT 31.8 Seconds (25.6-37.1) 09/03/17 20:50 - Constitutional Appears: No Acute Distress, Chronically Ill - Head Exam Head Exam: NORMAL INSPECTION, NORMOCEPHALIC - Eye Exam Eye Exam: EOMI, Normal appearance Pupil Exam: NORMAL ACCOMODATION - ENT Exam ENT Exam: Mucous Membranes Moist, Normal External Ear Exam - Neck Exam Neck Exam: Full ROM. absent: Meningismus - Respiratory Exam Respiratory Exam: minimal rales bases, faint rhonchi and faint wheeze on expiration absent: Respiratory Distress - Cardiovascular Exam Cardiovascular Exam: Tachycardia, Irregular Rhythm, +S1, +S2 - GI/Abdominal Exam GI & Abdominal Exam: Soft, Normal Bowel Sounds. absent: Tenderness - Extremities Exam Extremities Exam: Full ROM, Normal Capillary Refill. absent: Calf Tenderness - Back Exam Back Exam: absent: CVA tenderness (L), CVA tenderness (R) - Neurological Exam Neurological Exam: Alert, Awake, CN II-XII Intact, Oriented x3 Neuro motor strength exam: Left Upper Extremity: 5, Right Upper Extremity: 5, Left Lower Extremity: 5, Right Lower Extremity: 5 - Psychiatric Exam Psychiatric exam: Normal Affect, Normal Mood - Skin Skin Exam: Dry, Normal Color, Warm Assessment and Plan (1) Acute hypercapnic respiratory failure Status: Acute (2) Pneumonia Status: Acute (3) Acute on chronic diastolic CHF (congestive heart failure) Status: Acute (4) Asthma with acute exacerbation Status: Acute (5) Atrial fibrillation with rapid ventricular response Status: Acute (6) H/O sick sinus syndrome Status: Chronic (7) Acute kidney injury superimposed on CKD Status: Acute (8) CAD (coronary artery disease) Status: Chronic - Assessment and Plan (Free Text) Assessment: 81 y/o lady with hx of CAD, CHF, A Fib, SS s/p Pacemaker, HTN, Asthma, came in bec of cough and SOB. Pt had elevated prop BNP and CXR : Pulm Vasc Congestion and ? Infiltrates. (1) Acute hypercapnic respiratory failure sec to CHF exaerb and Asthma exzacerb Status: Acute admitted to ICU for close monitoring Pt came in dyspneic PCO2= 72, started on Bipap now on NC Resp better after steroids , Neb tx and Diuretics Xopenex tx RTC and prn cont Lasix Pulmonary and Cardio consulted (2) Acute Bronchitis , ( Sepsis and Pneumonia ruled out) Status: Acute CXR : ? infiltrates , + cough, dyspnea cont IV Levaquin ( allergic to PCN) rpt CXR : improved Pulm vasc congestion and no PNA (3) Acute on chronic diastolic CHF (congestive heart failure) Status: Acute improved with cont IV Lasix 40 bid- decreased to 40 mg daily elevated propBNP to 16L now 8K previous ECHO showed diastolic dysfunction , EF 50 % (EF 65% on Myocardial scan) cont Toprol XL (4) Asthma with acute exacerbation Status: Acute pt has + wheezing on admission w/c now is better decrease IV Solumedrol 30 q 12 cont Xopenex (5) Atrial fibrillation / A Fultter with rapid ventricular response Status: Acute cont Toprol , will increase dose to 100 mg daily as discussed with Dr Kapadia unable to tolerate Digoxin Pt known even from previous admissions to refuse therapeutic anticoagulation (6) H/O sick sinus syndrome s/p Pacemaker Status: Chronic (7) Acute kidney injury superimposed on CKD Status: Acute hx of CKD stage II-III, Crea now up to 1.5 will monitor santo on diuretics (8) CAD (coronary artery disease) Status: Chronic Myocardial Perfusion scan done 06/26 : Apical Ischemia cont ASA, Plavix, statin, BB Cardio consult : Dr Kapadia 9. DVT Proph: Lovenox
[2017-09-05] MEDS: Ipratropium 0.02% Inhal Soln (0.5 mg/2.5 ml) UD IH SCH ×3 (11:43→20:06)
--- NOTE | 2017-09-05 12:33 | CP.PCM.PN ---
Subjective - Date & Time of Evaluation Date of Evaluation: 09/05/17 Time of Evaluation: 11:30 - Subjective Subjective: FEELING BETTER AND SOB IS LESS THAN YESTERDAY NO CHEST PAIN Objective - Vital Signs/Intake and Output Vital Signs (last 24 hours): Temp Pulse Resp BP Pulse Ox 97.8 F 110 H 18 111/66 96 09/05/17 09:00 09/05/17 09:00 09/05/17 10:58 09/05/17 09:00 09/05/17 09:00 Intake and Output: 09/05/17 09/05/17 06:59 18:59 Intake Total 460 350 Balance 460 350 - Medications Medications: Current Medications Allopurinol (Zyloprim) 100 mg PO DAILY [facility] Last Admin: 09/05/17 08:42 Dose: 100 mg Aspirin (Ecotrin) 81 mg PO DAILY [facility] Last Admin: 09/05/17 08:39 Dose: 81 mg Atorvastatin Calcium (Lipitor) 10 mg PO DAILY [facility] Last Admin: 09/05/17 08:41 Dose: 10 mg Benzonatate (Tessalon Perles) 200 mg PO TID PRN PRN Reason: Cough Last Admin: 09/04/17 18:28 Dose: 200 mg Clopidogrel Bisulfate (Plavix) 75 mg PO DAILY [facility] Last Admin: 09/05/17 08:41 Dose: 75 mg Enoxaparin Sodium (Lovenox) 30 mg SC DAILY [facility] PRN Reason: Protocol Last Admin: 09/05/17 08:41 Dose: 30 mg Furosemide (Lasix) 40 mg IVP DAILY [facility] Levofloxacin/Dextrose (Levaquin 750mg) 750 mg in 150 mls @ 100 mls/hr IVPB Q48H [facility] Last Admin: 09/05/17 08:40 Dose: 100 mls/hr Ipratropium [place] (Atrovent) 0.5 mg IH RQID [facility] Last Admin: 09/05/17 11:43 Dose: 0.5 mg Levalbuterol HCl (Xopenex) 0.63 mg INH RQ4 PRN PRN Reason: Shortness of Breath Methylprednisolone (Solu-Medrol) 30 mg IVP Q12 [facility] Metoprolol Succinate (Toprol Xl) 50 mg PO DAILY [facility] Last Admin: 09/05/17 08:42 Dose: 50 mg Montelukast Sodium (Singulair) 10 mg PO DAILY [facility] Last Admin: 09/05/17 08:41 Dose: 10 mg Pantoprazole Sodium (Protonix Ec Tab) 40 mg PO DAILY [facility] Last Admin: 09/05/17 08:41 Dose: 40 mg - Labs Labs: 09/05/17 04:15 09/05/17 04:15 PT 11.5 Seconds (9.8-13.1) 09/03/17 20:50 INR 1.0 (0.9-1.2) 09/03/17 20:50 APTT 31.8 Seconds (25.6-37.1) 09/03/17 20:50 - Respiratory Exam Respiratory Exam: Rhonchi - Cardiovascular Exam Cardiovascular Exam: Tachycardia, Irregular Rhythm, +S1, +S2 - Extremities Exam Additional comments: TRACE ANKLE EDEMA - Additional Findings Additional findings: 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
--- NOTE | 2017-09-05 14:16 | PQF GENQUE ---
Dr. Orr, ER MD and Critical Care MD note of 09/05/17 documented the following information with no mention of this diagnosis in your documentation. Please indicate in your next progress note and/or discharge summary your agreement with tax credit leasing consultant or provide clarification that this diagnosis is not a current condition. Diagnosis: Sepsis ( if ruled in etiology if known) Please clarify if this was an active condition(s) that resolved prior to discharge or this condition(s) was ruled out. blood cult: prelim: 24 hrs: negative ABG: lactate:1,5 WBC: 7.9->5.4->8.4 09/03 :V/S tab in the EMR: Pulse:146->119->114->113->121->115 Respiration:21->26->26->25->26->24 Attending progress note: Assessment and Plan : (1) Acute hypercapnic respiratory failure Status: Acute (2) Pneumonia Status: Acute (3) Acute on chronic diastolic CHF (congestive heart failure) Status: Acute (4) Asthma with acute exacerbation Status: Acute (5) Atrial fibrillation with rapid ventricular response Status: Acute (6) H/O sick sinus syndrome Status: Chronic (7) Acute kidney injury superimposed on CKD Status: Acute (8) CAD (coronary artery disease) Status: Chronic This form is a permanent part of the medical record Clarification of your documentation is requested to better reflect the severity of illness and intensity of treatment of your patient. Indicators present [] Specify: [] [] Specify: [] [] Specify: [] [] Specify: [] Location in the medical record that reflects the above clinical findings: [] Treatment Provided: [] PHYSICIAN'S RESPONSE Sepsis ruled out Based on your medical judgment of the clinical indicators outlined above please clarify the following: [] Practitioner response [] If unable to determine, please check the box, sign and date. Present On Admission (POA) Indicator: [] Present at the time of admission [] Not present at the time of admission [] Clinically Undetermined In responding to this query, please exercise your independent professional judgment. The fact that a question is asked does not imply that any particular answer is desired or expected. Thank you for your clarification on this documentation. If you have any questions please call. * Thank you, Michela Rivera RN ext. #[phone] MTDD
--- NOTE | 2017-09-05 14:19 | PQF GENQUE ---
Dr. Orr, Please specify type of pneumonia in the progress notes: if known Note: CAP, HAP, and HCAP indicate where the pneumonia was acquired, not a specific type. Aspiration pneumonia Please document specific aspirate (food, liquids, etc.) [place] (please indicate specific cause) Please indicate if this is postprocedural Bacterial (specify organism) Bronchopneumonia (specify organism) Interstitual pneumonia Organizing pneumonia/BOOP Pneumonia with influenza, keshia flu, or H1N1 flu RSV pneumonia Tuberculosis, pulmonary Viral pneumonia Other pneumonia (specify organism or type) Clinically unable to determine Unknown 2. Please specify the organism causing the pneumonia:if known after the work up is completed Note: CAP, HAP, and HCAP indicate where the pneumonia was acquired, not a specific type. This form is a permanent part of the medical record Clarification of your documentation is requested to better reflect the severity of illness and intensity of treatment of your patient. Indicators present [] Specify: [] [] Specify: [] [] Specify: [] [] Specify: [] Location in the medical record that reflects the above clinical findings: [] Treatment Provided: [] PHYSICIAN'S RESPONSE Pneumonia ruled out Based on your medical judgment of the clinical indicators outlined above please clarify the following: [] Practitioner response [] If unable to determine, please check the box, sign and date. Present On Admission (POA) Indicator: [] Present at the time of admission [] Not present at the time of admission [] Clinically Undetermined In responding to this query, please exercise your independent professional judgment. The fact that a question is asked does not imply that any particular answer is desired or expected. Thank you for your clarification on this documentation. If you have any questions please call. * Thank you, Michela Rivera RN ext. #[phone] MTDD
[2017-09-05] MEDS: Levalbuterol 0.63 MG/3 ML Inhal Soln UD INH PRN ×2 (16:18→20:06)
[2017-09-05] MEDS ORDERED: methylPREDNISolone 30 MG in Sodium Chloride 0.9% 50 ML IV SCH (21:00)
[2017-09-06 05:54] LABS: HEMOGLOBIN 14.1 g/dL (12.0-16.0); MEAN CELL VOLUME 91.9 fl (81.0-99.0); MEAN CORPUSCULAR HEMOGLOBIN 28.7 pg (27.0-31.0); MEAN CORPUSCULAR HGB CONC 31.3 g/dL (33.0-37.0); RBC 4.91 Mil/uL (3.80-5.20); RED CELL DISTRIBUTION WIDTH 16.8 % (11.5-14.5); WHITE BLOOD COUNT 9.9 K/uL (4.8-10.8)
[2017-09-06] MEDS: Ipratropium 0.02% Inhal Soln (0.5 mg/2.5 ml) UD IH SCH ×4 (07:55→19:03)
[2017-09-06] MEDS: Levalbuterol 0.63 MG/3 ML Inhal Soln UD INH PRN ×2 (07:55→11:05)
[2017-09-06] MEDS: Enoxaparin 30 mg Syringe SC SCH (08:28)
[2017-09-06] MEDS: Metoprolol Succinate 100 mg XL Tab PO SCH (08:29)
[2017-09-06] MEDS: MethylPREDNISolone 40 mg Vial IVP SCH ×2 (08:29→21:29)
[2017-09-06] MEDS: Pantoprazole 40 mg EC Tab PO SCH (08:32)
--- NOTE | 2017-09-06 09:45 | CP.PCM.PN ---
Subjective - Date & Time of Evaluation Date of Evaluation: 09/06/17 Time of Evaluation: 09:42 - Subjective Subjective: Seated on the EOB. Claims she feels much improved. Has had dose of metoprolol increased to 100MG daily from 50. 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 No sputum being expectorated. Only occasional cough. Able to ambulate to the bathroom with O2 in place. SpO2 remains 92-98% on HFNC. Trace ankle edema noted, L>R, w/o cyanosis. Neck is supple and trachea midline. No dullness on chest percussion. Breath sounds well heard bilaterally. Occasional sonorous and sibilant rhonchi bilaterally. No audible wheezing, no bronchial breathing. Heart sounds well heard, irregular, mildly tachy. BUN has increased to 72 this morning while creatinine has remained at 1.5. Chloride down to 95 and CO2 up to 35; watch for volume contraction. No leukocytosis and stable hemoglobin. Will try to place back on standard nasal canula to comply with patient wishes. Will begin at 5LPM with H2O bottle. Can switch antibiotic to PO for exacerbation of chronic bronchitis. Significant steroid induced hyperglycemia, will use accucheck coverage while on steroid therapy. May be transferred to telemetry. Objective - Vital Signs/Intake and Output Vital Signs (last 24 hours): Temp Pulse Resp BP Pulse Ox 98.0 F 109 H 16 137/90 95 09/06/17 08:00 09/06/17 08:29 09/06/17 08:00 09/06/17 08:34 09/06/17 08:00 Intake and Output: 09/05/17 09/06/17 23:59 11:59 Intake Total 270 Balance 270 - Medications Medications: Current Medications Allopurinol (Zyloprim) 100 mg PO DAILY [facility] Last Admin: 09/06/17 08:30 Dose: 100 mg Aspirin (Ecotrin) 81 mg PO DAILY [facility] Last Admin: 09/06/17 08:27 Dose: 81 mg Atorvastatin Calcium (Lipitor) 10 mg PO DAILY [facility] Last Admin: 09/06/17 08:27 Dose: 10 mg Benzonatate (Tessalon Perles) 200 mg PO TID PRN PRN Reason: Cough Last Admin: 09/04/17 18:28 Dose: 200 mg Clopidogrel Bisulfate (Plavix) 75 mg PO DAILY [facility] Last Admin: 09/06/17 08:28 Dose: 75 mg Enoxaparin Sodium (Lovenox) 30 mg SC DAILY [facility] PRN Reason: Protocol Last Admin: 09/06/17 08:28 Dose: 30 mg Furosemide (Lasix) 40 mg IVP DAILY [facility] Last Admin: 09/06/17 08:34 Dose: 40 mg Ipratropium [place] (Atrovent) 0.5 mg IH RQID [facility] Last Admin: 09/06/17 07:55 Dose: 0.5 mg Levalbuterol HCl (Xopenex) 0.63 mg INH RQ4 PRN PRN Reason: Shortness of Breath Last Admin: 09/06/17 07:55 Dose: 0.63 mg Levofloxacin (Levaquin) 250 mg PO DAILY [facility] PRN Reason: Protocol Methylprednisolone (Solu-Medrol) 30 mg IVP Q12 [facility] Last Admin: 09/06/17 08:29 Dose: 30 mg Metoprolol Succinate (Toprol Xl) 100 mg PO DAILY [facility] Last Admin: 09/06/17 08:29 Dose: 100 mg Montelukast Sodium (Singulair) 10 mg PO DAILY [facility] Last Admin: 09/06/17 08:29 Dose: 10 mg Pantoprazole Sodium (Protonix Ec Tab) 40 mg PO DAILY [facility] Last Admin: 09/06/17 08:32 Dose: 40 mg - Labs Labs: 09/06/17 04:20 09/06/17 04:20 PT 11.5 Seconds (9.8-13.1) 09/03/17 20:50 INR 1.0 (0.9-1.2) 09/03/17 20:50 APTT 31.8 Seconds (25.6-37.1) 09/03/17 20:50 Assessment and Plan (1) Acute hypercapnic respiratory failure Status: Acute (2) Acute bronchitis Status: Acute (3) Asthma with acute exacerbation Status: Acute (4) Atrial fibrillation with rapid ventricular response Status: Acute
[2017-09-06] MEDS ORDERED: Glucagon Recombinant 1 mg Inj IM PRN (10:01)
[2017-09-06] MEDS ORDERED: Dextrose 50% SYRINGE Inj (50 ml) IV PRN (10:01)
--- NOTE | 2017-09-06 11:01 | CP.PCM.PN ---
Subjective - Date & Time of Evaluation Date of Evaluation: 09/06/17 Time of Evaluation: 10:00 - Subjective Subjective: NO CHEST PAIN BREATHING AND FEELING BETTER TODAY Objective - Vital Signs/Intake and Output Vital Signs (last 24 hours): Temp Pulse Resp BP Pulse Ox 98.0 F 105 H 93 H 134/76 23 L 09/06/17 08:00 09/06/17 10:00 09/06/17 10:00 09/06/17 10:00 09/06/17 10:00 Intake and Output: 09/06/17 09/06/17 06:59 18:59 Intake Total 250 Balance 250 - Medications Medications: Current Medications Allopurinol (Zyloprim) 100 mg PO DAILY REPLACED BY [facility] Last Admin: 09/06/17 08:30 Dose: 100 mg Aspirin (Ecotrin) 81 mg PO DAILY REPLACED BY [facility] Last Admin: 09/06/17 08:27 Dose: 81 mg Atorvastatin Calcium (Lipitor) 10 mg PO DAILY REPLACED BY [facility] Last Admin: 09/06/17 08:27 Dose: 10 mg Benzonatate (Tessalon Perles) 200 mg PO TID PRN PRN Reason: Cough Last Admin: 09/06/17 10:08 Dose: 200 mg Clopidogrel Bisulfate (Plavix) 75 mg PO DAILY REPLACED BY [facility] Last Admin: 09/06/17 08:28 Dose: 75 mg Dextrose (Dextrose 50% Inj) 0 ml IV STAT PRN; Protocol PRN Reason: Hypoglycemia Protocol Dextrose (Glutose 15) 0 gm PO ONCE PRN; Protocol PRN Reason: Hypoglycemia Protocol Enoxaparin Sodium (Lovenox) 30 mg SC DAILY [facility]PLACED BY [facility] PRN Reason: Protocol Last Admin: 09/06/17 08:28 Dose: 30 mg Glucagon (Glucagen Diagnostic Kit) 0 mg IM STAT PRN; Protocol PRN Reason: Hypoglycemia Protocol Insulin Human Regular (Humulin R) 0 units SC ACHS REPLACED BY [facility] PRN Reason: Protocol Ipratropium [place] (Atrovent) 0.5 mg IH RQID REPLACED BY [facility] Last Admin: 09/06/17 07:55 Dose: 0.5 mg Levalbuterol HCl (Xopenex) 0.63 mg INH RQ4 PRN PRN Reason: Shortness of Breath Last Admin: 09/06/17 07:55 Dose: 0.63 mg Levofloxacin (Levaquin) 250 mg PO DAILY REPLACED BY [facility] PRN Reason: Protocol Methylprednisolone (Solu-Medrol) 30 mg IVP Q12 REPLACED BY [facility] Last Admin: 09/06/17 08:29 Dose: 30 mg Metoprolol Succinate (Toprol Xl) 100 mg PO DAILY REPLACED BY [facility] Last Admin: 09/06/17 08:29 Dose: 100 mg Montelukast Sodium (Singulair) 10 mg PO DAILY REPLACED BY [facility] Last Admin: 09/06/17 08:29 Dose: 10 mg Pantoprazole Sodium (Protonix Ec Tab) 40 mg PO DAILY REPLACED BY [facility] Last Admin: 09/06/17 08:32 Dose: 40 mg - Labs Labs: 09/06/17 04:20 09/06/17 04:20 PT 11.5 Seconds (9.8-13.1) 09/03/17 20:50 INR 1.0 (0.9-1.2) 09/03/17 20:50 APTT 31.8 Seconds (25.6-37.1) 09/03/17 20:50 - Respiratory Exam Additional comments: GOOD AIR ENTRY BILAT MILD RONCHI BILAT - Extremities Exam Additional comments: TRACE ANKLE EDEMA - Additional Findings Additional findings: 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 ATRIAL FIB/FLUTTER WITH SLOWER HEART RATES BUT STILL TACHYCARDIC WITH RATES FROM 100 TO 110 PRESENTLY ON THE MONITOR BUN/CR 09/03 44/1.5 BUN/CR 09/06 72/1.5 Assessment and Plan - Assessment and Plan (Free Text) Assessment: COPD EXACERBATION WITH BRONCHITIS ASTHMA CAD-STABLE MILD DIASTOLIC CHF ATRIAL FIBRILLATION WITH RVR-IMPROVING HYPERTENSION HYPERLIPIDEMIA PROBABLE VOLUME CONTRACTION WITH RISING BUN Plan: CONTINUE ANTIBIOTICS, ASPIRIN, CLOPIDOGREL, ATORVASTATIN, LOVENOX AND STEROIDS METOPROLOL INCREASED TO 100 MGS DAILY DUE TO TACHYCARDIA FUROSEMIDE DISCONTINUED PATIENT IS IMPROVING CLINICALLY AND BUN IS RISING OK TO TRANSFER TO 4N ON TELEMETRY
[2017-09-06] MEDS: Insulin Regular 100 units/ml SC SCH ×3 (11:16→21:30)
--- NOTE | 2017-09-06 15:54 | CP.PCM.PN ---
Subjective - Date & Time of Evaluation Date of Evaluation: 09/06/17 Time of Evaluation: 09:00 - Subjective Subjective: Patient was seen and examined at bedside. Now on oxygen by nasal cannula. States her breathing has improved. Still tachycardic on the monitor 110-120. Ambulatory. Denies cp/sob/f/c/n/v/d. Objective - Vital Signs/Intake and Output Vital Signs (last 24 hours): Temp Pulse Resp BP Pulse Ox 97.3 F L 111 H 20 131/71 99 09/06/17 12:00 09/06/17 13:00 09/06/17 13:00 09/06/17 13:00 09/06/17 13:00 Intake and Output: 09/06/17 09/06/17 06:59 18:59 Intake Total 370 Balance 370 - Medications Medications: Current Medications Allopurinol (Zyloprim) 100 mg PO DAILY [facility] Last Admin: 09/06/17 08:30 Dose: 100 mg Aspirin (Ecotrin) 81 mg PO DAILY [facility] Last Admin: 09/06/17 08:27 Dose: 81 mg Atorvastatin Calcium (Lipitor) 10 mg PO DAILY [facility] Last Admin: 09/06/17 08:27 Dose: 10 mg Benzonatate (Tessalon Perles) 200 mg PO TID PRN PRN Reason: Cough Last Admin: 09/06/17 10:08 Dose: 200 mg Clopidogrel Bisulfate (Plavix) 75 mg PO DAILY [facility] Last Admin: 09/06/17 08:28 Dose: 75 mg Dextrose (Dextrose 50% Inj) 0 ml IV STAT PRN; Protocol PRN Reason: Hypoglycemia Protocol Dextrose (Glutose 15) 0 gm PO ONCE PRN; Protocol PRN Reason: Hypoglycemia Protocol Enoxaparin Sodium (Lovenox) 30 mg SC DAILY [facility] PRN Reason: Protocol Last Admin: 09/06/17 08:28 Dose: 30 mg Glucagon (Glucagen Diagnostic Kit) 0 mg IM STAT PRN; Protocol PRN Reason: Hypoglycemia Protocol Insulin Human Regular (Humulin R) 0 units SC [facility] PRN Reason: Protocol Last Admin: 09/06/17 11:16 Dose: 4 units Ipratropium [place] (Atrovent) 0.5 mg IH RQID [facility] Last Admin: 09/06/17 11:04 Dose: 0.5 mg Levalbuterol HCl (Xopenex) 0.63 mg INH RQ4 PRN PRN Reason: Shortness of Breath Last Admin: 09/06/17 11:05 Dose: 0.63 mg Levofloxacin (Levaquin) 250 mg PO DAILY [facility] PRN Reason: Protocol Methylprednisolone (Solu-Medrol) 30 mg IVP Q12 [facility] Last Admin: 09/06/17 08:29 Dose: 30 mg Metoprolol Succinate (Toprol Xl) 100 mg PO DAILY [facility] Last Admin: 09/06/17 08:29 Dose: 100 mg Montelukast Sodium (Singulair) 10 mg PO DAILY [facility] Last Admin: 09/06/17 08:29 Dose: 10 mg Pantoprazole Sodium (Protonix Ec Tab) 40 mg PO DAILY [facility] Last Admin: 09/06/17 08:32 Dose: 40 mg - Labs Labs: 09/06/17 04:20 09/06/17 04:20 PT 11.5 Seconds (9.8-13.1) 09/03/17 20:50 INR 1.0 (0.9-1.2) 09/03/17 20:50 APTT 31.8 Seconds (25.6-37.1) 09/03/17 20:50 - Additional Findings Additional findings: Physical exam: Constitutional- cooperative, awake, alert Head- NCAT, PERRL Eye- PERRL, EOMI ENT- normal exam, MMM. Neck- normal inspection, supple, no JVD Respiratory- CTAB, no wheezes rales. + Rhonchi bilaterally Cardiovascular- irregular rate and rhythm +S1, +S2 no MRG GI/Abdominal- normal bowel sounds, soft, no mass, no hsm Skin- warm, dry Extremities Exam- normal capillary refill, normal inspection Neurological Exam- alert, awake, oriented Psych- normal mood, normal affect Assessment and Plan - Assessment and Plan (Free Text) Plan: Assessment and Plan (1) Acute hypercapnic respiratory failure Status: Acute (2) Pneumonia Status: Acute (3) Acute on chronic diastolic CHF (congestive heart failure) Status: Acute (4) Asthma with acute exacerbation Status: Acute (5) Atrial fibrillation with rapid ventricular response Status: Acute (6) H/O sick sinus syndrome Status: Chronic (7) Acute kidney injury superimposed on CKD Status: Acute (8) CAD (coronary artery disease) Status: Chronic - Assessment and Plan (Free Text) Assessment: 81 y/o lady with hx of CAD, CHF, A Fib, SS s/p Pacemaker, HTN, Asthma, came in bec of cough and SOB. Pt had elevated prop BNP and CXR : Pulm Vasc Congestion and ? Infiltrates, now thought to be more likely bronchitis (1) Acute hypercapnic respiratory failure sec to CHF exaerb and Asthma exzacerb Status: Acute admitted to ICU for close monitoring Pt came in dyspneic PCO2= 72, started on Bipap now on NC Resp better after steroids , Neb tx and Diuretics Xopenex tx RTC and prn cont Lasix Pulmonary and Cardio consulted (2) Acute Bronchitis , ( Sepsis and Pneumonia ruled out) Status: Acute CXR : ? infiltrates , + cough, dyspnea cont IV Levaquin ( allergic to PCN) rpt CXR : improved Pulm vasc congestion and no PNA (3) Acute on chronic diastolic CHF (congestive heart failure) Status: Acute improved with cont IV Lasix 40 bid- Lasix now discontinued elevated propBNP to 16L now 8K previous ECHO showed diastolic dysfunction , EF 50 % (EF 65% on Myocardial scan) cont Toprol XL- increased from 50 to 100 mg po daily (4) Asthma with acute exacerbation- improved Status: Acute pt has + wheezing on admission w/c now is better decrease IV Solumedrol 30 q 12 cont Xopenex (5) Atrial fibrillation / A Fultter with rapid ventricular response Status: Acute cont Toprol , will increase dose to 100 mg daily as discussed with Dr Kapadia unable to tolerate Digoxin Pt known even from previous admissions to refuse therapeutic anticoagulation Albuterol discontinued- continue Atrovent only as albuterol is exacerbating her tachycardia (6) H/O sick sinus syndrome s/p Pacemaker Status: Chronic (7) Acute kidney injury superimposed on CKD. BUN increased from yesterday Status: Acute hx of CKD stage II-III, Crea now up to 1.5 Lasix discontinued BUN 66 -> 72 today Cr still 1.5 (8) CAD (coronary artery disease) Status: Chronic Myocardial Perfusion scan done 06/26 : Apical Ischemia cont ASA, Plavix, statin, BB Cardio consult : Dr Kapadia (9) Steroid induced hyperglycemia - Accuchecks with sliding scale insulin - Plan to taper steroids if patient continues to improve from respiratory standpoint - Heart healthy, moderate carb diet 9. DVT Proph: Lovenox
[2017-09-06] MEDS ORDERED: guaiFENesin 200 mg/10 ml Syrup UD PO PRN (18:31)
[2017-09-07 05:26] LABS: HEMOGLOBIN 14.9 g/dL (12.0-16.0); MEAN CELL VOLUME 92.6 fl (81.0-99.0); MEAN CORPUSCULAR HEMOGLOBIN 28.8 pg (27.0-31.0); MEAN CORPUSCULAR HGB CONC 31.1 g/dL (33.0-37.0); RBC 5.16 Mil/uL (3.80-5.20); RED CELL DISTRIBUTION WIDTH 16.6 % (11.5-14.5); WHITE BLOOD COUNT 9.1 K/uL (4.8-10.8)
[2017-09-07 05:38] LABS: CALCIUM 9.8 mg/dL (8.4-10.2)
[2017-09-07] MEDS: Insulin Regular 100 units/ml SC SCH ×4 (06:51→22:09)
[2017-09-07] MEDS: Ipratropium 0.02% Inhal Soln (0.5 mg/2.5 ml) UD IH SCH ×5 (08:28→19:47)
[2017-09-07] MEDS: Metoprolol Succinate 100 mg XL Tab PO SCH (08:32)
[2017-09-07] MEDS: Pantoprazole 40 mg EC Tab PO SCH (08:34)
[2017-09-07] MEDS: Enoxaparin 30 mg Syringe SC SCH (08:34)
[2017-09-07] MEDS: MethylPREDNISolone 40 mg Vial IVP SCH ×2 (08:39→10:42)
--- NOTE | 2017-09-07 09:35 | PN ---
DATE: 09/06/2017 SUBJECTIVE: The patient in ICU bed 426. Time spent 25 minutes. The patient is seen and evaluated at the bedside. Past medical, surgical and social history reviewed. Events overnight noted. A 81-year-old female with history of coronary artery disease, congestive heart failure, atrial fibrillation, sick sinus syndrome status post permanent pacemaker insertion, hypertension, and chronic asthma, admitted with hypercapnic hypoxic respiratory failure on high-flow nasal oxygen seated at the bedside. Less short of breath. Denies some headache. No chest pain or palpitation. No abdominal discomfort. OBJECTIVE: VITAL SIGNS: Telemetry, heart rate varying from 105-140 alternating atrial fibrillation/flutter sinus rhythm, temperature 97.3, blood pressure 136, mean arterial pressure 85, oxygen saturations 97%. INTAKE AND OUTPUT: 620 mL, output 620, negative balance. Weight unchanged. HEENT: Pupils reactive. Conjunctivae pink. Sclerae white. NECK: Supple. Trachea central. CHEST: Bilateral breath sounds diminished in intensity. Scattered rhonchi bilaterally. No audible wheezing. HEART: Rhythm irregular. ABDOMEN: Bowel sounds present. Soft. EXTREMITIES: Trace edema. NEUROLOGIC: Nonfocal. LABORATORY DATA: WBC 9.9, hemoglobin 14.1, hematocrit 45.1, and platelet count 159. PT 11.5, INR 1, and PTT 31.8. ABG; pH 7.34, pCO2 of 66, pO2 109, and oxygen saturation 99.1 on FiO2 of 40%, high-flow nasal oxygen, currently on nasal supplement 4 liters, saturating over 94%. SMA-7; sodium 140, , chloride 95, CO2 35, blood urea nitrogen 72, creatinine 1.5, glucose 273, and calcium 10. ProBNP 8420. Procalcitonin 0.08. Influenza A and B negative. CURRENT MEDICATIONS: Allopurinol 100 mg daily, aspirin 81 mg daily, Lipitor 10 mg daily, Tessalon Perles 200 mg 3 times daily, Plavix 75 mg daily, Lovenox 30 subcu daily, Accu-Chek with regular insulin coverage, ipratropium bromide 0.5 mg four times a day, Xopenex 0.63 mg q.4 hours, levofloxacin 250 mg daily, Solu-Medrol 30 mg IV q.12 hours, Toprol 100 mg p.o. daily, Singulair 10 mg p.o. daily, and Protonix 40 daily. IMPRESSION: 1. Neuro: Alert and awake, follows commands appropriate. 2. Cardiac: Sick sinus syndrome with variable heart rate, on metoprolol, increased dose from 50 mg to 100 mg. Remains normotensive. 3. Pulmonary: History of chronic asthma with exacerbation, acute hypercapnic respiratory failure, improving on high-flow nasal oxygen, currently switched on to 4 liters nasal cannula. Continue bronchodilator with Xopenex and Atrovent. 4. Infectious Disease: Respiratory infection, continue current antibiotic. 5. Gastrointestinal: No acute issues. Continue GI prophylaxis. 6. Renal: Prerenal azotemia, superimposed on [id number] secondary to dehydration and/or due to systemic steroid, reduced renal perfusion. 7. Endocrine: Hyperglycemia, secondary to systemic steroid. Closely monitor blood sugar, maintain below 180 mg. Encourage ambulation as tolerated. 8. Deep vein thrombosis prophylaxis on Lovenox 30 subcu daily. Jadiel Malin MD MTDD
--- NOTE | 2017-09-07 10:15 | CP.PCM.PN ---
Subjective - Date & Time of Evaluation Date of Evaluation: 09/07/17 Time of Evaluation: 10:05 - Subjective Subjective: seated on the edge of her bed, appears comfortable. SpO2 96-98% on nasal canula. HR 90-120BPM irregular. Relates some hallucinations which may be secondary to her quinolone or the steroids. She has been breathing much more easily. Morning labs show further decline in renal function. Urine output remains okay. Accucheck insulin coverage is ongoing. Trace dependant ankle edema, toes are cool and dusky. No calf tenderness. Neck is supple and trachea midline. No dullness on chest percussion. Increased AP diameter of thorax. Breath sounds are diminished bilaterally with medium rales in both lower lobes posteriorly. No audible wheezing or bronchial breathing. No rub. Only occasional rhonchi. Heart sounds are well heard, rhythm is irregular. Mediacations were reviewed. Levaquin discontinued, solumedrol reduced further, allopurinol held. Renal ultrasound requested and Nephrology consult as well. Stable on standard nasal canula and this was decreased to 4LPM flow. Remains stable for transfer to telemetry if bed becomes available. Hyperglycemia should decrease as steroid dose is reduced and stopped. Objective - Vital Signs/Intake and Output Vital Signs (last 24 hours): Temp Pulse Resp BP Pulse Ox 97.5 F L 102 H 18 114/95 H 100 09/07/17 08:00 09/07/17 09:00 09/07/17 09:00 09/07/17 09:00 09/07/17 09:00 Intake and Output: 09/06/17 09/07/17 23:59 11:59 Intake Total 220 360 Balance 220 360 - Medications Medications: Current Medications Allopurinol (Zyloprim) 100 mg PO DAILY [facility] Last Admin: 09/07/17 08:32 Dose: 100 mg Aspirin (Ecotrin) 81 mg PO DAILY [facility] Last Admin: 09/07/17 08:34 Dose: 81 mg Atorvastatin Calcium (Lipitor) 10 mg PO DAILY [facility] Last Admin: 09/07/17 08:34 Dose: 10 mg Benzonatate (Tessalon Perles) 200 mg PO TID PRN PRN Reason: Cough Last Admin: 09/06/17 10:08 Dose: 200 mg Clopidogrel Bisulfate (Plavix) 75 mg PO DAILY [facility] Last Admin: 09/07/17 08:32 Dose: 75 mg Dextrose (Dextrose 50% Inj) 0 ml IV STAT PRN; Protocol PRN Reason: Hypoglycemia Protocol Dextrose (Glutose 15) 0 gm PO ONCE PRN; Protocol PRN Reason: Hypoglycemia Protocol Enoxaparin Sodium (Lovenox) 30 mg SC DAILY [facility] PRN Reason: Protocol Last Admin: 09/07/17 08:34 Dose: 30 mg Glucagon (Glucagen Diagnostic Kit) 0 mg IM STAT PRN; Protocol PRN Reason: Hypoglycemia Protocol Guaifenesin (Robitussin) 200 mg PO Q6 PRN PRN Reason: Cough Last Admin: 09/06/17 18:38 Dose: 200 mg Insulin Human Regular (Humulin R) 0 units SC ACHS [facility] PRN Reason: Protocol Last Admin: 09/07/17 06:51 Dose: 2 units Ipratropium [place] (Atrovent) 0.5 mg IH RQID [facility] Last Admin: 09/07/17 08:59 Dose: 0.5 mg Levalbuterol HCl (Xopenex) 0.63 mg INH RQ4 PRN PRN Reason: Shortness of Breath Last Admin: 09/06/17 11:05 Dose: 0.63 mg Methylprednisolone (Solu-Medrol) 30 mg IVP DAILY [facility] Metoprolol Succinate (Toprol Xl) 100 mg PO DAILY [facility] Last Admin: 09/07/17 08:32 Dose: 100 mg Montelukast Sodium (Singulair) 10 mg PO DAILY [facility] Last Admin: 09/07/17 08:34 Dose: 10 mg Pantoprazole Sodium (Protonix Ec Tab) 40 mg PO DAILY [facility] Last Admin: 09/07/17 08:34 Dose: 40 mg - Labs Labs: 09/07/17 04:30 09/07/17 04:30 PT 11.5 Seconds (9.8-13.1) 09/03/17 20:50 INR 1.0 (0.9-1.2) 09/03/17 20:50 APTT 31.8 Seconds (25.6-37.1) 09/03/17 20:50 Assessment and Plan (1) Acute hypercapnic respiratory failure Status: Acute (2) Acute bronchitis Status: Acute (3) Asthma with acute exacerbation Status: Acute (4) Atrial fibrillation with rapid ventricular response Status: Acute (5) Acute kidney injury superimposed on CKD Status: Acute
--- NOTE | 2017-09-07 11:53 | CP.PCM.PN ---
Subjective - Date & Time of Evaluation Date of Evaluation: 09/07/17 Time of Evaluation: 10:00 - Subjective Subjective: NO CHEST PAIN BREATHING COMFORTABLY TODAY Objective - Vital Signs/Intake and Output Vital Signs (last 24 hours): Temp Pulse Resp BP Pulse Ox 97.5 F L 94 H 19 109/58 L 97 09/07/17 08:00 09/07/17 11:00 09/07/17 11:00 09/07/17 11:00 09/07/17 11:00 Intake and Output: 09/07/17 09/07/17 06:59 18:59 Intake Total 360 Balance 360 - Medications Medications: Current Medications Allopurinol (Zyloprim) 100 mg PO DAILY [facility] Last Admin: 09/07/17 08:32 Dose: 100 mg Aspirin (Ecotrin) 81 mg PO DAILY [facility] Last Admin: 09/07/17 08:34 Dose: 81 mg Atorvastatin Calcium (Lipitor) 10 mg PO DAILY [facility] Last Admin: 09/07/17 08:34 Dose: 10 mg Benzonatate (Tessalon Perles) 200 mg PO TID PRN PRN Reason: Cough Last Admin: 09/06/17 10:08 Dose: 200 mg Clopidogrel Bisulfate (Plavix) 75 mg PO DAILY [facility] Last Admin: 09/07/17 08:32 Dose: 75 mg Dextrose (Dextrose 50% Inj) 0 ml IV STAT PRN; Protocol PRN Reason: Hypoglycemia Protocol Dextrose (Glutose 15) 0 gm PO ONCE PRN; Protocol PRN Reason: Hypoglycemia Protocol Enoxaparin Sodium (Lovenox) 30 mg SC DAILY [facility] PRN Reason: Protocol Last Admin: 09/07/17 08:34 Dose: 30 mg Glucagon (Glucagen Diagnostic Kit) 0 mg IM STAT PRN; Protocol PRN Reason: Hypoglycemia Protocol Guaifenesin (Robitussin) 200 mg PO Q6 PRN PRN Reason: Cough Last Admin: 09/06/17 18:38 Dose: 200 mg Insulin Human Regular (Humulin R) 0 units SC ACHS [facility] PRN Reason: Protocol Last Admin: 09/07/17 11:18 Dose: 4 units Ipratropium [place] (Atrovent) 0.5 mg IH RQID [facility] Last Admin: 09/07/17 11:43 Dose: 0.5 mg Levalbuterol HCl (Xopenex) 0.63 mg INH RQ4 PRN PRN Reason: Shortness of Breath Last Admin: 09/06/17 11:05 Dose: 0.63 mg Methylprednisolone (Solu-Medrol) 30 mg IVP DAILY [facility] Last Admin: 09/07/17 10:42 Dose: Not Given Metoprolol Succinate (Toprol Xl) 100 mg PO DAILY [facility] Last Admin: 09/07/17 08:32 Dose: 100 mg Montelukast Sodium (Singulair) 10 mg PO DAILY [facility] Last Admin: 09/07/17 08:34 Dose: 10 mg Pantoprazole Sodium (Protonix Ec Tab) 40 mg PO DAILY [facility] Last Admin: 09/07/17 08:34 Dose: 40 mg - Labs Labs: 09/07/17 04:30 09/07/17 04:30 PT 11.5 Seconds (9.8-13.1) 09/03/17 20:50 INR 1.0 (0.9-1.2) 09/03/17 20:50 APTT 31.8 Seconds (25.6-37.1) 09/03/17 20:50 - Respiratory Exam Respiratory Exam: Clear to Ausculation Bilateral - Cardiovascular Exam Cardiovascular Exam: Tachycardia, Irregular Rhythm, +S1, +S2 - Additional Findings Additional findings: 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
--- NOTE | 2017-09-07 13:14 | CP.PCM.CON ---
History of Present Illness - History of Present Illness History of Present Illness: The patient is a 81 years of age was consulted to see for abnormal kidney function. At at the bedside and the patient gave history of shortness of breath difficulty breathing she has been taking Lasix among other medication. Patient stated she has no history of diabetes mellitus and she did not take any medication for diabetes although blood sugar is elevated now. Patient was admitted previously because of hyperkalemia and serum creatinine baseline 1.1 back then in February 2017. ROS: 14 systems reviewed, negative other than HPI MHx: Asthma, CAD, CHF, A fib/SSS, cardiac stenting with history of pacemaker. SHx: Stent x 1, PPM, knee surgery distant past Allergies: PCN Family Hx: Mother- [place] Social Hx: Lives , no tobacco or EtOH Surrogate: Review of Systems - Constitutional Constitutional: absent: Anorexia, Chills, Night Sweats - EENT Eyes: absent: Exophthalmos, Itchy Eyes, Pain Ears: As Per HPI. absent: Ear Discharge Nose/Mouth/Throat: absent: Nasal Congestion - Cardiovascular Cardiovascular: Dyspnea on Exertion, Irregular Heart Rhythm. absent: Acrocyanosis, Chest Pain, Edema, Leg Edema, Syncope - Respiratory Respiratory: Dyspnea on Exertion. absent: Hemoptysis, Excessive Mucous Production - Gastrointestinal Gastrointestinal: absent: Abdominal Pain, Coffee Ground Emesis, Diarrhea, Vomiting - Genitourinary Genitourinary: Nocturia. absent: Hematuria - Musculoskeletal Musculoskeletal: Muscle Weakness. absent: Back Pain, Numbness - Neurological Neurological: absent: Abnormal Movements, Confusion, Headaches - Hematologic/Lymphatic Hematologic: absent: Easy Bleeding Past Patient History - Infectious Disease Hx of Infectious Diseases: None - Tetanus Immunizations Tetanus Immunization: Unknown - Past Medical History & Family History Past Medical History?: Yes - Past Social History Smoking Status: Never Smoked Chewing Tobacco Use: No Cigar Use: No Drugs: Denies Home Situation {Lives}: With Family Domestic Violence: Negative - CARDIAC Hx Atrial Fibrillation: Yes Hx Cardia Arrhythmia: Yes Hx Congestive Heart Failure: Yes Hx Heart Attack: Yes Hx Hypercholesterolemia: Yes Hx Hypertension: Yes Hx Pacemaker: Yes - PULMONARY Hx Asthma: Yes Hx Bronchitis: Yes Hx Chronic Obstructive Pulmonary Disease (COPD): Yes Hx Pneumonia: Yes - NEUROLOGICAL Hx Neurological Disorder: No - HEENT Hx Cataracts: Yes Other/Comment: wears glasses - RENAL Hx Chronic Kidney Disease: No Hx Kidney Stones: No - ENDOCRINE/METABOLIC Hx Endocrine Disorders: No - HEMATOLOGICAL/ONCOLOGICAL Hx Blood Disorders: No Hx Human Immunodeficiency Virus (HIV): No - INTEGUMENTARY Hx Melanoma: Yes (lip) Hx Squamous Cell: Yes (anterior chest wall) - MUSCULOSKELETAL/RHEUMATOLOGICAL Hx Arthritis: Yes Hx Falls: Yes - GASTROINTESTINAL Hx Gall Bladder Disease: Yes (removed years ago) Hx Gastritis: Yes Hx Pancreatitis: No - GENITOURINARY/GYNECOLOGICAL Hx Genitourinary Disorders: No Hx Sexually Transmitted Disorders: No - PSYCHIATRIC Hx Psychophysiologic Disorder: No - SURGICAL HISTORY Hx Appendectomy: Yes Hx Cataract Extraction: Yes Hx Cholecystectomy: Yes Hx Coronary Artery Bypass Graft: Yes Hx Coronary Stent: Yes Hx Joint Replacement: Yes (left knee replacement) Hx Tonsillectomy: Yes - ANESTHESIA Hx Anesthesia: Yes Hx Anesthesia Reactions: No Hx Malignant Hyperthermia: No Meds Allergies/Adverse Reactions: Allergies Allergy/AdvReac Type Severity Reaction Status Date / Time Penicillins Allergy RASH Verified 09/03/17 20:00 - Medications Medications: Current Medications Allopurinol (Zyloprim) 100 mg PO DAILY [facility] Last Admin: 09/07/17 08:32 Dose: 100 mg Aspirin (Ecotrin) 81 mg PO DAILY [facility] Last Admin: 09/07/17 08:34 Dose: 81 mg Atorvastatin Calcium (Lipitor) 10 mg PO DAILY [facility] Last Admin: 09/07/17 08:34 Dose: 10 mg Benzonatate (Tessalon Perles) 200 mg PO TID PRN PRN Reason: Cough Last Admin: 09/06/17 10:08 Dose: 200 mg Clopidogrel Bisulfate (Plavix) 75 mg PO DAILY [facility] Last Admin: 09/07/17 08:32 Dose: 75 mg Dextrose (Dextrose 50% Inj) 0 ml IV STAT PRN; Protocol PRN Reason: Hypoglycemia Protocol Dextrose (Glutose 15) 0 gm PO ONCE PRN; Protocol PRN Reason: Hypoglycemia Protocol Enoxaparin Sodium (Lovenox) 30 mg SC DAILY [facility] PRN Reason: Protocol Last Admin: 09/07/17 08:34 Dose: 30 mg Glucagon (Glucagen Diagnostic Kit) 0 mg IM STAT PRN; Protocol PRN Reason: Hypoglycemia Protocol Guaifenesin (Robitussin) 200 mg PO Q6 PRN PRN Reason: Cough Last Admin: 09/06/17 18:38 Dose: 200 mg Insulin Human Regular (Humulin R) 0 units SC [facility] PRN Reason: Protocol Last Admin: 09/07/17 11:18 Dose: 4 units Ipratropium [place] (Atrovent) 0.5 mg IH RQID [facility] Last Admin: 09/07/17 11:43 Dose: 0.5 mg Levalbuterol HCl (Xopenex) 0.63 mg INH RQ4 PRN PRN Reason: Shortness of Breath Last Admin: 09/06/17 11:05 Dose: 0.63 mg Methylprednisolone (Solu-Medrol) 30 mg IVP DAILY [facility] Last Admin: 09/07/17 10:42 Dose: Not Given Metoprolol Succinate (Toprol Xl) 100 mg PO DAILY [facility] Last Admin: 09/07/17 08:32 Dose: 100 mg Montelukast Sodium (Singulair) 10 mg PO DAILY [facility] Last Admin: 09/07/17 08:34 Dose: 10 mg Pantoprazole Sodium (Protonix Ec Tab) 40 mg PO DAILY [facility] Last Admin: 09/07/17 08:34 Dose: 40 mg Physical Exam - Constitutional Appears: No Acute Distress - ENT Exam ENT Exam: absent: Mucous Membranes Moist - Neck Exam Neck exam: Negative for: Lymphadenopathy - Respiratory Exam Respiratory Exam: NORMAL BREATHING PATTERN. absent: Chest Wall Tenderness, Rales - Cardiovascular Exam Cardiovascular Exam: absent: Gallop, JVD, Rubs - GI/Abdominal Exam GI & Abdominal Exam: Normal Bowel Sounds - Extremities Exam Extremities exam: Negative for: calf tenderness - Back Exam Back exam: absent: CVA tenderness (L), CVA tenderness (R) - Neurological Exam Neurological exam: Alert - Psychiatric Exam Psychiatric exam: Normal Affect Results - Vital Signs Recent Vital Signs: Last Vital Signs Temp 98.5 F 09/07/17 12:00 Pulse 111 H 09/07/17 12:00 Resp 30 H 09/07/17 12:00 BP 119/76 09/07/17 12:00 Pulse Ox 91 L 09/07/17 12:00 - Labs Result Diagrams: 09/07/17 04:30 09/07/17 04:30 Labs: Laboratory Results - last 24 hr 09/06/17 09/06/17 09/07/17 16:48 21:28 04:30 WBC RBC Hgb Hct MCV MCH MCHC RDW Plt Count Sodium 142 Potassium 5.0 Chloride 95 L Carbon Dioxide 36 H Anion Gap 16 BUN 76 H Creatinine 1.7 H Est GFR ( Amer) 35 Est GFR (Non-Af Amer) 29 POC Glucose (mg/dL) 172 H 169 H Random Glucose 215 H Uric Acid Calcium 9.8 09/07/17 09/07/17 09/07/17 04:30 05:50 09:43 WBC 9.1 RBC 5.16 Hgb 14.9 Hct 47.8 H MCV 92.6 MCH 28.8 MCHC 31.1 L RDW 16.6 H Plt Count 170 Sodium Potassium Chloride Carbon Dioxide Anion Gap BUN Creatinine Est GFR ( Amer) Est GFR (Non-Af Amer) POC Glucose (mg/dL) 189 H Random Glucose Uric Acid 8.4 H Calcium 09/07/17 11:16 WBC RBC Hgb Hct MCV MCH MCHC RDW Plt Count Sodium Potassium Chloride Carbon Dioxide Anion Gap BUN Creatinine Est GFR ( Amer) Est GFR (Non-Af Amer) POC Glucose (mg/dL) 259 H Random Glucose Uric Acid Calcium Assessment & Plan (1) Acute kidney injury superimposed on CKD Assessment and Plan: Rule out acute kidney injury superimposed on chronic kidney disease although baseline serum creatinine back in February 2017 and 1.1. Probably related to rule chronic congestive heart failure perhaps patient was taken diuretics as well. The plan to get stat urinalysis and spot urine for creatinine and protein for the ratio. Ultrasound of the kidney Serum phosphorus and PTH Patient appears to be diabetic although she said she has never been diabetic before we should get hemoglobin A1c Status: Acute (2) Acute on chronic combined systolic and diastolic CHF (congestive heart failure) Status: Acute
--- NOTE | 2017-09-07 15:06 | CP.PCM.PN ---
Subjective - Date & Time of Evaluation Date of Evaluation: 09/07/17 Time of Evaluation: 10:00 - Subjective Subjective: Patient seen and examined at bedside. She states that she feels better. Denies any chest pain. Shortness of breath improved. SpO2 97% on nasal cannula Continues to be intermittenty tachycardic in afib on the monitor. Hyperglycemic- steroids being reduced. Objective - Vital Signs/Intake and Output Vital Signs (last 24 hours): Temp Pulse Resp BP Pulse Ox 98.5 F 111 H 30 H 119/76 91 L 09/07/17 12:00 09/07/17 12:00 09/07/17 12:00 09/07/17 12:00 09/07/17 12:00 Intake and Output: 09/07/17 09/07/17 06:59 18:59 Intake Total 360 Balance 360 - Medications Medications: Current Medications Allopurinol (Zyloprim) 100 mg PO DAILY [facility] Last Admin: 09/07/17 08:32 Dose: 100 mg Aspirin (Ecotrin) 81 mg PO DAILY [facility] Last Admin: 09/07/17 08:34 Dose: 81 mg Atorvastatin Calcium (Lipitor) 10 mg PO DAILY [facility] Last Admin: 09/07/17 08:34 Dose: 10 mg Benzonatate (Tessalon Perles) 200 mg PO TID PRN PRN Reason: Cough Last Admin: 09/06/17 10:08 Dose: 200 mg Clopidogrel Bisulfate (Plavix) 75 mg PO DAILY [facility] Last Admin: 09/07/17 08:32 Dose: 75 mg Dextrose (Dextrose 50% Inj) 0 ml IV STAT PRN; Protocol PRN Reason: Hypoglycemia Protocol Dextrose (Glutose 15) 0 gm PO ONCE PRN; Protocol PRN Reason: Hypoglycemia Protocol Enoxaparin Sodium (Lovenox) 30 mg SC DAILY [facility] PRN Reason: Protocol Last Admin: 09/07/17 08:34 Dose: 30 mg Glucagon (Glucagen Diagnostic Kit) 0 mg IM STAT PRN; Protocol PRN Reason: Hypoglycemia Protocol Guaifenesin (Robitussin) 200 mg PO Q6 PRN PRN Reason: Cough Last Admin: 09/06/17 18:38 Dose: 200 mg Insulin Human Regular (Humulin R) 0 units SC ACHS [facility] PRN Reason: Protocol Last Admin: 09/07/17 11:18 Dose: 4 units Ipratropium [place] (Atrovent) 0.5 mg IH RQID [facility] Last Admin: 09/07/17 11:43 Dose: 0.5 mg Levalbuterol HCl (Xopenex) 0.63 mg INH RQ4 PRN PRN Reason: Shortness of Breath Last Admin: 09/06/17 11:05 Dose: 0.63 mg Methylprednisolone (Solu-Medrol) 30 mg IVP DAILY [facility] Last Admin: 09/07/17 10:42 Dose: Not Given Metoprolol Succinate (Toprol Xl) 100 mg PO DAILY [facility] Last Admin: 09/07/17 08:32 Dose: 100 mg Montelukast Sodium (Singulair) 10 mg PO DAILY [facility] Last Admin: 09/07/17 08:34 Dose: 10 mg Pantoprazole Sodium (Protonix Ec Tab) 40 mg PO DAILY [facility] Last Admin: 09/07/17 08:34 Dose: 40 mg - Labs Labs: 09/07/17 04:30 09/07/17 04:30 PT 11.5 Seconds (9.8-13.1) 09/03/17 20:50 INR 1.0 (0.9-1.2) 09/03/17 20:50 APTT 31.8 Seconds (25.6-37.1) 09/03/17 20:50 - Additional Findings Additional findings: Physical exam: Constitutional- cooperative, awake, alert Head- NCAT, PERRL Eye- PERRL, EOMI ENT- normal exam, MMM. Neck- normal inspection, supple, no JVD Respiratory- CTAB, no wheezes rales. + Rhonchi bilaterally Cardiovascular- irregular rate and rhythm +S1, +S2 no MRG GI/Abdominal- normal bowel sounds, soft, no mass, no hsm Skin- warm, dry Extremities Exam- normal capillary refill, normal inspection Neurological Exam- alert, awake, oriented Psych- normal mood, normal affect Assessment and Plan - Assessment and Plan (Free Text) Plan: Plan: Assessment and Plan (1) Acute hypercapnic respiratory failure Status: Acute (2) Pneumonia Status: Acute (3) Acute on chronic diastolic CHF (congestive heart failure) Status: Acute (4) Asthma with acute exacerbation Status: Acute (5) Atrial fibrillation with rapid ventricular response Status: Acute (6) H/O sick sinus syndrome Status: Chronic (7) Acute kidney injury superimposed on CKD Status: Acute (8) CAD (coronary artery disease) Status: Chronic - Assessment and Plan (Free Text) Assessment: 81 y/o lady with hx of CAD, CHF, A Fib, SS s/p Pacemaker, HTN, Asthma, came in bec of cough and SOB. Pt had elevated prop BNP and CXR : Pulm Vasc Congestion and ? Infiltrates, now thought to be more likely bronchitis (1) Acute hypercapnic respiratory failure sec to CHF exacerbation and asthma exacerbation Status: improving admitted to ICU for close monitoring, now stable for downgrade to telemetry Pt came in dyspneic PCO2= 72, started on Bipap now on NC Resp better after steroids , Neb tx and Diuretics Xopenex tx RTC and prn Pulmonary and Cardio consulted (2) Acute Bronchitis , ( Sepsis and Pneumonia ruled out) Status: Resolved Levaquin discontinued rpt CXR : improved Pulm vasc congestion and no PNA (3) Acute on chronic diastolic CHF (congestive heart failure) Status: Acute improved with cont IV Lasix 40 bid- Lasix now discontinued elevated propBNP to 16L now 8K previous ECHO showed diastolic dysfunction , EF 50 % (EF 65% on Myocardial scan) cont Toprol XL- increased from 50 to 100 mg po daily (4) Asthma with acute exacerbation- improved Status: Acute pt has + wheezing on admission w/c now is better decrease IV Solumedrol 30 mg daily, down from 30 mg IV q 12 hours cont Xopenex (5) Atrial fibrillation / A [place] with rapid ventricular response Status: Acute cont Toprol , will increase dose to 100 mg daily as discussed with Dr Kapadia unable to tolerate Digoxin Pt known even from previous admissions to refuse therapeutic anticoagulation Albuterol discontinued- continue Atrovent only as albuterol is exacerbating her tachycardia (6) H/O sick sinus syndrome s/p Pacemaker Status: Chronic (7) Acute kidney injury superimposed on CKD, lukely due to chronic CHF and diuretics Status: Acute Worsening today, now BUN/CR 76/1.7 Consulted nephrology, Dr. Forman renal US ordered Serum phosphorus and PTH Urinalysis and spot urine for creatinine and protein for ratio hx of CKD stage II-III Lasix discontinued BUN 66 -> 72->76 today CR 1.5-> 1.7 today (8) CAD (coronary artery disease) Status: Chronic Myocardial Perfusion scan done 06/26 : Apical Ischemia cont ASA, Plavix, statin, BB Cardio consult : Dr Kapadia (9) Steroid induced hyperglycemia - Accuchecks with sliding scale insulin - Plan to taper steroids if patient continues to improve from respiratory standpoint - Heart healthy, moderate carb diet 9. DVT Proph: Lovenox, renally dosed
[2017-09-08 05:47] LABS: HEMOGLOBIN 14.3 g/dL (12.0-16.0); MEAN CELL VOLUME 92.8 fl (81.0-99.0); MEAN CORPUSCULAR HEMOGLOBIN 29.1 pg (27.0-31.0); MEAN CORPUSCULAR HGB CONC 31.4 g/dL (33.0-37.0); RBC 4.9 Mil/uL (3.80-5.20); RED CELL DISTRIBUTION WIDTH 16.8 % (11.5-14.5); WHITE BLOOD COUNT 7.6 K/uL (4.8-10.8)
[2017-09-08 06:07] LABS: CALCIUM 9.7 mg/dL (8.4-10.2)
[2017-09-08] MEDS: Ipratropium 0.02% Inhal Soln (0.5 mg/2.5 ml) UD IH SCH ×4 (08:09→19:39)
[2017-09-08] MEDS: Metoprolol Succinate 100 mg XL Tab PO SCH (08:27)
[2017-09-08] MEDS: Pantoprazole 40 mg EC Tab PO SCH (08:28)
[2017-09-08] MEDS: Enoxaparin 30 mg Syringe SC SCH (08:28)
[2017-09-08] MEDS: MethylPREDNISolone 40 mg Vial IVP SCH (08:29)
[2017-09-08] MEDS: Insulin Regular 100 units/ml SC SCH ×4 (08:30→22:09)
--- NOTE | 2017-09-08 09:10 | CP.PCM.PN ---
Subjective - Date & Time of Evaluation Date of Evaluation: 09/08/17 Time of Evaluation: 09:06 - Subjective Subjective: Patient appears to be comfortable and no chest pain No shortness of breath No nausea or vomiting Objective - Vital Signs/Intake and Output Vital Signs (last 24 hours): Temp Pulse Resp BP Pulse Ox 97.9 F 101 H 38 H 119/95 H 96 09/08/17 08:00 09/08/17 08:27 09/08/17 08:00 09/08/17 08:27 09/08/17 08:00 - Medications Medications: Current Medications Allopurinol (Zyloprim) 100 mg PO DAILY [facility] Last Admin: 09/07/17 08:32 Dose: 100 mg Aspirin (Ecotrin) 81 mg PO DAILY [facility] Last Admin: 09/08/17 08:28 Dose: 81 mg Atorvastatin Calcium (Lipitor) 10 mg PO DAILY [facility] Last Admin: 09/08/17 08:28 Dose: 10 mg Benzonatate (Tessalon Perles) 200 mg PO TID PRN PRN Reason: Cough Last Admin: 09/06/17 10:08 Dose: 200 mg Clopidogrel Bisulfate (Plavix) 75 mg PO DAILY [facility] Last Admin: 09/08/17 08:28 Dose: 75 mg Dextrose (Dextrose 50% Inj) 0 ml IV STAT PRN; Protocol PRN Reason: Hypoglycemia Protocol Dextrose (Glutose 15) 0 gm PO ONCE PRN; Protocol PRN Reason: Hypoglycemia Protocol Enoxaparin Sodium (Lovenox) 30 mg SC DAILY [facility] PRN Reason: Protocol Last Admin: 09/08/17 08:28 Dose: 30 mg Glucagon (Glucagen Diagnostic Kit) 0 mg IM STAT PRN; Protocol PRN Reason: Hypoglycemia Protocol Guaifenesin (Robitussin) 200 mg PO Q6 PRN PRN Reason: Cough Last Admin: 09/06/17 18:38 Dose: 200 mg Insulin Human Regular (Humulin R) 0 units SC ACHS [facility] PRN Reason: Protocol Last Admin: 09/08/17 08:30 Dose: Not Given Ipratropium [place] (Atrovent) 0.5 mg IH RQID [facility] Last Admin: 09/08/17 08:09 Dose: 0.5 mg Levalbuterol HCl (Xopenex) 0.63 mg INH RQ4 PRN PRN Reason: Shortness of Breath Last Admin: 09/06/17 11:05 Dose: 0.63 mg Methylprednisolone (Solu-Medrol) 30 mg IVP DAILY [facility] Last Admin: 09/08/17 08:29 Dose: 30 mg Metoprolol Succinate (Toprol Xl) 100 mg PO DAILY [facility] Last Admin: 09/08/17 08:27 Dose: 100 mg Montelukast Sodium (Singulair) 10 mg PO DAILY [facility] Last Admin: 09/08/17 08:27 Dose: 10 mg Pantoprazole Sodium (Protonix Ec Tab) 40 mg PO DAILY [facility] Last Admin: 09/08/17 08:28 Dose: 40 mg - Labs Labs: 09/08/17 04:30 09/08/17 04:30 PT 11.5 Seconds (9.8-13.1) 09/03/17 20:50 INR 1.0 (0.9-1.2) 09/03/17 20:50 APTT 31.8 Seconds (25.6-37.1) 09/03/17 20:50 - Constitutional Appears: No Acute Distress - ENT Exam ENT Exam: Mucous Membranes Moist - Neck Exam Neck Exam: absent: Lymphadenopathy - Respiratory Exam Respiratory Exam: absent: Chest Wall Tenderness - Cardiovascular Exam Cardiovascular Exam: absent: Gallop, JVD, Rubs - GI/Abdominal Exam GI & Abdominal Exam: Soft, Normal Bowel Sounds - Extremities Exam Extremities Exam: absent: Calf Tenderness - Back Exam Back Exam: absent: CVA tenderness (L), CVA tenderness (R) - Neurological Exam Neurological Exam: Alert - Psychiatric Exam Psychiatric exam: Normal Affect - Skin Skin Exam: absent: Cyanosis Assessment and Plan (1) Acute kidney injury superimposed on CKD Assessment & Plan: creat. coming down to 1.5 r/o DAR superimposed on ckd2? new diagnosis DM? or can be from steroid no significant proteinuria. U/A pending ,reordered again Status: Acute (2) Acute on chronic combined systolic and diastolic CHF (congestive heart failure) Status: Acute
--- NOTE | 2017-09-08 10:30 | CP.PCM.PN ---
Subjective - Date & Time of Evaluation Date of Evaluation: 09/08/17 Time of Evaluation: 09:30 - Subjective Subjective: NO CHEST PAIN BREATHING WELL TODAY Objective - Vital Signs/Intake and Output Vital Signs (last 24 hours): Temp Pulse Resp BP Pulse Ox 97.9 F 100 H 16 130/70 100 09/08/17 08:00 09/08/17 09:00 09/08/17 09:00 09/08/17 09:00 09/08/17 09:00 Intake and Output: 09/08/17 09/08/17 06:59 18:59 Intake Total 360 Balance 360 - Medications Medications: Current Medications Allopurinol (Zyloprim) 100 mg PO DAILY [facility] Last Admin: 09/07/17 08:32 Dose: 100 mg Aspirin (Ecotrin) 81 mg PO DAILY [facility] Last Admin: 09/08/17 08:28 Dose: 81 mg Atorvastatin Calcium (Lipitor) 10 mg PO DAILY [facility] Last Admin: 09/08/17 08:28 Dose: 10 mg Benzonatate (Tessalon Perles) 200 mg PO TID PRN PRN Reason: Cough Last Admin: 09/06/17 10:08 Dose: 200 mg Clopidogrel Bisulfate (Plavix) 75 mg PO DAILY [facility] Last Admin: 09/08/17 08:28 Dose: 75 mg Dextrose (Dextrose 50% Inj) 0 ml IV STAT PRN; Protocol PRN Reason: Hypoglycemia Protocol Dextrose (Glutose 15) 0 gm PO ONCE PRN; Protocol PRN Reason: Hypoglycemia Protocol Enoxaparin Sodium (Lovenox) 30 mg SC DAILY [facility] PRN Reason: Protocol Last Admin: 09/08/17 08:28 Dose: 30 mg Glucagon (Glucagen Diagnostic Kit) 0 mg IM STAT PRN; Protocol PRN Reason: Hypoglycemia Protocol Guaifenesin (Robitussin) 200 mg PO Q6 PRN PRN Reason: Cough Last Admin: 09/06/17 18:38 Dose: 200 mg Insulin Human Regular (Humulin R) 0 units SC ACHS [facility] PRN Reason: Protocol Last Admin: 09/08/17 08:30 Dose: Not Given Ipratropium [place] (Atrovent) 0.5 mg IH RQID [facility] Last Admin: 09/08/17 08:09 Dose: 0.5 mg Levalbuterol HCl (Xopenex) 0.63 mg INH RQ4 PRN PRN Reason: Shortness of Breath Last Admin: 09/06/17 11:05 Dose: 0.63 mg Methylprednisolone (Solu-Medrol) 30 mg IVP DAILY [facility] Last Admin: 09/08/17 08:29 Dose: 30 mg Metoprolol Succinate (Toprol Xl) 100 mg PO DAILY [facility] Last Admin: 09/08/17 08:27 Dose: 100 mg Montelukast Sodium (Singulair) 10 mg PO DAILY [facility] Last Admin: 09/08/17 08:27 Dose: 10 mg Pantoprazole Sodium (Protonix Ec Tab) 40 mg PO DAILY [facility] Last Admin: 09/08/17 08:28 Dose: 40 mg - Labs Labs: 09/08/17 04:30 09/08/17 04:30 PT 11.5 Seconds (9.8-13.1) 09/03/17 20:50 INR 1.0 (0.9-1.2) 09/03/17 20:50 APTT 31.8 Seconds (25.6-37.1) 09/03/17 20:50 - Respiratory Exam Respiratory Exam: Clear to Ausculation Bilateral - Cardiovascular Exam Cardiovascular Exam: Irregular Rhythm, +S1, +S2 - Extremities Exam Additional comments: NO SIGNIFICANT LE EDEMA - Additional Findings Additional findings: NEPHROLOGY CONSULT REVIEWED CR 1.5 Assessment and Plan - Assessment and Plan (Free Text) Assessment: COPD EXACERBATION CAD-STABLE ATRIAL FIBRILLATION HYPERTENSION DAR ON CKD Plan: CONTINUE O2, ASPIRIN, CLOPIDOGREL, METOPROLOL, ATORVASTATIN, BRONCHODILATORS
--- NOTE | 2017-09-08 12:23 | CP.PCM.PN ---
Subjective - Date & Time of Evaluation Date of Evaluation: 09/08/17 Time of Evaluation: 11:45 - Subjective Subjective: Pt is sitted on the bed with feet dangling complains that the Oxygen is drying her nose and is asking if she could be off Oxygen Oxygen turned off for 15 minutes with measurement of saturation - range from 86 to 92% on Room Air She was placed back of Oxygen at 3 liters per NC with humidication Cough better denies CP no abd pain Objective - Vital Signs/Intake and Output Vital Signs (last 24 hours): Temp Pulse Resp BP Pulse Ox 97.9 F 100 H 16 130/70 100 09/08/17 08:00 09/08/17 09:00 09/08/17 09:00 09/08/17 09:00 09/08/17 09:00 Intake and Output: 09/08/17 09/08/17 06:59 18:59 Intake Total 360 Balance 360 - Medications Medications: Current Medications Allopurinol (Zyloprim) 100 mg PO DAILY [facility] Last Admin: 09/07/17 08:32 Dose: 100 mg Aspirin (Ecotrin) 81 mg PO DAILY [facility] Last Admin: 09/08/17 08:28 Dose: 81 mg Atorvastatin Calcium (Lipitor) 10 mg PO DAILY [facility] Last Admin: 09/08/17 08:28 Dose: 10 mg Benzonatate (Tessalon Perles) 200 mg PO TID PRN PRN Reason: Cough Last Admin: 09/06/17 10:08 Dose: 200 mg Clopidogrel Bisulfate (Plavix) 75 mg PO DAILY [facility] Last Admin: 09/08/17 08:28 Dose: 75 mg Dextrose (Dextrose 50% Inj) 0 ml IV STAT PRN; Protocol PRN Reason: Hypoglycemia Protocol Dextrose (Glutose 15) 0 gm PO ONCE PRN; Protocol PRN Reason: Hypoglycemia Protocol Enoxaparin Sodium (Lovenox) 30 mg SC DAILY [facility] PRN Reason: Protocol Last Admin: 09/08/17 08:28 Dose: 30 mg Glucagon (Glucagen Diagnostic Kit) 0 mg IM STAT PRN; Protocol PRN Reason: Hypoglycemia Protocol Guaifenesin (Robitussin) 200 mg PO Q6 PRN PRN Reason: Cough Last Admin: 09/06/17 18:38 Dose: 200 mg Insulin Human Regular (Humulin R) 0 units SC [facility] PRN Reason: Protocol Last Admin: 09/08/17 11:31 Dose: 2 units Ipratropium [place] (Atrovent) 0.5 mg IH RQID [facility] Last Admin: 09/08/17 11:16 Dose: 0.5 mg Levalbuterol HCl (Xopenex) 0.63 mg INH RQ4 PRN PRN Reason: Shortness of Breath Last Admin: 09/06/17 11:05 Dose: 0.63 mg Methylprednisolone (Solu-Medrol) 30 mg IVP DAILY [facility] Last Admin: 09/08/17 08:29 Dose: 30 mg Metoprolol Succinate (Toprol Xl) 100 mg PO DAILY [facility] Last Admin: 09/08/17 08:27 Dose: 100 mg Montelukast Sodium (Singulair) 10 mg PO DAILY [facility] Last Admin: 09/08/17 08:27 Dose: 10 mg Pantoprazole Sodium (Protonix Ec Tab) 40 mg PO DAILY [facility] Last Admin: 09/08/17 08:28 Dose: 40 mg - Labs Labs: 09/08/17 04:30 09/08/17 04:30 PT 11.5 Seconds (9.8-13.1) 09/03/17 20:50 INR 1.0 (0.9-1.2) 09/03/17 20:50 APTT 31.8 Seconds (25.6-37.1) 09/03/17 20:50 - Constitutional Appears: No Acute Distress, Chronically Ill - Head Exam Head Exam: NORMAL INSPECTION, NORMOCEPHALIC - Eye Exam Eye Exam: EOMI, Normal appearance Pupil Exam: NORMAL ACCOMODATION - ENT Exam ENT Exam: Mucous Membranes Moist, Normal External Ear Exam - Neck Exam Neck Exam: Full ROM. absent: Meningismus - Respiratory Exam Respiratory Exam: minimal rales bases, faint rhonchi, no wheezing absent: Respiratory Distress - Cardiovascular Exam Cardiovascular Exam: Tachycardia, Irregular Rhythm, +S1, +S2 - GI/Abdominal Exam GI & Abdominal Exam: Soft, Normal Bowel Sounds. absent: Tenderness - Extremities Exam Extremities Exam: Full ROM, Normal Capillary Refill. absent: Calf Tenderness - Back Exam Back Exam: absent: CVA tenderness (L), CVA tenderness (R) - Neurological Exam Neurological Exam: Alert, Awake, CN II-XII Intact, Oriented x3 Neuro motor strength exam: Left Upper Extremity: 5, Right Upper Extremity: 5, Left Lower Extremity: 5, Right Lower Extremity: 5 - Psychiatric Exam Psychiatric exam: Normal Affect, Normal Mood - Skin Skin Exam: Dry, Normal Color, Warm Assessment and Plan (1) Acute hypercapnic respiratory failure Status: Acute (2) Pneumonia Status: Acute (3) Acute on chronic diastolic CHF (congestive heart failure) Status: Acute (4) Asthma with acute exacerbation Status: Acute (5) Atrial fibrillation with rapid ventricular response Status: Acute (6) H/O sick sinus syndrome Status: Chronic (7) Acute kidney injury superimposed on CKD Status: Acute (8) CAD (coronary artery disease) Status: Chronic - Assessment and Plan (Free Text) Assessment: 81 y/o lady with hx of CAD, CHF, A Fib, SSS s/p Pacemaker, HTN, Asthma, came in bec of cough and SOB. Pt had elevated proBNP and her CXR : Pulm Vasc Congestion . Pt was placed on Bipap and admitted to the ICU. She was started on IV Steroids, Nebulizer treatment , IV Levaquin and IV Lasix At present , resp sxs are better - pt is now on Oxygen per NC at 3 liters . (1) Acute hypercapnic respiratory failure sec to CHF exaerb and Asthma exzacerb Status: Acute admitted to ICU for close monitoring Pt came in dyspneic PCO2= 72, started on Bipap now on NC at 3 liters cont Xopenex tx RTC and prn cont Lasix Pulmonary and Cardio consulted (2) Acute Bronchitis , ( Sepsis and Pneumonia ruled out) Status: Acute + cough, dyspnea rpt CXR : improved Pulm vasc congestion and no PNA received IV Levaquin - now d/c (3) Acute on chronic diastolic CHF (congestive heart failure) Status: Acute improved with IV Lasix - now off Lasix as Crea went up elevated propBNP to 16L now 8K previous ECHO showed diastolic dysfunction , EF 50 % (EF 65% on Myocardial scan) cont Toprol XL (4) Asthma with acute exacerbation Status: Acute pt has + wheezing on admission w/c now resolved decrease IV Solumedrol 30 q daily cont Xopenex cont Singulair (5) Atrial fibrillation / A Fultter with rapid ventricular response Status: Acute HR better cont Toprol 100mg daily unable to tolerate Digoxin Pt known even from previous admissions to refuse therapeutic anticoagulation (6) H/O sick sinus syndrome s/p Pacemaker Status: Chronic (7) Acute kidney injury superimposed on CKD Status: Acute hx of CKD stage II-III, Crea : 1.5 will monitor santo on diuretics (8) CAD (coronary artery disease) Status: Chronic Myocardial Perfusion scan done 06/26 : Apical Ischemia cont ASA, Plavix, statin, BB Cardio consult : Dr Kapadia 9. DVT Proph: Lovenox
[2017-09-09] MEDS: Ipratropium 0.02% Inhal Soln (0.5 mg/2.5 ml) UD IH SCH ×4 (08:11→19:55)
[2017-09-09] MEDS: Enoxaparin 30 mg Syringe SC SCH (09:05)
[2017-09-09] MEDS: Pantoprazole 40 mg EC Tab PO SCH (09:06)
[2017-09-09] MEDS: Metoprolol Succinate 100 mg XL Tab PO SCH (09:06)
[2017-09-09] MEDS: Insulin Regular 100 units/ml SC SCH ×4 (09:13→23:02)
--- NOTE | 2017-09-09 09:15 | CP.PCM.PN ---
Subjective - Date & Time of Evaluation Date of Evaluation: 09/09/17 Time of Evaluation: 09:15 Objective - Vital Signs/Intake and Output Vital Signs (last 24 hours): Temp Pulse Resp BP Pulse Ox 97.2 F L 119 H 18 139/86 97 09/09/17 08:33 09/09/17 09:06 09/09/17 08:33 09/09/17 09:06 09/09/17 08:33 Intake and Output: 09/08/17 09/09/17 23:59 11:59 Intake Total 600 Balance 600 - Medications Medications: Current Medications Allopurinol (Zyloprim) 100 mg PO DAILY [facility] Last Admin: 09/07/17 08:32 Dose: 100 mg Aspirin (Ecotrin) 81 mg PO DAILY [facility] Last Admin: 09/09/17 09:06 Dose: 81 mg Atorvastatin Calcium (Lipitor) 10 mg PO DAILY [facility] Last Admin: 09/09/17 09:08 Dose: 10 mg Benzonatate (Tessalon Perles) 200 mg PO TID PRN PRN Reason: Cough Last Admin: 09/09/17 09:07 Dose: 200 mg Clopidogrel Bisulfate (Plavix) 75 mg PO DAILY [facility] Last Admin: 09/09/17 09:06 Dose: 75 mg Dextrose (Dextrose 50% Inj) 0 ml IV STAT PRN; Protocol PRN Reason: Hypoglycemia Protocol Dextrose (Glutose 15) 0 gm PO ONCE PRN; Protocol PRN Reason: Hypoglycemia Protocol Enoxaparin Sodium (Lovenox) 30 mg SC DAILY [facility] PRN Reason: Protocol Last Admin: 09/09/17 09:05 Dose: 30 mg Glucagon (Glucagen Diagnostic Kit) 0 mg IM STAT PRN; Protocol PRN Reason: Hypoglycemia Protocol Guaifenesin (Robitussin) 200 mg PO Q6 PRN PRN Reason: Cough Last Admin: 09/06/17 18:38 Dose: 200 mg Insulin Human Regular (Humulin R) 0 units SC [facility] PRN Reason: Protocol Last Admin: 09/09/17 09:13 Dose: Not Given Ipratropium [place] (Atrovent) 0.5 mg IH RQID [facility] Last Admin: 09/09/17 08:11 Dose: 0.5 mg Levalbuterol HCl (Xopenex) 0.63 mg INH RQ4 PRN PRN Reason: Shortness of Breath Last Admin: 09/06/17 11:05 Dose: 0.63 mg Metoprolol Succinate (Toprol Xl) 100 mg PO DAILY [facility] Last Admin: 09/09/17 09:06 Dose: 100 mg Montelukast Sodium (Singulair) 10 mg PO DAILY [facility] Last Admin: 09/09/17 09:06 Dose: 10 mg Pantoprazole Sodium (Protonix Ec Tab) 40 mg PO DAILY [facility] Last Admin: 09/09/17 09:06 Dose: 40 mg - Labs Labs: 09/08/17 04:30 09/08/17 04:30 PT 11.5 Seconds (9.8-13.1) 09/03/17 20:50 INR 1.0 (0.9-1.2) 09/03/17 20:50 APTT 31.8 Seconds (25.6-37.1) 09/03/17 20:50 Assessment and Plan (1) Acute hypercapnic respiratory failure Status: Acute (2) Acute bronchitis Status: Acute (3) Asthma with acute exacerbation Status: Acute (4) Atrial fibrillation with rapid ventricular response Status: Acute (5) Acute kidney injury superimposed on CKD Status: Acute
[2017-09-09 09:17] LABS: CALCIUM 9.7 mg/dL (8.4-10.2)
--- NOTE | 2017-09-09 09:20 | CP.PCM.PN ---
Subjective - Date & Time of Evaluation Date of Evaluation: 09/09/17 Time of Evaluation: 09:15 - Subjective Subjective: Pt still has cough SOB on exertion , better today Saturation on Room Air 90%- will do Pulse Ox after 6 minute walk no fever denies CP no abd pain For renal sonogram today Objective - Vital Signs/Intake and Output Vital Signs (last 24 hours): Temp Pulse Resp BP Pulse Ox 97.2 F L 119 H 18 139/86 97 09/09/17 08:33 09/09/17 09:06 09/09/17 08:33 09/09/17 09:06 09/09/17 08:33 - Medications Medications: Current Medications Allopurinol (Zyloprim) 100 mg PO DAILY [facility] Last Admin: 09/07/17 08:32 Dose: 100 mg Aspirin (Ecotrin) 81 mg PO DAILY [facility] Last Admin: 09/09/17 09:06 Dose: 81 mg Atorvastatin Calcium (Lipitor) 10 mg PO DAILY [facility] Last Admin: 09/09/17 09:08 Dose: 10 mg Benzonatate (Tessalon Perles) 200 mg PO TID PRN PRN Reason: Cough Last Admin: 09/09/17 09:07 Dose: 200 mg Clopidogrel Bisulfate (Plavix) 75 mg PO DAILY [facility] Last Admin: 09/09/17 09:06 Dose: 75 mg Dextrose (Dextrose 50% Inj) 0 ml IV STAT PRN; Protocol PRN Reason: Hypoglycemia Protocol Dextrose (Glutose 15) 0 gm PO ONCE PRN; Protocol PRN Reason: Hypoglycemia Protocol Enoxaparin Sodium (Lovenox) 30 mg SC DAILY [facility] PRN Reason: Protocol Last Admin: 09/09/17 09:05 Dose: 30 mg Glucagon (Glucagen Diagnostic Kit) 0 mg IM STAT PRN; Protocol PRN Reason: Hypoglycemia Protocol Guaifenesin (Robitussin) 200 mg PO Q6 PRN PRN Reason: Cough Last Admin: 09/06/17 18:38 Dose: 200 mg Insulin Human Regular (Humulin R) 0 units SC ACHS [facility] PRN Reason: Protocol Last Admin: 09/09/17 09:13 Dose: Not Given Ipratropium [place] (Atrovent) 0.5 mg IH RQID [facility] Last Admin: 09/09/17 08:11 Dose: 0.5 mg Levalbuterol HCl (Xopenex) 0.63 mg INH RQ4 PRN PRN Reason: Shortness of Breath Last Admin: 09/06/17 11:05 Dose: 0.63 mg Metoprolol Succinate (Toprol Xl) 100 mg PO DAILY [facility] Last Admin: 09/09/17 09:06 Dose: 100 mg Montelukast Sodium (Singulair) 10 mg PO DAILY [facility] Last Admin: 09/09/17 09:06 Dose: 10 mg Pantoprazole Sodium (Protonix Ec Tab) 40 mg PO DAILY [facility] Last Admin: 09/09/17 09:06 Dose: 40 mg - Labs Labs: 09/08/17 04:30 09/09/17 08:55 PT 11.5 Seconds (9.8-13.1) 09/03/17 20:50 INR 1.0 (0.9-1.2) 09/03/17 20:50 APTT 31.8 Seconds (25.6-37.1) 09/03/17 20:50 - Constitutional Appears: No Acute Distress, Chronically Ill - Head Exam Head Exam: NORMAL INSPECTION, NORMOCEPHALIC - Eye Exam Eye Exam: EOMI, Normal appearance Pupil Exam: NORMAL ACCOMODATION - ENT Exam ENT Exam: Mucous Membranes Moist, Normal External Ear Exam - Neck Exam Neck Exam: Full ROM. absent: Meningismus - Respiratory Exam Respiratory Exam: minimal rales bases, faint rhonchi, no wheezing absent: Respiratory Distress - Cardiovascular Exam Cardiovascular Exam: Tachycardia, Irregular Rhythm, +S1, +S2 - GI/Abdominal Exam GI & Abdominal Exam: Soft, Normal Bowel Sounds. absent: Tenderness - Extremities Exam Extremities Exam: Full ROM, Normal Capillary Refill. absent: Calf Tenderness - Back Exam Back Exam: absent: CVA tenderness (L), CVA tenderness (R) - Neurological Exam Neurological Exam: Alert, Awake, CN II-XII Intact, Oriented x3 Neuro motor strength exam: Left Upper Extremity: 5, Right Upper Extremity: 5, Left Lower Extremity: 5, Right Lower Extremity: 5 - Psychiatric Exam Psychiatric exam: Normal Affect, Normal Mood - Skin Skin Exam: Dry, Normal Color, Warm Assessment and Plan (1) Acute hypercapnic respiratory failure Status: Acute (2) Pneumonia Status: Acute (3) Acute on chronic diastolic CHF (congestive heart failure) Status: Acute (4) Asthma with acute exacerbation Status: Acute (5) Atrial fibrillation with rapid ventricular response Status: Acute (6) H/O sick sinus syndrome Status: Chronic (7) Acute kidney injury superimposed on CKD Status: Acute (8) CAD (coronary artery disease) Status: Chronic - Assessment and Plan (Free Text) Assessment: 81 y/o lady with hx of CAD, CHF, A Fib, SSS s/p Pacemaker, HTN, Asthma, came in bec of cough and SOB. Pt had elevated proBNP and her CXR : Pulm Vasc Congestion . Pt was placed on Bipap and admitted to the ICU. She was started on IV Steroids, Nebulizer treatment , IV Levaquin and IV Lasix At present , resp sxs better - pt is now on Oxygen per NC at 3 liters . IV Levaquin d/c, IV Solumedrol tapered off. (1) Acute hypercapnic respiratory failure sec to CHF exaerb and Asthma exacerb Status: Acute initially admitted to ICU for close monitoring, now in Tele Pt came in dyspneic PCO2= 72, she was placed on Bipap now on NC at 3 liters cont Xopenex tx RTC and prn Pulmonary and Cardio consulted (2) Acute Bronchitis , ( Sepsis and Pneumonia ruled out) Status: Acute + cough, dyspnea rpt CXR 09/05 : improved Pulm vasc congestion and no PNA received IV Levaquin - now d/c (3) Acute on chronic diastolic CHF (congestive heart failure) Status: Acute improved with IV Lasix - now off Lasix as Crea went up elevated propBNP to 16L now down to 8K previous ECHO showed diastolic dysfunction , EF 50 % (EF 65% on Myocardial scan) cont Toprol XL (4) Asthma with acute exacerbation Status: Acute pt has + wheezing on admission w/c now resolved decrease IV Solumedrol 30 q daily cont Xopenex cont Singulair (5) Atrial fibrillation / A Fultter with rapid ventricular response Status: Acute HR better cont Toprol 100mg daily unable to tolerate Digoxin Pt known even from previous admissions to refuse therapeutic anticoagulation (6) H/O sick sinus syndrome s/p Pacemaker Status: Chronic (7) Acute kidney injury superimposed on CKD Status: Acute hx of CKD stage II-III, Crea : 1.5 will monitor santo on diuretics Renal Sono Nephrology consulted (8) CAD (coronary artery disease) Status: Chronic Myocardial Perfusion scan done 06/26 : Apical Ischemia cont ASA, Plavix, statin, BB Cardio consult : Dr Kapadia 9. Hyperglycemia prob sec to Steroids [id number] DVT Proph: Lovenox
--- NOTE | 2017-09-09 11:06 | CP.PCM.PN ---
Subjective - Date & Time of Evaluation Date of Evaluation: 09/09/17 Time of Evaluation: 11:04 - Subjective Subjective: Patient continued to do better No chest pain No shortness of breath no nausea no vomiting and no diarrhea Objective - Vital Signs/Intake and Output Vital Signs (last 24 hours): Temp Pulse Resp BP Pulse Ox 97.2 F L 119 H 18 139/86 97 09/09/17 08:33 09/09/17 09:06 09/09/17 08:33 09/09/17 09:06 09/09/17 08:33 - Medications Medications: Current Medications Allopurinol (Zyloprim) 100 mg PO DAILY [facility] Last Admin: 09/07/17 08:32 Dose: 100 mg Aspirin (Ecotrin) 81 mg PO DAILY [facility] Last Admin: 09/09/17 09:06 Dose: 81 mg Atorvastatin Calcium (Lipitor) 10 mg PO DAILY [facility] Last Admin: 09/09/17 09:08 Dose: 10 mg Benzonatate (Tessalon Perles) 200 mg PO TID PRN PRN Reason: Cough Last Admin: 09/09/17 09:07 Dose: 200 mg Clopidogrel Bisulfate (Plavix) 75 mg PO DAILY [facility] Last Admin: 09/09/17 09:06 Dose: 75 mg Dextrose (Dextrose 50% Inj) 0 ml IV STAT PRN; Protocol PRN Reason: Hypoglycemia Protocol Dextrose (Glutose 15) 0 gm PO ONCE PRN; Protocol PRN Reason: Hypoglycemia Protocol Enoxaparin Sodium (Lovenox) 30 mg SC DAILY [facility] PRN Reason: Protocol Last Admin: 09/09/17 09:05 Dose: 30 mg Glucagon (Glucagen Diagnostic Kit) 0 mg IM STAT PRN; Protocol PRN Reason: Hypoglycemia Protocol Guaifenesin (Robitussin) 200 mg PO Q6 PRN PRN Reason: Cough Last Admin: 09/06/17 18:38 Dose: 200 mg Insulin Human Regular (Humulin R) 0 units SC ACHS [facility] PRN Reason: Protocol Last Admin: 09/09/17 09:13 Dose: Not Given Ipratropium [place] (Atrovent) 0.5 mg IH RQID [facility] Last Admin: 09/09/17 08:11 Dose: 0.5 mg Levalbuterol HCl (Xopenex) 0.63 mg INH RQ4 PRN PRN Reason: Shortness of Breath Last Admin: 09/06/17 11:05 Dose: 0.63 mg Metoprolol Succinate (Toprol Xl) 100 mg PO DAILY [facility] Last Admin: 09/09/17 09:06 Dose: 100 mg Montelukast Sodium (Singulair) 10 mg PO DAILY [facility] Last Admin: 09/09/17 09:06 Dose: 10 mg Pantoprazole Sodium (Protonix Ec Tab) 40 mg PO DAILY [facility] Last Admin: 09/09/17 09:06 Dose: 40 mg - Labs Labs: 09/08/17 04:30 09/09/17 08:55 PT 11.5 Seconds (9.8-13.1) 09/03/17 20:50 INR 1.0 (0.9-1.2) 09/03/17 20:50 APTT 31.8 Seconds (25.6-37.1) 09/03/17 20:50 - Constitutional Appears: No Acute Distress - ENT Exam ENT Exam: Mucous Membranes Moist - Neck Exam Neck Exam: absent: Lymphadenopathy - Respiratory Exam Respiratory Exam: NORMAL BREATHING PATTERN. absent: Chest Wall Tenderness - Cardiovascular Exam Cardiovascular Exam: absent: Gallop, JVD, Rubs - GI/Abdominal Exam GI & Abdominal Exam: Soft, Normal Bowel Sounds - Extremities Exam Extremities Exam: absent: Calf Tenderness - Back Exam Back Exam: absent: CVA tenderness (L), CVA tenderness (R) - Neurological Exam Neurological Exam: Alert - Skin Skin Exam: absent: Cyanosis Assessment and Plan (1) Acute kidney injury superimposed on CKD Assessment & Plan: Acute kidney injury Serum creatinine continued to improve slowly Congestive heart failure appears to be improving chest x-ray much better see the report. Blood pressure and vital sign appear to be unremarkable and stable Hyperglycemia management . No significant proteinuria Status: Acute (2) Acute on chronic combined systolic and diastolic CHF (congestive heart failure) Status: Acute
--- NOTE | 2017-09-09 11:08 | US ---
PROCEDURE: Ultrasound of the Kidneys HISTORY: worsening renal function COMPARISON: None available. TECHNIQUE: Sonogram of the kidneys. FINDINGS: RIGHT KIDNEY: Measures: 9.5 x 5.9 x 4.2 cm. Renal parenchyma is echogenic suggesting potential intrinsic medical renal disease. Overall renal size is normal with unremarkable contour. No stone, solid mass lesion or hydronephrosis visualized. LEFT KIDNEY: Measures: 10.5 x 6.2 x 6.2 cm. Renal parenchyma is echogenic suggesting potential intrinsic medical renal disease. Overall renal size is normal with unremarkable contour. Simple cysts is seen at the upper pole left kidney measuring 5.4 x 4.6 cm, avascular on color Doppler ultrasound there is smaller cyst seen in the mid pole measuring 2.3 x 2.4 x 2.6 cm, also simple. Finally, a 2.1 x 1.5 x 1.3 cm simple cyst is seen at the lower pole. No solid mass identified or hydronephrosis. No urolithiasis. OTHER FINDINGS: None. IMPRESSION: Three simple renal cysts are identified with the renal parenchyma otherwise remarkable for increased echogenicity bilaterally suggestive of intrinsic medical renal disease potentially. No obstructive uropathy bilaterally.
--- NOTE | 2017-09-09 11:20 | CP.PCM.PN ---
Subjective - Date & Time of Evaluation Date of Evaluation: 09/09/17 Time of Evaluation: 12:30 - Subjective Subjective: NO CHEST PAIN OR PALPITATIONS BREATHING COMFORTABLY Objective - Vital Signs/Intake and Output Vital Signs (last 24 hours): Temp Pulse Resp BP Pulse Ox 97.2 F L 119 H 18 139/86 97 09/09/17 08:33 09/09/17 09:06 09/09/17 08:33 09/09/17 09:06 09/09/17 08:33 - Medications Medications: Current Medications Allopurinol (Zyloprim) 100 mg PO DAILY [facility] Last Admin: 09/07/17 08:32 Dose: 100 mg Aspirin (Ecotrin) 81 mg PO DAILY [facility] Last Admin: 09/09/17 09:06 Dose: 81 mg Atorvastatin Calcium (Lipitor) 10 mg PO DAILY [facility] Last Admin: 09/09/17 09:08 Dose: 10 mg Benzonatate (Tessalon Perles) 200 mg PO TID PRN PRN Reason: Cough Last Admin: 09/09/17 09:07 Dose: 200 mg Clopidogrel Bisulfate (Plavix) 75 mg PO DAILY [facility] Last Admin: 09/09/17 09:06 Dose: 75 mg Dextrose (Dextrose 50% Inj) 0 ml IV STAT PRN; Protocol PRN Reason: Hypoglycemia Protocol Dextrose (Glutose 15) 0 gm PO ONCE PRN; Protocol PRN Reason: Hypoglycemia Protocol Enoxaparin Sodium (Lovenox) 30 mg SC DAILY [facility] PRN Reason: Protocol Last Admin: 09/09/17 09:05 Dose: 30 mg Glucagon (Glucagen Diagnostic Kit) 0 mg IM STAT PRN; Protocol PRN Reason: Hypoglycemia Protocol Guaifenesin (Robitussin) 200 mg PO Q6 PRN PRN Reason: Cough Last Admin: 09/06/17 18:38 Dose: 200 mg Insulin Human Regular (Humulin R) 0 units SC ACHS [facility] PRN Reason: Protocol Last Admin: 09/09/17 09:13 Dose: Not Given Ipratropium [place] (Atrovent) 0.5 mg IH RQID [facility] Last Admin: 09/09/17 11:17 Dose: Not Given Levalbuterol HCl (Xopenex) 0.63 mg INH RQ4 PRN PRN Reason: Shortness of Breath Last Admin: 09/06/17 11:05 Dose: 0.63 mg Metoprolol Succinate (Toprol Xl) 100 mg PO DAILY [facility] Last Admin: 09/09/17 09:06 Dose: 100 mg Montelukast Sodium (Singulair) 10 mg PO DAILY [facility] Last Admin: 09/09/17 09:06 Dose: 10 mg Pantoprazole Sodium (Protonix Ec Tab) 40 mg PO DAILY [facility] Last Admin: 09/09/17 09:06 Dose: 40 mg - Labs Labs: 09/08/17 04:30 09/09/17 08:55 PT 11.5 Seconds (9.8-13.1) 09/03/17 20:50 INR 1.0 (0.9-1.2) 09/03/17 20:50 APTT 31.8 Seconds (25.6-37.1) 09/03/17 20:50 - Respiratory Exam Respiratory Exam: Clear to Ausculation Bilateral - Cardiovascular Exam Cardiovascular Exam: Tachycardia, Irregular Rhythm, +S1, +S2 - Extremities Exam Additional comments: TRACE ANKLE EDEMA - Additional Findings Additional findings: NEGATIVE CHECKER WITH ATRIAL FLUTTER WITH R OF 110 RENAL US REPORT SEEN WITH THREE CYSTS IN THE LEFT KIDNEY BUN/ CR 70/1.4 TODAY Assessment and Plan - Assessment and Plan (Free Text) Assessment: CAD-STABLE ATRIAL FIB/FLUTTER HYPERTENSION COPD ACUTE ON CHRONIC KIDNEY DISEASE-IMPROVING Plan: CONTINUE METOPROLOL, ATORVASTATIN, ASPIRIN, CLOPIDOGREL, LOVENOX, BRONCHODILATORS THE PATIENT WAS TRANSFERRED TO THE PATIENT CAN BE DISCHARGED WHEN CLEARED BY THE OTHER CONSULTANTS I WILL SEE HER IN MY OFFICE IN 1-2 WEEKS AFTER DISCHARGE
[2017-09-10] MEDS: Insulin Regular 100 units/ml SC SCH ×4 (06:43→22:22)
[2017-09-10] MEDS: Ipratropium 0.02% Inhal Soln (0.5 mg/2.5 ml) UD IH SCH ×4 (08:00→19:49)
[2017-09-10] MEDS: Pantoprazole 40 mg EC Tab PO SCH (08:56)
[2017-09-10] MEDS: Metoprolol Succinate 100 mg XL Tab PO SCH (08:56)
[2017-09-10] MEDS: Enoxaparin 30 mg Syringe SC SCH (08:57)
[2017-09-10 10:36] LABS: ABG ALLEN TEST YES; ARTERIAL BLOOD GAS HEMOGLOBIN 14.7 g/dL (11.7-17.4); ARTERIAL BLOOD GAS O2 CAPACITY 19.8 mL/dL (16-24); ARTERIAL BLOOD GAS O2 SAT 90.9 % (95-98); ARTERIAL BLOOD GAS PCO2 63 mm/Hg (35-45); ARTERIAL BLOOD GAS PH 7.38 (7.35-7.45); ARTERIAL BLOOD GAS PO2 50 mm/Hg (80-100); ARTERIAL BLOOD GAS TCO2 39.2 mmol/L (22-28)
--- NOTE | 2017-09-10 13:30 | CP.PCM.PN ---
Subjective - Date & Time of Evaluation Date of Evaluation: 09/10/17 Time of Evaluation: 10:30 - Subjective Subjective: Patient seen and examined bedside. With chest congestion and coughing spells unable to expectorate. With O2 Sat fluctuating 88-92 % at rest without oxygen ABG in RA ph 7.38 PO2 50 PCO2 63 No acute issues overnight. Feeling tired Objective - Vital Signs/Intake and Output Vital Signs (last 24 hours): Temp Pulse Resp BP Pulse Ox 97.6 F 71 20 95/72 L 98 09/10/17 12:32 09/10/17 12:32 09/10/17 12:32 09/10/17 12:32 09/10/17 12:32 - Medications Medications: Current Medications Allopurinol (Zyloprim) 100 mg PO DAILY [facility] Last Admin: 09/10/17 08:57 Dose: 100 mg Aspirin (Ecotrin) 81 mg PO DAILY [facility] Last Admin: 09/10/17 08:56 Dose: 81 mg Atorvastatin Calcium (Lipitor) 10 mg PO DAILY [facility] Last Admin: 09/10/17 08:56 Dose: 10 mg Benzonatate (Tessalon Perles) 200 mg PO TID PRN PRN Reason: Cough Last Admin: 09/09/17 09:07 Dose: 200 mg Clopidogrel Bisulfate (Plavix) 75 mg PO DAILY [facility] Last Admin: 09/10/17 08:57 Dose: 75 mg Dextrose (Dextrose 50% Inj) 0 ml IV STAT PRN; Protocol PRN Reason: Hypoglycemia Protocol Dextrose (Glutose 15) 0 gm PO ONCE PRN; Protocol PRN Reason: Hypoglycemia Protocol Enoxaparin Sodium (Lovenox) 30 mg SC DAILY [facility] PRN Reason: Protocol Last Admin: 09/10/17 08:57 Dose: 30 mg Glucagon (Glucagen Diagnostic Kit) 0 mg IM STAT PRN; Protocol PRN Reason: Hypoglycemia Protocol Insulin Human Regular (Humulin R) 0 units SC ACHS [facility] PRN Reason: Protocol Last Admin: 09/10/17 13:29 Dose: 2 units Ipratropium [place] (Atrovent) 0.5 mg IH RQID [facility] Last Admin: 09/10/17 11:21 Dose: 0.5 mg Levalbuterol HCl (Xopenex) 0.63 mg INH RQ4 PRN PRN Reason: Shortness of Breath Last Admin: 09/06/17 11:05 Dose: 0.63 mg Metoprolol Succinate (Toprol Xl) 100 mg PO DAILY [facility] Last Admin: 09/10/17 08:56 Dose: 100 mg Montelukast Sodium (Singulair) 10 mg PO DAILY [facility] Last Admin: 09/10/17 08:56 Dose: 10 mg Pantoprazole Sodium (Protonix Ec Tab) 40 mg PO DAILY [facility] Last Admin: 09/10/17 08:56 Dose: 40 mg - Labs Labs: 09/08/17 04:30 09/09/17 08:55 PT 11.5 Seconds (9.8-13.1) 09/03/17 20:50 INR 1.0 (0.9-1.2) 09/03/17 20:50 APTT 31.8 Seconds (25.6-37.1) 09/03/17 20:50 - Constitutional Appears: Non-toxic, No Acute Distress - Head Exam Head Exam: ATRAUMATIC, NORMOCEPHALIC - Eye Exam Eye Exam: EOMI, PERRL Pupil Exam: NORMAL ACCOMODATION - ENT Exam ENT Exam: Mucous Membranes Moist, Normal Exam - Neck Exam Neck Exam: Full ROM, Normal Inspection - Respiratory Exam Respiratory Exam: Rales, NORMAL BREATHING PATTERN. absent: Accessory Muscle Use , Rhonchi, Wheezes - Cardiovascular Exam Cardiovascular Exam: Irregular Rhythm, +S1, +S2. absent: JVD - GI/Abdominal Exam GI & Abdominal Exam: Soft, Normal Bowel Sounds. absent: Distended, Guarding, Tenderness, Rebound - Rectal Exam Rectal Exam: Deferred - Extremities Exam Extremities Exam: Normal Inspection, Pedal Edema (1 +). absent: Calf Tenderness Additional comments: sausage fingers - Back Exam Back Exam: NORMAL INSPECTION - Neurological Exam Neurological Exam: Alert, Awake, CN II-XII Intact, Oriented x3 - Psychiatric Exam Psychiatric exam: Normal Affect, Normal Mood - Skin Skin Exam: Dry, Pallor, Warm Additional comments: multiple diffuse skin lesions, raised , hyperkeratotic scaly plaques Assessment and Plan - Assessment and Plan (Free Text) Assessment: 81 y/o lady with hx of CAD, CHF, A Fib, SSS s/p Pacemaker, HTN, Asthma, came in bec of cough and SOB.She was diagnosed with acute CHF exacerbation and hypercapnic respiratory failure. She was initially placed on BIPAP , admitted in ICU , started on IV lasix , IV Solumedrol ,Duonebs and levaquine CXR showed vascular congestion and no infiltrates . Today 3/3 : still with chest congestion , coughing spells unable to expectorate .At present off BIPAP , feeling better but with O2 sat 88-92% in RA at rest. ABG with significant hypoxemia PO2 50 and PCO2 63 in RA on 2 L O2 via NC 1. Acute hypercapnic respiratory failure sec to CHF exacerbation and Asthma exacerbation Acute Improving but still with low o2 sat while in RA and PO2 50 Continue O2 via NC cont Xopenex tx RTC and prn Discontinued Lasix due to worsening renal function steroids tapered off Pulmonary and Cardiology consulted Will need home oxygen on discharge 2. Acute Bronchitis , ( Sepsis and Pneumonia ruled out) Acute still with coughing spells unable to expectorate off steroids and levaquine pulmonary on board CXR showed improved congestion and no active infiltrate 3. Acute on chronic diastolic CHF (congestive heart failure) Acute improved with IV Lasix - now off Lasix as Creatinine went up elevated propBNP previous ECHO showed diastolic dysfunction , EF 50 % (EF 65% on Myocardial scan) cont Toprol XL 4. Asthma with acute exacerbation Acute pt had + wheezing on admission w/c now resolved tapered solumedrol, and now discontinued patient most likely has some degree of COPD. will need PFT as outpatient PO2 50 in RA. will need home oxygen on discharge cont Xopenex cont Singulair 5. Atrial fibrillation / A Fultter with rapid ventricular response Acute rate controlled continue Toprol 100mg daily unable to tolerate Digoxin Patient known from previous admissions to refuse therapeutic anticoagulation 6. H/O sick sinus syndrome s/p Pacemaker Chronic 7. Acute kidney injury superimposed on CKD stage III Acute Discontinued diuretics Renal US showed Nephrology consulted 8. CAD (coronary artery disease) Chronic history of 1 stent Myocardial Perfusion scan done 06/26 : Apical Ischemia cont ASA, Plavix, statin, BB Cardio consulted Dr Kapadia. patient cleared for discharge 9. Hyperglycemia prob sec to Steroids [id number] 10. DVT Prophylaxis Lovenox
--- NOTE | 2017-09-10 14:40 | CP.PCM.PN ---
Subjective - Date & Time of Evaluation Date of Evaluation: 09/10/17 Time of Evaluation: 14:40 - Subjective Subjective: Still with congested cough. Has done well on current regimen. Steroids have been stopped and glucose is returning to a baseline. Vital signs have been stable and she has been afebrile. Few rhonchi are still present on deep breathing w/o audible wheeze. No bronchial breath sounds or egophony. Few basal rales bilaterally. Heart sounds are distant and rhythm irregular, but better rate control. Abdomen is soft and non-tender. Trace ankle edema, no cyanosis. Monitor accuchecks with [place] coverage. Continue present medical regimen. D/C to home early next week. Objective - Vital Signs/Intake and Output Vital Signs (last 24 hours): Temp Pulse Resp BP Pulse Ox 97.6 F 71 20 95/72 L 98 09/10/17 12:32 09/10/17 12:32 09/10/17 12:32 09/10/17 12:32 09/10/17 12:32 - Medications Medications: Current Medications Allopurinol (Zyloprim) 100 mg PO DAILY [facility] Last Admin: 09/10/17 08:57 Dose: 100 mg Aspirin (Ecotrin) 81 mg PO DAILY [facility] Last Admin: 09/10/17 08:56 Dose: 81 mg Atorvastatin Calcium (Lipitor) 10 mg PO DAILY [facility] Last Admin: 09/10/17 08:56 Dose: 10 mg Benzonatate (Tessalon Perles) 200 mg PO TID PRN PRN Reason: Cough Last Admin: 09/09/17 09:07 Dose: 200 mg Clopidogrel Bisulfate (Plavix) 75 mg PO DAILY [facility] Last Admin: 09/10/17 08:57 Dose: 75 mg Dextrose (Dextrose 50% Inj) 0 ml IV STAT PRN; Protocol PRN Reason: Hypoglycemia Protocol Dextrose (Glutose 15) 0 gm PO ONCE PRN; Protocol PRN Reason: Hypoglycemia Protocol Enoxaparin Sodium (Lovenox) 30 mg SC DAILY [facility] PRN Reason: Protocol Last Admin: 09/10/17 08:57 Dose: 30 mg Glucagon (Glucagen Diagnostic Kit) 0 mg IM STAT PRN; Protocol PRN Reason: Hypoglycemia Protocol Guaifenesin (Mucinex La) 600 mg PO Q12 [facility] Insulin Human Regular (Humulin R) 0 units SC ACHS [facility] PRN Reason: Protocol Last Admin: 09/10/17 13:29 Dose: 2 units Ipratropium [place] (Atrovent) 0.5 mg IH RQID [facility] Last Admin: 09/10/17 11:21 Dose: 0.5 mg Levalbuterol HCl (Xopenex) 0.63 mg INH RQ4 PRN PRN Reason: Shortness of Breath Last Admin: 09/06/17 11:05 Dose: 0.63 mg Metoprolol Succinate (Toprol Xl) 100 mg PO DAILY [facility] Last Admin: 09/10/17 08:56 Dose: 100 mg Montelukast Sodium (Singulair) 10 mg PO DAILY [facility] Last Admin: 09/10/17 08:56 Dose: 10 mg Pantoprazole Sodium (Protonix Ec Tab) 40 mg PO DAILY [facility] Last Admin: 09/10/17 08:56 Dose: 40 mg - Labs Labs: 09/08/17 04:30 09/09/17 08:55 PT 11.5 Seconds (9.8-13.1) 09/03/17 20:50 INR 1.0 (0.9-1.2) 09/03/17 20:50 APTT 31.8 Seconds (25.6-37.1) 09/03/17 20:50 Assessment and Plan (1) Acute hypercapnic respiratory failure Status: Acute (2) Acute bronchitis Status: Acute (3) Asthma with acute exacerbation Status: Acute (4) Atrial fibrillation with rapid ventricular response Status: Acute (5) Acute kidney injury superimposed on CKD Status: Acute
--- NOTE | 2017-09-10 15:48 | CP.PCM.PN ---
Subjective - Date & Time of Evaluation Date of Evaluation: 09/10/17 Time of Evaluation: 15:46 - Subjective Subjective: S: seen and examined still w/ coughing PE: vs as below gen: nad sclera: anicteric op: clear neck: supple cv: +s1+s2 lungs: por air movement at bases abd: soft ext: no edema neuro: a+ox3 psych: nml affect skin: no rash imp: ARF/ ? COPD? Anemia/ Hypertension/ CHF plan: renal function stable f/u pulm re: cough bp stable seems euvolemic Objective - Vital Signs/Intake and Output Vital Signs (last 24 hours): Temp Pulse Resp BP Pulse Ox 97.6 F 71 20 95/72 L 98 09/10/17 12:32 09/10/17 12:32 09/10/17 12:32 09/10/17 12:32 09/10/17 12:32 - Medications Medications: Current Medications Allopurinol (Zyloprim) 100 mg PO DAILY [facility] Last Admin: 09/10/17 08:57 Dose: 100 mg Aspirin (Ecotrin) 81 mg PO DAILY [facility] Last Admin: 09/10/17 08:56 Dose: 81 mg Atorvastatin Calcium (Lipitor) 10 mg PO DAILY [facility] Last Admin: 09/10/17 08:56 Dose: 10 mg Benzonatate (Tessalon Perles) 200 mg PO TID PRN PRN Reason: Cough Last Admin: 09/09/17 09:07 Dose: 200 mg Clopidogrel Bisulfate (Plavix) 75 mg PO DAILY [facility] Last Admin: 09/10/17 08:57 Dose: 75 mg Dextrose (Dextrose 50% Inj) 0 ml IV STAT PRN; Protocol PRN Reason: Hypoglycemia Protocol Dextrose (Glutose 15) 0 gm PO ONCE PRN; Protocol PRN Reason: Hypoglycemia Protocol Enoxaparin Sodium (Lovenox) 30 mg SC DAILY [facility] PRN Reason: Protocol Last Admin: 09/10/17 08:57 Dose: 30 mg Glucagon (Glucagen Diagnostic Kit) 0 mg IM STAT PRN; Protocol PRN Reason: Hypoglycemia Protocol Guaifenesin (Mucinex La) 600 mg PO Q12 [facility] Insulin Human Regular (Humulin R) 0 units SC ACHS [facility] PRN Reason: Protocol Last Admin: 09/10/17 13:29 Dose: 2 units Ipratropium [place] (Atrovent) 0.5 mg IH RQID [facility] Last Admin: 09/10/17 11:21 Dose: 0.5 mg Levalbuterol HCl (Xopenex) 0.63 mg INH RQ4 PRN PRN Reason: Shortness of Breath Last Admin: 09/06/17 11:05 Dose: 0.63 mg Metoprolol Succinate (Toprol Xl) 100 mg PO DAILY [facility] Last Admin: 09/10/17 08:56 Dose: 100 mg Montelukast Sodium (Singulair) 10 mg PO DAILY [facility] Last Admin: 09/10/17 08:56 Dose: 10 mg Pantoprazole Sodium (Protonix Ec Tab) 40 mg PO DAILY [facility] Last Admin: 09/10/17 08:56 Dose: 40 mg - Labs Labs: 09/08/17 04:30 09/09/17 08:55 PT 11.5 Seconds (9.8-13.1) 09/03/17 20:50 INR 1.0 (0.9-1.2) 09/03/17 20:50 APTT 31.8 Seconds (25.6-37.1) 09/03/17 20:50
[2017-09-10] MEDS: Levalbuterol 0.63 MG/3 ML Inhal Soln UD INH PRN ×2 (16:22→19:49)
[2017-09-10] MEDS: guaiFENesin 600 mg ER Tab PO SCH (21:24)
[2017-09-11] MEDS: Insulin Regular 100 units/ml SC SCH ×4 (06:32→21:16)
[2017-09-11] MEDS: Ipratropium 0.02% Inhal Soln (0.5 mg/2.5 ml) UD IH SCH ×4 (08:04→19:59)
--- NOTE | 2017-09-11 08:59 | CP.PCM.PN ---
Subjective - Date & Time of Evaluation Date of Evaluation: 09/11/17 Time of Evaluation: 09:00 - Subjective Subjective: Patient seen and examined [id number]. feeling a little better . Still with chest congestion, coughing spells. Able to expectorate minimal amount of thick yellowish phlegm.\ No acute issues overnight Afebrile Objective - Vital Signs/Intake and Output Vital Signs (last 24 hours): Temp Pulse Resp BP Pulse Ox 97.9 F 81 18 123/86 99 09/11/17 07:54 09/11/17 07:54 09/11/17 07:54 09/11/17 07:54 09/11/17 07:54 Intake and Output: 09/11/17 09/11/17 06:59 18:59 Intake Total 200 Output Total 300 Balance -100 - Medications Medications: Current Medications Allopurinol (Zyloprim) 100 mg PO DAILY [facility] Last Admin: 09/10/17 08:57 Dose: 100 mg Aspirin (Ecotrin) 81 mg PO DAILY [facility] Last Admin: 09/10/17 08:56 Dose: 81 mg Atorvastatin Calcium (Lipitor) 10 mg PO DAILY [facility] Last Admin: 09/10/17 08:56 Dose: 10 mg Benzonatate (Tessalon Perles) 200 mg PO TID PRN PRN Reason: Cough Last Admin: 09/09/17 09:07 Dose: 200 mg Clopidogrel Bisulfate (Plavix) 75 mg PO DAILY [facility] Last Admin: 09/10/17 08:57 Dose: 75 mg Dextrose (Dextrose 50% Inj) 0 ml IV STAT PRN; Protocol PRN Reason: Hypoglycemia Protocol Dextrose (Glutose 15) 0 gm PO ONCE PRN; Protocol PRN Reason: Hypoglycemia Protocol Enoxaparin Sodium (Lovenox) 30 mg SC DAILY [facility] PRN Reason: Protocol Last Admin: 09/10/17 08:57 Dose: 30 mg Glucagon (Glucagen Diagnostic Kit) 0 mg IM STAT PRN; Protocol PRN Reason: Hypoglycemia Protocol Guaifenesin (Mucinex [place]) 600 mg PO Q12 [facility] Last Admin: 09/10/17 21:24 Dose: Not Given Insulin Human Regular (Humulin R) 0 units SC ACHS [facility] PRN Reason: Protocol Last Admin: 09/11/17 06:32 Dose: Not Given Ipratropium [place] (Atrovent) 0.5 mg IH RQID [facility] Last Admin: 09/11/17 08:04 Dose: Not Given Levalbuterol HCl (Xopenex) 0.63 mg INH RQ4 PRN PRN Reason: Shortness of Breath Last Admin: 09/10/17 19:49 Dose: 0.63 mg Metoprolol Succinate (Toprol Xl) 100 mg PO DAILY [facility] Last Admin: 09/10/17 08:56 Dose: 100 mg Montelukast Sodium (Singulair) 10 mg PO DAILY [facility] Last Admin: 09/10/17 08:56 Dose: 10 mg Pantoprazole Sodium (Protonix Ec Tab) 40 mg PO DAILY [facility] Last Admin: 09/10/17 08:56 Dose: 40 mg - Labs Labs: 09/08/17 04:30 09/09/17 08:55 PT 11.5 Seconds (9.8-13.1) 09/03/17 20:50 INR 1.0 (0.9-1.2) 09/03/17 20:50 APTT 31.8 Seconds (25.6-37.1) 09/03/17 20:50 - Constitutional Appears: Non-toxic, No Acute Distress - Head Exam Head Exam: ATRAUMATIC, NORMAL INSPECTION, NORMOCEPHALIC - Eye Exam Eye Exam: EOMI, Normal appearance, PERRL Pupil Exam: NORMAL ACCOMODATION - ENT Exam ENT Exam: Mucous Membranes Moist, Normal Exam - Neck Exam Neck Exam: Full ROM, Normal Inspection - Respiratory Exam Respiratory Exam: NORMAL BREATHING PATTERN. absent: Accessory Muscle Use, Prolonged Expiratory Phase, Rhonchi, Wheezes, Respiratory Distress - Cardiovascular Exam Cardiovascular Exam: Irregular Rhythm. absent: JVD - GI/Abdominal Exam GI & Abdominal Exam: Soft, Normal Bowel Sounds. absent: Distended, Guarding, Tenderness, Rebound - Rectal Exam Rectal Exam: Deferred - Extremities Exam Extremities Exam: Normal Capillary Refill, Normal Inspection. absent: Calf Tenderness, Pedal Edema Additional comments: dactylitis bilateral hands - Back Exam Back Exam: NORMAL INSPECTION - Neurological Exam Neurological Exam: Alert, Awake, CN II-XII Intact, Oriented x3 - Psychiatric Exam Psychiatric exam: Normal Affect, Normal Mood - Skin Skin Exam: Dry, Warm Additional comments: multiple raised dry scaly skin lesions Assessment and Plan - Assessment and Plan (Free Text) Assessment: 81 y/o female with PMH of CAD, CHF, A Fib, SSS s/p Pacemaker, HTN, Asthma, came in bec of cough and SOB.She was diagnosed with acute CHF exacerbation and hypercapnic respiratory failure. She was initially placed on BIPAP , admitted in ICU , started on IV lasix , IV Solumedrol ,Duonebs and levaquine CXR showed vascular congestion and no infiltrates . Today 3/4 still with chest congestion , coughing spellsable to expectorate very little .At present off BIPAP , feeling better but ABG with significant hypoxemia PO2 50 and PCO2 63 in RA On 2 L O2 via NC 1. Acute hypercapnic respiratory failure sec to CHF exacerbation and Asthma exacerbation Acute Improving but still with low o2 sat while in RA and PO2 50 Continue O2 via NC cont Xopenex tx RTC and prn Discontinued Lasix due to worsening renal function steroids tapered off Pulmonary and Cardiology consulted Will need home oxygen on discharge. 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 Acute Bronchitis , ( Sepsis and Pneumonia ruled out) Acute still with coughing spells unable to expectorate off steroids and levaquine pulmonary on board CXR showed improved congestion and no active infiltrate 3. Acute on chronic diastolic CHF (congestive heart failure) Acute improved with IV Lasix - now off Lasix as Creatinine went up elevated propBNP previous ECHO showed diastolic dysfunction , EF 50 % (EF 65% on Myocardial scan) cont Toprol XL 4. Asthma with acute exacerbation Acute pt had + wheezing on admission w/c now resolved tapered solumedrol, and now discontinued patient most likely has some degree of COPD. will need PFT as outpatient PO2 50 in RA. will need home oxygen on discharge cont Xopenex , mucinex cont Singulair 5. Atrial fibrillation / A Fultter with rapid ventricular response Acute rate controlled continue Toprol 100mg daily unable to tolerate Digoxin Patient known from previous admissions to refuse therapeutic anticoagulation 6. H/O sick sinus syndrome s/p Pacemaker Chronic 7. Acute kidney injury superimposed on CKD stage III Acute Discontinued diuretics Renal US showed Nephrology consulted 8. CAD (coronary artery disease) Chronic history of 1 stent Myocardial Perfusion scan done 06/26 : Apical Ischemia cont ASA, Plavix, statin, BB Cardio consulted Dr Kapadia. patient cleared for discharge 9. Hyperglycemia prob sec to Steroids [id number] 10. DVT Prophylaxis Lovenox
[2017-09-11] MEDS: Pantoprazole 40 mg EC Tab PO SCH (09:13)
[2017-09-11] MEDS: Metoprolol Succinate 100 mg XL Tab PO SCH (09:13)
[2017-09-11] MEDS: Enoxaparin 30 mg Syringe SC SCH (09:14)
[2017-09-11] MEDS: guaiFENesin 600 mg ER Tab PO SCH ×3 (09:14→21:15)
[2017-09-11 16:36] LABS: SQUAMOUS EPITHIAL 6 /hpf (0-5); URINE BILIRUBIN NEGATIVE (NEGATIVE); URINE BLOOD NEGATIVE (NEGATIVE); URINE CLARITY SLIGHTY-CLOUDY (Clear); URINE COLOR YELLOW (YELLOW); URINE GLUCOSE (UA) NEG (Normal); URINE LEUKOCYTE ESTERASE SMALL Leu/uL (Negative); URINE NITRATE NEGATIVE (NEGATIVE); URINE PROTEIN NEGATIVE (NEGATIVE); URINE UROBILINOGEN 0.2-1.0 mg/dL (0.2-1.0)
[2017-09-12 07:06] LABS: HEMOGLOBIN 13.1 g/dL (12.0-16.0); MEAN CELL VOLUME 92.4 fl (81.0-99.0); MEAN CORPUSCULAR HEMOGLOBIN 28.8 pg (27.0-31.0); MEAN CORPUSCULAR HGB CONC 31.1 g/dL (33.0-37.0); RBC 4.54 Mil/uL (3.80-5.20); RED CELL DISTRIBUTION WIDTH 16.3 % (11.5-14.5); WHITE BLOOD COUNT 12.6 K/uL (4.8-10.8)
[2017-09-12 07:20] LABS: CALCIUM 9.2 mg/dL (8.4-10.2)
[2017-09-12] MEDS: Insulin Regular 100 units/ml SC SCH ×2 (07:30→11:30)
[2017-09-12 07:57] VITALS: BP 104/70; PULSE 84; RESP 18; TEMP 98.8; O2SAT 98
[2017-09-12] MEDS: Ipratropium 0.02% Inhal Soln (0.5 mg/2.5 ml) UD IH SCH ×2 (08:23→14:00)
[2017-09-12] MEDS: Metoprolol Succinate 100 mg XL Tab PO SCH (08:47)
[2017-09-12] MEDS: Enoxaparin 30 mg Syringe SC SCH (08:48)
[2017-09-12] MEDS: Pantoprazole 40 mg EC Tab PO SCH (08:48)
[2017-09-12] MEDS: guaiFENesin 600 mg ER Tab PO SCH (08:48)
[2017-09-12] MEDS ORDERED: Insulin Regular 100 units/ml IV ONE (11:10)
[2017-09-12] MEDS ORDERED: Dextrose 50% SYRINGE Inj (50 ml) IVP ONE (11:10)
--- NOTE | 2017-09-12 11:12 | CP.PCM.PN ---
Subjective - Date & Time of Evaluation Date of Evaluation: 09/12/17 Time of Evaluation: 11:06 - Subjective Subjective: Doing well on current regimen. Cough and congestion have decreased. Complains of some difficulty swallowing pills. Vital signs have remained stable, afebrile. Mild leukocytosis this morning needs follow up. Cough is much less congested. Accuchecks remain < 150 consistently. Pharynx is pink and moist, neck is supple w/o adenopathy. Chest has increased AP diameter w/o hyper-resonance. Breath sounds are diminished bilaterally w/o wheeze. few scattered sonorous rhonchin are heard bilaterally. Barium esophagogram requested. ABG the other day showed PaO2 50mmHg. Needs home O2. Follow up CBC in AM. Stop ACHS accuchecks. Hopeful for discharge in the AM. Objective - Vital Signs/Intake and Output Vital Signs (last 24 hours): Temp Pulse Resp BP Pulse Ox 98.8 F 84 18 104/70 98 09/12/17 07:57 09/12/17 07:57 09/12/17 07:57 09/12/17 08:47 09/12/17 07:57 Intake and Output: 09/11/17 09/12/17 23:59 11:59 Intake Total 180 200 Balance 180 200 - Medications Medications: Current Medications Allopurinol (Zyloprim) 100 mg PO DAILY [facility] Last Admin: 09/12/17 08:48 Dose: 100 mg Aspirin (Ecotrin) 81 mg PO DAILY [facility] Last Admin: 09/12/17 08:48 Dose: 81 mg Atorvastatin Calcium (Lipitor) 10 mg PO 2100 [facility] Last Admin: 09/11/17 21:14 Dose: 10 mg Benzonatate (Tessalon Perles) 200 mg PO TID PRN PRN Reason: Cough Last Admin: 09/09/17 09:07 Dose: 200 mg Clopidogrel Bisulfate (Plavix) 75 mg PO DAILY [facility] Last Admin: 09/12/17 08:48 Dose: 75 mg Dextrose (Dextrose 50% Inj) 0 ml IV STAT PRN; Protocol PRN Reason: Hypoglycemia Protocol Dextrose (Glutose 15) 0 gm PO ONCE PRN; Protocol PRN Reason: Hypoglycemia Protocol Enoxaparin Sodium (Lovenox) 30 mg SC DAILY [facility] PRN Reason: Protocol Last Admin: 09/12/17 08:48 Dose: 30 mg Glucagon (Glucagen Diagnostic Kit) 0 mg IM STAT PRN; Protocol PRN Reason: Hypoglycemia Protocol Guaifenesin (Mucinex [place]) 600 mg PO Q12 [facility] Last Admin: 09/12/17 08:48 Dose: Not Given Insulin Human Regular (Humulin R) 0 units SC ACHS [facility] PRN Reason: Protocol Last Admin: 09/12/17 07:30 Dose: Not Given Ipratropium [place] (Atrovent) 0.5 mg IH RQID [facility] Last Admin: 09/12/17 08:23 Dose: 0.5 mg Levalbuterol HCl (Xopenex) 0.63 mg INH RQ4 PRN PRN Reason: Shortness of Breath Last Admin: 09/10/17 19:49 Dose: 0.63 mg Metoprolol Succinate (Toprol Xl) 100 mg PO DAILY [facility] Last Admin: 09/12/17 08:47 Dose: 100 mg Pantoprazole Sodium (Protonix Ec Tab) 40 mg PO DAILY [facility] Last Admin: 09/12/17 08:48 Dose: 40 mg - Labs Labs: 09/12/17 06:05 09/12/17 06:05 PT 11.5 Seconds (9.8-13.1) 09/03/17 20:50 INR 1.0 (0.9-1.2) 09/03/17 20:50 APTT 31.8 Seconds (25.6-37.1) 09/03/17 20:50 Assessment and Plan (1) Acute hypercapnic respiratory failure Status: Acute (2) Acute bronchitis Status: Acute (3) Asthma with acute exacerbation Status: Acute (4) Atrial fibrillation with rapid ventricular response Status: Acute (5) Acute kidney injury superimposed on CKD Status: Acute
--- NOTE | 2017-09-12 11:23 | CP.PCM.PN ---
Subjective - Date & Time of Evaluation Date of Evaluation: 09/12/17 Time of Evaluation: 11:21 - Subjective Subjective: Additions to diagnosis codes. Objective - Vital Signs/Intake and Output Vital Signs (last 24 hours): Temp Pulse Resp BP Pulse Ox 98.8 F 84 18 104/70 98 09/12/17 07:57 09/12/17 07:57 09/12/17 07:57 09/12/17 08:47 09/12/17 07:57 Intake and Output: 09/11/17 09/12/17 23:59 11:59 Intake Total 180 200 Balance 180 200 - Medications Medications: Current Medications Allopurinol (Zyloprim) 100 mg PO DAILY [facility] Last Admin: 09/12/17 08:48 Dose: 100 mg Aspirin (Ecotrin) 81 mg PO DAILY [facility] Last Admin: 09/12/17 08:48 Dose: 81 mg Atorvastatin Calcium (Lipitor) 10 mg PO 2100 [facility] Last Admin: 09/11/17 21:14 Dose: 10 mg Benzonatate (Tessalon Perles) 200 mg PO TID PRN PRN Reason: Cough Last Admin: 09/09/17 09:07 Dose: 200 mg Clopidogrel Bisulfate (Plavix) 75 mg PO DAILY [facility] Last Admin: 09/12/17 08:48 Dose: 75 mg Dextrose (Dextrose 50% Inj) 0 ml IV STAT PRN; Protocol PRN Reason: Hypoglycemia Protocol Dextrose (Glutose 15) 0 gm PO ONCE PRN; Protocol PRN Reason: Hypoglycemia Protocol Enoxaparin Sodium (Lovenox) 30 mg SC DAILY [facility] PRN Reason: Protocol Last Admin: 09/12/17 08:48 Dose: 30 mg Glucagon (Glucagen Diagnostic Kit) 0 mg IM STAT PRN; Protocol PRN Reason: Hypoglycemia Protocol Guaifenesin (Mucinex La) 600 mg PO Q12 [facility] Last Admin: 09/12/17 08:48 Dose: Not Given Insulin Human Regular (Humulin R) 0 units SC ACHS [facility] PRN Reason: Protocol Last Admin: 09/12/17 07:30 Dose: Not Given Ipratropium Farina (Atrovent) 0.5 mg IH RQID [facility] Last Admin: 09/12/17 08:23 Dose: 0.5 mg Levalbuterol HCl (Xopenex) 0.63 mg INH RQ4 PRN PRN Reason: Shortness of Breath Last Admin: 09/10/17 19:49 Dose: 0.63 mg Metoprolol Succinate (Toprol Xl) 100 mg PO DAILY [facility] Last Admin: 09/12/17 08:47 Dose: 100 mg Pantoprazole Sodium (Protonix Ec Tab) 40 mg PO DAILY [facility] Last Admin: 09/12/17 08:48 Dose: 40 mg Sodium Polystyrene Sulfonate (Kayexalate Susp) 15 gm PO ONCE ONE Stop: 09/12/17 11:31 - Labs Labs: 09/12/17 06:05 09/12/17 06:05 PT 11.5 Seconds (9.8-13.1) 09/03/17 20:50 INR 1.0 (0.9-1.2) 09/03/17 20:50 APTT 31.8 Seconds (25.6-37.1) 09/03/17 20:50 Assessment and Plan (1) Acute hypercapnic respiratory failure Status: Acute (2) Acute bronchitis Status: Acute (3) Asthma with acute exacerbation Status: Resolved (4) Atrial fibrillation with rapid ventricular response Status: Acute (5) Acute kidney injury superimposed on CKD Status: Acute (6) 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
[2017-09-12] MEDS ORDERED: Sod Polystyrene Sulf 15 gm/60 ml Susp PO ONE (11:30)
[2017-09-12] MEDS ORDERED: Barium Sulfate for Susp 98% w/w 340g Bottle ONE (11:32)
[2017-09-12] MEDS ORDERED: Barium Sulfate Susp 0.1% w/v, 0.1% w/w 450 mL Bottle PO ONE (11:32)
[2017-09-12] MEDS: Albuterol-Ipratrop 3 mg / 0.5 (3 ml) UD INH STA ×2 (11:58→13:57)
--- NOTE | 2017-09-12 19:49 | CP.PCM.DIS ---
Provider - Provider Date of Admission: 09/03/17 21:37 Attending physician: Moncho Cunningham MD Primary care physician: Dr. Gillespie Consults: cardiology consult pulmonary consult nephrology consult Time Spent in preparation of Discharge (in minutes): 20 Hospital Course - Lab Results Lab Results: Micro Results 09/11/17 14:30 Sputum Induced Gram Stain - Final 09/08/17 06:45 Naris MRSA Culture (Admit) - Final MRSA NOT DETECTED 09/03/17 20:30 Blood-Venous Blood Culture - Final NO GROWTH AFTER 5 DAYS 09/03/17 20:30 Blood-Venous Gram Stain - Final TEST NOT PERFORMED 09/03/17 20:15 Blood-Venous Blood Culture - Final NO GROWTH AFTER 5 DAYS 09/03/17 20:15 Blood-Venous Gram Stain - Final TEST NOT PERFORMED 09/05/17 11:00 Naris MRSA Culture (Admit) - Final MRSA NOT DETECTED Most Recent Lab Values WBC 12.6 K/uL (4.8-10.8) H D 09/12/17 06:05 RBC 4.54 Mil/uL (3.80-5.20) 09/12/17 06:05 Hgb 13.1 g/dL (12.0-16.0) 09/12/17 06:05 Hct 42.0 % (34.0-47.0) 09/12/17 06:05 MCV 92.4 fl (81.0-99.0) 09/12/17 06:05 MCH 28.8 pg (27.0-31.0) 09/12/17 06:05 MCHC 31.1 g/dL (33.0-37.0) L 09/12/17 06:05 RDW 16.3 % (11.5-14.5) H 09/12/17 06:05 Plt Count 109 K/uL (130-400) L D 09/12/17 06:05 MPV 10.6 fl (7.2-11.7) 09/04/17 05:30 Neut % (Auto) 92.6 % (50.0-75.0) H 09/04/17 05:30 Lymph % (Auto) 4.9 % (20.0-40.0) L 09/04/17 05:30 Carroll % (Auto) 2.5 % (0.0-10.0) 09/04/17 05:30 Eos % (Auto) 0.0 % (0.0-4.0) 09/04/17 05:30 Baso % (Auto) 0.0 % (0.0-2.0) 09/04/17 05:30 Neut # (Auto) 5.0 K/uL (1.8-7.0) 09/04/17 05:30 Lymph # (Auto) 0.3 K/uL (1.0-4.3) L 09/04/17 05:30 Carroll # (Auto) 0.1 K/uL (0.0-0.8) 09/04/17 05:30 Eos # (Auto) 0.0 K/uL (0.0-0.7) 09/04/17 05:30 Baso # (Auto) 0.0 K/uL (0.0-0.2) 09/04/17 05:30 Neutrophils % (Manual) 86 % (42-75) H 09/04/17 05:30 Band Neutrophils % 1 % (0-2) 09/03/17 20:50 Lymphocytes % (Manual) 9 % (20-50) L 09/04/17 05:30 Reactive Lymphs % 2 % (0-0) H 09/03/17 20:50 Monocytes % (Manual) 5 % (0-10) 09/04/17 05:30 Platelet Estimate Decreased (NORMAL) L 09/04/17 05:30 Polychromasia Slight 09/04/17 05:30 Anisocytosis (manual) Slight 09/03/17 20:50 Ovalocytes Slight 09/04/17 05:30 PT 11.5 Seconds (9.8-13.1) 09/03/17 20:50 INR 1.0 (0.9-1.2) 09/03/17 20:50 APTT 31.8 Seconds (25.6-37.1) 09/03/17 20:50 pCO2 63 mm/Hg (35-45) H 09/10/17 10:21 pO2 50 mm/Hg (80-100) L 09/10/17 10:21 HCO3 32.0 mmol/L (21-28) H 09/10/17 10:21 ABG pH 7.38 (7.35-7.45) 09/10/17 10:21 ABG Total CO2 39.2 mmol/L (22-28) H 09/10/17 10:21 ABG O2 Saturation 90.9 % (95-98) L 09/10/17 10:21 ABG O2 Content 18.0 ML/dL (15-23) 09/10/17 10:21 ABG Base Excess 9.5 mmol/L (-2.0-3.0) H 09/10/17 10:21 ABG Hemoglobin 14.7 g/dL (11.7-17.4) 09/10/17 10:21 ABG Carboxyhemoglobin 2.5 % (0.5-1.5) H 09/10/17 10:21 POC ABG HHb (Measured) 8.8 % (0.0-5.0) H 09/10/17 10:21 ABG Methemoglobin 1.3 % (0.0-3.0) 09/10/17 10:21 ABG O2 Capacity 19.8 mL/dL (16-24) 09/10/17 10:21 Clayton Test Yes 09/10/17 10:21 ABG Potassium 3.8 mmol/L (3.6-5.2) 09/03/17 20:27 A-a O2 Difference 21.0 mm/Hg 09/10/17 10:21 Hgb O2 Saturation 87.4 % (95.0-98.0) L 09/10/17 10:21 Sodium 135.0 mmol/L (132-148) 09/03/17 20:27 Chloride 100.0 mmol/L (98-107) 09/03/17 20:27 Glucose 177 mg/dL (65-105) H 09/03/17 20:27 Lactate 1.5 mmol/L (0.7-2.1) 09/03/17 20:27 Vent Mode Bipap 09/04/17 04:37 FiO2 21.0 % 09/10/17 10:21 Inspiratory BiPAP 12 09/04/17 04:37 Expiratory BiPAP 6 09/04/17 04:37 Blood Gas Comments Room air 09/10/17 10:21 Crit Value Called To Emma staley r.n. 09/03/17 20:27 Crit Value Called By Michela 09/03/17 20:27 Crit Value Read Back N 09/10/17 10:21 Blood Gas Notified Time 211709/03/17 20:27 Sodium 142 mmol/l (132-148) 09/12/17 06:05 Potassium 5.2 MMOL/L (3.6-5.0) H 09/12/17 06:05 Chloride 95 mmol/L (98-107) L 09/12/17 06:05 Carbon Dioxide 38 mmol/L (22-30) H 09/12/17 06:05 Anion Gap 14 (10-20) 09/12/17 06:05 BUN 39 mg/dl (7-17) H 09/12/17 06:05 Creatinine 1.1 mg/dl (0.7-1.2) 09/12/17 06:05 Est GFR ( Amer) 58 09/12/17 06:05 Est GFR (Non-Af Amer) 48 09/12/17 06:05 POC Glucose (mg/dL) 120 mg/dL (65-110) H 09/12/17 12:28 Random Glucose 115 mg/dL (65-105) H 09/12/17 06:05 Hemoglobin A1c 6.9 % (4.2-6.5) H 09/07/17 14:55 Uric Acid 8.4 mg/Dl (2.2-7.5) H 09/07/17 09:43 Calcium 9.2 mg/dL (8.4-10.2) 09/12/17 06:05 Phosphorus 4.0 mg/dl (2.5-4.5) 09/07/17 14:55 Magnesium 1.9 MG/DL (1.6-2.3) 09/03/17 20:50 Total Bilirubin 0.8 mg/dl (0.2-1.3) 09/03/17 20:50 AST 31 U/L (14-36) 09/03/17 20:50 ALT 29 U/L (9-52) 09/03/17 20:50 Alkaline Phosphatase 100 U/L (38-126) 09/03/17 20:50 Troponin I 0.0320 ng/mL (0.00-0.120) 09/04/17 12:00 NT-Pro-B Natriuret Pep 8420 pg/ml (0-900) H 09/05/17 04:15 Total Protein 7.1 G/DL (6.3-8.2) 09/03/17 20:50 Albumin 4.0 g/dL (3.5-5.0) 09/03/17 20:50 Globulin 3.1 gm/dL (2.2-3.9) 09/03/17 20:50 Albumin/Globulin Ratio 1.3 (1.0-2.1) 09/03/17 20:50 Procalcitonin 0.08 NG/ML (0.19-0.49) L 09/05/17 04:15 PTH Intact Whole Molec 229 pg/mL (14-64) H 09/09/17 16:44 Arterial Blood Potassium 3.8 mmol/L (3.6-5.2) 09/03/17 20:27 Urine Color Yellow (YELLOW) 09/11/17 15:15 Urine Clarity Slighty-cloudy (Clear) 09/11/17 15:15 Urine pH 6.0 (5.0-8.0) 09/11/17 15:15 Ur Specific Avilla 1.018 (1.003-1.030) 09/11/17 15:15 Urine Protein Negative mg/dL (NEGATIVE) 09/11/17 15:15 Urine Glucose (UA) Neg mg/dL (Normal) 09/11/17 15:15 Urine Ketones Negative mg/dL (NEGATIVE) 09/11/17 15:15 Urine Blood Negative (NEGATIVE) 09/11/17 15:15 Urine Nitrate Negative (NEGATIVE) 09/11/17 15:15 Urine Bilirubin Negative (NEGATIVE) 09/11/17 15:15 Urine Urobilinogen 0.2-1.0 mg/dL (0.2-1.0) 09/11/17 15:15 Ur Leukocyte Esterase Small Veronica/uL (Negative) 09/11/17 15:15 Urine RBC (Auto) 2 /hpf (0-3) 09/11/17 15:15 Urine Microscopic WBC 3 /hpf (0-5) 09/11/17 15:15 Ur Squamous Epith Cells 6 /hpf (0-5) H 09/11/17 15:15 Ur Random Creatinine 48.4 mg/dL 09/07/17 19:54 U Random Total Protein 16.0 mg/dL (0.0-12.0) H 09/07/17 19:54 Influenza Typ A,B (EIA) Negative for flu a/b (NEGATIVE) 09/03/17 20:50 - Hospital Course Hospital Course: 81 y/o female with PMH of CAD, CHF, A Fib, SSS s/p Pacemaker, HTN, Asthma, came in bec of cough and SOB.She was diagnosed with acute CHF exacerbation and hypercapnic respiratory failure. She was initially placed on BIPAP , admitted in ICU , started on IV lasix , IV Solumedrol ,Duonebs and levaquine CXR showed vascular congestion and no infiltrates.Patient started to improve slowly , her chest congestion got better , taken off BIPAp and tolerating 2 -3 L O2 via NC .Steroids were tappered to D/c , levaquine was discontinued . Her ABG in RA showed PO2 50 in RA. Will discharge patient home on home Oxygen and current medical management.most likley she has an overlap of Asthma and COPD syndrome follow up with her PMD Dr. Gillespie 1. Acute hypercapnic respiratory failure sec to CHF exacerbation and Asthma exacerbation Acute Improved but still with low o2 sat while in RA and PO2 50 Continue O2 via NC at home PRN will resume lasix on discharge steroids tapered off Pulmonary and Cardiology consulted 2. Acute Bronchitis , ( Sepsis and Pneumonia ruled out) Acute still with coughing spells expectorating minimally thick secretion off steroids and levaquine pulmonary on board CXR showed improved congestion and no active infiltrate 3. Acute on chronic diastolic CHF (congestive heart failure) Acute improved with IV Lasix Will resume lasix on discharge previous ECHO showed diastolic dysfunction , EF 50 % (EF 65% on Myocardial scan) cont Toprol XL 4. Asthma with acute exacerbation Acute pt had + wheezing on admission w/c now resolved tapered solumedrol, and now discontinued patient most likely has some degree of COPD. will need PFT as outpatient PO2 50 in RA. will need home oxygen on discharge cont Xopenex , mucinex cont Singulair 5. Atrial fibrillation / A Fultter with rapid ventricular response Acute rate controlled continue Toprol 50 mg daily unable to tolerate Digoxin Patient known from previous admissions to refuse therapeutic anticoagulation 6. H/O sick sinus syndrome s/p Pacemaker Chronic 7. Acute kidney injury superimposed on CKD stage III stable Nephrology consulted 8. CAD (coronary artery disease) Chronic history of 1 stent Myocardial Perfusion scan done 06/26 : Apical Ischemia cont ASA, Plavix, statin, BB Cardio consulted Dr Kapadia. patient cleared for discharge 9. Hyperglycemia prob sec to Steroids HgbA1c 6.9 steroids discontinued 10. DVT Prophylaxis Lovenox Discharge Exam - Head Exam Head Exam: ATRAUMATIC, NORMAL INSPECTION, NORMOCEPHALIC - Eye Exam Eye Exam: EOMI, Normal appearance, PERRL Pupil Exam: NORMAL ACCOMODATION - ENT Exam ENT Exam: Mucous Membranes Moist, Normal Exam - Neck Exam Neck exam: Full Rom, Normal Inspection - Respiratory Exam Respiratory Exam: Clear to PA & Lateral, NORMAL BREATHING PATTERN. absent: Rales, Rhonchi, Wheezes - Cardiovascular Exam Cardiovascular Exam: REGULAR RHYTHM, RRR, +S1, +S2. absent: JVD - GI/Abdominal Exam GI & Abdominal Exam: Normal Bowel Sounds, Soft. absent: Distended, Guarding, Rebound, Tenderness - Rectal Exam Rectal Exam: Deferred - Extremities Exam Extremities exam: normal capillary refill, normal inspection, pedal pulses present - Back Exam Back exam: NORMAL INSPECTION - Neurological Exam Neurological exam: Alert, CN II-XII Intact, Oriented x3, Reflexes Normal - Psychiatric Exam Psychiatric exam: Normal Affect, Normal Mood - Skin Skin Exam: Dry Additional comments: multiple scaly dry skin lesions Discharge Plan - Follow Up Plan Condition: IMPROVED Disposition: HOME/ ROUTINE Patient education suggested?: Yes Instructions: Heart Failure, Adult (DC), Oxygen Therapy, Adult (DC) Additional Instructions: follow up with Dr. Gillespie saturday 09/16 at 12:15pm Referrals: Marco A Gillespie MD [Staff Provider] - Lazaro Kapadia MD [Staff Provider] - Clinical Quality Measures - CQM - Heart Failure Ejection Fraction: 40 % or Greater Left Ventricular Function to be assessed after discharge: No ONEIDA Inhibitor Prescribed: No Contraindication/Reason for not providing: unable to tolerate renal failure Beta-Leslie Prescribed: Metoprolol Succinate AnticoagulationTherapy for Atrial Fibrillation/Atrialflutter: No Contraindication/Reason for not providing: refused
--- NOTE | 2017-09-13 07:36 | RAD ---
HISTORY: Dysphagia. COMPARISON: None. TECHNIQUE: An esophagram was performed under fluoroscopic control using double and single contrast technique. FINDINGS: Patient tolerated procedure well. ESOPHAGUS: Esophageal mucosa appeared preserved. No evidence of stricture or mass lesion. Mild tertiary contractions were identified throughout the majority of the examination including both single and double contrast technique. HIATAL HERNIA: None demonstrated. GASTROESOPHAGEAL REFLUX: Not demonstrated. OTHER FINDINGS: 2.5 minutes of fluoroscopy time was utilized. IMPRESSION: Mild tertiary contractions have been identified throughout the majority the examination. No obstruction to the flow of oral contrast was identified, either intrinsic or extrinsic, and there is no suspicious filling defect or contrast collection appreciated delete.
== END 2017-09-12 16:45 | disposition home or self-care (01) | DRG 291 ==
LOC: H.ER 19:55 → H.ERHOLD 21:37 → H.ICU/CCU 23:55 → H.TEL 09-08 20:06 → H.MEDSURG1 09-10 11:49
PROVIDERS: ADMIT Internal Medicine; ATTEND Internal Medicine
DX: I13.0 Hypertensive heart and chronic kidney disease with heart failure and stage 1 through stage 4 chronic kidney disease, or unspecified chronic kidney disease (principal); J96.01 Acute respiratory failure with hypoxia; N17.9 Acute kidney failure, unspecified; J96.02 Acute respiratory failure with hypercapnia; J44.0 Chronic obstructive pulmonary disease with (acute) lower respiratory infection; J45.901 Unspecified asthma with (acute) exacerbation; I48.2 Chronic atrial fibrillation; I48.92 Unspecified atrial flutter; I50.33 Acute on chronic diastolic (congestive) heart failure; J44.1 Chronic obstructive pulmonary disease with (acute) exacerbation; R44.3 Hallucinations, unspecified; N18.3 Chronic kidney disease, stage 3 (moderate); Z95.0 Presence of cardiac pacemaker; Z95.1 Presence of aortocoronary bypass graft; Z95.5 Presence of coronary angioplasty implant and graft; Z88.0 Allergy status to penicillin; J20.9 Acute bronchitis, unspecified; E78.00 Pure hypercholesterolemia, unspecified; Z86.711 Personal history of pulmonary embolism; I25.10 Atherosclerotic heart disease of native coronary artery without angina pectoris; T38.0X5A Adverse effect of glucocorticoids and synthetic analogues, initial encounter; R73.9 Hyperglycemia, unspecified; D64.9 Anemia, unspecified; K29.70 Gastritis, unspecified, without bleeding